=== PATIENT | female | born 1945 | race Caucasian/White ===

== ENCOUNTER 2019-06-13 12:00 | Outpatient (CLI) | payer MEDICARE, MEDICAID, SELFPAY | END 2019-06-13 12:01 | disposition home or self-care (01) | LOC: SLEEP 06-14 09:20 | PROVIDERS: Family Provider Family Medicine; PCP Family Medicine; Visit Provider Nurse Practitioner Family | DX: G47.33 Obstructive sleep apnea (adult) (pediatric) (principal) | CPT/HCPCS: G0399 ==

== ENCOUNTER 2019-09-20 20:00 | Outpatient (CLI) | payer MEDICARE, MEDICAID, SELFPAY | END 2019-09-20 20:01 | disposition home or self-care (01) | LOC: SLEEP 09-21 11:10 | PROVIDERS: Family Provider Family Medicine; PCP Family Medicine; Visit Provider Nurse Practitioner Family | DX: G47.33 Obstructive sleep apnea (adult) (pediatric) (principal) | CPT/HCPCS: 95811 ==

== ENCOUNTER 2020-01-22 09:41 | Emergency (ER) | payer MEDICARE, MEDICAID, SELFPAY ==
[2020-01-22] VITALS (14 sets, daily range): BP systolic 104–130; BP diastolic 57–83; PULSE 66–90; RESP 14–20; TEMP 36.6–37.2; O2SAT 95–995; BMI 37.3
--- NOTE | 2020-01-22 09:43 | USR_ITS ---
PROCEDURE INFORMATION: Exam: US Pelvis Complete, Transabdominal and US Pelvis, Transvaginal Exam date and time: 01/22/2020 10:46 AM Age: 74 years old Clinical indication: Other: Vaginal bleeding; Additional info: Vag bleeding TECHNIQUE: Imaging protocol: Real-time transabdominal and transvaginal pelvic ultrasound (complete) with image documentation. Transvaginal imaging was used for better evaluation of the endometrium and adnexa. COMPARISON: No relevant prior studies available. FINDINGS: Uterus/cervix: The uterus is atrophic consistent with the patient's age. Right adnexa: The right ovary is not seen. Left adnexa: The left ovary is not seen. Intraperitoneal space: No free fluid is detected. Urinary bladder: Unremarkable. Other findings: The examination is very limited due to the patient's size, medical condition and complaints of pain. Transvaginal imaging was attempted but this was nondiagnostic to the patient's inability to cooperate with the study. US/US pelvic with transvaginal IMPRESSION: 1. Limited examination due to the patient's medical condition. 2. No abnormalities were detected in the pelvis.
--- NOTE | 2020-01-22 09:54 | W.ED.FEMALGU ---
HPI - Female Genitourinary General: Chief complaint: Vaginal Bleeding Stated complaint: COVID POS; PASSING VAGINAL BLOOD CLOTS Time Seen by Provider: 01/22/20 09:43 Source: patient and EMS Mode of arrival: EMS Limitations: no limitations History of Present Illness: HPI Narrative: 74-year-old female who is here from local longterm with vaginal bleeding. States she is passing large blood clots. Patient has been slight cramping. Denies any worsening improving factors. She denies any lightheadedness. She did have a COVID positive test 1 week ago. Associated symptoms: Deny abdominal pain, headache(s) or nausea Review of Systems Const: Denies: fever(s), chills, body aches or change in appetite Eyes: Denies: blurry vision or eye discomfort ENMT: Denies: throat pain or dental pain Card: Denies: chest pain Resp: Denies: dyspnea GI: Denies: abdominal pain, nausea, vomiting or diarrhea : Reports: vaginal bleeding Musc: Denies: neck pain or back pain Skin/Breast: Denies: rash Neuro: Denies: headache(s) Psych: Denies: depression Kvng/Lymph: Denies: easy bruising All/Imm: Denies: urticaria PFSH ED PFSH: Medical History Anemia Chronic diastolic (congestive) heart failure Chronic kidney disease, stage 3, mod decreased GFR Essential hypertension Hypersomnia Hypoxemia Lymphedema Obstructive sleep apnea Paroxysmal atrial fibrillation Pulmonary hypertension Type 2 diabetes mellitus Surgical History H/O oral surgery Family History Other Family history unknown Social History Additional social history: - Tobacco use: Denies Alcohol use: Denies Drug use: Denies Physical Exam Const: COMMON NORMALS: no acute distress, patient oriented x3 and healthy appearing HENMT: COMMON NORMALS: normocephalic and atraumatic HEAD & SCALP: normocephalic and atraumatic Eye: COMMON NORMALS: Equal, round and reactive pupils present and EOMs intact bilaterally PUPIL: Yes Equal, round and reactive pupils present Neck/C-Spine: COMMON NORMALS: full ROM and supple Chest: COMMONS NORMALS: normal inspection of the chest and normal palpation of entire chest wall Resp: COMMON NORMALS: normal respiratory effort, No retractions, No use of accessory muscles and clear to auscultation bilaterally AUSCULTATION: clear to auscultation bilaterally Cardio: COMMON NORMALS: regular rate, regular rhythm and No murmurs present (Cardio) RATE: regular rate RHYTHM: regular rhythm GI: COMMON NORMALS: Normal to inspection, nondistended, normoactive bowel sounds present, Soft to palpation, non-tender and no masses PALPATION: Yes Soft to palpation Extremity: COMMON NORMALS: normal to inspection and full ROM Neuro: COMMON NORMALS: patient oriented x3, moves all extremities and no focal motor deficits Psych: COMMON NORMALS: mental status grossly normal, Normal thought process present and cooperative THOUGHT PROCESS: Normal thought process present Skin: COMMON NORMALS: no rashes or lesions noted and no wounds GENERAL SKIN EXAM: no rashes or lesions noted Course Vital Signs: Vital signs: Vital Signs Temperature 99.0 F 01/22/20 09:56 Pulse Rate 71 01/22/20 12:01 Respiratory Rate 16 01/22/20 12:01 Blood Pressure 119/67 01/22/20 12:01 Pulse Oximetry 99 01/22/20 12:01 MDM - Female MDM Narrative: Medical decision making narrative: Patient presents here with vaginal bleeding with slight anemia. Patient's blood pressure and heart rate here have been normal. Patient's CT of her abdomen showed no acute findings. Did speak to ANIMAL ASSISTANT will have her follow-up outpatient. Informed her we do not have any viral ICU beds at this time and would have to transfer her. She refuses transfer and states she just wants to go back to the longterm. I believe her anemia is more chronic than from acute blood loss. Her bleeding is slowed significantly here I feel she is stable for discharge back to the longterm. If she has any increased bleeding or low blood pressures she is to return immediately from the longterm. Lab Data: Labs: Lab Results 01/22/20 01/22/20 01/22/20 Range/Units 09:59 09:59 10:58 WBC 5.0 (4.0-10.0) 10^3/ uL RBC 2.78 L (4.1-5.3) 10^6/u L Hgb 7.6 L (11.5-15.3) g/dL Hct 25.2 L (37.0-47.0) % MCV 90.6 (81-99) fL MCH 27.3 L (28.0-34.0) pg MCHC 30.2 (30.0-36.0) g/dL RDW 14.9 (12.1-15.1) % Plt Count 185 (130-400) 10^3/c mm MPV 11.1 H (7.4-10.4) fL Neut % (Auto) 66.2 % Lymph % (Auto) 17.5 % [place] % (Auto) 12.3 % Eos % (Auto) 3.2 % Baso % (Auto) 0.4 % Neut # (Auto) 3.28 (1.8-7.7) 10^3/u L Lymph # (Auto) 0.9 (0.8-4.8) 10^3/u L [place] # (Auto) 0.6 (0.2-0.9) 10^3/u L Eos # (Auto) 0.2 (0.0-0.8) 10^3/u L Baso # (Auto) 0.0 (0.0-0.1) 10^3/u L Nucleated RBC % (a uto) 0 % Nucleated RBCs # 0.0 /100WBC Sodium 136 (136-145) mmol/L Potassium 3.9 (3.5-5.1) mmol/L Chloride 99 (98-107) mmol/L Carbon Dioxide 26 (22-29) mmol/L Anion Gap 14.9 (5-19) BUN 33 H (8-23) mg/dL Creatinine 1.7 H (0.5-0.9) mg/dL GFR Calculation Not Reportable Glucose 155 H (65-115) mg/dL Calculated Osmolal ity 292 (285-295) mOsm/k g Calcium 8.9 (8.5-10.5) mg/dL Total Bilirubin 0.7 (0.15-1.2) mg/dL AST 18 (0-32) U/L ALT 7 (0-33) U/L Alkaline Phosphata se 108 H (35-105) IU/L Total Protein 6.3 L (6.6-8.7) g/dL Albumin 3.2 L (3.5-5.2) g/dL Globulin 3.1 (1.3-4.6) g/dL Blood Type A Positive Rho(D) Type Positive Antibody Screen Negative Crossmatch See Detail Imaging Data: US: Radiologist's impression: [address] [place] [address] Ultrasound Report Signed Patient: Kory Elder Unit #: [id number] : 1945 Age/Sex: 74 / F ADM Date: 01/22/20 Loc: ER Room/Bed: Attending Dr: Ordering Provider/Ordering MD: Ciera Muñoz MD Date of Service: 01/22/20 Procedure(s): US pelvic with transvaginal Accession Number(s): [id number] Report Number: [id number] PROCEDURE INFORMATION: Exam: US Pelvis Complete, Transabdominal and US Pelvis, Transvaginal Exam date and time: 01/22/2020 10:46 AM Age: 74 years old Clinical indication: Other: Vaginal bleeding; Additional info: Vag bleeding TECHNIQUE: Imaging protocol: Real-time transabdominal and transvaginal pelvic ultrasound (complete) with image documentation. Transvaginal imaging was used for better evaluation of the endometrium and adnexa. COMPARISON: No relevant prior studies available. FINDINGS: Uterus/cervix: The uterus is atrophic consistent with the patient's age. Right adnexa: The right ovary is not seen. Left adnexa: The left ovary is not seen. Intraperitoneal space: No free fluid is detected. Urinary bladder: Unremarkable. Other findings: The examination is very limited due to the patient's size, medical condition and complaints of pain. Transvaginal imaging was attempted but this was nondiagnostic to the patient's inability to cooperate with the study. US/US pelvic with transvaginal IMPRESSION: 1. Limited examination due to the patient's medical condition. 2. No abnormalities were detected in the pelvis. CT Abd/Pel: Radiologist's impression: [address] [place] [address] Ultrasound Report Signed Patient: Kory Elder Unit #: [id number] : 1945 Age/Sex: 74 / F ADM Date: 01/22/20 Loc: ER Room/Bed: Attending Dr: Ordering Provider/Ordering MD: Ciera Muñoz MD Date of Service: 01/22/20 Procedure(s): US pelvic with transvaginal Accession Number(s): [id number] Report Number: [id number] PROCEDURE INFORMATION: Exam: US Pelvis Complete, Transabdominal and US Pelvis, Transvaginal Exam date and time: 01/22/2020 10:46 AM Age: 74 years old Clinical indication: Other: Vaginal bleeding; Additional info: Vag bleeding TECHNIQUE: Imaging protocol: Real-time transabdominal and transvaginal pelvic ultrasound (complete) with image documentation. Transvaginal imaging was used for better evaluation of the endometrium and adnexa. COMPARISON: No relevant prior studies available. FINDINGS: Uterus/cervix: The uterus is atrophic consistent with the patient's age. Right adnexa: The right ovary is not seen. Left adnexa: The left ovary is not seen. Intraperitoneal space: No free fluid is detected. Urinary bladder: Unremarkable. Other findings: The examination is very limited due to the patient's size, medical condition and complaints of pain. Transvaginal imaging was attempted but this was nondiagnostic to the patient's inability to cooperate with the study. US/US pelvic with transvaginal IMPRESSION: 1. Limited examination due to the patient's medical condition. 2. No abnormalities were detected in the pelvis. Discharge Plan Discharge Patient Disposition: Home Clinical Impression: Vaginal bleeding Condition: Stable Discharge Orders: Discharge Order (Routine); Ordered 01/22/20 Ordered By: Ciera Muñoz Referrals: Meredith Edgar MD [Primary Care Provider] - 1-3 days Discharge Diet: Advance as tolerated Discharge Activity: Resume usual activity Patient Instructions: Abnormal Uterine Bleeding Coding Level of Care Code ED Industrial Relations Representative for Chg Fwd Exam Comprehensive
[2020-01-22 10:23] LABS: Basophils % 0.4 %; Eosinophils # 0.2 10^3/uL (0.0-0.8); Eosinophils % 3.2 %; Hematocrit 25.2 % (37.0-47.0); Hemoglobin 7.6 g/dL (11.5-15.3); Lymphocytes # 0.9 10^3/uL (0.8-4.8); Lymphocytes % 17.5 %; Mean Corpuscular HGB Conc 30.2 g/dL (30.0-36.0); Mean Corpuscular Hemoglobin 27.3 pg (28.0-34.0); Mean Corpuscular Volume 90.6 fL (81-99); Mean Platelet Volume 11.1 fL (7.4-10.4); Monocytes # 0.6 10^3/uL (0.2-0.9); Monocytes % 12.3 %; Neutrophils # 3.28 10^3/uL (1.8-7.7); Neutrophils % 66.2 %; Nucleated Red Blood Cells % 0 %; Platelet Count 185 10^3/cmm (130-400); Red Blood Count 2.78 10^6/uL (4.1-5.3); Red Cell Distribution Width 14.9 % (12.1-15.1)
--- NOTE | 2020-01-22 10:37 | CTR_ITS ---
PROCEDURE INFORMATION: Exam: CT Abdomen And Pelvis With Contrast Exam date and time: 01/22/2020 10:38 AM Age: 74 years old Clinical indication: Other: Vag bleeding TECHNIQUE: Imaging protocol: Computed tomography of the abdomen and pelvis with intravenous contrast. Radiation optimization: All CT scans at this facility use at least one of these dose optimization techniques: automated exposure control; mA and/or kV adjustment per patient size (includes targeted exams where dose is matched to clinical indication); or iterative reconstruction. Contrast material: VISI 320; Contrast volume: 75 ml; Contrast route: INTRAVENOUS (IV); COMPARISON: US pelvic with transvaginal 01/22/2020 10:52 AM RADIATION DOSE METRICS: Total DLP (mGy-cm): 1607.16 FINDINGS: Tubes, catheters and devices: A neurostimulator is present in the lower back with leads extending to the sacrum. Lungs: There is mild bibasilar atelectasis. The heart is enlarged. There is calcification of the mitral annulus. Mediastinal space: Small sliding hiatal hernia. Liver: Normal. No mass. Gallbladder and bile ducts: Normal. No calcified stones. No ductal dilation. Pancreas: Normal. No ductal dilation. Spleen: Normal. No splenomegaly. Adrenals: Normal. No mass. Kidneys and ureters: Normal. No hydronephrosis. Stomach and bowel: Unremarkable. No obstruction. No mucosal thickening. Appendix: No evidence of appendicitis. Intraperitoneal space: Unremarkable. No free air. No significant fluid collection. Vasculature: Atherosclerotic aorta but no aneurysm. 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 There is no evidence of hemorrhage. Lymph nodes: Unremarkable. No enlarged lymph nodes. Urinary bladder: There is mural thickening of the urinary bladder. This is nonspecific but could indicate a cystitis. Correlation with history and physical is advised. Reproductive: The uterus is atrophic consistent with the patient's age. No adnexal masses are seen. Bones/joints: There is DJD in the spine with joint space narrowing sclerosis and osteophyte formation. Soft tissues: Unremarkable. CT/CT abdomen pelvis w con* [id number] IMPRESSION: 1. Cardiomegaly. 2. 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 3. Mural thickening of the urinary bladder might suggest cystitis. 4. No other acute abnormalities are seen in the abdomen and pelvis. Radiation Dose CTDIVOL = (mGy): DLP = 1607.16 (mGy-cm)
[2020-01-22 10:39] LABS: Alanine Aminotransferase 7 U/L (0-33); Albumin Level 3.2 g/dL (3.5-5.2); Alkaline Phosphatase 108 IU/L (35-105); Anion Gap 14.9 (5-19); Aspartate Amino Transferase 18 U/L (0-32); Blood Urea Nitrogen 33 mg/dL (8-23); Calcium 8.9 mg/dL (8.5-10.5); Carbon Dioxide 26 mmol/L (22-29); Chloride 99 mmol/L (98-107); Globulin 3.1 g/dL (1.3-4.6); Glucose 155 mg/dL (65-115); Osmolality Calculated 292 mOsm/kg (285-295); Potassium 3.9 mmol/L (3.5-5.1); Sodium 136 mmol/L (136-145); Total Bilirubin 0.7 mg/dL (0.15-1.2); Total Protein 6.3 g/dL (6.6-8.7)
[2020-01-22 10:44] LABS: Creatinine Clr Calc Pharmacy 33.7828
--- NOTE | 2020-01-22 11:09 | PC.NURSE ---
Ultrasound in room
--- NOTE | 2020-01-22 11:37 | PC.NURSE ---
Gone to Radiology
--- NOTE | 2020-01-22 11:50 | PC.NURSE ---
Left forearm 18g infiltrated while in Radiology
[2020-01-22] MEDS: iodixanol 320 mg/mL 100mL Btl IV (11:55)
[2020-01-22 13:35] LABS: Bilirubin Urine Neg (Negative); Blood Urine 3+ (Negative); Glucose Urine UA Norm (Normal); Ketones Urine Negative (Negative); Leukocyte Esterase Urine 1+ (Negative); Nitrate Urine Negative (Negative); Protein Urine 1+ (Negative); Specific Gravity, Urine 1.005 (1.005-1.030); Urine Appearance Bloody (CLEAR); Urine Color Red (Yellow); Urobilinogen Urine Norm (Negative); pH Urine 6.5 (5-7)
[2020-01-22 13:37] LABS: RBC Urine TOO NUMEROUS TO CNT /hpf (0-2); Squamous Epithelial Cell Urine 0-4 /hpf (0-5); WBC Urine 25-40 /hpf (0-5)
[2020-01-22 13:38] LABS: Add Urine Culture? Yes; Bacteria Urine 2+ /hpf
--- NOTE | 2020-01-22 15:25 | PC.NURSE ---
Report called to Darshan Phillips , gave to [facility] orders #[id number]
== END 2020-01-22 16:43 | disposition home or self-care (01) ==
PROVIDERS: Emergency Provider Emergency Medicine; PCP Family Medicine
DX: N93.9 Abnormal uterine and vaginal bleeding, unspecified (principal); I13.0 Hypertensive heart and chronic kidney disease with heart failure and stage 1 through stage 4 chronic kidney disease, or unspecified chronic kidney disease; E11.22 Type 2 diabetes mellitus with diabetic chronic kidney disease; N18.30 Chronic kidney disease, stage 3 unspecified; I50.32 Chronic diastolic (congestive) heart failure; I48.0 Paroxysmal atrial fibrillation; R10.2 Pelvic and perineal pain
CPT/HCPCS: 12345; 36430; 51702; 74177; 76830; 76856; 80053; 81001; 85025; 86850; 86900; 86920; 87077; 87086; 87186; 99284; P9016; Q9967

== ENCOUNTER 2020-01-30 16:54 | Inpatient (IN) | payer MEDICARE, MEDICAID, SELFPAY ==
[2020-01-30] VITALS (14 sets, daily range): BP systolic 87–103; BP diastolic 53–72; PULSE 18–83; RESP 15–21; TEMP 36.5–36.9; O2SAT 84–100; BMI 38.2
--- NOTE | 2020-01-30 17:02 | ECG_ITS ---
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 Measurements Intervals Sylvester Rate: 77 P: ME: -1 QRS: 108 QRSD: 112 T: -6 QT: 413 QTc: 467 Interpretive Statements ATRIAL FIBRILLATION INCOMPLETE RIGHT BUNDLE BRANCH BLOCK [90+ ms QRS DURATION, TERMINAL R IN V1/V2, 40+ ms S IN I/aVL/V4/V5/V6] Nonspecific ST-T change in the anterior leads Compared to ECG 11/24/2018 23:21:16 Incomplete right bundle-branch block now present Right-axis deviation no longer present Right bundle-branch block no longer present Electronically Signed On 01-30-2020 21:44:59 CDT by Terrance Nathan M.D. [email or web address]
--- NOTE | 2020-01-30 17:03 | XRR_ITS ---
PROCEDURE INFORMATION: Exam: XR Chest, 1 View Exam date and time: 01/30/2020 5:45 PM Age: 74 years old Clinical indication: Cough and dyspnea and shortness of breath; Additional info: Dyspnea/cough x 10 days TECHNIQUE: Imaging protocol: XR of the chest Views: 1 view. COMPARISON: [place] IV [place] [id number] 11/25/2018 3:40 PM FINDINGS: Lungs: Unremarkable. No consolidation. Pleural space: Unremarkable. No pleural effusion. No pneumothorax. Heart/Mediastinum: The cardiac silhouette is enlarged but unchanged. There is calcification of the mitral annulus. Bones/joints: Unremarkable. XR/XR chest 1V portable [id number] IMPRESSION: Stable cardiomegaly. No acute abnormality.
--- NOTE | 2020-01-30 17:07 | W.ED.GENADLT ---
Documented by User: Baljeet Parada DO 01/31/20 06:35 HPI - General Adult General: Chief complaint: Recheck/Abnormal Lab/Rx Stated complaint: ABNORMAL LAB Time Seen by Provider: 01/30/20 16:55 History of Present Illness: HPI narrative: 74-year-old female presents to the emergency room with a complaint of low hemoglobin. She came in by EMS directed here by her primary from [facility]. She has had vaginal bleeding issues in the past she was seen earlier this month and discharged back to the custodial. She was seen last month by APARTMENT MAINTENANCE WORKER with a complaint of vaginal bleeding there is a comment in the note about getting a pelvic ultrasound and just observing if the uterine stripe is less than 5 mm. Discussion the patient the potential that she may have catching that usually postmenopausal bleeding that is as heavy would be considered cancer until proven otherwise she does not want to pursue anything evidently so there was no further testing or evaluation done until recently with a sick significant blood loss. On 1010 she was here and had a CT and a pelvic ultrasound both of which were negative she was transfused and she preferred to go back to the custodial at that time. She is beginning to have heavy bleeding again she denies any abdominal pelvic pain any chest pain. Patient recently tested positive for Covid on 01 15 and was moved from the Covid isolation unit to a regular room today. Onset (ago): week(s) Severity: severe Relieving factors: none Exacerbating factors: none Associated symptoms: Deny chest pain, confusion, cough, diaphoresis, decreased appetite, dyspnea, fevers/chills, headache(s), malaise, nausea, rash, palpitations, seizures, short of breath, syncope, vomiting or weakness Treatments prior to arrival: none Review of Systems Const: Denies: malaise or diaphoresis ENMT: Denies: throat pain, ear or mastoid pain, nasal discharge or nasal congestion Card: Denies: chest pain, palpitations or syncope Resp: Denies: dyspnea GI: Denies: nausea or vomiting : Denies: flank pain, difficulty voiding, dysuria, urinary frequency or urinary urgency Skin/Breast: Denies: rash Neuro: Denies: headache(s) or confusion [facility] PFSH: Medical History Anemia Chronic diastolic (congestive) heart failure Chronic kidney disease, stage 3, mod decreased GFR Essential hypertension Hypersomnia Hypoxemia Lymphedema Obstructive sleep apnea Paroxysmal atrial fibrillation Pulmonary hypertension Type 2 diabetes mellitus Surgical History H/O oral surgery Family History Other Family history unknown Social History Additional social history: - Tobacco use: Denies Alcohol use: Denies Drug use: Denies Physical Exam Const: COMMON NORMALS: no acute distress GENERAL APPEARANCE: cooperative and comfortable HENMT: COMMON NORMALS: normocephalic, atraumatic and hearing grossly normal bilaterally HEAD & SCALP: normocephalic and atraumatic Neck/C-Spine: COMMON NORMALS: no JVD Resp: COMMON NORMALS: normal respiratory effort, No retractions, No use of accessory muscles and clear to auscultation bilaterally AUSCULTATION: clear to auscultation bilaterally Cardio: COMMON NORMALS: no JVD, regular rate, regular rhythm and No murmurs present (Cardio) RATE: regular rate RHYTHM: regular rhythm GI: COMMON NORMALS: Soft to palpation and No hepatosplenomegaly present AUSCULTATION: Yes normoactive bowel sounds PALPATION: Yes Soft to palpation, No Tenderness to palpation present (GI), No Guarding due to palpation present (GI) and Yes No hepatosplenomegaly present : OTHER: Visual inspection barrier of the perineum verifies vaginal bleeding. Rectal exam done at the same time was negative as a source for bright red blood and occult for stool was negative as well. Extremity: COMMON NORMALS: normal to inspection, capillary refill normal, no clubbing, cyanosis or edema, no calf tenderness and no pedal edema Skin: COMMON NORMALS: no rashes or lesions noted GENERAL SKIN EXAM: no rashes or lesions noted Course Vital Signs: Vital signs: Vital Signs Temperature 97.8 F 01/31/20 04:00 Pulse Rate 81 01/31/20 04:00 Respiratory Rate 17 01/31/20 04:00 Blood Pressure 94/64 01/31/20 04:00 Pulse Oximetry 94 01/31/20 04:00 MDM - General Adult MDM Narrative: Medical decision making narrative: Care transferred Dr. Muñoz at change of shift. See his note for final diagnosis and disposition. Lab Data: Labs: Lab Results 01/30/20 01/30/20 01/30/20 Range/Units 17:38 17:38 17:38 WBC 6.9 (4.0-10.0) 10^3/ uL RBC 2.03 L (4.1-5.3) 10^6/u L Hgb 5.5 L* (11.5-15.3) g/dL Hct 18.4 L* (37.0-47.0) % MCV 90.6 (81-99) fL MCH 27.1 L (28.0-34.0) pg MCHC 29.9 L (30.0-36.0) g/dL RDW 15.3 H (12.1-15.1) % Plt Count 352 (130-400) 10^3/c mm MPV 10.2 (7.4-10.4) fL Neut % (Auto) 58.6 % Lymph % (Auto) 21.3 % [place] % (Auto) 11.4 % Eos % (Auto) 7.7 % Baso % (Auto) 0.6 % Neut # (Auto) 4.02 (1.8-7.7) 10^3/u L Lymph # (Auto) 1.5 (0.8-4.8) 10^3/u L [place] # (Auto) 0.8 (0.2-0.9) 10^3/u L Eos # (Auto) 0.5 (0.0-0.8) 10^3/u L Baso # (Auto) 0.0 (0.0-0.1) 10^3/u L Nucleated RBC % (a uto) 0 % Nucleated RBCs # 0.0 /100WBC Sodium 135 L (136-145) mmol/L Potassium 4.9 (3.5-5.1) mmol/L Chloride 97 L (98-107) mmol/L Carbon Dioxide 27 (22-29) mmol/L Anion Gap 15.9 (5-19) BUN 32 H (8-23) mg/dL Creatinine 2.0 H (0.5-0.9) mg/dL GFR Calculation Not Reportable Glucose 109 (65-115) mg/dL Calculated Osmolal ity 287 (285-295) mOsm/k g Calcium 8.9 (8.5-10.5) mg/dL Total Bilirubin 0.5 (0.15-1.2) mg/dL AST 27 (0-32) U/L ALT 16 (0-33) U/L Alkaline Phosphata se 109 H (35-105) IU/L Total Protein 6.4 L (6.6-8.7) g/dL Albumin 3.4 L (3.5-5.2) g/dL Globulin 3.0 (1.3-4.6) g/dL Blood Type A Positive Rho(D) Type Positive Antibody Screen Negative Crossmatch See Detail Discharge Plan Discharge Patient Disposition: Admitted As Inpatient Admit Provider: Larissa Edmondson Clinical Impression: Postmenopausal bleeding Anemia Qualifiers: Anemia type: unspecified type Qualified Code(s): D64.9 - Anemia, unspecified Condition: Stable Referrals: Meredith Edgar MD [Primary Care Provider] - Discharge Date/Time: 01/30/20 20:49 Coding Level of Care Code ED Elementary Educator for Chg Fwd Exam Comprehensive Documented by User: Ciera Muñoz MD 01/30/20 18:46 HPI - General Adult General: Chief complaint: Recheck/Abnormal Lab/Rx Stated complaint: ABNORMAL LAB Time Seen by Provider: 01/30/20 16:55 PFSH ED PFSH: Medical History Anemia Chronic diastolic (congestive) heart failure Chronic kidney disease, stage 3, mod decreased GFR Essential hypertension Hypersomnia Hypoxemia Lymphedema Obstructive sleep apnea Paroxysmal atrial fibrillation Pulmonary hypertension Type 2 diabetes mellitus Surgical History H/O oral surgery Family History Other Family history unknown Social History Additional social history: - Tobacco use: Denies Alcohol use: Denies Drug use: Denies Course Vital Signs: Vital signs: Vital Signs Temperature 97.8 F 01/31/20 04:00 Pulse Rate 81 01/31/20 04:00 Respiratory Rate 17 01/31/20 04:00 Blood Pressure 94/64 01/31/20 04:00 Pulse Oximetry 94 01/31/20 04:00 MDM - General Adult MDM Narrative: Medical decision making narrative: Patient presents here with anemia likely from vaginal bleeding. I spoke to Dr. Urias and will admit. Will transfuse patient along with give a dose of transaminase acid. Patient has been stable here with normal vital signs. She has not been hypotensive. Lab Data: Labs: Lab Results 01/30/20 01/30/20 01/30/20 Range/Units 17:38 17:38 17:38 WBC 6.9 (4.0-10.0) 10^3/ uL RBC 2.03 L (4.1-5.3) 10^6/u L Hgb 5.5 L* (11.5-15.3) g/dL Hct 18.4 L* (37.0-47.0) % MCV 90.6 (81-99) fL MCH 27.1 L (28.0-34.0) pg MCHC 29.9 L (30.0-36.0) g/dL RDW 15.3 H (12.1-15.1) % Plt Count 352 (130-400) 10^3/c mm MPV 10.2 (7.4-10.4) fL Neut % (Auto) 58.6 % Lymph % (Auto) 21.3 % [place] % (Auto) 11.4 % Eos % (Auto) 7.7 % Baso % (Auto) 0.6 % Neut # (Auto) 4.02 (1.8-7.7) 10^3/u L Lymph # (Auto) 1.5 (0.8-4.8) 10^3/u L [place] # (Auto) 0.8 (0.2-0.9) 10^3/u L Eos # (Auto) 0.5 (0.0-0.8) 10^3/u L Baso # (Auto) 0.0 (0.0-0.1) 10^3/u L Nucleated RBC % (a uto) 0 % Nucleated RBCs # 0.0 /100WBC Sodium 135 L (136-145) mmol/L Potassium 4.9 (3.5-5.1) mmol/L Chloride 97 L (98-107) mmol/L Carbon Dioxide 27 (22-29) mmol/L Anion Gap 15.9 (5-19) BUN 32 H (8-23) mg/dL Creatinine 2.0 H (0.5-0.9) mg/dL GFR Calculation Not Reportable Glucose 109 (65-115) mg/dL Calculated Osmolal ity 287 (285-295) mOsm/k g Calcium 8.9 (8.5-10.5) mg/dL Total Bilirubin 0.5 (0.15-1.2) mg/dL AST 27 (0-32) U/L ALT 16 (0-33) U/L Alkaline Phosphata se 109 H (35-105) IU/L Total Protein 6.4 L (6.6-8.7) g/dL Albumin 3.4 L (3.5-5.2) g/dL Globulin 3.0 (1.3-4.6) g/dL Blood Type A Positive Rho(D) Type Positive Antibody Screen Negative Crossmatch See Detail Discharge Plan Discharge Patient Disposition: Admitted As Inpatient Admit Provider: Larissa Edmondson Clinical Impression: Postmenopausal bleeding Anemia Qualifiers: Anemia type: unspecified type Qualified Code(s): D64.9 - Anemia, unspecified Condition: Stable Referrals: Meredith Edgar MD [Primary Care Provider] - Discharge Date/Time: 01/30/20 20:49 Coding Level of Care Code ED Elementary Educator for g Fwd Exam Comprehensive
[2020-01-30 17:57] LABS: Alanine Aminotransferase 16 U/L (0-33); Albumin Level 3.4 g/dL (3.5-5.2); Alkaline Phosphatase 109 IU/L (35-105); Aspartate Amino Transferase 27 U/L (0-32); Blood Urea Nitrogen 32 mg/dL (8-23); Calcium 8.9 mg/dL (8.5-10.5); Carbon Dioxide 27 mmol/L (22-29); Chloride 97 mmol/L (98-107); Glucose 109 mg/dL (65-115); Osmolality Calculated 287 mOsm/kg (285-295); Sodium 135 mmol/L (136-145); Total Bilirubin 0.5 mg/dL (0.15-1.2); Total Protein 6.4 g/dL (6.6-8.7)
[2020-01-30 17:59] LABS: Anion Gap 15.9 (5-19)
[2020-01-30 18:00] LABS: Potassium 4.9 mmol/L (3.5-5.1)
[2020-01-30 18:11] LABS: Basophils % 0.6 %; Eosinophils # 0.5 10^3/uL (0.0-0.8); Eosinophils % 7.7 %; Lymphocytes # 1.5 10^3/uL (0.8-4.8); Lymphocytes % 21.3 %; Mean Corpuscular HGB Conc 29.9 g/dL (30.0-36.0); Mean Corpuscular Hemoglobin 27.1 pg (28.0-34.0); Mean Corpuscular Volume 90.6 fL (81-99); Mean Platelet Volume 10.2 fL (7.4-10.4); Monocytes # 0.8 10^3/uL (0.2-0.9); Monocytes % 11.4 %; Neutrophils # 4.02 10^3/uL (1.8-7.7); Neutrophils % 58.6 %; Nucleated Red Blood Cells % 0 %; Platelet Count 352 10^3/cmm (130-400); Red Blood Count 2.03 10^6/uL (4.1-5.3); Red Cell Distribution Width 15.3 % (12.1-15.1); White Blood Count 6.9 10^3/uL (4.0-10.0)
[2020-01-30 18:12] LABS: Hematocrit 18.4 % (37.0-47.0)
[2020-01-30 18:15] LABS: Hemoglobin 5.5 g/dL (11.5-15.3)
[2020-01-31] VITALS (11 sets, daily range): BP systolic 80–100; BP diastolic 51–78; PULSE 72–87; RESP 16–22; TEMP 36.4–36.9; O2SAT 89–99
--- NOTE | 2020-01-31 02:38 | PC.NURSE ---
two full briefs since admitted
[2020-01-31] MEDS: sodium chloride 0.9% (100 ml) 100 ML (03:00)
[2020-01-31 05:04] LABS: Basophils # 0.1 10^3/uL (0.0-0.1); Basophils % 1.2 %; Eosinophils # 0.6 10^3/uL (0.0-0.8); Eosinophils % 8.7 %; Hemoglobin 8.3 g/dL (11.5-15.3); Lymphocytes # 1.3 10^3/uL (0.8-4.8); Lymphocytes % 18.3 %; Mean Corpuscular HGB Conc 31.9 g/dL (30.0-36.0); Mean Corpuscular Hemoglobin 28.7 pg (28.0-34.0); Mean Platelet Volume 10.5 fL (7.4-10.4); Monocytes # 0.9 10^3/uL (0.2-0.9); Monocytes % 12.2 %; Neutrophils # 4.24 10^3/uL (1.8-7.7); Neutrophils % 58.9 %; Nucleated Red Blood Cells % 0 %; Platelet Count 332 10^3/cmm (130-400); Red Blood Count 2.89 10^6/uL (4.1-5.3); Red Cell Distribution Width 14.7 % (12.1-15.1); White Blood Count 7.2 10^3/uL (4.0-10.0)
--- NOTE | 2020-01-31 09:49 | PC.CHAP ---
Pastoral Care Encounter/Spiritual Assessment Type of Contact [] Declined cst visit [] Patient/Family/Request visit [] Outpatient visit [] Follow-up visit [] Physician referral [] Code/Alert [x] Routine visit [] Staff referral [] Actively dying [] Patient sleeping [] Family support [] [] Out of room [] Palliative care [] [] Receiving care in room [] Pre-surgical visit [] Trauma [] Long length of stay [] ICU visit [] Other: Relational/Emotional Strength [] Patient feels connected with others/family/visitors/staff [] Distress [x] Loneliness/isolation [] Abandonment Spirituality of Patient [x] Person of Niki [] Attends Anabaptism of their Niki [] Believes in Prayer [] Reads Bible or Buddhism materials [] There are Spiritual issues to be addressed Oracle Application Architect Interventions [x] Prayer [] Active listening [] Non-anxious presence [] Spiritual/emotional support [] Crisis/trauma care [] Spiritual counseling [] Bereavement support [] Provided bereavement packet [] Provided Bible/devotional materials [] Provided toy/stuffed animal, coloring book to patient or family member [] Provided Communion [] Anointing/Leonard [] Salvation [x] Completed spiritual assessment [] Other: Impact on Illness or Injury [] Angry [] Fearful [] Anxious [] Often cries [] Exhaustion [] Unable to work [] Unable to attend protestant [] Unable to walk/stand [] Unable to read [] Unable to drive [] Unable to eat/drink [] Unable to sleep [] Unable to be with family [] Patient intubated [] Other: Summary patient not feeling well problems talking Time spent with patient 10 min
--- NOTE | 2020-01-31 12:43 | US_ITS ---
WS: [id number] ULTRASOUND PELVIS TECHNIQUE: Transvaginal. CLINICAL INFORMATION: postmenopausal bleeding LMP: Menopause : No. COMPARISON: January 22, 2020 FINDINGS/IMPRESSION: Transvaginal examination was attempted after patient's consent. Despite multiple attempts, including several different ultrasound technicians, patient could not tole rate transvaginal study due to positioning and pain. No diagnostic images were obtained. Patient's nu rse was present for the duration of the examination.
--- NOTE | 2020-01-31 12:57 | P.HP_ITS ---
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 She came in by EMS directed here by her primary from [facility]. She has had vaginal bleeding issues in the past she was seen earlier this month and discharged back to the residential. She was seen last month at the clinic with a complaint of vaginal bleeding there is a comment in the note about getting a pelvic ultrasound and just observing if the uterine stripe is less than 5 mm. Discussion the patient the potential that she may have catching that usually postmenopausal bleeding that is as heavy would be considered cancer until proven otherwise she did not want to pursue anything at that time and no further evaluation done untilnow with significant blood loss. She had a CT and a pelvic ultrasound both of which were negative she was transfused and she preferred to go back to the residential at that time. She is beginning to have heavy bleeding again she denies any abdominal pelvic pain any chest pain. A transvagin al US was not performed and the reported abdominal US does not report any measurements needed for determine management. Review of Systems Const: Denies: fever(s), chills, body aches or change in appetite Eyes: Denies: blurry vision or eye discomfort ENMT: Denies: throat pain or dental pain Card: Denies: chest pain Resp: Denies: dyspnea GI: Denies: abdominal pain, nausea, vomiting or diarrhea : Reports: vaginal bleeding Musc: Denies: neck pain or back pain Skin/Breast: Denies: rash Neuro: Denies: headache(s) Psych: Denies: depression Kvng/Lymph: Denies: easy bruising All/Imm: Denies: urticaria Medications/Allergies Home Medications Medication Instructions Recorded Confirmed Last Taken Type bisacodyl [Dulcolax (bisacodyl)] 10 mg [place] DAILY PRN 01/31/20 01/31/20 Unknown History fluticasone propionate [Flonase 1 spray INTRANASAL QID PRN 01/31/20 01/31/20 Unk nown History Allergy Relief] lovastatin 20 mg PO QPM 01/31/20 01/31/20 Unknown History sodium chloride [Saline Nasal] 1 spray INTRANASAL QID PRN 01/31/20 01/31/20 Unknown History Allergies Allergy/AdvReac Type Severity Reaction Status Date / Time meperidine [From Demerol] Allergy Intermediate unknown Verified 12/13/19 15:40 oxybutynin Allergy Mild Unknown Verified 12/13/19 15:40 pentazocine Allergy Mild Unknown Verified 12/13/19 15:40 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 PFSH: Medical History Anemia Chronic diastolic (congestive) heart failure Chronic kidney disease, stage 3, mod decreased GFR Essential hypertension Hypersomnia Hypoxemia Lymphedema Obstructive sleep apnea Paroxysmal atrial fibrillation Pulmonary hypertension Type 2 diabetes mellitus Surgical History H/O oral surgery Family History Other Family history unknown Social History Additional social history: - Tobacco use: Denies Alcohol use: Denies Drug use: Denies History History History 1 Term 1 Miscarriages/Ectopic 0 0 Living Children 1 Vitals/I&O/Wt Last Vital Signs Temp 98.4 F 01/31/20 15:26 Pulse 78 01/31/20 15:26 Resp 16 01/31/20 15:26 BP 93/64 01/31/20 15:26 Pulse Ox 89 L 01/31/20 15:26 01/31/20 01/31/20 01/31/20 06:59 14:59 22:59 Intake Total 350 / 810 Balance 350 / 810 Weight last 48 hrs Weight 104.326 kg Physical Exam Narrative: EXAM NARRATIVE: Const: COMMON NORMALS: no acute distress, patient oriented x3 and healthy appearing HENMT: COMMON NORMALS: normocephalic and atraumatic HEAD & SCALP: normocephalic and atraumatic Eye: COMMON NORMALS: Equal, round and reactive pupils present and EOMs intact bilaterally PUPIL: Yes Equal, round and reactive pupils present Neck/C-Spine: COMMON NORMALS: full ROM and supple Chest: COMMONS NORMALS: normal inspection of the chest and normal palpation of entire chest wall Resp: COMMON NORMALS: normal respiratory effort, No retractions, No use of accessory muscles and clear to auscultation bilaterally AUSCULTATION: clear to auscultation bilaterally Cardio: COMMON NORMALS: regular rate, regular rhythm and No murmurs present (Cardio) RATE: regular rate RHYTHM: regular rhythm GI: COMMON NORMALS: Normal to inspection, nondistended, normoactive bowel sounds present, Soft to palpation, non-tender and no masses PALPATION: Yes Soft to palpation Extremity: COMMON NORMALS: normal to inspection and full ROM Neuro: COMMON NORMALS: patient oriented x3, moves all extremities and no focal motor deficits Psych: COMMON NORMALS: mental status grossly normal, Normal thought process present and cooperative THOUGHT PROCESS: Normal thought process present Skin: COMMON NORMALS: no rashes or lesions noted and no wounds GENERAL SKIN EXAM: no rashes or lesions noted Data : 01/31/20 04:05 01/30/20 17:38 A&P Assessment and plan (1) Postmenopausal bleeding: A number of conditions can cause abnormal bleeding during the menopause. Women who take hormone therapy may experience cyclical bleeding. Any other bleeding that occurs during menopause is abnormal and should be investigated. Causes of abnormal bleeding during menopause include: Atrophy or excessive thinning of the tissue lining the vagina and uterus, caused by low hormone levels, Cancer or precancerous changes (hyperplasia) of the uterine lining, Polyps or fibroids, Infection of the uterus, Use of blood thinners or anticoagulants, Side effects of radiation therapy. An endometrial biopsy was recommended and the patient was counseled regarding the procedure and the need for a transvaginal US to assess endometrial lining before biopsy. She agrre to have a transvaginal US. Transvaginal US ordered. Status: Acute Attestations Medical Necessity Statement*: In my professional opinion per admitting diagnosis Coding Level of Care Code Acute [facility] Diagnoses Postmenopausal bleeding N95.0
--- NOTE | 2020-01-31 15:04 | PC.NURSE ---
Notified Dr. valente office that Dr. Valente is primary physician on this patient.
--- NOTE | 2020-01-31 15:27 | PC.NURSE ---
I reported the low 02 level to the nurse. 89%
[2020-01-31 22:01] LABS: Hematocrit 25.6 % (37.0-47.0)
[2020-02-01] VITALS (13 sets, daily range): BP systolic 91–135; BP diastolic 55–87; PULSE 76–94; RESP 16–20; TEMP 36.5–37.1; O2SAT 92–96
[2020-02-01] MEDS: sodium chloride 0.9% (100 ml) 100 ML (06:08)
[2020-02-01 08:04] LABS: Hematocrit 30.3 % (37.0-47.0); Hemoglobin 9.4 g/dL (11.5-15.3)
--- NOTE | 2020-02-01 14:20 | PC.NURSE ---
Dr. Urias at bedside states that patient will be NPO at midnight for a DNC tomorrow morning.
--- NOTE | 2020-02-01 14:22 | P.PN_ITS ---
Subjective Subjective: Interval history: 74 y/o female with postmenopausal bleeding post blood transfusions. Vitals/I&O/Wt Last Vital Signs Temp 97.7 F 02/01/20 11:09 Pulse 88 02/01/20 11:09 Resp 16 02/01/20 11:09 BP 135/87 02/01/20 11:09 Pulse Ox 96 02/01/20 11:09 01/31/20 02/01/20 02/01/20 22:59 06:59 14:59 Intake Total 100 / 100 350 / 450 200 / 200 Balance 100 / 100 350 / 450 200 / 200 Weight last 48 hrs Weight 104.326 kg Physical Exam Narrative: EXAM NARRATIVE: Const: COMMON NORMALS: no acute distress, patient oriented x3 and healthy appearing HENMT: COMMON NORMALS: normocephalic and atraumatic HEAD & SCALP: normocephalic and atraumatic Eye: COMMON NORMALS: Equal, round and reactive pupils present and EOMs intact bilaterally PUPIL: Yes Equal, round and reactive pupils present Neck/C-Spine: COMMON NORMALS: full ROM and supple Chest: COMMONS NORMALS: normal inspection of the chest and normal palpation of entire chest wall Resp: COMMON NORMALS: normal respiratory effort, No retractions, No use of accessory muscles and clear to auscultation bilaterally AUSCULTATION: clear to auscultation bilaterally Cardio: COMMON NORMALS: regular rate, regular rhythm and No murmurs present (Cardio) RATE: regular rate RHYTHM: regular rhythm GI: COMMON NORMALS: Normal to inspection, nondistended, normoactive bowel sounds present, Soft to palpation, non-tender and no masses PALPATION: Yes Soft to palpation Extremity: COMMON NORMALS: normal to inspection and full ROM Neuro: COMMON NORMALS: patient oriented x3, moves all extremities and no focal motor deficits Psych: COMMON NORMALS: mental status grossly normal, Normal thought process present and cooperative THOUGHT PROCESS: Normal thought process present Skin: COMMON NORMALS: no rashes or lesions noted and no wounds GENERAL SKIN EXAM: no rashes or lesions noted Data : 02/01/20 07:22 01/30/20 17:38 A&P Assessment and plan (1) Postmenopausal bleeding: The patient is S/P blood transfusion. Pt counseled regarding postmenopausal bleeding and since she has not been able to tolerate a transvaginal US to assess endometriosis lining an endometriosis tissue sampling/biopsy is indicated and recommended to properly evaluate the postmenopausal bleeding to rule out endometriosis malignancy. The patient was counseled regarding a D&C, risk and complications and agree to have the procedure. Status: Acute Attestations Medical Necessity Statement*: In my professional opinion per admitting diagnosis. Coding Level of Care Code Acute Box Toe Flanger Stitchdowns for g Fwd Diagnoses Postmenopausal bleeding N95.0
--- NOTE | 2020-02-01 15:22 | PC.NURSE ---
Dr. Urias notified that surgery will be at 08:15 in the morning.
[2020-02-01 17:09] LABS: Anion Gap 15.5 (5-19); Blood Urea Nitrogen 25 mg/dL (8-23); Calcium 8.7 mg/dL (8.5-10.5); Carbon Dioxide 26 mmol/L (22-29); Chloride 100 mmol/L (98-107); Glucose 91 mg/dL (65-115); Osmolality Calculated 290 mOsm/kg (285-295); Potassium 3.5 mmol/L (3.5-5.1); Sodium 138 mmol/L (136-145)
--- NOTE | 2020-02-01 18:04 | P.CONIM_ITS ---
Providers/Reason For Consult Consulting Physican/Specialty*: Hospitalist Reason for Consult*: Pre-surgical evaluation. Attending Physician: Helder Urias MD Primary Care Provider: Meredith Edgar MD History of Present Illness History of Present Illness Kory Elder is a 74 year old lady, non-ambulatory for close to a year, with chronic diastolic CHF, possibly severe pulmonary hypertension, chronically on oxygen between 2-4 L by nasal cannula, THANH, with history of diabetes, chronic kidney disease, HTN, chronic anemia, other comorbidities was admitted for assessment management of recurrent vaginal bleeding postmenopausally, acute blood loss anemia requiring transfusion. She was transfused with 3 units PRBC. Unfortunately transvaginal ultrasound could not be performed. For additional evaluation and to exclude malignancy gynecology service and her are planning for additional evaluation and treatment by D&C. She reports that apart from the recurrent bleeding she has been in usual state of health. Denies being more short of breath. Is doing well on baseline oxygen by nasal cannula. Denies any chest pain or pressure. Has had no dizziness, presyncope, fever, chills, nausea, vomiting or diarrhea. She reports intermittent lower abdominal cramps like she is going to pass a clot , and at that time sometimes feels like she needs to defecate. She denies any dysuria, although I do see a positive urine culture for E. coli on 01/21. She does not remember receiving any treatment for it, and half-way has no record of her receiving any antibiotic. She says she otherwise is feeling good and denies any complaints. She states that she has not walked at half-way, and has not been walking for close to about a year. Mostly stays in bed, gets around in a wheelchair. She states that in case she cannot make her own decisions that her son Gerry should have power of deputy attorney general of healthcare paperwork and she would like him to make decisions on her behalf if this were needed. Review of Systems Const: Denies: fever(s), chills, body aches, change in appetite, malaise or diaphoresis Eyes: Denies: blurry vision or eye discomfort ENMT: Denies: throat pain, dental pain, ear or mastoid pain, nasal discharge or nasal congestion Card: Denies: chest pain, palpitations, edema, syncope or orthopnea Resp: Denies: dyspnea, productive cough, non-productive cough or change in phlegm color GI: Denies: abdominal pain, nausea, vomiting or diarrhea : Reports: vaginal bleeding; Denies: flank pain, difficulty voiding, dysuria, urinary frequency or urinary urgency Musc: Denies: neck pain, back pain or joint redness Skin/Breast: Denies: rash Neuro: Denies: headache(s), weakness in extremities, dizziness, vertigo or confusion Psych: Denies: depression Kvng/Lymph: Reports: easy bruising and other (He is off anticoagulation) All/Imm: Denies: urticaria Meds/Allergies Home Medications and Allergies Home Medications Medication Instructions Recorded Confirmed Last Taken Type bisacodyl [Dulcolax (bisacodyl)] 10 mg [place] DAILY PRN 01/31/20 01/31/20 Unknown History fluticasone propionate [Flonase 1 spray INTRANASAL QID PRN 01/31/20 01/31/20 Unknown History Allergy Relief] lovastatin 20 mg PO QPM 01/31/20 01/31/20 Unknown History sodium chloride [Saline Nasal] 1 spray INTRANASAL QID PRN 01/31/20 01/31/20 Unknown History Allergies Allergy/AdvReac Type Severity Reaction Status Date / Time meperidine [From Demerol] Allergy Intermediate unknown Verified 12/13/19 15:40 oxybutynin Allergy Mild Unknown Verified 12/13/19 15:40 pentazocine Allergy Mild Unknown Verified 12/13/19 15:40 PFSH Acute PFSH: Medical History Anemia Chronic diastolic (congestive) heart failure Chronic kidney disease, stage 3, mod decreased GFR Essential hypertension Hypersomnia Hypoxemia Lymphedema Obstructive sleep apnea Paroxysmal atrial fibrillation Pulmonary hypertension Type 2 diabetes mellitus Surgical History H/O oral surgery Family History Other Family history unknown Social History Housing: Retirement Marital status: / Additional social history: - Tobacco use: Denies Alcohol use: Denies Drug use: Denies Dietary Habits: Current diet type/program: regular Vitals/I&O/Wt Last Vital Signs Temp 97.9 F 02/01/20 15:13 Pulse 83 02/01/20 15:13 Resp 16 02/01/20 15:13 BP 91/55 02/01/20 15:13 Pulse Ox 92 02/01/20 15:13 02/01/20 02/01/20 02/01/20 06:59 14:59 22:59 Intake Total 350 / 450 200 / 200 Balance 350 / 450 200 / 200 Physical Exam Const: COMMON NORMALS: no acute distress and patient oriented x3 NUTRITIONAL APPEARANCE: obese HENMT: COMMON NORMALS: oropharynx normal OTHER: NC in place Neck/C-Spine: COMMON NORMALS: no JVD Resp: COMMON NORMALS: normal respiratory effort and clear to auscultation bilaterally AUSCULTATION: clear to auscultation bilaterally Cardio: COMMON NORMALS: no JVD, regular rhythm, S1 normal heart sound present, S2 normal heart sound present and No murmurs present (Cardio) RHYTHM: regular rhythm HEART SOUNDS: S1 normal heart sound present and S2 normal heart sound present GI: COMMON NORMALS: Normal to inspection, nondistended, normoactive bowel sounds present, Soft to palpation and non-tender PALPATION: Yes Soft to palpation Extremity: COMMON NORMALS: no joint enlargement and no pedal edema Neuro: COMMON NORMALS: patient oriented x3 and moves all extremities Skin: COMMON NORMALS: no rashes or lesions noted GENERAL SKIN EXAM: no rashes or lesions noted A&P Assessment and plan (1) Postmenopausal bleeding: With plans for D&C tomorrow. She understands the risks and benefits. She would like to proceed. She understands that her cardiovascular risk is a little bit higher than average. By RCRI 30-day mortality is around 6%. Requested BNP. Follow with daily troponin. She understands alternatives, but due to risk of recurrent bleeding, life-threatening bleeding, possibility of undiagnosed condition, possibly malignancy she would like to proceed with evaluation/treatment. She does have a number of underlying chronic medical conditions including chronic diastolic congestive heart failure, chronic kidney disease stage III, paroxysmal atrial fibrillation, currently not on anticoagulation due to acute bleeding, diabetes, obstructive sleep apnea, hypertension, and a number of other conditions, however, she mostly states has been at baseline state of health. She is not in decompensated heart failure. Oxygenation is at baseline. She is no more short of breath than usual. She is normally on 2-4 L oxygen by nasal cannula. Would proceed with usual cautions. Continue SCD for DVT prophylaxis. Monitor oxygenation. Conservative fluid management. Discussed with her also regarding acute kidney injury, appears creatinine today somewhat better at 1.5. Avoid nephrotoxins, hypotension. Noted also appears had urinary tract infection on 01/21 with E. coli 50-60,000 CFU growing in urine. She does not remember receiving treatment, and does not appear there is record of antibiotic treatment at the half-way. Will request repeat UA. She is currently not particularly symptomatic apart from having some lower abdominal cramps, feeling like she is about to pass a clot. 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 Status: Acute (2) Chronic diastolic (congestive) heart failure: Currently compensated. Status: Acute (3) Pulmonary hypertension: Noted, possibly severe. Status: Acute (4) Paroxysmal atrial fibrillation: Currently slow ventricular response, heart rates in the 80s. Will request cardiac monitoring. Status: Acute (5) Obstructive sleep apnea: Will request for nightly CPAP which she uses at the half-way. Status: Acute (6) Chronic kidney disease, stage 3, mod decreased GFR: Status: Acute (7) Essential hypertension: Status: Acute (8) Type 2 diabetes mellitus: She denies currently being on insulin. Continue consistent carbohydrate diet. Monitor glucose. Low-dose sliding scale. Status: Acute Additional A&P Information Other chronic comorbidities Nonambulatory at baseline Consult Attestations Medical Necessity Statement: Continue admission for assessment management of recurrent vaginal bleeding and postmenopausal lady requiring additional evaluation and treatment in the setting of multiple chronic medical comorbidities. Coding Level of Care Code Acute Credit Processor for Chg Fwd Diagnoses Postmenopausal bleeding N95.0 Chronic diastolic (congestive) heart failure I50.32 Pulmonary hypertension I27.20 Paroxysmal atrial fibrillation I48.0 Obstructive sleep apnea G47.33 Chronic kidney disease, stage 3, mod decreased GFR N18.3 Essential hypertension I10 Type 2 diabetes mellitus E11.9
--- NOTE | 2020-02-01 18:38 | PC.NURSE ---
End of shift report Patient is incontinent of bowel and bladder. Patient has had minimal bleeding today. Patient will be NPO at Midnight for a D&C tomorrow. Patient is alert. Patient is a Q 2 turn. Consent is signed in chart. Patient needs a urine
[2020-02-01 20:16] LABS: NT Pro B Type Natriuretic Pept 5097 pg/mL (0-450); Troponin T (5th) Once 81 ng/L (0-10)
[2020-02-02] VITALS (21 sets, daily range): BP systolic 89–123; BP diastolic 47–78; PULSE 64–89; RESP 12–20; TEMP 36.3–36.9; O2SAT 90–100
--- NOTE | 2020-02-02 06:43 | ANES.PREANE2 ---
Pre-Anesthetic Assessment Pre-Anesthetic Assessment: Height/Weight: Height 1.65 m Weight 104.326 kg Temp Pulse Resp BP Pulse Ox 97.6 F 77 20 H 94/60 93 02/02/20 04:00 02/02/20 04:00 02/02/20 04:00 02/02/20 04:00 02/02/20 04:00 Preop Diagnosis: postmenopausal bleeding Proposed Procedure: Operation Date: 02/02/20 07:00 Proposed Procedures p Dilation And Curettage (D&C)(Not Applicable) - Helder Urias MD Was Beta Mynor taken within 24 hours: N/A Last intake: 01/31 Social: Social History: No alcohol and No tobacco Exam: Pre-Anes Outpt Exam: alert, oriented x 3, clear to auscultation bilaterally and regular rate & rhythm Airway: Submandibular: WNL Cervical ROM: WNL MP: 2 Dentition: False (top) and Other (poor) Pulmonary: Pulmonary: COPD (oxygen 2-4L) and Sleep apnea (cpap) CV/HEM: CV/HEM: Afib, CHF (ef 58% grade 3 Diastolic dysfunction. pulmonary htn. ) and HTN : : UTI Hepatic: Hepatic: None reported GI: GI: None reported Metabolic: Metabolic: DM and Morbid obesity Musc/skel: Musc/skel: Weakness (wheelchair bound.) Neuropsych: Neuropsych: None reported Anesthetic Plan: ASA status: 4 Anesthesia: General Risk of > 500 ml blood loss (7ml/kg in children): Yes, adequate IV access and fluids planned (got 3PRBC already. WIll order some backup PRBC. ) PFSH Anesthesia PFSH: Medical History Anemia Chronic diastolic (congestive) heart failure Chronic kidney disease, stage 3, mod decreased GFR Essential hypertension Hypersomnia Hypoxemia Lymphedema Obstructive sleep apnea Paroxysmal atrial fibrillation Pulmonary hypertension Type 2 diabetes mellitus Surgical History H/O oral surgery Family History Other Family history unknown Social History Housing: Detention Marital status: / Additional social history: - Tobacco use: Denies Alcohol use: Denies Drug use: Denies Data Anesthesia CBC & Chem 7: 02/01/20 07:22 02/01/20 07:22 Other Labs: Laboratory Results - last 48 hr 01/30/20 01/31/20 02/01/20 17:38 21:56 07:22 Hgb 8.0 L 9.4 L Hct 25.6 L 30.3 L Sodium Potassium Chloride Carbon Dioxide Anion Gap BUN Creatinine GFR Calculation Glucose Calculated Osmolality Calcium Troponin T Gen 5 ng/L NT-Pro-B Natriuret Pep Blood Type A Positive Rho(D) Type Positive Antibody Screen Negative Crossmatch See Detail 02/01/20 02/01/20 02/01/20 07:22 17:40 17:40 Hgb Hct Sodium 138 Potassium 3.5 Chloride 100 Carbon Dioxide 26 Anion Gap 15.5 BUN 25 H Creatinine 1.5 H GFR Calculation Not Reportable Glucose 91 Calculated Osmolality 290 Calcium 8.7 Troponin T Gen 5 ng/L 81 H NT-Pro-B Natriuret Pep 5097 H Blood Type Rho(D) Type Antibody Screen Crossmatch Cardiac Studies: No Data to Display
[2020-02-02] MEDS: sodium chloride 0.9% 1,000 ML 30 ML IV (06:56)
--- NOTE | 2020-02-02 07:25 | W.PM.OPSUD ---
Surgery/Procedure H&P Update DATE OF PROCEDURE: February 02, 2020 DATE H&P PERFORMED: 01/31/20 H&P UPDATE INFORMATION: I have reviewed H&P completed within last 30 days, I have examined patient prior to procedure and No changes to prior documentation PREOP DIAGNOSIS: postmenopausal bleeding PLANNED PROCEDURE: Operation Date: 02/02/20 07:00 Proposed Procedures p Dilation And Curettage (D&C)(Not Applicable) - Helder Urias MD
--- NOTE | 2020-02-02 08:05 | PM.OP ---
Operative Report Date of procedure: February 02, 2020 Pre-op Diagnosis: postmenopausal bleeding Post-op diagnosis: same Procedure Done: Dilation and curettage Specimens removed/disposition: Endometrial curettings Surgeon: Helder Urias MD Anesthesia: General Estimated blood loss (mL): 10 IV fluids (mL): 500 Condition: stable Disposition: PACU Brief History: 74-year-old female with postmenopausal bleeding admitted from the emergency room for blood transfusion she was been transfused 3 units of packed red blood cell. Treated with tranexamic acid. Transvaginal ultrasound was unable to be obtained to the patient uncomfortableness. Procedure: After informed consent, the patient was taken to the Operating Room where general anesthesia was administered. The patient was examined under anesthesia and found to have a normal uterus with normal adnexa. She was placed in the dorsal lithotomy position and prepped and draped in sterile fashion. A sterile weighted speculum was placed in the patient?s vagina. A single-tooth tenaculum was then applied to the cervix. The uterus was then gently sounded to 70 cm and a curette was advanced gently to the uterine fundus and endometrial tissue emptied with sharp curettage was performed until a gritty texture was noted. There was minimal bleeding noted and the tenaculum was removed with good hemostasis noted. The patient tolerated the procedure well. The patient was taken to the recovery area in stable condition.
--- NOTE | 2020-02-02 08:45 | PM.PACU ---
PACU note Post-Anesthesia Exam: awake and vital signs stable Disposition: admitted
--- NOTE | 2020-02-02 09:08 | DCPLANNER ---
Pg 2 of IM updated and reviewed with pt. No questions, copy provided.
[2020-02-02] MEDS: ketorolac 30 mg/mL INJ IVP ×2 (10:43→16:26)
[2020-02-02] MEDS: docusate sodium 100 mg Capsule PO ×2 (10:43→17:52)
[2020-02-02 10:47] LABS: Glucose Point of Care 119 mg/dL (70-110)
[2020-02-02 13:37] LABS: Basophils # 0.1 10^3/uL (0.0-0.1); Basophils % 1.1 %; Eosinophils # 0.3 10^3/uL (0.0-0.8); Eosinophils % 4.5 %; Hematocrit 33.1 % (37.0-47.0); Hemoglobin 10.2 g/dL (11.5-15.3); Lymphocytes # 1.2 10^3/uL (0.8-4.8); Lymphocytes % 15.5 %; Mean Corpuscular HGB Conc 30.8 g/dL (30.0-36.0); Mean Corpuscular Hemoglobin 28.7 pg (28.0-34.0); Mean Platelet Volume 10.5 fL (7.4-10.4); Monocytes # 0.8 10^3/uL (0.2-0.9); Monocytes % 11.1 %; Neutrophils # 4.98 10^3/uL (1.8-7.7); Neutrophils % 67.3 %; Nucleated Red Blood Cells % 0 %; Platelet Count 374 10^3/cmm (130-400); Red Blood Count 3.56 10^6/uL (4.1-5.3); Red Cell Distribution Width 15.3 % (12.1-15.1); White Blood Count 7.4 10^3/uL (4.0-10.0)
[2020-02-02 15:07] LABS: Alanine Aminotransferase 10 U/L (0-33); Alkaline Phosphatase 93 IU/L (35-105); Anion Gap 16.3 (5-19); Aspartate Amino Transferase 19 U/L (0-32); Blood Urea Nitrogen 22 mg/dL (8-23); Calcium 8.7 mg/dL (8.5-10.5); Carbon Dioxide 24 mmol/L (22-29); Chloride 100 mmol/L (98-107); Globulin 2.8 g/dL (1.3-4.6); Glucose 145 mg/dL (65-115); Osmolality Calculated 290 mOsm/kg (285-295); Potassium 3.3 mmol/L (3.5-5.1); Sodium 137 mmol/L (136-145); Total Bilirubin 0.8 mg/dL (0.15-1.2); Total Protein 5.8 g/dL (6.6-8.7)
[2020-02-02 15:08] LABS: Troponin T (5th) Once 81 ng/L (0-10)
[2020-02-02 16:09] LABS: Add Urine Microscopic? YES; Bilirubin Urine Neg (Negative); Blood Urine 3+ (Negative); Glucose Urine UA Norm (Normal); Ketones Urine Negative (Negative); Leukocyte Esterase Urine 2+ (Negative); Nitrate Urine Positive (Negative); Protein Urine 1+ (Negative); Urine Appearance Cloudy (CLEAR); Urine Color Yellow (Yellow); Urobilinogen Urine Norm (Negative); pH Urine 5 (5-7)
--- NOTE | 2020-02-02 16:58 | P.PN_ITS ---
Subjective Subjective: Interval history: She is doing well after her D&C. Denies any pain. Denies any discomfort. She is awake and alert. She is doing well on her usual oxygen. No chest pain or pressure. Vitals/I&O/Wt Last Vital Signs Temp 97.7 F 02/02/20 09:50 Pulse 71 02/02/20 11:38 Resp 18 02/02/20 11:38 BP 104/63 02/02/20 09:50 Pulse Ox 98 02/02/20 11:38 02/02/20 02/02/20 02/02/20 06:59 14:59 22:59 Intake Total 360 / 360 Output Total Balance 350 / 350 Physical Exam Const: COMMON NORMALS: no acute distress and patient oriented x3 NUTRITIONAL APPEARANCE: obese HENMT: COMMON NORMALS: oropharynx normal OTHER: NC in place Awake, alert. Calm. Neck/C-Spine: COMMON NORMALS: no JVD Resp: COMMON NORMALS: normal respiratory effort and clear to auscultation bilaterally AUSCULTATION: clear to auscultation bilaterally Cardio: COMMON NORMALS: no JVD, regular rhythm, S1 normal heart sound present, S2 normal heart sound present and No murmurs present (Cardio) RHYTHM: regular rhythm HEART SOUNDS: S1 normal heart sound present and S2 normal heart sound present GI: COMMON NORMALS: Normal to inspection, nondistended, normoactive bowel sounds present, Soft to palpation and non-tender PALPATION: Yes Soft to palpation Extremity: COMMON NORMALS: no joint enlargement and no pedal edema Neuro: COMMON NORMALS: patient oriented x3 and moves all extremities Skin: COMMON NORMALS: no rashes or lesions noted GENERAL SKIN EXAM: no rashes or lesions noted Data : 02/02/20 12:53 02/02/20 14:22 A&P Assessment and plan (1) UTI (urinary tract infection): Leukocytes and nitrate positive in urine. Cell counts pending. Urine appearing very turbid, almost purulent. Prior culture on 01/21 with E coli resistant to quinolones. She and skilled nursing staff deny that she received antibiotics. Urinary bladder wall thickening noted on CTAP. Discussed with gynecology no vaginal fistula noted. Follow up urine culture. Given past culture would anticipate similar sensitivity and likely should be responsive to cephalosporins. Status: Acute (2) Postmenopausal bleeding: Status post D&C. Doing well postoperatively. Hemoglobin remained stable. Recheck hemoglobin in the morning. If continues to do well and no further issues would anticipate should be able to safely discharge back to skilled nursing tomorrow. Urine sample collected and pending evaluation, but visually concern is may be having UTI as urine appeared very turbid almost purulent. Discussed with her also regarding acute kidney injury, appears creatinine today somewhat better at 1.5. Avoid nephrotoxins, hypotension. Status: Acute (3) Chronic diastolic (congestive) heart failure: Currently compensated. Status: Acute (4) Pulmonary hypertension: Noted, possibly severe. Status: Acute (5) Paroxysmal atrial fibrillation: Currently slow ventricular response, heart rates in the 80s. Will request cardiac monitoring. Status: Acute (6) Obstructive sleep apnea: Requested for nightly CPAP which she uses at the skilled nursing. Status: Acute (7) Chronic kidney disease, stage 3, mod decreased GFR: Avoid NSAIDs. Status: Acute (8) Essential hypertension: Status: Acute (9) Type 2 diabetes mellitus: She denies currently being on insulin. Continue consistent carbohydrate diet. Monitor glucose. Low-dose sliding scale. Status: Acute Additional A&P Information Other chronic comorbidities Nonambulatory at baseline Attestations Medical Necessity Statement*: Continue admission for assessment management of UTI, monitoring after D&C following acute blood loss anemia with recurrent bleeding requiring transfusion. Coding Level of Care Code Acute Boiler Tube Reamer for g Fwd Diagnoses UTI (urinary tract infection) N39.0 Postmenopausal bleeding N95.0 Chronic diastolic (congestive) heart failure I50.32 Pulmonary hypertension I27.20 Paroxysmal atrial fibrillation I48.0 Obstructive sleep apnea G47.33 Chronic kidney disease, stage 3, mod decreased GFR N18.3 Essential hypertension I10 Type 2 diabetes mellitus E11.9
[2020-02-02 17:01] LABS: Glucose Point of Care 106 mg/dL (70-110)
[2020-02-02 17:29] LABS: Add Urine Culture? Yes; Bacteria Urine 2+ /hpf; RBC Urine RARE /hpf (0-2); WBC Urine TOO NUMEROUS TO CNT /hpf (0-5)
[2020-02-02] MEDS: atorvastatin 40 mg Tablet 20 MG PO (17:52)
[2020-02-02] MEDS: cefTRIAXone 1,000 MG in sodium chloride 0.9% (plus) 50 ML 100 MG IV (20:45)
[2020-02-02 20:49] LABS: Glucose Point of Care 117 mg/dL (70-110)
[2020-02-03] VITALS (8 sets, daily range): BP systolic 88–115; BP diastolic 54–76; PULSE 69–98; RESP 16–18; TEMP 36.2–36.9; O2SAT 93–97
[2020-02-03 05:33] LABS: Basophils # 0.1 10^3/uL (0.0-0.1); Basophils % 1.5 %; Eosinophils # 0.5 10^3/uL (0.0-0.8); Eosinophils % 7.5 %; Hematocrit 27.1 % (37.0-47.0); Hemoglobin 8.4 g/dL (11.5-15.3); Lymphocytes # 1.4 10^3/uL (0.8-4.8); Lymphocytes % 19.3 %; Mean Corpuscular Hemoglobin 28.8 pg (28.0-34.0); Mean Corpuscular Volume 92.8 fL (81-99); Mean Platelet Volume 10.4 fL (7.4-10.4); Monocytes # 0.8 10^3/uL (0.2-0.9); Monocytes % 11.5 %; Neutrophils # 4.28 10^3/uL (1.8-7.7); Neutrophils % 59.5 %; Nucleated Red Blood Cells % 0 %; Platelet Count 325 10^3/cmm (130-400); Red Blood Count 2.92 10^6/uL (4.1-5.3); Red Cell Distribution Width 15.4 % (12.1-15.1); White Blood Count 7.2 10^3/uL (4.0-10.0)
[2020-02-03 06:05] LABS: Anion Gap 13.2 (5-19); Blood Urea Nitrogen 21 mg/dL (8-23); Calcium 8.2 mg/dL (8.5-10.5); Carbon Dioxide 25 mmol/L (22-29); Chloride 99 mmol/L (98-107); Glucose 92 mg/dL (65-115); Osmolality Calculated 281 mOsm/kg (285-295); Potassium 3.2 mmol/L (3.5-5.1); Sodium 134 mmol/L (136-145)
[2020-02-03 06:47] LABS: Glucose Point of Care 95 mg/dL (70-110)
[2020-02-03] MEDS: docusate sodium 100 mg Capsule PO ×2 (08:28→17:58)
--- NOTE | 2020-02-03 08:32 | ANE.PACU2 ---
Inpatient post-anesthesia follow up: Airway intact: Yes Vital signs: Temperature 97.2 F Pulse Rate [Monito r] 83 Pulse Rate 70 Respiratory Rate 17 Blood Pressure [Ri ght Arm] 92/57 Blood Pressure 115/76 Pulse Oximetry 94 Oxygen Delivery Me thod [ Nasal Cannula Current Rate & Del kodak] Oxygen Delivery Me thod Nasal Cannula Oxygen Flow Rate [ Current Rate 4 & Delivery] Oxygen Flow Rate 2.5 Fraction of Inspir ed Oxygen Hydration adequate: Yes Nausea and vomiting: No Pain level: 1 Mental status: Baseline
--- NOTE | 2020-02-03 10:40 | CTR_ITS ---
PROCEDURE INFORMATION: Exam: CT Abdomen And Pelvis Without Contrast Exam date and time: 02/03/2020 2:23 PM Age: 74 years old Clinical indication: Abdominal pain; Localized; Lower; Prior surgery; Surgery date: 3-7 days post-operative; Surgery type: Hyst; Patient HX: ? [place]-vesical fistula; Additional info: Assess for possible colo-vesical fistula TECHNIQUE: Imaging protocol: Computed tomography of the abdomen and pelvis without contrast. Radiation optimization: All CT scans at this facility use at least one of these dose optimization techniques: automated exposure control; mA and/or kV adjustment per patient size (includes targeted exams where dose is matched to clinical indication); or iterative reconstruction. Other contrast: Oral, omni 300, 20ml in 450ml water; COMPARISON: CT abdomen pelvis w con* [id number] 01/22/2020 11:41 AM RADIATION DOSE METRICS: Total DLP (mGy-cm): 1550.49 FINDINGS: Tubes, catheters and devices: Sacral stimulator device noted. Lungs: Mild atelectasis versus fibrosis noted at the lung bases. Heart: Moderate cardiomegaly is noted. Liver: The liver is unremarkable in appearance. Gallbladder and bile ducts: No calcified gallstones in the gallbladder. No gallbladder wall thickening. No pericholecystic fluid. No biliary dilatation. Pancreas: The pancreas is normal in appearance. Spleen: The spleen is normal in size and appearance. Adrenals: Adrenal glands are thickened. No adrenal nodules. Kidneys and ureters: The kidneys are normal in morphology. No hydronephrosis. No renal calculi. Stomach and bowel: No acute gastric abnormality demonstrated. The small bowel is unremarkable as demonstrated. No acute abnormality/inflammatory change of the colon. Appendix: No evidence of appendicitis. Intraperitoneal space: No pneumoperitoneum. No significant fluid collection. 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 The aorta is atherosclerotic. No aortic aneurysm. Lymph nodes: No enlarged lymph nodes. Urinary bladder: Urinary bladder is partially distended. The bladder wall is thickened, and there is infiltration of the adjacent fat. No air demonstrated in the bladder lumen. Findings are suggestive of possible nonspecific cystitis. Reproductive: Unremarkable as visualized. Bones/joints: Degenerative lumbar spine changes are noted. No acute osseous abnormality. Soft tissues: Unremarkable. CT/CT abdomen pelvis wo con [id number] IMPRESSION: 1. 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 This is unchanged from 01/22/2020. 2. Urinary bladder appearance is suggestive of possible cystitis, unchanged from 01/22/2020. No air in the urinary bladder lumen to suggest the presence of a fistula with the bowel. 3. Moderate cardiomegaly is noted. 4. No new abnormality demonstrated, when compared to the prior study. Radiation Dose CTDIVOL = (mGy): DLP = 1550.49 (mGy-cm)
[2020-02-03 10:46] LABS: Glucose Point of Care 96 mg/dL (70-110)
[2020-02-03] MEDS: iohexol 300 mg/mL 50 mL Btl PO (16:59)
--- NOTE | 2020-02-03 17:35 | P.PN_ITS ---
Subjective Subjective: Interval history: During discussion today of her urinary tract infection she reports that she may have been passing some gas/bubbles in her urine several days ago. Urine has been appearing very purulent. Says she otherwise is doing well currently. Denies any pain or discomfort. Vitals/I&O/Wt Last Vital Signs Temp 98.1 F 02/03/20 15:22 Pulse 75 02/03/20 15:22 Resp 17 02/03/20 15:22 BP 104/71 02/03/20 15:22 Pulse Ox 96 02/03/20 15:22 02/03/20 02/03/20 02/03/20 06:59 14:59 22:59 Intake Total 480 / 480 Balance 480 / 480 Physical Exam Const: COMMON NORMALS: no acute distress and patient oriented x3 NUTRITIONAL APPEARANCE: obese HENMT: COMMON NORMALS: oropharynx normal OTHER: NC in place Awake, alert. Calm. Neck/C-Spine: COMMON NORMALS: no JVD Resp: COMMON NORMALS: normal respiratory effort and clear to auscultation bilaterally AUSCULTATION: clear to auscultation bilaterally Cardio: COMMON NORMALS: no JVD, regular rhythm, S1 normal heart sound present, S2 normal heart sound present and No murmurs present (Cardio) RHYTHM: regular rhythm HEART SOUNDS: S1 normal heart sound present and S2 normal heart sound present GI: COMMON NORMALS: Normal to inspection, nondistended, normoactive bowel sounds present, Soft to palpation and non-tender PALPATION: Yes Soft to palpation Extremity: COMMON NORMALS: no joint enlargement and no pedal edema Neuro: COMMON NORMALS: patient oriented x3 and moves all extremities Skin: COMMON NORMALS: no rashes or lesions noted GENERAL SKIN EXAM: no rashes or lesions noted Data : 02/03/20 04:57 02/03/20 04:57 Micro: Microbiology 02/01/20 15:30 Urine Culture - Preliminary Urine,Clean Catch Gram Negative Rods A&P Assessment and plan (1) UTI (urinary tract infection): With purulent urine, 80-90,000 gram-negative rods growing in the urine. Discussed with her and today she notes that she may have been passing some gas in her urine as recently as several days ago. She is agreeable for additional imaging by CT with oral contrast which was ordered earlier today and appears to just now is read. No areas noted in the urinary bladder. No findings to suggest colovesical fistula. No vaginal fistulas noted during high oncology procedure. Would follow-up clinically after discharge, and if any further issues refer to urology assessment. If no further issues should be able to discharge to [facility] in the morning. Status: Acute (2) Postmenopausal bleeding: Status post D&C. Doing well postoperatively. Hemoglobin with slight decrease today to 8.4. Symptomatically she is doing well. Recheck hemoglobin in the morning. Discharge today was delayed for additional work-up of report of gas with urination, purulent appearing urine and concern for possible fistula although this does not appear to be case on additional assessment by CT. Likely anticipate discharge back to [facility] when this is possible tomorrow. Status: Acute (3) Chronic diastolic (congestive) heart failure: Currently compensated. Status: Acute (4) Pulmonary hypertension: Noted, possibly severe. Status: Acute (5) Paroxysmal atrial fibrillation: Currently slow ventricular response, heart rates in the 80s. Will request cardiac monitoring. Status: Acute (6) Obstructive sleep apnea: Requested for nightly CPAP which she uses at the [facility]. Status: Acute (7) Chronic kidney disease, stage 3, mod decreased GFR: Acute kidney injury on chronic kidney disease improved. Creatinine down to 1.2. Avoid NSAIDs. Status: Acute (8) Essential hypertension: Status: Acute (9) Type 2 diabetes mellitus: She denies currently being on insulin. Continue consistent carbohydrate diet. Monitor glucose. Low-dose sliding scale. Status: Acute Additional A&P Information Other chronic comorbidities Nonambulatory at baseline Attestations Medical Necessity Statement*: Is required continued hospitalization for additional assessment of purulent UTI, concern for possible colovesical fistula with reports of gas in urine. Likely discharge to [facility] tomorrow. Coding Level of Care Code Acute Certified Marine Mechanic for Chg Fwd Exam Comprehensive Diagnoses UTI (urinary tract infection) N39.0 Postmenopausal bleeding N95.0 Chronic diastolic (congestive) heart failure I50.32 Pulmonary hypertension I27.20 Paroxysmal atrial fibrillation I48.0 Obstructive sleep apnea G47.33 Chronic kidney disease, stage 3, mod decreased GFR N18.3 Essential hypertension I10 Type 2 diabetes mellitus E11.9
[2020-02-03] MEDS: atorvastatin 40 mg Tablet 20 MG PO (17:57)
--- NOTE | 2020-02-03 17:57 | P.PN_ITS ---
Subjective Subjective: Interval history: s/p post D&C Vitals/I&O/Wt Last Vital Signs Temp 98.1 F 02/03/20 15:22 Pulse 75 02/03/20 15:22 Resp 17 02/03/20 15:22 BP 104/71 02/03/20 15:22 Pulse Ox 96 02/03/20 15:22 02/03/20 02/03/20 02/03/20 06:59 14:59 22:59 Intake Total 480 / 480 360 / 840 Balance 480 / 480 360 / 840 Physical Exam Const: COMMON NORMALS: no acute distress and patient oriented x3 NUTRITIONAL APPEARANCE: obese HENMT: COMMON NORMALS: oropharynx normal OTHER: NC in place Awake, alert. Calm. Neck/C-Spine: COMMON NORMALS: no JVD Resp: COMMON NORMALS: clear to auscultation bilaterally AUSCULTATION: clear to auscultation bilaterally Cardio: COMMON NORMALS: no JVD, regular rhythm, S1 normal heart sound present and S2 normal heart sound present RHYTHM: regular rhythm HEART SOUNDS: S1 normal heart sound present and S2 normal heart sound present GI: COMMON NORMALS: Soft to palpation PALPATION: Yes Soft to palpation : COMMON NORMALS: No no CVA tenderness BLADDER/KIDNEY EXAM: No no CVA tenderness SPECULUM EXAM - VAGINA: No vaginal bleeding OB/EXTERNAL & SPECULUM: No vaginal bleeding Back/Pelvis: COMMON NORMALS: negative for no CVA tenderness Extremity: COMMON NORMALS: no joint enlargement and no pedal edema Neuro: COMMON NORMALS: patient oriented x3 Skin: COMMON NORMALS: no rashes or lesions noted GENERAL SKIN EXAM: no rashes or lesions noted Data : 02/03/20 04:57 02/03/20 04:57 Micro: Microbiology 02/01/20 15:30 Urine Culture - Preliminary Urine,Clean Catch Gram Negative Rods A&P Assessment and plan (1) Postmenopausal bleeding: PT s/p D&C, afebrile and hemodinamically stable. No vaginal bleeding. Pt may be discharge home from [facility] issue and f/u in 2weeks recommended. Status: Acute Attestations Medical Necessity Statement*: In my professional opinion per admitting diagnosis. Coding Level of Care Code Acute Log Sorting Supervisor for g Fwd Diagnoses Postmenopausal bleeding N95.0
[2020-02-03 18:13] LABS: Glucose Point of Care 106 mg/dL (70-110)
[2020-02-03] MEDS: cefTRIAXone 1,000 MG in sodium chloride 0.9% (plus) 50 ML 100 MG IV (20:24)
[2020-02-03 21:35] LABS: Glucose Point of Care 101 mg/dL (70-110)
[2020-02-04] VITALS: BP 98/62; PULSE 85; RESP 20; TEMP 36.7; O2SAT 94
[2020-02-04] MEDS: HYDROcodone-acetaminophen 5-325 mg Tablet PO (01:26)
[2020-02-04 04:00] VITALS: BP 106/73; PULSE 69; RESP 16; TEMP 36.9; O2SAT 94
[2020-02-04 06:23] LABS: Basophils # 0.1 10^3/uL (0.0-0.1); Basophils % 1.1 %; Eosinophils # 0.5 10^3/uL (0.0-0.8); Eosinophils % 6.7 %; Hematocrit 28.7 % (37.0-47.0); Hemoglobin 8.9 g/dL (11.5-15.3); Lymphocytes # 1.1 10^3/uL (0.8-4.8); Lymphocytes % 14.6 %; Mean Corpuscular Hemoglobin 28.9 pg (28.0-34.0); Mean Corpuscular Volume 93.2 fL (81-99); Mean Platelet Volume 10.1 fL (7.4-10.4); Monocytes # 0.9 10^3/uL (0.2-0.9); Monocytes % 11.8 %; Neutrophils # 4.82 10^3/uL (1.8-7.7); Neutrophils % 65.5 %; Nucleated Red Blood Cells % 0 %; Platelet Count 332 10^3/cmm (130-400); Red Blood Count 3.08 10^6/uL (4.1-5.3); White Blood Count 7.4 10^3/uL (4.0-10.0)
[2020-02-04 06:42] LABS: Anion Gap 13.1 (5-19); Blood Urea Nitrogen 20 mg/dL (8-23); Calcium 8.4 mg/dL (8.5-10.5); Carbon Dioxide 24 mmol/L (22-29); Chloride 100 mmol/L (98-107); Glucose 98 mg/dL (65-115); Osmolality Calculated 281 mOsm/kg (285-295); Potassium 3.1 mmol/L (3.5-5.1); Sodium 134 mmol/L (136-145)
[2020-02-04 06:54] LABS: Glucose Point of Care 110 mg/dL (70-110)
[2020-02-04 08:00] VITALS: BP 111/74; PULSE 72; RESP 18; TEMP 36.8; O2SAT 94
[2020-02-04] MEDS: docusate sodium 100 mg Capsule PO (09:32)
--- NOTE | 2020-02-04 10:10 | PC.SOCIAL ---
IMM Updated Page 2 of IMM updated and given to patient. Initialed, dated, and timed and placed back in chart.
[2020-02-04] MEDS: acetaminophen 325 mg Tablet 650 MG PO (11:25)
[2020-02-04 12:00] LABS: Glucose Point of Care 118 mg/dL (70-110)
[2020-02-04 12:38] VITALS: BP 113/70; PULSE 70; RESP 18; TEMP 36.7; O2SAT 95
--- NOTE | 2020-02-04 15:05 | PM.DCS ---
Discharge Providers Date of Admission: 01/30/20 18:23 Date of Discharge: February 04, 2020 Attending Provider at Admission: Helder Urias MD Attending Provider at Discharge: Helder Urias MD Primary Care Provider: Meredith Edgar MD Diagnoses at Discharge Discharge Diagnosis (1) Postmenopausal bleeding: Status: Acute (2) UTI (urinary tract infection): Status: Acute (3) Anemia: Status: Acute Qualifiers: Anemia type: unspecified type Qualified Code(s): D64.9 - Anemia, unspecified Reason for Visit Reason for Visit: ABNORMAL LAB Hospital Course Discharge Summary: Rebecca 74-year-old lady admitted to the hospital for assessment of recurrent vaginal bleeding, with severe acute anemia on presentation requiring 3 units PRBC transfusion, with good response, subsequently additionally assessed by DNC. Acute kidney injury on presentation improved. While in the hospital also noted to have findings of urinary tract infection for which received treatment with Rocephin. Urine was very turbid, purulent, later noted that she has perhaps having urine mixed with some gas, although was not sure. Additional assessment was done by CT abdomen pelvis with oral contrast. No fistulization was noted, without any gas in the urinary bladder. No fistulization noted during D&C as well per discussion with gynecology. Please continue to monitor and in case of recurrent infection or any concern for possible fistulization refer to urology for additional assessment. Culture is growing E. coli resistant to quinolones and tetracycline. Please reassess hemoglobin in 3 days. Please follow-up with gynecology in 2 weeks. In addition to follow-up for other chronic medical conditions, consider follow-up with cardiology and pulmonology with regards to chronic CHF and pulmonary hypertension which is possibly severe. Physical Exam Const: COMMON NORMALS: no acute distress and patient oriented x3 NUTRITIONAL APPEARANCE: obese HENMT: COMMON NORMALS: oropharynx normal OTHER: NC in place Pleasant, awake, alert, no discomforts. In good spirits. Ready to [facility]. Neck/C-Spine: COMMON NORMALS: no JVD Resp: COMMON NORMALS: normal respiratory effort and clear to auscultation bilaterally AUSCULTATION: clear to auscultation bilaterally Cardio: COMMON NORMALS: no JVD, regular rhythm, S1 normal heart sound present, S2 normal heart sound present and No murmurs present (Cardio) RHYTHM: regular rhythm HEART SOUNDS: S1 normal heart sound present and S2 normal heart sound present GI: COMMON NORMALS: Normal to inspection, nondistended, normoactive bowel sounds present, Soft to palpation and non-tender PALPATION: Yes Soft to palpation Extremity: COMMON NORMALS: no joint enlargement and no pedal edema Neuro: COMMON NORMALS: patient oriented x3 and moves all extremities Skin: COMMON NORMALS: no rashes or lesions noted GENERAL SKIN EXAM: no rashes or lesions noted Discharge Data Data Completed and Pending: Completed Studies During Hospitalization Category Date Time Status CT abdomen pelvis wo con [id number] Rout ine Cat Scan 02/03/20 10:40 Completed XR chest 1V go ble [id number] Stat Exams 01/30/20 17:03 Completed US transvaginal 7 1141 Routine Ultrasound 01/31/20 12:43 Completed Pending at discharge Category Date Time Status Basic Metabolic P jessica AM LABS Lab 02/05/20 04:00 Ordered Complete Blood Co unt w/Auto AM LABS Lab 02/05/20 04:00 Ordered Pathology: Surgic al [PTH] Routine Pth 02/02/20 08:10 Received Labs from last 24 hours 02/04/20 02/04/20 02/04/20 11:56 06:27 05:58 WBC RBC Hgb Hct MCV MCH MCHC RDW Plt Count MPV Neut % (Auto) Lymph % (Auto) [place] % (Auto) Eos % (Auto) Baso % (Auto) Neut # (Auto) Lymph # (Auto) [place] # (Auto) Eos # (Auto) Baso # (Auto) Nucleated RBC % (a uto) Nucleated RBCs # Sodium 134 L Potassium 3.1 L Chloride 100 Carbon Dioxide 24 Anion Gap 13.1 BUN 20 Creatinine 1.2 H GFR Calculation Not Reportable Glucose 98 POC Glucose 118 110 Calculated Osmolal ity 281 L Calcium 8.4 L 02/04/20 02/03/20 02/03/20 05:58 21:23 18:09 WBC 7.4 RBC 3.08 L Hgb 8.9 L Hct 28.7 L MCV 93.2 MCH 28.9 MCHC 31.0 RDW 16.0 H Plt Count 332 MPV 10.1 Neut % (Auto) 65.5 Lymph % (Auto) 14.6 [place] % (Auto) 11.8 Eos % (Auto) 6.7 Baso % (Auto) 1.1 Neut # (Auto) 4.82 Lymph # (Auto) 1.1 [place] # (Auto) 0.9 Eos # (Auto) 0.5 Baso # (Auto) 0.1 Nucleated RBC % (a uto) 0 Nucleated RBCs # 0.0 Sodium Potassium Chloride Carbon Dioxide Anion Gap BUN Creatinine GFR Calculation Glucose POC Glucose 101 106 Calculated Osmolal ity Calcium Vitals: Last Vital Signs Temp 98.1 F 02/04/20 12:38 Pulse 70 02/04/20 12:38 Resp 18 02/04/20 12:38 BP 113/70 02/04/20 12:38 Pulse Ox 95 02/04/20 12:38 Discharge Plan Discharge Patient Disposition: Xfer SNF Condition: Stable Prescriptions: New cefdinir 300 mg capsule 300 mg PO BID 3 Days Qty: 6 RF: 0 Continued Dulcolax (bisacodyl) 10 mg Suppository 10 mg MI DAILY PRN (Reason: constipation) RF: 0 lovastatin 20 mg Tablet 20 mg PO QPM RF: 0 Flonase Allergy Relief 50 mcg/actuation [place],Suspension 1 spray INTRANASAL QID PRN (Reason: ALLERGIES) RF: 0 Saline Nasal 0.65 % Aerosol,[place] 1 spray INTRANASAL QID PRN (Reason: Allergy Symptoms) RF: 0 Discharge Orders: Discharge Order (Routine); Ordered 02/04/20 Ordered By: Aristeo Wade Referrals: [facility] [Outside] Helder Urias MD [Physician] - 2 weeks Meredith Edgar MD [Primary Care Provider] - 4-7 days Discharge Diet: Diabetic Discharge Activity: Increase activity as tolerated and Oxygen as instructed Activity Restrictions/Additional Instructions: Continue oxygen as previously, target saturation 92% Recheck hemoglobin in 3 days for anemia. Cefdinir is for UTI. Gram-negative rods growing in urine. Final culture will need to be followed up. No colovesical fistulization noted on CT abdomen pelvis with oral contrast. However, monitor for symptoms, if having gas in urine, purulent urine, a lot of sediment, may need to perform additional evaluation, referred to urology to assess for possible fistulization. Discharge Attestations Time Spent in Discharge Care*: greater than 30 min Quality Metrics Clinical Quality Measures During this hospital stay, did patient experience: None Coding Level of Care Code Acute Crusher Tender for Chg Fwd Diagnoses Postmenopausal bleeding N95.0 UTI (urinary tract infection) N39.0 Anemia D64.9 Anemia type: unspecified type
[2020-02-04 15:18] VITALS: BP 103/58; PULSE 94; RESP 18; TEMP 36.7; O2SAT 95
[2020-02-04 16:17] VITALS: BP 103/58; PULSE 94; RESP 18; TEMP 36.7; O2SAT 95
== END 2020-02-04 15:45 | disposition skilled nursing facility (03) | DRG 744 ==
LOC: ER 18:46 → MEDSURG 20:31
PROVIDERS: Family Medicine; Internal Medicine; Obstetrics & Gynecology; Admitting Provider Obstetrics & Gynecology; Emergency Provider Emergency Medicine; PCP Family Medicine; Visit Provider Obstetrics & Gynecology
PROC: (CPT 58120; principal; 2020-02-02 07:00)
DX: N95.0 Postmenopausal bleeding (principal); I13.0 Hypertensive heart and chronic kidney disease with heart failure and stage 1 through stage 4 chronic kidney disease, or unspecified chronic kidney disease; I50.32 Chronic diastolic (congestive) heart failure; D62 Acute posthemorrhagic anemia; N39.0 Urinary tract infection, site not specified; Z16.23 Resistance to quinolones and fluoroquinolones; N17.9 Acute kidney failure, unspecified; N18.30 Chronic kidney disease, stage 3 unspecified; E11.22 Type 2 diabetes mellitus with diabetic chronic kidney disease; G47.33 Obstructive sleep apnea (adult) (pediatric); I48.0 Paroxysmal atrial fibrillation; I27.20 Pulmonary hypertension, unspecified; Z99.81 Dependence on supplemental oxygen; D63.1 Anemia in chronic kidney disease; E66.01 Morbid (severe) obesity due to excess calories; Z68.38 Body mass index [BMI] 38.0-38.9, adult; B96.20 Unspecified Escherichia coli [E. coli] as the cause of diseases classified elsewhere
CPT/HCPCS: 12345; 36415; 36416; 36430; 71045; 74176; 76830; 80048; 80053; 81001; 82962; 83880; 84484; 85014; 85018; 85025; 86850; 86900; 86920; 87077; 87086; 87186; 88305; 93005; 96375; 99283; J0696; J1885; J2405; J2704; J2765; J3010; J7030; P9016; Q9967

== ENCOUNTER 2020-03-02 18:54 | Observation (INO) | payer MEDICARE, MEDICAID, SELFPAY ==
[2020-03-02] VITALS (11 sets, daily range): BP systolic 84–119; BP diastolic 42–73; PULSE 62–78; RESP 17–20; TEMP 36.3–36.6; O2SAT 94–100; BMI 37.0
[2020-03-02] MEDS: diphenhydrAMINE 25 mg Capsule PO (12:35)
[2020-03-02] MEDS: acetaminophen 325 mg Tablet 650 MG PO (12:35)
--- NOTE | 2020-03-03 00:05 | PC.NURSE ---
Pt. taken via ambulance by [facility] back to [facility] at this time. Pt. clothing and personal items with patient. Ambulance crew unable to take patient's electric wheelchair with them at this time. [facility] nurse Mariah notified of patient transfer and that patient personal wheelchair would need picked up when [facility] transport is available. IV access removed prior to patient discharge.
[2020-03-03 00:29] VITALS: BP 96/67; PULSE 77; RESP 18; TEMP 36.5; O2SAT 97
== END 2020-03-03 00:05 | disposition home or self-care (01) ==
LOC: MEDSURG 05-02 10:10
PROVIDERS: Admitting Provider Family Medicine; PCP Family Medicine; Visit Provider Family Medicine
DX: D64.9 Anemia, unspecified (principal)
CPT/HCPCS: 36430; 86850; 86900; 86920; G0378; P9016

== ENCOUNTER 2020-07-11 19:11 | Outpatient (CLI) | payer MEDICARE, MEDICAID, SELFPAY ==
[2020-07-11 19:32] LABS: Basophils # 0.1 10^3/uL (0.0-0.1); Basophils % 1.5 %; Eosinophils # 0.6 10^3/uL (0.0-0.8); Eosinophils % 9.1 %; Hemoglobin 10.6 g/dL (11.5-15.3); Lymphocytes # 1.1 10^3/uL (0.8-4.8); Lymphocytes % 17.7 %; Mean Corpuscular HGB Conc 29.4 g/dL (30.0-36.0); Mean Corpuscular Hemoglobin 26.7 pg (28.0-34.0); Mean Corpuscular Volume 90.7 fL (81-99); Mean Platelet Volume 11.2 fL (7.4-10.4); Monocytes # 0.8 10^3/uL (0.2-0.9); Monocytes % 12.7 %; Neutrophils # 3.56 10^3/uL (1.8-7.7); Neutrophils % 58.8 %; Nucleated Red Blood Cells % 0 %; Platelet Count 222 10^3/cmm (130-400); Red Blood Count 3.97 10^6/uL (4.1-5.3); Red Cell Distribution Width 17.4 % (12.1-15.1); White Blood Count 6.1 10^3/uL (4.0-10.0)
== END 2020-07-11 19:12 | disposition home or self-care (01) ==
PROVIDERS: PCP Family Medicine; Visit Provider Family Medicine
DX: I50.9 Heart failure, unspecified (principal)
CPT/HCPCS: 85025

== ENCOUNTER 2020-08-13 16:06 | Emergency (ER) | payer MEDICARE, MEDICAID, SELFPAY ==
[2020-08-13 16:13] VITALS: BP 127/67; PULSE 63; RESP 17; O2SAT 100; BMI 49.2
--- NOTE | 2020-08-13 16:27 | W.ED.WOUNDLC ---
HPI - Wound/Laceration General: Chief Complaint: Wound/Laceration Stated Complaint: laceration to right great toe Time Seen by Provider: 08/13/20 16:27 History of Present Illness: HPI narrative: 74-year-old female comes in with injury to the right great toe. Patient reports that her friend that was sudden at the table with her went to leave with her wheelchair and scraped her right toe. Patient had a skin flap laceration that occurred the continue to bleed without stopping. care home sent patient to the ER for treatment. Review of Systems General: Reports: 10 or more systems reviewed and unremarkable except in HPI and below Skin/Breast: Reports: other (Right great toe wound) [facility] ED PFSH: Medical History (Updated 08/13/20 @ 17:04 by FAMILIA Mcclain) Anemia Chronic diastolic (congestive) heart failure Chronic kidney disease, stage 3, mod decreased GFR Essential hypertension Hypersomnia Hypoxemia Lymphedema Obstructive sleep apnea Paroxysmal atrial fibrillation Pulmonary hypertension Type 2 diabetes mellitus Surgical History H/O oral surgery Family History Other Family history unknown Social History Housing: [facility] Marital status: / Additional social history: - Tobacco use: Denies Alcohol use: Denies Drug use: Denies Physical Exam Const: COMMON NORMALS: no acute distress and patient oriented x3 GENERAL APPEARANCE: cooperative HENMT: COMMON NORMALS: normocephalic and Normal external nose present HEAD & SCALP: normal to inspection and normocephalic NOSE: Normal external nose present Eye: GENERAL EYE: appearance normal, both eyes and all related structures Neck/C-Spine: COMMON NORMALS: full ROM Chest: COMMONS NORMALS: normal inspection of the chest Resp: COMMON NORMALS: normal respiratory effort EFFORT & INSPECTION: Yes able to speak in complete sentences Cardio: COMMON NORMALS: regular rate and regular rhythm RATE: regular rate RHYTHM: regular rhythm GI: COMMON NORMALS: non-tender Extremity: COMMON NORMALS: normal to inspection Neuro: COMMON NORMALS: patient oriented x3 and moves all extremities Psych: COMMON NORMALS: mental status grossly normal and cooperative Skin: NARRATIVE SKIN EXAM: Superficial skin flap laceration to the right great toe that is approximately 1-1/2 cm. Procedures Laceration Laceration 1: Side (If applicable): right Size (cm): 1.5 Description: flap Depth: simple, single layer Local Anesthetic: lidocaine 1% and with epi Amount of anesthesia used (mL): 3 Pre-repair: wound explored and deep structures intact Skin layer closed with: nylon Size (cm): 4-0 Number of sutures: 1 Technique: simple, interrupted Course Vital Signs: Vital signs: Vital Signs Pulse Rate 63 08/13/20 16:13 Respiratory Rate 17 08/13/20 16:13 Blood Pressure 127/67 08/13/20 16:13 Pulse Oximetry 100 08/13/20 16:13 MDM - Wound/Laceration MDM Narrative: Medical decision making narrative: Patient was [facility] for concerns of a skin flap laceration to the right great toe were unable to get to stop bleeding. Patient normal range of motion of the digit. Normal cap refill. Reduced sensation which is normal for her diabetic neuropathy. Differential diagnosis includes but not limited to laceration, need for prophylaxis antibiotic, foreign body. Examination wound notes no foreign body. Was able to get the bleeding controlled with pressure and then 1 stitch was applied to the wound to prevent further bleeding. Patient was monitored and was placed on Augmentin for prophylaxis antibiotic. Patient reported understanding of care plan and need for follow-up. Discharge Plan Discharge Patient Disposition: Home Clinical Impression: Laceration of toe Qualifiers: Encounter type: initial encounter Toe: great toe Damage to nail status: without damage Foreign body presence: without foreign body Laterality: right Qualified Code(s): S91.111A - Laceration without foreign body of right great toe without damage to nail, initial encounter Condition: Stable Prescriptions: New Augmentin 875-125 mg tablet 1 tab PO BID Qty: 14 RF: 0 No Action Lasix 40 mg Tablet 40 mg PO DAILY RF: 0 Zofran 4 mg Tablet 4 mg PO Q8H RF: 0 metolazone 5 mg Tablet 5 mg PO DAILY RF: 0 Aspir-81 81 mg Tablet,Delayed Release (Dr/Ec) 81 mg PO DAILY RF: 0 Celexa 20 mg Tablet 20 mg PO DAILY RF: 0 potassium chloride 40 mEq/15 mL Liquid 40 meq PO DAILY RF: 0 pantoprazole 40 mg Tablet,Delayed Release (Dr/Ec) 40 mg PO DAILY RF: 0 albuterol sulfate 90 mcg/actuation Hfa Aerosol Inhaler INHALATION RF: 0 metoprolol tartrate 25 mg Tablet 25 mg PO BID RF: 0 Symbicort 160-4.5 mcg/actuation Hfa Aerosol Inhaler 2 puff INHALATION BID RF: 0 Natural Tears (PF) 0.1-0.3 % Dropperette RF: 0 Zyrtec 10 mg Tablet,Disintegrating 10 mg PO DAILY RF: 0 Eliquis 5 mg Tablet 5 mg PO BID RF: 0 Mucinex 600 mg Tablet Extended Release 12hr 600 mg PO BID RF: 0 Multi Vitamin RF: 0 Dulcolax (bisacodyl) 10 mg Suppository 10 mg [place] DAILY PRN (Reason: constipation) RF: 0 lovastatin 20 mg Tablet 20 mg PO QPM RF: 0 fluticasone propionate [Flonase Allergy Relief] 50 mcg/actuation [place],Suspension 1 spray INTRANASAL QID PRN (Reason: ALLERGIES) RF: 0 Saline Nasal 0.65 % Aerosol,[place] 1 spray INTRANASAL QID PRN (Reason: Allergy Symptoms) RF: 0 Discharge Orders: Discharge ED (Routine); Ordered 08/13/20 Ordered By: Blair Gunter Referrals: Meredith Edgar MD [Primary Care Provider] - Discharge Diet: Usual diet Discharge Activity: Increase activity as tolerated Patient Instructions: Suture Care (ED), Opioid Safety Activity Restrictions/Additional Instructions: Keep wound clean and dry. Leave initial dressing on for the next 48 hours unless wound becomes wet or soiled. Sutures need to be removed in 7 days. Monitor site for signs of infection. Give antibiotic, Augmentin 875, twice a day for the next 7 days. Follow-up with primary care in 1 week for recheck. 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
== END 2020-08-13 18:20 | disposition home or self-care (01) ==
PROVIDERS: Emergency Provider Nurse Practitioner Family; PCP Family Medicine
DX: S91.111A Laceration without foreign body of right great toe without damage to nail, initial encounter (principal); Z79.82 Long term (current) use of aspirin; Z79.01 Long term (current) use of anticoagulants; I13.0 Hypertensive heart and chronic kidney disease with heart failure and stage 1 through stage 4 chronic kidney disease, or unspecified chronic kidney disease; E11.22 Type 2 diabetes mellitus with diabetic chronic kidney disease; N18.30 Chronic kidney disease, stage 3 unspecified; I50.32 Chronic diastolic (congestive) heart failure; I48.0 Paroxysmal atrial fibrillation; W26.8XXA Contact with other sharp object(s), not elsewhere classified, initial encounter
CPT/HCPCS: 12001; 99282

== ENCOUNTER 2021-01-27 10:34 | Emergency (ER) | payer MEDICARE, MEDICAID, SELFPAY ==
[2021-01-27] VITALS (7 sets, daily range): BP systolic 110–141; BP diastolic 73–98; PULSE 78–84; RESP 20–24; TEMP 36.1–36.8; O2SAT 92–99; BMI 43.2
--- NOTE | 2021-01-27 11:04 | PC.NURSE ---
Assumed care of this patient at this time, patient sitting in semi fowlers, nasal clamp in place. She is occasionally coughing out blood clots.
--- NOTE | 2021-01-27 11:31 | XRR_ITS ---
PROCEDURE INFORMATION: Exam: XR Chest Exam date and time: 01/27/2021 11:31 AM Age: 75 years old Clinical indication: Cough; Additional info: Congestion TECHNIQUE: Imaging protocol: XR of the chest. Views: 1 view. COMPARISON: CR XR chest 1V portable [id number] 01/30/2020 5:33 PM FINDINGS: Lungs: Nonspecific bibasilar consolidation is present, consistent with atelectasis, edema, or pneumonia. Interstitial and mild ground-glass opacity is also noted in the upper lobes compatible with mild edema or pneumonitis. Both jeramie appear enlarged and this is unchanged compared to the prior chest CT of November 25, 2018 and is due to aortic ectasia and enlarged pulmonary arteries compatible pulmonary arterial hypertension. Pleural spaces: Unremarkable. No pleural effusion. No pneumothorax. Heart/Mediastinum: The heart is enlarged. Bones/joints: No acute abnormality. XR/XR chest 1V portable [id number] IMPRESSION: 1. Nonspecific bibasilar consolidation is present, consistent with atelectasis, edema, or pneumonia. 2. Interstitial and mild ground-glass opacity is also noted in the upper lobes compatible with mild edema or pneumonitis. 3. Unchanged enlarged jeramie due to pulmonary arterial hypertension and aortic ectasia. Radiation Dose CTDIVOL = (mGy): DLP = (mGy-cm)
--- NOTE | 2021-01-27 11:51 | ED_ITS ---
HPI - Epistaxis General: Chief complaint: Epistaxis Stated complaint: NOSE BLEED Time Seen by Provider: 01/27/21 10:50 Source: patient History of Present Illness: HPI Narrative: 75-year-old female presents to the emergency department chief complaint of acute anterior epistaxis that started earlier this morning. [facility] contacted EMS who brought the patient in for further assessment management patient is on blood thinner Eliquis. Patient does not reporting recent trauma or injury patient normally requires nasal cannula as well as CPAP at the custodial. Patient does not recall any recent infections or illnesses however she does appear to be a poor historian. MD complaint: epistaxis Location: left nostril Onset (ago): day(s) (1) Duration: intermittent Context: other anticoagulant use Associated symptoms: Deny fever(s), headache(s) or vomiting Review of Systems General: Reports: 10 or more systems reviewed and unremarkable except in HPI and below Const: Denies: fever(s), chills, fatigue or malaise Eyes: Denies: change in vision or blurry vision ENMT: Reports: epistaxis Card: Denies: chest pain or palpitations Resp: Denies: dyspnea or productive cough GI: Denies: abdominal pain, nausea or vomiting : Denies: flank pain Musc: Denies: extremity pain or extremity swelling Skin/Breast: Denies: rash or pruritus Neuro: Denies: headache(s) Psych: Denies: anxiety or depression Kvng/Lymph: Denies: easy bleeding All/Imm: Denies: urticaria, throat swelling or facial swelling PFS ED PFSH: Medical History (Updated 01/27/21 @ 14:06 by Rashid Mcdaniel) Anemia Chronic diastolic (congestive) heart failure Chronic kidney disease, stage 3, mod decreased GFR Essential hypertension Hypersomnia Hypoxemia Lymphedema Obstructive sleep apnea Paroxysmal atrial fibrillation Pulmonary hypertension Type 2 diabetes mellitus Surgical History H/O oral surgery Family History Other Family history unknown Social History Housing: Retirement Marital status: / Additional social history: - Tobacco use: Denies Alcohol use: Denies Drug use: Denies Physical Exam Narrative: EXAM NARRATIVE: Current active bleeding appreciated of the left naris despite being uttering a pressure dressing. And nose clip. Patient appears nontoxic appears mildly anxious however appears in no obvious acute distress. Const: COMMON NORMALS: no acute distress and patient oriented x3 HENMT: COMMON NORMALS: normocephalic and atraumatic HEAD & SCALP: normocephalic and atraumatic NOSE: Epistaxis present (Moderate bleeding appreciated left naris appears to be freshly clotted mini) on the left Eye: COMMON NORMALS: Equal, round and reactive pupils present and EOMs intact bilaterally PUPIL: Yes Equal, round and reactive pupils present Neck/C-Spine: COMMON NORMALS: full ROM, supple and no JVD Lymph: LYMPHATIC: no lymphadenopathy noted Chest: COMMONS NORMALS: normal inspection of the chest and normal palpation of entire chest wall Resp: COMMON NORMALS: normal respiratory effort, No retractions and clear to auscultation bilaterally EFFORT & INSPECTION: Yes able to speak in complete sentences and Yes symmetric chest movement AUSCULTATION: clear to auscultation bilaterally and crackles (Diminished breath sounds appreciated bilaterally mild crackles wheezing sachi) Laterality: bilateral Cardio: COMMON NORMALS: no JVD, regular rate and regular rhythm RATE: regular rate RHYTHM: regular rhythm GI: COMMON NORMALS: Normal to inspection, nondistended, normoactive bowel sounds present, Soft to palpation and non-tender INSPECTION: Yes normal to inspection PALPATION: Yes Soft to palpation : COMMON NORMALS: Yes no CVA tenderness BLADDER/KIDNEY EXAM: Yes no CVA tenderness Back/Pelvis: COMMON NORMALS: no CVA tenderness Extremity: COMMON NORMALS: normal to inspection and full ROM Neuro: COMMON NORMALS: patient oriented x3, CN's II-XII intact bilaterally, moves all extremities and no focal motor deficits Psych: COMMON NORMALS: mental status grossly normal, Normal thought process present, cooperative and normal affect THOUGHT PROCESS: Normal thought process present Skin: COMMON NORMALS: no rashes or lesions noted GENERAL SKIN EXAM: no rashes or lesions noted Course ED course: Due to the patient's symptom condition due to her being under the the influence of a blood thinning agent went ahead and did a Rhino Rocket noted to the left naris no additional active bleeding was appreciated basic lab work imaging was obtained due to her crackles and shortness of breath as well as to confirm no significant anemia we will continue to follow. Vital Signs: Vital signs: Vital Signs Temperature 98.3 F 01/27/21 12:21 Pulse Rate 84 01/27/21 14:18 Respiratory Rate 22 H 01/27/21 14:18 Blood Pressure 130/81 01/27/21 14:18 Pulse Oximetry 94 01/27/21 13:32 MDM - Epistaxis MDM Narrative: Medical decision making narrative: Patient's packing was placed patient was not found to be excessively anemic patient was found have groundglas s opacities in the lungs on the chest x-ray it was confirmed the patient has a previous history of Covid pneumonia in which he is already had a Covid vaccination series as well. at this time patient will be subsequently discharged back to the facility advised that she can have the packing removed by primary care in approximately 1 week which is advised to return in the interim if any of her symptoms persist or worsen. Lab Data: Labs: Lab Results 01/27/21 01/27/21 11:56 12:06 WBC 6.2 10^3/uL 10^3/ uL (4.0-10.0) RBC 3.79 10^6/uL L 10 ^6/uL (4.1-5.3) Hgb 10.1 g/dL L g/dL (11.5-15.3) Hct 33.9 % L % (37.0-47.0) MCV 89.4 fl fl (81-99) MCH 26.6 pg L pg (28.0-34.0) MCHC 29.8 g/dL L g/dL (30.0-36.0) RDW 19.2 % H % (12.1-15.1) Plt Count 272 10^3/cmm 10^3 /cmm (130-400) MPV 9.7 fL fL (7.4-10.4) Neut % (Auto) 62.3 % % Lymph % (Auto) 19.0 % % [place] % (Auto) 12.2 % % Eos % (Auto) 5.3 % % Baso % (Auto) 1.0 % % Neut # (Auto) 3.87 10^3/uL 10^3 /uL (1.8-7.7) Lymph # (Auto) 1.2 10^3/uL 10^3/ uL (0.8-4.8) [place] # (Auto) 0.8 10^3/uL 10^3/ uL (0.2-0.9) Eos # (Auto) 0.3 10^3/uL 10^3/ uL (0.0-0.8) Baso # (Auto) 0.1 10^3/uL 10^3/ uL (0.0-0.1) Nucleated RBC % (a uto) 0 % % Nucleated RBCs # 0.0 /100WBC /100W BC Sodium 138 mmol/L mmol/L (136-145) Potassium 4.0 mmol/L mmol/L (3.5-5.1) Chloride 96 mmol/L L mmol/ L (98-107) Carbon Dioxide 32 mmol/L H mmol/ L (22-29) Anion Gap 14.0 (5-19) BUN 47 mg/dL H mg/dL (8-23) Creatinine 1.3 mg/dL H mg/dL (0.5-0.9) GFR Calculation Not Reportable Glucose 119 mg/dL H mg/dL (65-115) Calculated Osmolal ity 299 mOsm/kg H mOs m/kg (285-295) Calcium 8.8 mg/dL mg/dL (8.5-10.5) Total Bilirubin 0.7 mg/dL mg/dL (0.15-1.2) AST 12 U/L U/L (0-32) ALT < 5 U/L U/L (0-33) Alkaline Phosphata se 91 IU/L IU/L (35-105) Total Protein 7.1 g/dL g/dL (6.6-8.7) Albumin 3.3 g/dL L g/dL (3.5-5.2) Globulin 3.8 g/dL g/dL (1.3-4.6) Discharge Plan Discharge Patient Disposition: Home Clinical Impression: Epistaxis Condition: Stable Prescriptions: New amoxicillin 500 mg capsule 500 mg PO TID 7 Days Qty: 21 RF: 0 No Action Lasix 40 mg Tablet 40 mg PO DAILY RF: 0 Zofran 4 mg Tablet 4 mg PO Q8H RF: 0 metolazone 5 mg Tablet 5 mg PO DAILY RF: 0 Aspir-81 81 mg Tablet,Delayed Release (Dr/Ec) 81 mg PO DAILY RF: 0 Celexa 20 mg Tablet 20 mg PO DAILY RF: 0 potassium chloride 40 mEq/15 mL Liquid 40 meq PO DAILY RF: 0 pantoprazole 40 mg Tablet,Delayed Release (Dr/Ec) 40 mg PO DAILY RF: 0 albuterol sulfate 90 mcg/actuation Hfa Aerosol Inhaler INHALATION RF: 0 metoprolol tartrate 25 mg Tablet 25 mg PO BID RF: 0 Symbicort 160-4.5 mcg/actuation Hfa Aerosol Inhaler 2 puff INHALATION BID RF: 0 Natural Tears (PF) 0.1-0.3 % Dropperette RF: 0 Zyrtec 10 mg Tablet,Disintegrating 10 mg PO DAILY RF: 0 Eliquis 5 mg Tablet 5 mg PO BID RF: 0 Mucinex 600 mg Tablet Extended Release 12hr 600 mg PO BID RF: 0 Multi Vitamin RF: 0 Dulcolax (bisacodyl) 10 mg Suppository 10 mg [place] DAILY PRN (Reason: constipation) RF: 0 lovastatin 20 mg Tablet 20 mg PO QPM RF: 0 fluticasone propionate [Flonase Allergy Relief] 50 mcg/actuation [place],Suspension 1 spray INTRANASAL QID PRN (Reason: ALLERGIES) RF: 0 Saline Nasal 0.65 % Aerosol,[place] 1 spray INTRANASAL QID PRN (Reason: Allergy Symptoms) RF: 0 Augmentin 875-125 mg tablet 1 tab PO BID Qty: 14 RF: 0 Discharge Orders: Discharge ED (Routine); Ordered 01/27/21 Ordered By: Rashid Mcdaniel Referrals: Meredith Edgar MD [Primary Care Provider] - 4-7 days (Please follow-up with your primary care doctor in on week for the packing removal.) Discharge Diet: Cardiac Discharge Activity: Resume usual activity Patient Instructions: Nosebleed (ED), Opioid Safety Activity Restrictions/Additional Instructions: Please follow-up with your primary care doctor in approximate 1 week for your packing removal. Take the antibiotics medication as prescribed do not blow your nose. Please return to the ER for any symptoms that are persistent or worsening. 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
[2021-01-27 12:01] LABS: Basophils # 0.1 10^3/uL (0.0-0.1); Eosinophils # 0.3 10^3/uL (0.0-0.8); Eosinophils % 5.3 %; Hematocrit 33.9 % (37.0-47.0); Hemoglobin 10.1 g/dL (11.5-15.3); Lymphocytes # 1.2 10^3/uL (0.8-4.8); Mean Corpuscular HGB Conc 29.8 g/dL (30.0-36.0); Mean Corpuscular Hemoglobin 26.6 pg (28.0-34.0); Mean Corpuscular Volume 89.4 fl (81-99); Mean Platelet Volume 9.7 fL (7.4-10.4); Monocytes # 0.8 10^3/uL (0.2-0.9); Monocytes % 12.2 %; Neutrophils # 3.87 10^3/uL (1.8-7.7); Neutrophils % 62.3 %; Nucleated Red Blood Cells % 0 %; Platelet Count 272 10^3/cmm (130-400); Red Blood Count 3.79 10^6/uL (4.1-5.3); Red Cell Distribution Width 19.2 % (12.1-15.1); White Blood Count 6.2 10^3/uL (4.0-10.0)
[2021-01-27 12:34] LABS: Alanine Aminotransferase < 5 U/L (0-33); Albumin Level 3.3 g/dL (3.5-5.2); Alkaline Phosphatase 91 IU/L (35-105); Aspartate Amino Transferase 12 U/L (0-32); Blood Urea Nitrogen 47 mg/dL (8-23); Calcium 8.8 mg/dL (8.5-10.5); Carbon Dioxide 32 mmol/L (22-29); Chloride 96 mmol/L (98-107); Globulin 3.8 g/dL (1.3-4.6); Glucose 119 mg/dL (65-115); Osmolality Calculated 299 mOsm/kg (285-295); Sodium 138 mmol/L (136-145); Total Bilirubin 0.7 mg/dL (0.15-1.2); Total Protein 7.1 g/dL (6.6-8.7)
== END 2021-01-27 14:41 | disposition home or self-care (01) ==
PROVIDERS: Emergency Provider Emergency Medicine; PCP Family Medicine
DX: R04.0 Epistaxis (principal); Z79.82 Long term (current) use of aspirin; Z79.01 Long term (current) use of anticoagulants; I13.0 Hypertensive heart and chronic kidney disease with heart failure and stage 1 through stage 4 chronic kidney disease, or unspecified chronic kidney disease; E11.22 Type 2 diabetes mellitus with diabetic chronic kidney disease; N18.30 Chronic kidney disease, stage 3 unspecified; I50.32 Chronic diastolic (congestive) heart failure
CPT/HCPCS: 71045; 80053; 85025; 99283

== ENCOUNTER 2021-02-03 17:58 | Emergency (ER) | payer MEDICARE, MEDICAID, SELFPAY ==
[2021-02-03 18:03] VITALS: BP 108/75; PULSE 81; RESP 20; TEMP 36.9; O2SAT 96; BMI 50.2
--- NOTE | 2021-02-03 18:19 | XRR_ITS ---
PROCEDURE INFORMATION: Exam: XR Right Hip Exam date and time: 02/03/2021 6:19 PM Age: 75 years old Clinical indication: Right hip; Patient HX: C/O RT hip pain. No known injury. ; Additional info: Pain, bruising swelling TECHNIQUE: Imaging protocol: XR Right hip. Views: 1 view hip with pelvis when performed. COMPARISON: CT abdomen pelvis wo con [id number] 02/03/2020 4:43 PM FINDINGS: Tubes, catheters and devices: Partial visualization of an implanted stimulator device in the presacral space. Bones/joints: No fractures. Joint spaces have anatomic alignment. Bones are demineralized. Severe osteoarthritis pattern. Soft tissues: Unremarkable. XR/XR hip RT 2-3V wo/w pel* [id number] IMPRESSION: Negative for acute hip fracture. Radiation Dose CTDIVOL = (mGy): DLP = (mGy-cm)
--- NOTE | 2021-02-03 18:23 | ED_ITS ---
HPI - Extremity Problem General: Chief complaint: Extremity Injury, Lower Stated complaint: RIGHT FOOT AND LEG PAIN Time Seen by Provider: 02/03/21 18:09 History of Present Illness: HPI Narrative: Arrived via ambulance with complaint of pain to right hip area. Possible bruising with Jerald lift movement. Has been present 3 days. And the area is marked and the hematoma is receding from the area that is marked. She has bruising to the area and is in discomfort. Denies other problems presently. Patient is a [facility] patient with history of immobilization, chronic leg edema, CHF, patient is on blood thinner. Patient does have a history of anemia and chronic renal failure and atrial fib. Complaint: extremity pain Onset (ago): hour(s) Pain Consistency: constant Location: right and lower extremity Severity scale (1-10): 6 Quality: aching Radiation: none Relieving factors: nothing Associated symptoms: Reports no associated symptoms; Deny chest pain, fever(s) or rash Context: history of peripheral vascular disease Review of Systems Const: Denies: fever(s), chills or body aches Eyes: Denies: change in vision or blurry vision ENMT: Reports: nasal congestion; Denies: throat pain Card: Denies: chest pain or dyspnea on exertion Resp: Denies: dyspnea, productive cough or non-productive cough GI: Denies: abdominal pain, nausea or vomiting Musc: Reports: extremity pain Skin/Breast: Reports: other (Bruising to right hip area related to Jerald lift move.); Denies: rash Neuro: Denies: headache(s) Kvng/Lymph: Denies: easy bruising PFS ED PFSH: Medical History (Updated 02/03/21 @ 19:51 by FAMILIA Roman) Anemia Chronic diastolic (congestive) heart failure Chronic kidney disease, stage 3, mod decreased GFR Essential hypertension Hypersomnia Hypoxemia Lymphedema Obstructive sleep apnea Paroxysmal atrial fibrillation Pulmonary hypertension Type 2 diabetes mellitus Surgical History H/O oral surgery Family History Other Family history unknown Social History Housing: [facility] Marital status: / Additional social history: - Tobacco use: Denies Alcohol use: Denies Drug use: Denies Physical Exam Const: COMMON NORMALS: no acute distress GENERAL APPEARANCE: cooperative Resp: AUSCULTATION: diminished lung sounds bilateral GI: INSPECTION: Yes other (Obese) PERCUSSION: dullness to percussion Extremity: OTHER: Large hematoma to the right hip area extending down upper part of the thigh and into the apron of the belly. Skin: OTHER: Bruising as noted in extremity exam. Patient also has significant edema to the bilateral lower extremities with dressing in place right heel with chronic ulcers. Course Vital Signs: Vital signs: Vital Signs Temperature 98.4 F 02/03/21 18:03 Pulse Rate 79 02/03/21 18:47 Respiratory Rate 22 H 02/03/21 18:47 Blood Pressure 106/67 02/03/21 18:47 Pulse Oximetry 96 02/03/21 18:47 MDM - Extremity (Nontraumatic) MDM Narrative: Medical decision making narrative: Discussed case radiology and lab values with Dr. Hope. Patient stable go back to [facility] after infusion [facility] for PT that 3 patient is chronic kidney failure mild and has chronic anemia lab values stable slightly dehydrated. We will give her a liter of normal saline to help correct the hyponatremia bring her BUN/creatinine down and encourage fluids back to the [facility]. Lab Data: Labs: Lab Results 02/03/21 02/03/21 02/03/21 17:50 17:50 17:50 WBC 9.4 10^3/uL 10^3/ uL (4.0-10.0) RBC 3.20 10^6/uL L 10 ^6/uL (4.1-5.3) Hgb 8.7 g/dL L g/dL (11.5-15.3) Hct 28.0 % L % (37.0-47.0) MCV 87.5 fl fl (81-99) MCH 27.2 pg L pg (28.0-34.0) MCHC 31.1 g/dL g/dL (30.0-36.0) RDW 20.3 % H % (12.1-15.1) Plt Count 270 10^3/cmm 10^3 /cmm (130-400) MPV 10.6 fL H fL (7.4-10.4) Neut % (Auto) 88.5 % % Lymph % (Auto) 6.4 % % [facility] % (Auto) 4.3 % % Eos % (Auto) 0.1 % % Baso % (Auto) 0.3 % % Neut # (Auto) 8.34 10^3/uL H 10 ^3/uL (1.8-7.7) Lymph # (Auto) 0.6 10^3/uL L 10^ 3/uL (0.8-4.8) [facility] # (Auto) 0.4 10^3/uL 10^3/ uL (0.2-0.9) Eos # (Auto) 0.0 10^3/uL 10^3/ uL (0.0-0.8) Baso # (Auto) 0.0 10^3/uL 10^3/ uL (0.0-0.1) Nucleated RBC % (a uto) 0 % % Nucleated RBCs # 0.0 /100WBC /100W BC PT 33.90 SECONDS H S ECONDS (12.1-14.9) INR 3.28 H (0.8-1.2) Sodium 133 mmol/L L mmol /L (136-145) Potassium 5.1 mmol/L mmol/L (3.5-5.1) Chloride 94 mmol/L L mmol/ L (98-107) Carbon Dioxide 25 mmol/L mmol/L (22-29) Anion Gap 19.1 H (5-19) BUN 56 mg/dL H mg/dL (8-23) Creatinine 1.8 mg/dL H mg/dL (0.5-0.9) GFR Calculation Not Reportable Glucose 139 mg/dL H mg/dL (65-115) Calculated Osmolal ity 294 mOsm/kg mOsm/ kg (285-295) Calcium 8.7 mg/dL mg/dL (8.5-10.5) Discharge Plan Discharge Patient Disposition: er [facility] Clinical Impression: Hematoma, Dehydration Condition: Stable Discharge Orders: Discharge ED (Routine); Ordered 02/03/21 Ordered By: Julian Kinney Referrals: Meredith Edgar MD [Primary Care Provider] - Discharge Diet: Usual diet Discharge Activity: Resume usual activity Activity Restrictions/Additional Instructions: Contact primary care provider this week and have hematoma reevaluated and have blood work values reevaluated. Coding Level of Care Code ED [employer] Design for Chg Fwd Exam Expanded Problem Focused
[2021-02-03 18:26] LABS: Basophils % 0.3 %; Eosinophils % 0.1 %; Hemoglobin 8.7 g/dL (11.5-15.3); Lymphocytes # 0.6 10^3/uL (0.8-4.8); Lymphocytes % 6.4 %; Mean Corpuscular HGB Conc 31.1 g/dL (30.0-36.0); Mean Corpuscular Hemoglobin 27.2 pg (28.0-34.0); Mean Corpuscular Volume 87.5 fl (81-99); Mean Platelet Volume 10.6 fL (7.4-10.4); Monocytes # 0.4 10^3/uL (0.2-0.9); Monocytes % 4.3 %; Neutrophils # 8.34 10^3/uL (1.8-7.7); Neutrophils % 88.5 %; Nucleated Red Blood Cells % 0 %; Platelet Count 270 10^3/cmm (130-400); Red Cell Distribution Width 20.3 % (12.1-15.1); White Blood Count 9.4 10^3/uL (4.0-10.0)
[2021-02-03 18:41] LABS: Anion Gap 19.1 (5-19); Blood Urea Nitrogen 56 mg/dL (8-23); Calcium 8.7 mg/dL (8.5-10.5); Carbon Dioxide 25 mmol/L (22-29); Chloride 94 mmol/L (98-107); Glucose 139 mg/dL (65-115); Osmolality Calculated 294 mOsm/kg (285-295); Potassium 5.1 mmol/L (3.5-5.1); Sodium 133 mmol/L (136-145)
[2021-02-03 18:42] LABS: INR 3.28 (0.8-1.2)
[2021-02-03] MEDS: HYDROcodone-acetaminophen 5-325 mg Tablet 1 TAB PO (18:44)
[2021-02-03 18:47] VITALS: BP 106/67; PULSE 79; RESP 22; O2SAT 96
[2021-02-03 19:05] LABS: Slide Review Slide Review Perform
[2021-02-03] MEDS: sodium chloride 0.9% 1,000 ML 999 ML IV (19:16)
[2021-02-03] MEDS: morphine 4 mg/mL SDV 1 mL IVP (20:56)
[2021-02-03] MEDS: ondansetron 2 mg/ML SDV 2 mL 4 MG IVP (20:56)
[2021-02-03 22:03] VITALS: BP 118/71; PULSE 74; RESP 22; TEMP 36.8; O2SAT 98
[2021-02-03 22:22] VITALS: BP 110/77; PULSE 72; RESP 20; TEMP 36.8; O2SAT 96
[2021-02-03 22:37] VITALS: BP 102/60; RESP 20; TEMP 36.9; O2SAT 98
--- NOTE | 2021-02-03 22:54 | CTR_ITS ---
PROCEDURE INFORMATION: Exam: CT Abdomen And Pelvis Without Contrast Exam date and time: 02/03/2021 10:54 PM Age: 75 years old Clinical indication: Abdominal pain; Localized; Right; Additional info: R sided hematoma, distended abd TECHNIQUE: Imaging protocol: Computed tomography of the abdomen and pelvis without contrast. Radiation optimization: All CT scans at this facility use at least one of these dose optimization techniques: automated exposure control; mA and/or kV adjustment per patient size (includes targeted exams where dose is matched to clinical indication); or iterative reconstruction. COMPARISON: CT abdomen pelvis wo con [id number] 02/03/2020 4:43 PM RADIATION DOSE METRICS: Total DLP (mGy-cm): 2087.56 FINDINGS: Tubes, catheters and devices: Presacral stimulator device implanted in the subcutaneous fat of the right lower flank. Heart: Multi chamber cardiac enlargement. Negative for pericardial effusion. Liver: No liver mass. Reduced volume of liver. Recommend correlation for underlying liver cirrhosis. Gallbladder and bile ducts: Normal. No calcified stones. No ductal dilation. Pancreas: Severely atrophic pancreas without focal lesion. Spleen: Normal. No splenomegaly. Adrenal glands: Normal. No mass. Kidneys and ureters: Atrophic renal parenchyma. Negative for hydronephrosis. Stomach and bowel: Negative for bowel obstruction. Appendix: No evidence of appendicitis. Intraperitoneal space: Large volume diffuse ascites. No free intraperitoneal air. Vasculature: Scattered atherosclerosis. No abdominal aortic aneurysm. 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 No change from comparison. Lymph nodes: Unremarkable. No enlarged lymph nodes. Urinary bladder: Unremarkable as visualized. Reproductive: Unremarkable as visualized. Bones/joints: Osseous demineralization changes. No lytic bone lesion. Unremarkable lumbar spine alignment.The lumbar spine demonstrates moderate discogenic and apophyseal joint degenerative changes at multiple levels. Soft tissues: Diffuse body wall anasarca. CT/CT abdomen pelvis wo con [id number] IMPRESSION: Large volume diffuse ascites. Radiation Dose CTDIVOL = (mGy): DLP = 2087.56 (mGy-cm)
--- NOTE | 2021-02-03 22:58 | ED_ITS ---
Documented by User: Saurav Padilla, 02/04/21 03:04 HPI - Extremity Problem General: Chief complaint: Extremity Injury, Lower Stated complaint: RIGHT FOOT AND LEG PAIN Time Seen by Provider: 02/03/21 18:09 [facility] ED PFSH: Medical History (Updated 02/04/21 @ 00:01 by ) Anemia Chronic diastolic (congestive) heart failure Chronic kidney disease, stage 3, mod decreased GFR Essential hypertension Hypersomnia Hypoxemia Lymphedema Obstructive sleep apnea Paroxysmal atrial fibrillation Pulmonary hypertension Type 2 diabetes mellitus Surgical History H/O oral surgery Family History Other Family history unknown Social History Housing: Residential Marital status: / Additional social history: - Tobacco use: Denies Alcohol use: Denies Drug use: Denies Course Vital Signs: Vital signs: Vital Signs Temperature 98.0 F 02/04/21 04:30 Pulse Rate 78 02/04/21 04:30 Respiratory Rate 20 H 02/04/21 04:30 Blood Pressure 110/66 02/04/21 04:30 Pulse Oximetry 98 02/04/21 04:30 MDM - Extremity (Nontraumatic) MDM Narrative: Medical decision making narrative: This patient was originally seen by FAMILIA Britt. I agree with his history, evaluation, and treatment. This patient has ecchymosis that is aging to her right flank. Prior to [facility] to [facility], she had a low blood pressure. This was concerning and that she may have more significant trauma than we were aware, though her hemoglobin has remained stable. It prompted more laboratory, as well as a CT scan. The CT scan shows a cirrhotic liver with large volume ascites, but no intrapelvic hemorrhage evidence. her hemoglobin several hours post her first hemoglobin is stable at 8.4. She has an elevated BUN and creatinine, as well as an elevated BNP, although her oxygen saturations have been fine on normal oxygen. Her blood pressure currently is 105/63. Her heart rate is 75. She will be allowed back to the [facility]. We will check blood pressures twice daily, have hemoglobin reevaluated tomorrow, and return for any problems Lab Data: Labs: Lab Results 02/03/21 02/03/21 02/03/21 17:50 17:50 17:50 WBC 9.4 10^3/uL 10^3/ uL (4.0-10.0) RBC 3.20 10^6/uL L 10 ^6/uL (4.1-5.3) Hgb 8.7 g/dL L g/dL (11.5-15.3) Hct 28.0 % L % (37.0-47.0) MCV 87.5 fl fl (81-99) MCH 27.2 pg L pg (28.0-34.0) MCHC 31.1 g/dL g/dL (30.0-36.0) RDW 20.3 % H % (12.1-15.1) Plt Count 270 10^3/cmm 10^3 /cmm (130-400) MPV 10.6 fL H fL (7.4-10.4) Neut % (Auto) 88.5 % % Lymph % (Auto) 6.4 % % [place] % (Auto) 4.3 % % Eos % (Auto) 0.1 % % Baso % (Auto) 0.3 % % Neut # (Auto) 8.34 10^3/uL H 10 ^3/uL (1.8-7.7) Lymph # (Auto) 0.6 10^3/uL L 10^ 3/uL (0.8-4.8) [place] # (Auto) 0.4 10^3/uL 10^3/ uL (0.2-0.9) Eos # (Auto) 0.0 10^3/uL 10^3/ uL (0.0-0.8) Baso # (Auto) 0.0 10^3/uL 10^3/ uL (0.0-0.1) Nucleated RBC % (a uto) 0 % % Nucleated RBCs # 0.0 /100WBC /100W BC PT 33.90 SECONDS H S ECONDS (12.1-14.9) INR 3.28 H (0.8-1.2) Sodium 133 mmol/L L mmol /L (136-145) Potassium 5.1 mmol/L mmol/L (3.5-5.1) Chloride 94 mmol/L L mmol/ L (98-107) Carbon Dioxide 25 mmol/L mmol/L (22-29) Anion Gap 19.1 H (5-19) BUN 56 mg/dL H mg/dL (8-23) Creatinine 1.8 mg/dL H mg/dL (0.5-0.9) GFR Calculation Not Reportable Glucose 139 mg/dL H mg/dL (65-115) Calculated Osmolal ity 294 mOsm/kg mOsm/ kg (285-295) Calcium 8.7 mg/dL mg/dL (8.5-10.5) GGT AST ALT Lactate Dehydrogen ase NT-Pro-B Natriuret Pep Blood Type Rho(D) Type 02/03/21 02/03/21 02/04/21 17:50 20:45 02:06 WBC RBC Hgb 8.4 g/dL L g/dL (11.5-15.3) Hct 27.5 % L % (37.0-47.0) MCV MCH MCHC RDW Plt Count MPV Neut % (Auto) Lymph % (Auto) [place] % (Auto) Eos % (Auto) Baso % (Auto) Neut # (Auto) Lymph # (Auto) [place] # (Auto) Eos # (Auto) Baso # (Auto) Nucleated RBC % (a uto) Nucleated RBCs # PT INR Sodium Potassium Chloride Carbon Dioxide Anion Gap BUN Creatinine GFR Calculation Glucose Calculated Osmolal ity Calcium GGT 23 U/L U/L (5-36) AST 12 U/L U/L (0-32) ALT 8 U/L U/L (0-33) Lactate Dehydrogen ase 216 U/L H U/L (135-214) NT-Pro-B Natriuret Pep 16531 pg/mL H pg/ mL (0-450) Blood Type A Positive Rho(D) Type Positive Discharge Plan Discharge Patient Disposition: [facility] Clinical Impression: Hematoma, Dehydration Condition: Stable Discharge Orders: Discharge ED (Routine); Ordered 02/03/21 Ordered By: Julian Kinney Referrals: Meredith Edgar MD [Primary Care Provider] - Discharge Diet: Usual diet Discharge Activity: Resume usual activity Activity Restrictions/Additional Instructions: Check vital signs including blood pressure twice daily x3 days then routine. Recheck CBC on 02/05/2021. Return for worsening mental status, worsening pain, significantly low blood pressures, any other concerning symptoms Sign Out Sign Out Data: Patient Sign Out occurred on 02/04/21 at 06:35. Patient's care was discussed, a nd care was transferred from to Baljeet Parada DO. 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[employer] Documented by User: Baljeet Parada DO 02/04/21 06:37 HPI - Extremity Problem General: Chief complaint: Extremity Injury, Lower Stated complaint: RIGHT FOOT AND LEG PAIN Time Seen by Provider: 02/03/21 18:09 PFSH ED PFSH: Medical History (Updated 02/04/21 @ 00:01 by ) Anemia Chronic diastolic (congestive) heart failure Chronic kidney disease, stage 3, mod decreased GFR Essential hypertension Hypersomnia Hypoxemia Lymphedema Obstructive sleep apnea Paroxysmal atrial fibrillation Pulmonary hypertension Type 2 diabetes mellitus Surgical History H/O oral surgery Family History Other Family history unknown Social History Housing: Residential Marital status: / Additional social history: - Tobacco use: Denies Alcohol use: Denies Drug use: Denies Course Vital Signs: Vital signs: Vital Signs Temperature 98.0 F 02/04/21 04:30 Pulse Rate 78 02/04/21 04:30 Respiratory Rate 20 H 02/04/21 04:30 Blood Pressure 110/66 02/04/21 04:30 Pulse Oximetry 98 02/04/21 04:30 MDM - Extremity (Nontraumatic) MDM Narrative: Medical decision making narrative: Patient inadvertently signed out in the system. Patient was seen by Nirmal and read. I did not see the patient or participate in patient's care. Lab Data: Labs: Lab Results 02/03/21 02/03/21 02/03/21 17:50 17:50 17:50 WBC 9.4 10^3/uL 10^3/ uL (4.0-10.0) RBC 3.20 10^6/uL L 10 ^6/uL (4.1-5.3) Hgb 8.7 g/dL L g/dL (11.5-15.3) Hct 28.0 % L % (37.0-47.0) MCV 87.5 fl fl (81-99) MCH 27.2 pg L pg (28.0-34.0) MCHC 31.1 g/dL g/dL (30.0-36.0) RDW 20.3 % H % (12.1-15.1) Plt Count 270 10^3/cmm 10^3 /cmm (130-400) MPV 10.6 fL H fL (7.4-10.4) Neut % (Auto) 88.5 % % Lymph % (Auto) 6.4 % % [place] % (Auto) 4.3 % % Eos % (Auto) 0.1 % % Baso % (Auto) 0.3 % % Neut # (Auto) 8.34 10^3/uL H 10 ^3/uL (1.8-7.7) Lymph # (Auto) 0.6 10^3/uL L 10^ 3/uL (0.8-4.8) [place] # (Auto) 0.4 10^3/uL 10^3/ uL (0.2-0.9) Eos # (Auto) 0.0 10^3/uL 10^3/ uL (0.0-0.8) Baso # (Auto) 0.0 10^3/uL 10^3/ uL (0.0-0.1) Nucleated RBC % (a uto) 0 % % Nucleated RBCs # 0.0 /100WBC /100W BC PT 33.90 SECONDS H S ECONDS (12.1-14.9) INR 3.28 H (0.8-1.2) Sodium 133 mmol/L L mmol /L (136-145) Potassium 5.1 mmol/L mmol/L (3.5-5.1) Chloride 94 mmol/L L mmol/ L (98-107) Carbon Dioxide 25 mmol/L mmol/L (22-29) Anion Gap 19.1 H (5-19) BUN 56 mg/dL H mg/dL (8-23) Creatinine 1.8 mg/dL H mg/dL (0.5-0.9) GFR Calculation Not Reportable Glucose 139 mg/dL H mg/dL (65-115) Calculated Osmolal ity 294 mOsm/kg mOsm/ kg (285-295) Calcium 8.7 mg/dL mg/dL (8.5-10.5) GGT AST ALT Lactate Dehydrogen ase NT-Pro-B Natriuret Pep Blood Type Rho(D) Type 02/03/21 02/03/21 02/04/21 17:50 20:45 02:06 WBC RBC Hgb 8.4 g/dL L g/dL (11.5-15.3) Hct 27.5 % L % (37.0-47.0) MCV MCH MCHC RDW Plt Count MPV Neut % (Auto) Lymph % (Auto) [place] % (Auto) Eos % (Auto) Baso % (Auto) Neut # (Auto) Lymph # (Auto) [place] # (Auto) Eos # (Auto) Baso # (Auto) Nucleated RBC % (a uto) Nucleated RBCs # PT INR Sodium Potassium Chloride Carbon Dioxide Anion Gap BUN Creatinine GFR Calculation Glucose Calculated Osmolal ity Calcium GGT 23 U/L U/L (5-36) AST 12 U/L U/L (0-32) ALT 8 U/L U/L (0-33) Lactate Dehydrogen ase 216 U/L H U/L (135-214) NT-Pro-B Natriuret Pep 14688 pg/mL H pg/ mL (0-450) Blood Type A Positive Rho(D) Type Positive Discharge Plan Discharge Patient Disposition: [facility] Clinical Impression: Hematoma, Dehydration Condition: Stable Discharge Orders: Discharge ED (Routine); Ordered 02/03/21 Ordered By: Julian Kinney Referrals: Meredith Edgar MD [Primary Care Provider] - Discharge Diet: Usual diet Discharge Activity: Resume usual activity Activity Restrictions/Additional Instructions: Check vital signs including blood pressure twice daily x3 days then routine. Recheck CBC on 02/05/2021. Return for worsening mental status, worsening pain, significantly low blood pressures, any other concerning symptoms Sign Out Sign Out Data: Patient Sign Out occurred on 02/04/21 at 06:35. Patient's care was discussed, and care was transferred from to Baljeet Parada DO. 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
[2021-02-03 23:37] VITALS: BP 104/55; PULSE 84; RESP 20; TEMP 36.7; O2SAT 98
[2021-02-04 00:30] VITALS: BP 110/60; PULSE 77; RESP 98; TEMP 36.9; O2SAT 97
[2021-02-04 00:43] LABS: Alanine Aminotransferase 8 U/L (0-33); Aspartate Amino Transferase 12 U/L (0-32); Gamma Glutamyl Transferase 23 U/L (5-36); Lactate Dehydrogenase 216 U/L (135-214)
[2021-02-04 01:01] VITALS: BP 112/67; PULSE 73; RESP 23; TEMP 36.7; O2SAT 96
[2021-02-04 02:16] LABS: Hematocrit 27.5 % (37.0-47.0); Hemoglobin 8.4 g/dL (11.5-15.3)
[2021-02-04 04:30] VITALS: BP 110/66; PULSE 78; RESP 20; TEMP 36.7; O2SAT 98
== END 2021-02-04 04:30 ==
PROVIDERS: Emergency Medicine; Nurse Practitioner Family; Emergency Provider Family Medicine; PCP Family Medicine
DX: M79.81 Nontraumatic hematoma of soft tissue (principal); E86.0 Dehydration; I12.9 Hypertensive chronic kidney disease with stage 1 through stage 4 chronic kidney disease, or unspecified chronic kidney disease; E11.22 Type 2 diabetes mellitus with diabetic chronic kidney disease; N18.9 Chronic kidney disease, unspecified; D64.9 Anemia, unspecified; E66.01 Morbid (severe) obesity due to excess calories; Z68.43 Body mass index [BMI] 50.0-59.9, adult; I48.91 Unspecified atrial fibrillation
CPT/HCPCS: 36415; 36430; 73502; 74176; 80048; 82977; 83615; 83880; 84450; 84460; 85014; 85018; 85025; 85610; 86900; 86927; 96361; 96374; 96375; 99284; J2270; J2405; J7030; P9017

== ENCOUNTER 2021-02-07 15:03 | Inpatient (IN) | payer MEDICARE, MEDICAID, SELFPAY ==
[2021-02-07 15:04] VITALS: BP 160/133; PULSE 81; RESP 15; TEMP 36.4; O2SAT 98; BMI 58.2
[2021-02-07 15:34] VITALS: BP 121/73; PULSE 75; RESP 16
--- NOTE | 2021-02-07 16:10 | ECG_ITS ---
[facility] Test Date: 2021-02-07 Pat Name: Kory Elder Department: Room: Gender: Female Mirror Inspector: : 1945 Requested By: Baljeet Carvajal Order Number: [id number] Lorraine MD: Terrance Nathan M.D. Measurements Intervals [place] Rate: 73 P: OR: QRS: 29 QRSD: 130 T: -7 QT: 412 QTc: 455 Interpretive Statements ATRIAL FIBRILLATION INDETERMINATE AXIS RIGHT BUNDLE BRANCH BLOCK [120+ ms QRS DURATION, UPRIGHT V1, 40+ ms S IN I/aVL/V4/V5/V6] Compared to ECG 01/30/2020 18:40:36 Indeterminate axis now present Right bundle-branch block now present Incomplete right bundle-branch block no longer present ST (T wave) deviation no longer present Electronically Signed On 02-07-2021 23:57:15 CDT by Terrance Nathan M.D. [id number]
--- NOTE | 2021-02-07 16:10 | XRR_ITS ---
PROCEDURE INFORMATION: Exam: XR Chest Exam date and time: 02/07/2021 4:10 PM Age: 75 years old Clinical indication: Cough and dyspnea; Prior surgery; Surgery type: Unknown, PT unable to provide history; Additional info: Dyspnea/cough TECHNIQUE: Imaging protocol: XR of the chest. Views: 1 view. COMPARISON: CR (CHEST, ) 01/27/2021 12:07 PM FINDINGS: Lungs: Hypoinflated lungs. Nodular opacities noted along the medial left lung base, similar in appearance to prior exam. Pleural spaces: Unremarkable. No pleural effusion. No pneumothorax. Heart/Mediastinum: Stable cardiomegaly. Bones/joints: Unremarkable. XR/XR chest 1V portable [id number] IMPRESSION: Similar cardiomegaly and nodular opacities in the medial left lung base. Radiation Dose CTDIVOL = (mGy): DLP = (mGy-cm)
--- NOTE | 2021-02-07 16:17 | US_ITS ---
WS: [id number] Abdominal ultrasound, limited. History: Evaluate for ascites. Comparison: None. All 4 quadrants are imaged by ultrasound to evaluate for ascites. Large amount of ascites in all 4 qu adrants. US/US abdomen lmt fluid [id number] IMPRESSION: Large amount of peritoneal ascites.
--- NOTE | 2021-02-07 16:20 | W.ED.SOB ---
HPI - SOB/Dyspnea General: Chief Complaint: ER Hold Stated Complaint: SOB, EDEMA Time Seen by Provider: 02/07/21 15:15 History of Present Illness: HPI Narrative: 75-year-old female presents emergency room complaining of shortness of breath. She has had some cough and abdominal distention as well. She currently is on oxygen. Normally she does not use oxygen she has significant bloating in her abdomen. Additionally she is on Eliquis. She has severe peripheral vascular disease with microembolism with cyanosis distally. MD elicited complaint: shortness of breath and cough Pertinent past history: COPD, congestive heart failure and diabetes Onset (ago): hour(s) Timing: constant Severity: moderate Exacerbating factors: lying flat Relieving factors: oxygen and rest Known history of: COPD, congestive heart failure and diabetes Associated symptoms: Deny abdominal pain, chest congestion, chest pain, cough, diaphoresis, dizziness, extremity pain, fever(s), hemoptysis, lightheadedness, myalgias, nausea, orthopnea, palpitations, paresthesias, polydipsia, polyuria, rash, sense of impending doom, syncope or vomiting Treatment prior to arrival: oxygen Review of Systems Const: Denies: fever(s) or diaphoresis Card: Denies: chest pain, palpitations, lightheadedness, syncope or orthopnea Resp: Denies: hemoptysis or chest congestion GI: Denies: abdominal pain, nausea or vomiting Musc: Denies: extremity pain Neuro: Denies: dizziness Endo: Denies: polyuria or polydipsia PFS ED PFSH: Medical History (Updated 02/08/21 @ 16:06 by Baljeet Parada DO) Anemia Body mass index (BMI) greater than 50 Chronic diastolic (congestive) heart failure Chronic kidney disease, stage 3, mod decreased GFR COVID-19 vaccine administered Depression Essential hypertension History of COVID-19 History of ESBL E. coli infection History of pulmonary embolism (~2017) saddle embolism Hyperlipidemia Hypersomnia Lymphedema Obstructive sleep apnea on CPAP Paroxysmal atrial fibrillation Postmenopausal bleeding (~01/2020) requiring D&C Pulmonary hypertension Type 2 diabetes mellitus reported diagnosis in SNF and hospital records but not on treatment, normal blood sugars Surgical History (Updated 02/08/21 @ 03:47 by Kika Cleary MD) H/O oral surgery History of D&C (02/02/20) for postmenopausal bleeding Pacemaker Family History Other Family history unknown Social History Housing: Long-Term Marital status: / Additional social history: - Tobacco use: Denies Alcohol use: Denies Drug use: Denies Physical Exam Const: COMMON NORMALS: no acute distress GENERAL APPEARANCE: cooperative and comfortable ORIENTATION/CONSCIOUSNESS: Yes awake, Yes oriented to person, Yes oriented to place and Yes oriented to time HENMT: COMMON NORMALS: normocephalic, atraumatic and hearing grossly normal bilaterally HEAD & SCALP: normocephalic and atraumatic Neck/C-Spine: COMMON NORMALS: no JVD Resp: COMMON NORMALS: normal respiratory effort, No retractions, No use of accessory muscles and clear to auscultation bilaterally AUSCULTATION: clear to auscultation bilaterally Cardio: COMMON NORMALS: no JVD, regular rate, regular rhythm and No murmurs present (Cardio) RATE: regular rate RHYTHM: regular rhythm GI: COMMON NORMALS: No hepatosplenomegaly present INSPECTION: Yes Fluid wave present AUSCULTATION: Yes Hypoactive bowel sounds present PALPATION: Yes Tenderness to palpation present (GI) (diffuse), No Guarding due to palpation present (GI) and Yes No hepatosplenomegaly present PERCUSSION: Fluid wave present Extremity: COMMON NORMALS: normal to inspection, capillary refill normal, no clubbing, cyanosis or edema, no calf tenderness and no pedal edema Neuro: SENSORIUM/ORIENTATION: Yes oriented to person, Yes oriented to place and Yes oriented to time Skin: COMMON NORMALS: no rashes or lesions noted GENERAL SKIN EXAM: no rashes or lesions noted Course Vital Signs: Vital signs: Vital Signs Temperature 97.5 F L 02/08/21 15:11 Pulse Rate 76 02/08/21 15:11 Respiratory Rate 20 H 02/08/21 15:11 Blood Pressure 120/77 02/08/21 15:11 Pulse Oximetry 93 02/08/21 15:11 MDM - SOB/Dyspnea MDM Narrative: Medical decision making narrative: Discussed the hospitalist orders written. Lab Data: Labs: Lab Results 02/07/21 02/07/21 02/07/21 15:30 15:30 15:30 WBC 7.1 10^3/uL 10^3/ uL (4.0-10.0) RBC 3.45 10^6/uL L 10 ^6/uL (4.1-5.3) Hgb 9.2 g/dL L g/dL (11.5-15.3) Hct 31.2 % L % (37.0-47.0) MCV 90.4 fl fl (81-99) MCH 26.7 pg L pg (28.0-34.0) MCHC 29.5 g/dL L g/dL (30.0-36.0) RDW 19.9 % H % (12.1-15.1) Plt Count 245 10^3/cmm 10^3 /cmm (130-400) MPV 11.9 fL H fL (7.4-10.4) Neut % (Auto) 71.6 % % Lymph % (Auto) 7.9 % % Hill % (Auto) 14.3 % % Eos % (Auto) 5.1 % % Baso % (Auto) 0.4 % % Neut # (Auto) 5.09 10^3/uL 10^3 /uL (1.8-7.7) Lymph # (Auto) 0.6 10^3/uL L 10^ 3/uL (0.8-4.8) Hill # (Auto) 1.0 10^3/uL H 10^ 3/uL (0.2-0.9) Eos # (Auto) 0.4 10^3/uL 10^3/ uL (0.0-0.8) Baso # (Auto) 0.0 10^3/uL 10^3/ uL (0.0-0.1) Nucleated RBC % (a uto) 0 % % Nucleated RBCs # 0.0 /100WBC /100W BC PT INR APTT Specimen Type Sample Site ABG pH ABG pCO2 ABG pO2 ABG HCO3 ABG O2 Saturation ABG Base Excess Gerry Test A-a O2 Gradient Hematocrit Hgb O2 Saturation Carboxyhemoglobin Methemoglobin Total Hemoglobin Ionized Calcium O2 Delivery Device O2 Liters/Min FiO2 Research And Development Tester ID Sodium Cancelled Potassium Cancelled Chloride Cancelled Carbon Dioxide Cancelled Anion Gap Cancelled BUN Cancelled Creatinine Cancelled GFR Calculation Cancelled Glucose Cancelled Calculated Osmolal ity Cancelled Lactic Acid Calcium Cancelled Total Bilirubin Cancelled AST Cancelled ALT Cancelled Alkaline Phosphata se Cancelled Creatine Kinase Cancelled Troponin T Baselin e Cancelled Troponin T 120 Min [place] Troponin T Total Protein Cancelled Albumin Cancelled Globulin Cancelled Urine Color Urine Appearance Urine pH Ur Specific Gravit y Urine Protein Urine Glucose (UA) Urine Ketones Urine Blood Urine Nitrate Urine Bilirubin Urine Urobilinogen Ur Leukocyte Jolynn ase Ur Random Sodium Urine Creatinine 02/07/21 02/07/21 02/07/21 16:50 16:50 16:50 WBC RBC Hgb Hct MCV MCH MCHC RDW Plt Count MPV Neut % (Auto) Lymph % (Auto) Hill % (Auto) Eos % (Auto) Baso % (Auto) Neut # (Auto) Lymph # (Auto) Hill # (Auto) Eos # (Auto) Baso # (Auto) Nucleated RBC % (a uto) Nucleated RBCs # PT 22.30 SECONDS H S ECONDS (12.1-14.9) INR 1.91 H (0.8-1.2) APTT 46.0 SECONDS H SE CONDS (23.9-36.7) Specimen Type Sample Site ABG pH ABG pCO2 ABG pO2 ABG HCO3 ABG O2 Saturation ABG Base Excess Gerry Test A-a O2 Gradient Hematocrit Hgb O2 Saturation Carboxyhemoglobin Methemoglobin Total Hemoglobin Ionized Calcium O2 Delivery Device O2 Liters/Min FiO2 Research And Development Tester ID Sodium 126 mmol/L L mmol /L (136-145) Potassium 5.9 mmol/L H mmol /L (3.5-5.1) Chloride 90 mmol/L L mmol/ L (98-107) Carbon Dioxide 22 mmol/L mmol/L (22-29) Anion Gap 19.9 H (5-19) BUN 67 mg/dL H mg/dL (8-23) Creatinine 2.0 mg/dL H mg/dL (0.5-0.9) GFR Calculation Not Reportable Glucose 103 mg/dL mg/dL (65-115) Calculated Osmolal ity 282 mOsm/kg L mOs m/kg (285-295) Lactic Acid 1.4 mmol/L mmol/L (0.5-2.2) Calcium 8.7 mg/dL mg/dL (8.5-10.5) Total Bilirubin 1.1 mg/dL mg/dL (0.15-1.2) AST 10 U/L U/L (0-32) ALT < 5 U/L U/L (0-33) Alkaline Phosphata se 77 IU/L IU/L (35-105) Creatine Kinase 28 U/L U/L (26-192) Troponin T Baselin e Troponin T 120 Min [place] Troponin T Total Protein 7.1 g/dL g/dL (6.6-8.7) Albumin 3.0 g/dL L g/dL (3.5-5.2) Globulin 4.1 g/dL g/dL (1.3-4.6) Urine Color Urine Appearance Urine pH Ur Specific Gravit y Urine Protein Urine Glucose (UA) Urine Ketones Urine Blood Urine Nitrate Urine Bilirubin Urine Urobilinogen Ur Leukocyte Jolynn ase Ur Random Sodium Urine Creatinine 02/07/21 02/07/21 02/07/21 16:50 17:02 17:33 WBC RBC Hgb Hct MCV MCH MCHC RDW Plt Count MPV Neut % (Auto) Lymph % (Auto) Hill % (Auto) Eos % (Auto) Baso % (Auto) Neut # (Auto) Lymph # (Auto) Hill # (Auto) Eos # (Auto) Baso # (Auto) Nucleated RBC % (a uto) Nucleated RBCs # PT INR APTT Specimen Type Arterial Sample Site Brachial, left ABG pH 7.40 (7.35-7.45) ABG pCO2 43.4 mmHg mmHg (35-45) ABG pO2 112.0 mmHg H mmHg (80.0-100.0) ABG HCO3 26.6 mmol/L H mmo l/L (22-26) ABG O2 Saturation 99.3 ABG Base Excess 1.5 mmol/L mmol/L (-2.0-2.0) Gerry Test N/a A-a O2 Gradient 10.9 mmHg H mmHg (5-10) Hematocrit 27.9 % L % (37-47) Hgb O2 Saturation 97.2 % % (95-100) Carboxyhemoglobin 1.4 %THgb %THgb (0.4-20.1) Methemoglobin 0.8 % % (0.4-1.5) Total Hemoglobin 9.1 g/dL L g/dL (12-16) Ionized Calcium 1.2 mmol/L mmol/L (1.1-1.4) O2 Delivery Device Nc O2 Liters/Min 4.0 % % FiO2 36.0 % % Research And Development Tester ID Amh Sodium 132.0 mmol/L mmol /L (131-143) Potassium 5.2 mmol/L H mmol /L (3.5-5.0) Chloride Carbon Dioxide Anion Gap BUN Creatinine GFR Calculation Glucose 107.0 mg/dL mg/dL (70-115) Calculated Osmolal ity Lactic Acid Calcium Total Bilirubin AST ALT Alkaline Phosphata se Creatine Kinase Troponin T Baselin e 116 ng/L H* ng/L (0-10) Troponin T 120 Min [place] Troponin T Total Protein Albumin Globulin Urine Color Straw (Yellow) Urine Appearance Clear (CLEAR) Urine pH 5 (5-7) Ur Specific Gravit y 1.010 (1.005-1.030) Urine Protein Neg (Negative) Urine Glucose (UA) Norm (Normal) Urine Ketones Negative (Negative) Urine Blood Neg (Negative) Urine Nitrate Negative (Negative) Urine Bilirubin Neg (Negative) Urine Urobilinogen Norm mg/dL mg/dL (Negative) Ur Leukocyte Jolynn ase Negative (Negative) Ur Random Sodium Urine Creatinine 02/07/21 02/07/21 17:33 19:28 WBC RBC Hgb Hct MCV MCH MCHC RDW Plt Count MPV Neut % (Auto) Lymph % (Auto) Hill % (Auto) Eos % (Auto) Baso % (Auto) Neut # (Auto) Lymph # (Auto) Hill # (Auto) Eos # (Auto) Baso # (Auto) Nucleated RBC % (a uto) Nucleated RBCs # PT INR APTT Specimen Type Sample Site ABG pH ABG pCO2 ABG pO2 ABG HCO3 ABG O2 Saturation ABG Base Excess Gerry Test A-a O2 Gradient Hematocrit Hgb O2 Saturation Carboxyhemoglobin Methemoglobin Total Hemoglobin Ionized Calcium O2 Delivery Device O2 Liters/Min FiO2 Research And Development Tester ID Sodium Potassium Chloride Carbon Dioxide Anion Gap BUN Creatinine GFR Calculation Glucose Calculated Osmolal ity Lactic Acid Calcium Total Bilirubin AST ALT Alkaline Phosphata se Creatine Kinase Troponin T Baselin e Troponin T 120 Min [place] 113.9 ng/L H ng/L (0-10) Delta Troponin T -2.1 ABS# L ABS# (0-10) Total Protein Albumin Globulin Urine Color Urine Appearance Urine pH Ur Specific Gravit y Urine Protein Urine Glucose (UA) Urine Ketones Urine Blood Urine Nitrate Urine Bilirubin Urine Urobilinogen Ur Leukocyte Jolynn ase Ur Random Sodium 21 mmol/L mmol/L Urine Creatinine 23 mg/dL L mg/dL (28-217) Discharge Plan Discharge Patient Disposition: Admitted As Inpatient Admit Provider: Linda White Clinical Impression: Acute hyperkalemia, CHF (congestive heart failure), Ascites, Anemia, Hyponatremia, Paroxysmal atrial fibrillation, Obstructive sleep apnea, Hematoma Condition: Stable Coding Level of Care Code ED Director [employer] Fwd Exam Comprehensive
[2021-02-07 16:29] LABS: Basophils % 0.4 %; Eosinophils # 0.4 10^3/uL (0.0-0.8); Eosinophils % 5.1 %; Hematocrit 31.2 % (37.0-47.0); Hemoglobin 9.2 g/dL (11.5-15.3); Lymphocytes # 0.6 10^3/uL (0.8-4.8); Lymphocytes % 7.9 %; Mean Corpuscular HGB Conc 29.5 g/dL (30.0-36.0); Mean Corpuscular Hemoglobin 26.7 pg (28.0-34.0); Mean Corpuscular Volume 90.4 fl (81-99); Mean Platelet Volume 11.9 fL (7.4-10.4); Monocytes % 14.3 %; Neutrophils # 5.09 10^3/uL (1.8-7.7); Neutrophils % 71.6 %; Nucleated Red Blood Cells % 0 %; Platelet Count 245 10^3/cmm (130-400); Red Blood Count 3.45 10^6/uL (4.1-5.3); Red Cell Distribution Width 19.9 % (12.1-15.1); White Blood Count 7.1 10^3/uL (4.0-10.0)
[2021-02-07 17:13] LABS: ABG PCO2 43.4 mmHg (35-45); Alveolar-Arterial Oxygen Gradi 10.9 mmHg (5-10); Arterial Blood Gas Hematocrit 27.9 % (37-47); Base Excess ABG 1.5 mmol/L (-2.0-2.0); Blood Gas Operator Identificat AMH; Blood Gas Sample Site Brachial, left; Blood Gas Sample Type Arterial; Carboxyhemoglobin 1.4 %THgb (0.4-20.1); HCO3 ABG 26.6 mmol/L (22-26); HGB O2 Sat 97.2 % (95-100); Ionized Calcium Level - ABG 1.2 mmol/L (1.1-1.4); Methemoglobin 0.8 % (0.4-1.5); Oxygen Device NC; Oxygen Saturation ABG 99.3; Potassium Level - ABG 5.2 mmol/L (3.5-5.0); Total Hemoglobin 9.1 g/dL (12-16)
[2021-02-07 17:14] LABS: INR 1.91 (0.8-1.2)
[2021-02-07 17:22] LABS: Alanine Aminotransferase < 5 U/L (0-33); Alkaline Phosphatase 77 IU/L (35-105); Anion Gap 19.9 (5-19); Aspartate Amino Transferase 10 U/L (0-32); Blood Urea Nitrogen 67 mg/dL (8-23); Calcium 8.7 mg/dL (8.5-10.5); Carbon Dioxide 22 mmol/L (22-29); Chloride 90 mmol/L (98-107); Creatine Phosphokinase 28 U/L (26-192); Globulin 4.1 g/dL (1.3-4.6); Glucose 103 mg/dL (65-115); Osmolality Calculated 282 mOsm/kg (285-295); Potassium 5.9 mmol/L (3.5-5.1); Sodium 126 mmol/L (136-145); Total Bilirubin 1.1 mg/dL (0.15-1.2); Total Protein 7.1 g/dL (6.6-8.7)
[2021-02-07 17:29] LABS: Troponin(5th) Baseline 116 ng/L (0-10)
[2021-02-07 17:43] LABS: Add Urine Microscopic? NO; Charge for UA Resulting for Rev
[2021-02-07 17:56] LABS: Lactic Sepsis W/Reflex 1.4 mmol/L (0.5-2.2)
--- NOTE | 2021-02-07 18:10 | ECG_ITS ---
[facility] Test Date: 2021-02-07 Pat Name: Kory Elder Department: Room: Gender: Female Bi Manager: : 1945 Requested By: Baljeet Carvajal Order Number: [id number] Reading MD: Terrance Nathan M.D. Measurements Intervals [place] Rate: 73 P: ID: QRS: 21 QRSD: 129 T: 32 QT: 377 QTc: 417 Interpretive Statements ATRIAL FIBRILLATION INDETERMINATE AXIS RIGHT BUNDLE BRANCH BLOCK [120+ ms QRS DURATION, UPRIGHT V1, 40+ ms S IN I/aVL/V4/V5/V6] Compared to ECG 02/07/2021 17:08:41 No significant changes Electronically Signed On 02-08-2021 0:01:58 CDT by Terrance Nathan M.D. [email or web address]
[2021-02-07 18:17] LABS: Bilirubin Urine Neg (Negative); Blood Urine Neg (Negative); Glucose Urine UA Norm (Normal); Ketones Urine Negative (Negative); Leukocyte Esterase Urine Negative (Negative); Nitrate Urine Negative (Negative); Protein Urine Neg (Negative); Urine Appearance Clear (CLEAR); Urine Color Straw (Yellow); Urobilinogen Urine Norm (Negative); pH Urine 5 (5-7)
--- NOTE | 2021-02-07 19:43 | PM.HP ---
Providers/Chief Complaint Admitting Physician: Kika Cleary MD Primary Care Provider: Meredith Edgar MD Chief Complaint: SOB, EDEMA History of Present Illness Kory Elder is a 75 year old female who presented to the emergency room with complaint of increasing difficulty breathing, edema/anasarca and progressive worsening lately. Her son came to see her and discussed current condition with her, strongly encouraging her to come into the hospital for evaluation. Mrs. Elder has multiple comorbid medical conditions including chronic diastolic CHF, chronic kidney disease, hypertension, sleep apnea, pulmonary hypertension, paroxysmal atrial fibrillation and diabetes among others. Earlier this month around the or , she developed epistaxis. Prior to that she had been on Eliquis and aspirin therapy. She was seen in the emergency room and had a Rhino Rocket placed. Eliquis and aspirin were stopped shortly after that. She has had problems with significant edema for some time necessitating increasing diuretic doses. She had previously been on Lasix 40 mg and metolazone 5 but at some point within the last year has had increased up to 80 mg twice a day of Lasix and 10 mg daily of metolazone. Doses have not been recently changed that I have been able to discern from available records although I did see a notation that there was to be follow-up secondary to medication adjustments around February 11. This may simply be from when her blood thinners were stopped. Despite diuretic therapy she has had continued weeping from both lower extremities, left more so than right, increasing abdominal girth in addition to lower extremity edema and gradually increasing shortness of breath. She resides in the nonskilled portion of [facility]. She does not walk at baseline and requires movement with Jerald lift. 4 to 5 days ago she was found to have significant bruising along her left hip and flank area. She was seen in the emergency room then. She had a noncontrasted CT of the abdomen and pelvis that revealed ascites and body wall edema. Hemoglobin was down from values on ED visit on January 27 but was monitored and essentially stable and ultimately discharged back to skilled facility from the emergency room. The hematomas were described as decreasing suggestive of not being new. Suspected that it had to do from the Jerald lift but unknown. No report of any falls. She has had further decline as described since that time and presents again today. She denies chest pain. She has had a nonproductive cough. She has had pain in her back and buttock area although admits that that is chronic. She denies any fever. She has had general malaise. No nausea or vomiting. She has had constipation and takes laxatives for that. Work-up in the emergency room revealed significant ascites and clinical evidence of acute CHF. She had worsening renal function compared to prior values, elevated coagulation studies despite being off of anticoagulants for more than a week, baseline troponin greater than 100 with negative delta, low voltage EKG, stable but persistent anemia without thrombocytopenia, hyperkalemia and hyponatremia, normal lactic acid and mild hypoalbuminemia. On physical exam noted to have significant cyanosis of fingers and toes along with sores at fingers and toes. I could find no documentation of this having been present previously. Discussed with nursing staff at [facility] who are familiar with Mrs. Elder and they state that the significant discoloration and sores on the fingers and toes started within the last 2 weeks and has progressively worsened. She has been getting different treatments particularly to wounds on her toes. She denies a history of blood clots. On anticoagulation due to paroxysmal atrial fibrillation. CT of the abdomen and pelvis without contrast within the last week showed some atherosclerotic changes but was unrevealing, without the contrast, for anything further from a vascular standpoint. Patient's primary complaint during my evaluation is buttock pain. She is able to provide history for the most part although nursing staff help fill in some of the timeframe gaps. Patient is being admitted for further evaluation and management. While she does not want to be resuscitated, she would be okay with short-term intubation and mechanical ventilation if it afforded an opportunity for improvement. Review of Systems Const: Reports: body aches, change in weight (Gain), fatigue, malaise and daytime sleepiness; Denies: fever(s) or chills ENMT: Reports: oral sores (Also involving the lips), dry mouth, nasal congestion and epistaxis (Earlier this month); Denies: throat pain Card: Reports: edema, orthopnea and acrocyanosis; Denies: chest pain or palpitations Resp: Reports: dyspnea, productive cough (thin sputum), non-productive cough and chest congestion; Denies: pain on inspiration or hemoptysis GI: Reports: abdominal pain, early satiety, constipation and bloating; Denies: nausea, vomiting, diarrhea, hematochezia or melena : Denies: difficulty voiding or hematuria Musc: Reports: back pain, extremity pain, extremity swelling and muscle weakness Skin/Breast: Reports: pruritus, skin pain (lips), sores and other (weeping) Neuro: Reports: headache(s), weakness in extremities and other (non ambulatory at baseline); Denies: sensory changes or difficulty communicating thoughts Psych: Reports: depression Kvng/Lymph: Reports: easy bruising and easy bleeding Medications/Allergies Home Medications Medication Instructions Recorded Confirmed Last Taken Type Dulcolax (bisacodyl) 10 mg HI DAILY PRN 01/31/20 01/31/20 Unknown History Saline Nasal 1 spray INTRANASAL QID PRN 01/31/20 01/31/20 Unknown History fluticasone propionate [Flonase 1 spray INTRANASAL QID PRN 01/31/20 03/02/20 03/02/20 06:50 History Allergy Relief] lovastatin 20 mg PO QPM 01/31/20 01/31/20 Unknown History albuterol sulfate INHALATION 03/02/20 03/02/20 06:50 History budesonide-formoterol [Symbicort] 2 puff INHALATION BID 03/02/20 03/02/20 03/02/20 06:50 History cetirizine [Zyrtec] 10 mg PO DAILY 03/02/20 03/02/20 03/02/20 06:50 History dextran 70-hypromellose (PF) drp 03/02/20 03/02/20 History [Natural Tears (PF)] guaifenesin [Mucinex] 600 mg PO BID 03/02/20 03/02/20 03/02/20 06:50 History ondansetron HCl [Zofran] 4 mg PO Q8H 03/02/20 03/02/20 03/02/20 History pantoprazole 40 mg PO DAILY 03/02/20 03/02/20 03/02/20 History potassium chloride 40 meq PO DAILY 03/02/20 03/02/20 03/02/20 History Artificial Tears 1 drp OPHTHALMIC (EYE) Q2H PRN 02/08/21 02/08/21 Unknown History Coricidin HBP Cold and Flu 1 tab PO BID PRN 02/08/21 02/08/21 Unknown History acetaminophen 650 mg PO Q4H PRN 02/08/21 02/08/21 02/05/21 History albuterol sulfate 1 puff INHALATION Q4H PRN 02/08/21 02/08/21 Unknown History citalopram 10 mg PO DAILY 02/08/21 02/08/21 02/07/21 History dextromethorphan-guaifenesin 10 ml PO Q4H PRN 02/08/21 02/08/21 02/05/21 History [Tussin DM] docusate sodium [Colace] 200 mg PO BEDTIME PRN 02/08/21 02/08/21 02/05/21 History eucalyptus-menthol [Cough Drops 1 everett MUCOUS MEMBRANE Q2H 02/08/21 02/08/21 Unknown History (with eucalyptus)] ferrous sulfate 325 mg PO DAILY 02/08/21 02/08/21 02/07/21 History furosemide [Lasix] 80 mg PO BID 02/08/21 02/08/21 02/07/21 History menthol [Biofreeze (menthol)] 1 applic TOPICAL BID PRN 02/08/21 02/08/21 Unknown History metolazone 10 mg PO DAILY 02/08/21 02/08/21 02/07/21 History metoprolol succinate 25 mg PO DAILY 02/08/21 02/08/21 02/07/21 History multivitamin 1 tab PO DAILY 02/08/21 02/08/21 02/07/21 History polyethylene glycol 3350 [Miralax] 17 g PO BID 02/08/21 02/08/21 02/07/21 History senna 17.2 mg PO BEDTIME 02/08/21 02/08/21 02/05/21 History sodium phosphates [Fleet Enema] 118 ml HI DAILY PRN 02/08/21 02/08/21 Unknown History tramadol 50 mg PO BEDTIME 02/08/21 02/08/21 02/06/21 History tramadol 50 mg PO QID PRN 02/08/21 02/08/21 02/05/21 History Allergies Allergy/AdvReac Type Severity Reaction Status Date / Time meperidine [From Demerol] Allergy Intermediate unknown Verified 12/13/19 15:40 oxybutynin Allergy Mild Unknown Verified 12/13/19 15:40 pentazocine Allergy Mild Unknown Verified 12/13/19 15:40 PFSH Acute PFSH: Medical History (Updated 02/08/21 @ 03:47 by Kika Cleary MD) Anemia Body mass index (BMI) greater than 50 Chronic diastolic (congestive) heart failure Chronic kidney disease, stage 3, mod decreased GFR COVID-19 vaccine administered Depression Essential hypertension History of COVID-19 History of ESBL E. coli infection History of pulmonary embolism (~2017) saddle embolism Hyperlipidemia Hypersomnia Lymphedema Obstructive sleep apnea on CPAP Paroxysmal atrial fibrillation Postmenopausal bleeding (~01/2020) requiring D&C Pulmonary hypertension Type 2 diabetes mellitus reported diagnosis in SNF and hospital records but not on treatment, normal blood sugars Surgical History (Updated 02/08/21 @ 03:47 by Kika Cleary MD) H/O oral surgery History of D&C (02/02/20) for postmenopausal bleeding Pacemaker Family History Other Family history unknown Social History Housing: Custodial Marital status: / Additional social history: - Tobacco use: Denies Alcohol use: Denies Drug use: Denies Vitals/I&O/Wt Last Vital Signs Temp 97.6 F 02/07/21 15:04 Pulse 75 02/07/21 15:34 Resp 16 02/07/21 15:34 BP 121/73 02/07/21 15:34 Pulse Ox 98 02/07/21 15:04 Weight last 48 hrs Weight 158.757 kg Physical Exam Narrative: EXAM NARRATIVE: Constitutional: Awake and alert, chronically and acutely ill-appearing, able to provide history HEENT: Normocephalic except for some bitemporal wasting noted, sclera slightly injected, nasopharynx without any bright red blood noted, oropharynx with dry mucous membranes and some loss of skin on her lips. Neck: Supple Respiratory: Shallow respirations, no Rales or wheezes nor rhonchi noted, mouth breathing but no accessory muscle use otherwise noted Cardiovascular: Irregular rhythm, distant heart sounds, 1+ radial pulses, faint dorsalis pedis pulses bilaterally, capillary refill is prolonged at fingertips and toes Abdomen: Distended, tense, mild diffuse tenderness without rebound or guarding, positive bowel sounds, bowel wall edema Extremities: 4+ edema, weeping in some areas, both legs are tender to touch right more so than left Skin: Overall dusky appearance, large area of healing ecchymoses to the right flank and hip area, fingertips and toes are markedly cyanotic with scattered sores suspicious for embolic or other vascular process, a few sores on the toes have actual eschar formation surrounded by hyperemic skin, no areas of fluctuance noted but not able to fully examine posterior regions in ER stretcher bed presently, erythema noted in intertriginous areas Neuro: Speech clear, face symmetric, muscle wasting noted to hands in particular as well as other areas, handgrip is equal but generally weak, does not move lower extremities much but degree of edema is a limiting factor, sensation is intact to light touch at hands more so than feet Psych: Normal affect, oriented to person place and situation as well as to severity of condition Data : 02/07/21 15:30 02/07/21 22:07 Other Labs: Laboratory Results WBC 7.1 10^3/uL (4.0-10.0) 02/07/21 15:30 RBC 3.45 10^6/uL (4.1-5.3) L 02/07/21 15:30 Hgb 9.2 g/dL (11.5-15.3) L 02/07/21 15:30 Hct 31.2 % (37.0-47.0) L 02/07/21 15:30 MCV 90.4 fl (81-99) 02/07/21 15:30 MCH 26.7 pg (28.0-34.0) L 02/07/21 15:30 MCHC 29.5 g/dL (30.0-36.0) L 02/07/21 15:30 RDW 19.9 % (12.1-15.1) H 02/07/21 15:30 Plt Count 245 10^3/cmm (130-400) 02/07/21 15:30 MPV 11.9 fL (7.4-10.4) H 02/07/21 15:30 Neut % (Auto) 71.6 % 02/07/21 15:30 Lymph % (Auto) 7.9 % 02/07/21 15:30 [place] % (Auto) 14.3 % 02/07/21 15:30 Eos % (Auto) 5.1 % 02/07/21 15:30 Baso % (Auto) 0.4 % 02/07/21 15:30 Neut # (Auto) 5.09 10^3/uL (1.8-7.7) 02/07/21 15:30 Lymph # (Auto) 0.6 10^3/uL (0.8-4.8) L 02/07/21 15:30 [place] # (Auto) 1.0 10^3/uL (0.2-0.9) H 02/07/21 15:30 Eos # (Auto) 0.4 10^3/uL (0.0-0.8) 02/07/21 15:30 Baso # (Auto) 0.0 10^3/uL (0.0-0.1) 02/07/21 15:30 Nucleated RBC % (auto) 0 % 02/07/21 15:30 Nucleated RBCs # 0.0 /100WBC 02/07/21 15:30 PT 22.30 SECONDS (12.1-14.9) H 02/07/21 16:50 INR 1.91 (0.8-1.2) H 02/07/21 16:50 APTT 46.0 SECONDS (23.9-36.7) H 02/07/21 16:50 Specimen Type Arterial 02/07/21 17:02 Sample Site Brachial, left 02/07/21 17:02 ABG pH 7.40 (7.35-7.45) 02/07/21 17:02 ABG pCO2 43.4 mmHg (35-45) 02/07/21 17:02 ABG pO2 112.0 mmHg (80.0-100.0) H 02/07/21 17:02 ABG HCO3 26.6 mmol/L (22-26) H 02/07/21 17:02 ABG O2 Saturation 99.3 02/07/21 17:02 ABG Base Excess 1.5 mmol/L (-2.0-2.0) 02/07/21 17:02 Gerry Test N/a 02/07/21 17:02 A-a O2 Gradient 10.9 mmHg (5-10) H 02/07/21 17:02 Hematocrit 27.9 % (37-47) L 02/07/21 17:02 Hgb O2 Saturation 97.2 % (95-100) 02/07/21 17:02 Carboxyhemoglobin 1.4 %THgb (0.4-20.1) 02/07/21 17:02 Methemoglobin 0.8 % (0.4-1.5) 02/07/21 17:02 Total Hemoglobin 9.1 g/dL (12-16) L 02/07/21 17:02 Sodium 132.0 mmol/L (131-143) 02/07/21 17:02 Potassium 5.2 mmol/L (3.5-5.0) H 02/07/21 17:02 Glucose 107.0 mg/dL (70-115) 02/07/21 17:02 Ionized Calcium 1.2 mmol/L (1.1-1.4) 02/07/21 17:02 O2 Delivery Device Nc 02/07/21 17:02 O2 Liters/Min 4.0 % 02/07/21 17:02 FiO2 36.0 % 02/07/21 17:02 Regional Agronomist ID Amh 02/07/21 17:02 Sodium 126 mmol/L (136-145) L 02/07/21 16:50 Potassium 5.9 mmol/L (3.5-5.1) H 02/07/21 16:50 Chloride 90 mmol/L (98-107) L 02/07/21 16:50 Carbon Dioxide 22 mmol/L (22-29) 02/07/21 16:50 Anion Gap 19.9 (5-19) H 02/07/21 16:50 BUN 67 mg/dL (8-23) H 02/07/21 16:50 Creatinine 2.0 mg/dL (0.5-0.9) H 02/07/21 16:50 GFR Calculation Not Reportable 02/07/21 16:50 Glucose 103 mg/dL (65-115) 02/07/21 16:50 Calculated Osmolality 282 mOsm/kg (285-295) L 02/07/21 16:50 Lactic Acid 1.4 mmol/L (0.5-2.2) 02/07/21 16:50 Calcium 8.7 mg/dL (8.5-10.5) 02/07/21 16:50 Total Bilirubin 1.1 mg/dL (0.15-1.2) 02/07/21 16:50 AST 10 U/L (0-32) 02/07/21 16:50 ALT < 5 U/L (0-33) 02/07/21 16:50 Alkaline Phosphatase 77 IU/L (35-105) 02/07/21 16:50 Creatine Kinase 28 U/L (26-192) 02/07/21 16:50 Troponin T Baseline 116 ng/L (0-10) H* 02/07/21 16:50 Troponin T 120 Minute 113.9 ng/L (0-10) H 02/07/21 19:28 Delta Troponin T -2.1 ABS# (0-10) L 02/07/21 19:28 Total Protein 7.1 g/dL (6.6-8.7) 02/07/21 16:50 Albumin 3.0 g/dL (3.5-5.2) L 02/07/21 16:50 Globulin 4.1 g/dL (1.3-4.6) 02/07/21 16:50 Urine Color Straw (Yellow) 02/07/21 17:33 Urine Appearance Clear (CLEAR) 02/07/21 17:33 Urine pH 5 (5-7) 02/07/21 17:33 Ur Specific [place] 1.010 (1.005-1.030) 02/07/21 17:33 Urine Protein Neg (Negative) 02/07/21 17:33 Urine Glucose (UA) Norm (Normal) 02/07/21 17:33 Urine Ketones Negative (Negative) 02/07/21 17:33 Urine Blood Neg (Negative) 02/07/21 17:33 Urine Nitrate Negative (Negative) 02/07/21 17:33 Urine Bilirubin Neg (Negative) 02/07/21 17:33 Urine Urobilinogen Norm mg/dL (Negative) 02/07/21 17:33 Ur Leukocyte Esterase Negative (Negative) 02/07/21 17:33 Impressions Chest X-Ray 02/07/21 16:10 IMPRESSION: Similar cardiomegaly and nodular opacities in the medial left lung base. Radiation Dose CTDIVOL = (mGy): DLP = (mGy-cm) Micro: Microbiology 02/07/21 16:50 Blood Culture - Preliminary Blood SPECIMEN COLLECTED 02/07/21 16:54 Blood Culture - Preliminary Blood SPECIMEN COLLECTED A&P Assessment and plan (1) Shortness of breath: Progressively worsening Status: Acute (2) Anasarca: Progressively worsening both chronically and acutely over the last few weeks. Appears to have had progressively worsening chronic kidney disease as well as acute kidney injury on top of known CHF and pulmonary hypertension. No known liver disease. Has some mild hypoalbuminemia. Status: Acute (3) CHF (congestive heart failure): Facility records indicate chronic diastolic CHF. No echocardiogram available presently. Specific type unknown but acute on chronic. Status: Acute Qualifiers: Heart failure chronicity: acute on chronic Heart failure type: unspecified Qualified Code(s): I50.9 - Heart failure, unspecified (4) Acute kidney injury: On top of chronic kidney disease stage III Status: Acute (5) Acute hyperkalemia: Related to above, normalized with treatment received in the emergency room Status: Acute (6) Elevated troponin: In the setting of above and below comorbid conditions. No known history of coronary artery disease. She has ST depression in several leads with overall low voltage. Somewhat concerning for possibility of pericardial effusion. No reports of any chest pain but has been having escalating shortness of breath as her anasarca has worsened. Baseline troponin is unclear and currently without significant delta. Status: Acute (7) Pulmonary hypertension: In a patient with known BMI greater than 50 and obstructive sleep apnea. On physical exam clinical findings are consistent with severe pulmonary hypertension. Has a history of saddle PE in past. Status: Chronic (8) Obstructive sleep apnea: Chronically on CPAP Status: Chronic (9) On home oxygen therapy: Chronically on 4 L of oxygen by nasal cannula Status: Chronic (10) Paroxysmal atrial fibrillation: Currently in atrial fibrillation, rate controlled, lesions secondary to hematoma and anemia Status: Chronic (11) Hematoma: Right flank and hip area, currently off of anticoagulation secondary to this Status: Acute (12) Anemia: Anemia of chronic kidney disease with iron deficiency and recent acute blood loss from first epistaxis and later large hematoma this month. Has had a drop in hemoglobin since then that could be delusional in nature versus ongoing bleeding. Off of anticoagulation and antiplatelet therapy since approximately the 17th or 18th of the month. Hemoglobin is stable from recent ED visit Status: Chronic (13) Coagulopathy: Off of Eliquis and antiplatelet therapy since the middle of the month with persistent elevation in PT/INR and PTT. Was given FFP on 02/03 ED visit because of an INR of 3.28 at that point in time. Status: Acute (14) Essential hypertension: Variable pressures noted here Status: Chronic (15) Hyperlipidemia: Chronically on statin therapy Status: Chronic (16) Body mass index (BMI) greater than 50: Status: Chronic Additional A&P Information Foot wounds present on admission to toes and heels Inpatient admission Diuretic therapy with Bumex Strict I's and O's and daily weight 1500 cc fluid restriction Lynch catheter for close monitoring of urine output in the setting of diuretics and comorbid conditions Paracentesis has been ordered although I would like to try to see what we can accomplish with diuresis given that once we start doing paracentesis and other form of invasive drainage we will probably have to continue doing such regularly with her comorbidities. Additionally plan to start her on anticoagulation secondary to digital findings and concern for thrombus and possible embolic phenomenon Follow-up read on abdominal ultrasound that is already been done Bilateral lower extremity arterial and venous Dopplers Echocardiogram to evaluate current ejection fraction, pericardial fluid, pulmonary hypertension, right ventricular pressure and as able any evidence of thrombus Heparin drip Check D-dimer Monitor for bleeding I would ideally like to get a CTA however unable to provide contrast currently. May consider VQ scan depending on clinical course and response to diuresis Monitor renal function Check urine electrolytes Check uric acid Check TSH Check BNP, it was significantly elevated a few days ago so expected to be the same Blood cultures were collected in the emergency room patient received a dose of vancomycin for reasons I cannot currently discern beyond distal extremity wounds Monitor fingers and toes for progressive worsening Cpap with sleep Breathing treatments and oxygen Monitor blood pressures Continue statin therapy Continue home metroprolol Home tramadol for pain Heparin drip currently provides VTE prophylaxis No mechanical prophylaxis secondary to evidence of vascular insufficiency and degree of edema/weeping Supportive care otherwise Findings, concerns and plans were discussed with patient. We talked about the fact that the combination of the degree of swelling that she has, renal failure, known pulmonary hypertension, heart failure etc. is not a good sign in terms of long-term prognosis. And told her that it can be extremely difficult to manage the degree of edema that she has and that we often have to balance renal function with need to diurese appropriately. She indicated that she understood poor prognosis but wanted to see if she could get any relief from her symptoms with more aggressive management provided in the inpatient setting. CODE STATUS was discussed and patient does not want any CPR or defibrillation. She would be okay with temporary intubation and mechanical ventilation if it might help her improve even if only in the short-term. Limited CODE STATUS information entered Anticipate disposition back to [facility] though will have to discern if she can continue at nonskilled or need to be in skilled portion for a time depending on clinical course Attestations Medical Necessity Statement*: Anticipated stay greater than two midnights inpatient with multiple comorbid conditions as noted above. She is requiring IV diuresis, initiation of heparin drip, serial laboratory studies and close monitoring as described. Coding Level of Care Code Acute [employer] for [facility] Diagnoses Shortness of breath R06.02 Anasarca R60.1 CHF (congestive heart failure) I50.9 Heart failure chronicity: acute on chronic Heart failure type: unspecified Acute kidney injury N17.9 Acute hyperkalemia E87.5 Elevated troponin R77.8 Pulmonary hypertension I27.20 Obstructive sleep apnea G47.33 On home oxygen therapy Z99.81 Paroxysmal atrial fibrillation I48.0 Hematoma T14.8XXA Anemia D64.9 Coagulopathy D68.9 Essential hypertension I10 Hyperlipidemia E78.5 Body mass index (BMI) greater than 50
[2021-02-07 19:48] LABS: Troponin 5 2HR Delta -2.1 ABS# (0-10)
[2021-02-07 19:50] LABS: Troponin 5 2HR 113.9 ng/L (0-10)
[2021-02-07 21:15] VITALS: PULSE 72; RESP 18; O2SAT 98
--- NOTE | 2021-02-07 21:16 | PC.NURSE ---
Pt. states that she has right hip and back soreness. I have changed patient position and placed pillow under hip.
[2021-02-07 21:40] VITALS: PULSE 69; RESP 19; O2SAT 96
[2021-02-07 22:02] LABS: Glucose Point of Care 83 mg/dL (70-110)
--- NOTE | 2021-02-07 22:10 | ECG_ITS ---
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 Measurements Intervals [place] Rate: 67 P: OK: QRS: -15 QRSD: 118 T: 0 QT: 410 QTc: 433 Interpretive Statements ATRIAL FIBRILLATION INDETERMINATE AXIS LOW QRS VOLTAGE IN PRECORDIAL LEADS [QRS DEFLECTION < 1.0 mV IN CHEST LEADS] INCOMPLETE RIGHT BUNDLE BRANCH BLOCK [90+ ms QRS DURATION, TERMINAL R IN V1/V2, 40+ ms S IN I/aVL/V4/V5/V6] MODERATE ST DEPRESSION [0.05+ mV ST DEPRESSION] Compared to ECG 02/07/2021 18:19:50 Low QRS voltage now present Incomplete right bundle-branch block now present ST (T wave) deviation now present Right bundle-branch block no longer present Electronically Signed On 02-08-2021 0:02:38 CDT by Terrance Nathan M.D. [email or web address]
[2021-02-07] MEDS: vancomycin 1,000 MG in sodium chloride 0.9% 250 ML 250 MG IV (22:12)
--- NOTE | 2021-02-07 22:17 | PC.NURSE ---
Pt. being held in ER to wait for a room. Admission orders transferred over. Pt. has medications ordered to lower potassium, that include insulin. Pt. POC glucose checked and glucose is 83. Hospitalist notified of glucose and that I wanted to clarify orders for insulin. Hospitalist states that the orders were put in hours previous. Hospitalist states to hold medication and get stat potassium level.
[2021-02-07 22:41] VITALS: BP 115/88; PULSE 72; RESP 15; O2SAT 94
[2021-02-07 22:41] LABS: Troponin 5 6HR Delta 9.9 ng/L (0-12)
[2021-02-07 22:43] LABS: Potassium 3.8 mmol/L (3.5-5.1)
--- NOTE | 2021-02-07 22:52 | PC.NURSE ---
Pt. potassium level came back at 3.8. Dr. Cleary ordered to hold potassium medications.
[2021-02-07 22:54] LABS: Troponin 5 6HR 125.9 ng/L (0-10)
[2021-02-08] VITALS (45 sets, daily range): BP systolic 108–178; BP diastolic 66–129; PULSE 67–118; RESP 10–23; TEMP 36.3–36.5; O2SAT 80–100
--- NOTE | 2021-02-08 01:46 | USCV_ITS ---
Kory Elder Age: 75 Gender: F : 1945 Exam Date: 02/08/2021 13:48 Ordering Phys: Kika Cleary MD Technologist: [place] [facility] [place] pad RIGHT LEFT Brachial 125.00 mmHg Brachial 125.00 mmHg Pressure (mmHg) Waveform Pressure (mmHg) Waveform 145.00 CERTIFICATION OFFICER 145.00 140.00 DPA 140.00 1.20 Ankle/Brachial Index 1.20 FINDINGS Normal resting ABIs of 1.2 bilaterally CONCLUSIONS No evidence of any significant arterial obstruction, based on the above findings. Dr Terrance Nathan MD [facility] (Electronically Signed) Final Date: 08 February 2021 22:26 S
--- NOTE | 2021-02-08 01:46 | USCV_ITS ---
Kory Elder Age: 75 Gender: F : 1945 Exam Date: 02/08/2021 13:37 Ordering Phys: Kika Cleary MD Technologist: Exam Location: [facility] [place] Indication: bilat edema HISTORY: Lower extremity edema. PROCEDURES: The venous duplex Doppler examination of both lower extremities was performed in the standard fashion. The following venous structures were evaluated: common femoral vein, profunda vein, proximal portion of the greater saphenous vein, superficial femoral vein, and the popliteal vein. In addition, the posterior tibial and peroneal trunk were evaluated. Bilaterally, the common femoral, superficial femoral, profunda femoral, popliteal, posterior tibial, greater saphenous veins, and the peroneal trunk were identified and interrogated in the standard fashion. These veins were found to be easily compressible with spontaneous blood flow. No evidence of insufficiency or thrombus noted. FINDINGS: Normal 2-D Doppler and augmentation and compressibility throughout the lower extremity venous structures. Additional imaging through the proximal calf veins also reveals no thrombus. Limited evaluation of the greater saphenous vein is patent with no thrombus.. Multiple echolucent areas are noted in the subcutaneous tissue bilaterally CONCLUSIONS No evidence of DVT in the above-mentioned identifiable veins. Features of edema/fluid retention in the subcutaneous tissue bilaterally in the below-knee level Dr Terrance Nathan MD [facility] (Electronically Signed) Final Date: 08 February 2021 22:24 S
[2021-02-08] MEDS: potassium chloride ER 20 mEq Tablet PO (02:59)
[2021-02-08] MEDS: bumetanide 0.25 mg/mL SDV 10 mL 2 MG IVP ×3 (03:00→20:48)
[2021-02-08] MEDS: heparin 5,000 unit/mL INJ 1 mL IV (03:48)
[2021-02-08 03:50] LABS: Urine Creatinine 23 mg/dL (28-217); Urine Random Sodium 21 mmol/L
[2021-02-08] MEDS: heparin drip 25,000 UNIT/500 ML PREMIX 36 UNIT IV (03:56)
--- NOTE | 2021-02-08 04:12 | PC.NURSE ---
Heparin protocol started on patient. Started at max of 1800 units/hr.
--- NOTE | 2021-02-08 04:17 | PC.NURSE ---
Pt. rolled on side, but has moved back to her back. Due to patients poor circulation in fingers, her Spo2 does not read well.
[2021-02-08 04:25] LABS: Basophils % 0.4 %; Eosinophils # 0.6 10^3/uL (0.0-0.8); Eosinophils % 7.6 %; Hematocrit 29.5 % (37.0-47.0); Hemoglobin 8.9 g/dL (11.5-15.3); Lymphocytes # 0.4 10^3/uL (0.8-4.8); Lymphocytes % 5.7 %; Mean Corpuscular HGB Conc 30.2 g/dL (30.0-36.0); Mean Corpuscular Hemoglobin 26.6 pg (28.0-34.0); Mean Corpuscular Volume 88.3 fl (81-99); Mean Platelet Volume 10.3 fL (7.4-10.4); Monocytes # 0.9 10^3/uL (0.2-0.9); Monocytes % 12.6 %; Neutrophils # 5.37 10^3/uL (1.8-7.7); Nucleated Red Blood Cells % 0 %; Platelet Count 302 10^3/cmm (130-400); Red Blood Count 3.34 10^6/uL (4.1-5.3); White Blood Count 7.4 10^3/uL (4.0-10.0)
[2021-02-08 04:53] LABS: Anion Gap 19.7 (5-19); Blood Urea Nitrogen 67 mg/dL (8-23); Calcium 8.6 mg/dL (8.5-10.5); Carbon Dioxide 25 mmol/L (22-29); Chloride 94 mmol/L (98-107); Glucose 105 mg/dL (65-115); Magnesium 2.2 mg/dL (1.7-2.3); NT Pro B Type Natriuretic Pept 19409 pg/mL (0-450); Osmolality Calculated 298 mOsm/kg (285-295); Phosphorus 4.7 mg/dL (2.5-4.5); Potassium 4.7 mmol/L (3.5-5.1); Sodium 134 mmol/L (136-145); Thyroid Stimulating Hormone 1.96 uIU/mL (0.27-4.20); Uric Acid 11.1 mg/dL (2.4-5.7)
[2021-02-08 05:14] LABS: INR 2.87 (0.8-1.2)
[2021-02-08 05:25] LABS: D Dimer 5.02 ug/mIFEU (0-0.59)
--- NOTE | 2021-02-08 05:53 | PC.NURSE ---
Report called, waiting on room to be cleaned for patient.
--- NOTE | 2021-02-08 06:00 | USCV_ITS ---
Kory Elder Age: 75 Gender: F : 1945 Exam Date: 02/08/2021 13:20 Ordering Phys: Kika Cleary MD Technologist: [place] [facility] [place]: CHF BP: 113 / 72 HR: 71 Rhythm: Sinus Technical Quality: Adequate MEASUREMENTS (Male / Female) Normal Values 2D ECHO LV Diastolic Diameter PLAX 3.7 cm 4.2 - 5.9 / 3.9 - 5.3 cm LV Systolic Diameter PLAX 2.2 cm IVS Diastolic Thickness 1.3 cm 0.6 - 1.0 / 0.6 - 0.9 cm IVS Systolic Thickness 1.7 cm LVPW Diastolic Thickness 1.4 cm 0.6 - 1.0 / 0.6 - 0.9 cm LVPW Systolic Thickness 2.0 cm LVOT Diameter 2.0 cm LV Ejection Fraction 2D Teich 72.3 % LV Ejection Fraction MOD 2C 74.6 % LV Ejection Fraction 2C AL 74.7 % LA Diameter 5.8 cm LA Width 6.6 cm LA Height 5.3 cm RA Width 5.7 cm RA Height 6.5 cm DOPPLER AV Peak Velocity 111.0 cm/s LVOT Peak Velocity 102.7 cm/s AV Area Cont Eq vti 3.1 cm squared AV Area Cont Eq pk 2.9 cm squared MV Area PHT 5.0 cm squared Mitral E to A Ratio 3.7 MV E' Velocity 57.5 cm/s Mitral E to MV E' Ratio 8.7 Mitral E to LV E' Lateral Ratio 7.8 Mitral E to LV E' Septal Ratio 9.7 TR Peak Velocity 365.0 cm/s TR Peak Gradient 53.3 mmHg TV Peak E Velocity 142.0 cm/s Right Atrial Pressure 3.0 mmHg Pulmonary Artery Systolic Pressu 56.3 mmHg FINDINGS Left Ventricle Normal left ventricular cavity size. Normal left ventricular systolic function. Left ventricular ejection fraction is estimated at 50 %. Flattened septum in diastole consistent with right ventricle volume overload, flattened septum in systole consistent with right ventricle pressure overload. Right Ventricle Severely increased right ventricular size. Severely decreased right ventricular systolic function. Severe pulmonary hypertension 70 mmHg. Right Atrium Normal right atrial size. Left Atrium Severely increased left atrial size. Mitral Valve Severely thickened mitral valve. Moderate mitral annular calcification. No mitral valve stenosis. Moderate mitral valve regurgitation. Aortic Valve Moderate aortic valve calcification. No aortic valve stenosis. No aortic valve regurgitation. Tricuspid Valve Severe tricuspid valve regurgitation. Pulmonic Valve Structurally normal pulmonic valve without significant stenosis. There is no pulmonic regurgitation. Pericardium Normal pericardium without effusion. Aorta Normal ascending aorta dimension. CONCLUSIONS 1-Normal left ventricular cavity size. Normal left ventricular systolic function. Left ventricular ejection fraction is estimated at 50 %. Flattened septum in diastole consistent with right ventricle volume overload, flattened septum in systole consistent with right ventricle pressure overload. 2-Severely increased right ventricular size. Severely decreased right ventricular systolic function. Severe pulmonary hypertension 70 mm. 3-Severely increased left atrial size. 4-Severely thickened mitral valve. Moderate mitral annular calcification. No mitral valve stenosis. Moderate mitral valve regurgitation. 5-Moderate aortic valve calcification. No aortic valve stenosis. No aortic valve regurgitation. 6-Severe tricuspid valve regurgitation. 7-There is no pericardial effusion. 8-When compared to the prior echocardiogram dated 26 November 2018 there is worsening of right ventricle function. Larissa Ruvalcaba MD (Electronically Signed) Final Date: 08 February 2021 15:48 S
[2021-02-08 06:57] LABS: Partial Thromboplastin Time > 250.0 SECONDS (23.9-36.7)
[2021-02-08 07:14] LABS: Fibrinogen 407 mg/dL (174-498)
--- NOTE | 2021-02-08 07:23 | PC.NURSE ---
Patient received from ED at 0622. Admit completed and handoff given to oncoming RN.
[2021-02-08] MEDS: ferrous sulfate EC 325 mg Tablet PO (08:15)
[2021-02-08] MEDS: docusate sodium 100 mg Capsule PO ×2 (08:16→17:03)
[2021-02-08] MEDS: guaiFENesin 600 mg Tablet PO ×2 (08:16→17:04)
[2021-02-08] MEDS: metoprolol succinate ER (24 HR) 25 mg Tablet PO (08:18)
[2021-02-08] MEDS: pantoprazole DR 40 mg Tablet PO (08:21)
[2021-02-08] MEDS: ondansetron 4 MG Tablet PO ×3 (08:22→17:04)
[2021-02-08] MEDS: citalopram 20 mg Tablet 10 MG PO (08:24)
[2021-02-08] MEDS: fluconazole 100 mg Tablet 200 MG PO (08:25)
[2021-02-08] MEDS: fluticasone nasal spray 16gm Btl 1 SPRAY INTRANASAL ×2 (08:33→17:04)
[2021-02-08] MEDS: cetirizine 10 mg Tablet PO (08:33)
[2021-02-08] MEDS: nystatin powder 15 gm Btl 1 APPLIC TOPICAL ×2 (08:34→17:03)
[2021-02-08 08:59] LABS: Hepatitis A Antibody IgM Non-Reactive (Nonreactive); Hepatitis B Core AB, Total Non-Reactive (Nonreactive); Hepatitis B Surface AB 3.5 (11.5-1000); Hepatitis B Surface Antigen Non-Reactive (Nonreactive); Hepatitis C Virus Antibody Non-Reactive (Nonreactive)
--- NOTE | 2021-02-08 10:14 | PC.CHAP ---
Pastoral Care Encounter/Spiritual Assessment Type of Contact [] Declined head miller visit [] Patient/Family/Request visit [] Outpatient visit [] Follow-up visit [] Physician referral [] Code/Alert [x] Routine visit [] Staff referral [] Actively dying [] Patient sleeping [] Family support [] [] Out of room [] Palliative care [] [] Receiving care in room [] Pre-surgical visit [] Trauma [] Long length of stay [] ICU visit [] Other: Relational/Emotional Strength [x] Patient feels connected with others/family/visitors/staff [] Distress [] Loneliness/isolation [] Abandonment Spirituality of Patient [x] Person of Niki [x] Attends Sabianism of their Niki [x] Believes in Prayer [] Reads Bible or Congregation materials [] There are Spiritual issues to be addressed [employer] Super[employer] Interventions [x] Prayer [x] Active listening []x Non-anxious presence [x] Spiritual/emotional support [] Crisis/trauma care [] Spiritual counseling [] Bereavement support [] Provided bereavement packet [] Provided Bible/devotional materials [] Provided toy/stuffed animal, coloring book to patient or family member [] Provided Communion [] Anointing/[place] [] Salvation [] Completed spiritual assessment [] Other: Impact on Illness or Injury [] Angry [] Fearful [] Anxious [] Often cries [] Exhaustion [] Unable to work [] Unable to attend advent [] Unable to walk/stand [] Unable to read [] Unable to drive [] Unable to eat/drink [] Unable to sleep [] Unable to be with family [] Patient intubated [] Other: Summary Time spent with patient 15min
[2021-02-08 10:30] LABS: Partial Thromboplastin Time > 250.0 SECONDS (23.9-36.7)
--- NOTE | 2021-02-08 12:47 | P.PN_ITS ---
Subjective Subjective: Interval history: Seen and examined this morning. Patient states she is doing well from respiratory standpoint. Her baseline oxygen at home is between 2 to 7 L. Right now she is on 4 L. He does state that she has been having a lot of trouble with lower extremity edema and his abdomen has just been increasing in girth. She has been on different dosages of water pills but is getting worse at this point. I asked her about her dusky fingertips and toes and she states that that is usually how they are and this is not new for her. Patient is very alert and oriented and able to provide a complete history. She denies any fevers, coughs. She says her legs weep with fluid. Vitals/I&O/Wt Last Vital Signs Temp 97.3 F L 02/08/21 11:24 Pulse 99 02/08/21 11:24 Resp 18 02/08/21 11:24 BP 120/72 02/08/21 11:24 Pulse Ox 95 02/08/21 11:24 02/07/21 02/08/21 02/08/21 22:59 06:59 14:59 Output Total 1100 / 1100 Balance -1100 / -1100 Weight last 48 hrs Weight 158.757 kg Physical Exam Narrative: EXAM NARRATIVE: General: Alert oriented x3, patient seen laying in bed, on 4 L nasal cannula. HEENT: Normocephalic, atraumatic, EOMI, Cardio: Regular rate rhythm, normal S1-S2, no murmurs rubs gallops, JVD slightly elevated but hard to tell due to body habitus. Respiratory: Lungs are clear to auscultation, no wheezes no rhonchi appreciated. I was able to auscultate the bases and anterior lung neves. Patient could not sit up for me. She did roll over to her side a little bit for me to auscultate. GI: Abdomen soft, nontender, significantly distended with abdominal ascites, bowel sounds hard to appreciate due to large volume ascites. Behavior: Appropriate and cooperative Extremities: Lower extremities are warm and well perfused but the toes are slightly dusky appearing. Patient states this is normal for her. Tips of toes are slightly colder compared to the rest of her body. She has venous stasis changes on lower extremities. There is yellowish fluid seen all over the bed. Did not appreciate any open sores on the legs. She has significant edema bilateral lower extremities. There is also a lot of dependent edema and buttock area. Urinary Catheter Management^: Lynch: Cath Placed During This Visit: yes Reason for Continuing Indwelling Catheter: Acute Urinary Retention or Obstruction Urinary Catheter Date of Insertion: 02/08/21 Urinary Catheter Time of Insertion: 02:50 Data : 02/08/21 16:23 02/08/21 16:23 Micro: Microbiology 02/07/21 16:50 Blood Culture - Preliminary Blood SPECIMEN COLLECTED 02/07/21 16:54 Blood Culture - Preliminary Blood SPECIMEN COLLECTED A&P Assessment and plan (1) Hyponatremia: Status: Acute (2) Coagulopathy: Status: Acute (3) Body mass index (BMI) greater than 50: Status: Chronic (4) Anasarca: Status: Acute (5) Acute kidney injury: Status: Acute (6) Essential hypertension: Status: Chronic (7) Hyperlipidemia: Status: Chronic (8) On home oxygen therapy: Status: Chronic (9) Pulmonary hypertension: Status: Chronic (10) Paroxysmal atrial fibrillation: Status: Chronic (11) Obstructive sleep apnea: Status: Chronic (12) CHF (congestive heart failure): Status: Acute Qualifiers: Heart failure chronicity: acute on chronic Heart failure type: unspecified Qualified Code(s): I50.9 - Heart failure, unspecified (13) Ascites: Status: Acute Additional A&P Information #Severe Right Heart Failure #Severe Pulmonary HTN #Liver coagulopathy secondary to right heart failure #Generalized Anasarca #Massive ascites #Obstructive Sleep Apnea #Obesity, BMI > 50 #Paroxysmal A.fib #HTN - controlled at this time #Hx of PE saddle embolism (2018 # Hx of COVID #Hx of ESBL E.Coli infection - Echo showed normal LVEF, Right ventricule increased size, severely decreased right ventricular systolic function. Severe pulm HTN 70 mm. Severely increase left atrial size. Severely thicked mitral valve. No evidence of pericardial effusion. - CT abdomen did show shrunken liver, unsure if cirhosis present. - She was on on diuretic regimen outpatient with lasix 80 BID with metolazone 10 mg daily. - I will continue her on bumex 2mg TID. Will add albumin q6 hours. Will need to diurese this patient aggresively - Continue CPAP at night time - Not hypoxic and on baseline O2. - Eliquis and Aspirin held last month due to development of epistaxis and right thigh hematoma. - She was placed on heparin drip overnight for dusky toes and fingers but patient states that is her baseline. INR elevated at 2.87, PTT > 250. Will hold heparin for now. Patient is at risk for bleeding. Will continue to monitor hemoglobin. Due to high bleeding risk, even if patient has vasculopathy in extremities, she is not a candidate for anticoagulation at this point. Will continue to monitor. Its possible that due to significant right heart failure and fluid overload, she has compression of extremity vessels. Will consult cardiology. Wait await recommendations. Will speak to IR if we can tap ascites. Unsure if it will be done due to elevated INR. - Lynch placed for strict I/O. #Hyponatremia #Hyperkalemia - Sodium 126 at admission. Has improved to 134 - K has also come back to normal. Will check labs daily or BID depending clinical course. #Acute kidney injury on CKD - baseline cr. 1.2-1.5. It is 2.0 on admission with elevated BUN. Uric acid 11.1 Will need to be diuresed. Will order urine creatinine. F: None indicated E: replete as needed N: Cardiac low salt diet A: She is bed bound. Requires malik lift. DVT ppx: Contraindicated. Attestations Medical Necessity Statement*: Will require > 72 hour inhospital stay Time Spent in Patient Care: 16 - 35 minutes Coding Level of Care Code Acute Advanced Practice Psychiatric Nurse for [facility] Diagnoses Hyponatremia E87.1 Coagulopathy D68.9 Body mass index (BMI) greater than 50 Anasarca R60.1 Acute kidney injury N17.9 Essential hypertension I10 Hyperlipidemia E78.5 On home oxygen therapy Z99.81 Pulmonary hypertension I27.20 Paroxysmal atrial fibrillation I48.0 Obstructive sleep apnea G47.33 CHF (congestive heart failure) I50.9 Heart failure chronicity: acute on chronic Heart failure type: unspecified Ascites R18.8
[2021-02-08 16:44] LABS: Basophils % 0.4 %; Eosinophils # 0.3 10^3/uL (0.0-0.8); Eosinophils % 4.7 %; Hematocrit 28.5 % (37.0-47.0); Hemoglobin 8.4 g/dL (11.5-15.3); Lymphocytes # 0.4 10^3/uL (0.8-4.8); Lymphocytes % 5.2 %; Mean Corpuscular HGB Conc 29.5 g/dL (30.0-36.0); Mean Corpuscular Hemoglobin 26.4 pg (28.0-34.0); Mean Corpuscular Volume 89.6 fl (81-99); Mean Platelet Volume 10.2 fL (7.4-10.4); Monocytes # 0.9 10^3/uL (0.2-0.9); Monocytes % 12.7 %; Neutrophils # 5.31 10^3/uL (1.8-7.7); Neutrophils % 76.4 %; Nucleated Red Blood Cells % 0 %; Platelet Count 287 10^3/cmm (130-400); Red Blood Count 3.18 10^6/uL (4.1-5.3); Red Cell Distribution Width 19.3 % (12.1-15.1)
[2021-02-08 17:02] LABS: Alanine Aminotransferase < 5 U/L (0-33); Albumin Level 3.1 g/dL (3.5-5.2); Alkaline Phosphatase 72 IU/L (35-105); Anion Gap 17.1 (5-19); Aspartate Amino Transferase 9 U/L (0-32); Blood Urea Nitrogen 65 mg/dL (8-23); Calcium 8.7 mg/dL (8.5-10.5); Carbon Dioxide 28 mmol/L (22-29); Chloride 91 mmol/L (98-107); Globulin 3.6 g/dL (1.3-4.6); Glucose 112 mg/dL (65-115); Osmolality Calculated 293 mOsm/kg (285-295); Potassium 4.1 mmol/L (3.5-5.1); Sodium 132 mmol/L (136-145); Total Protein 6.7 g/dL (6.6-8.7)
[2021-02-08 17:04] LABS: INR 1.87 (0.8-1.2)
--- NOTE | 2021-02-08 17:17 | PM.CONSULT ---
Providers/Reason For Consult Consulting Physician/Specialty*: Cardiology Reason for Consult*: Severe pulmonary hypertension, right-sided heart failure, atrial fibrillation, ascites Attending Physician: Linda White MD Primary Care Provider: Meredith Edgar MD History of Present Illness History of Present Illness I been asked to assist in the care of 75-year-old female past medical history significant for obesity severe pulmonary pretension history of congestive heart failure, history of severe right-sided heart failure with severely enlarged right ventricle, history of paroxysmal atrial fibrillation renal failure diabetes mellitus coagulopathy generalized anasarca ascites bilateral lower extremity edema and peripheral arterial disease. Echocardiogram was performed with showed normal left ventricular ejection fraction severely enlarged right ventricle with severely depressed right ventricle function impingement of the right ventricle on the left ventricle due to volume and pressure overload. Echo was also suggestive of severe pulmonary hypertension which is the major comorbidity of the patient. Patient has been diuresed. She has dusky blue toes but denies any pain she has bilateral lower extremity edema. Currently she is laying in the bed not in much distress she is on oxygen and has not been increasing his requirement. She denies fever chills she denies chest pain. Review of Systems Const: Reports: body aches, change in weight (Gain), fatigue, malaise and daytime sleepiness; Denies: fever(s), chills or diaphoresis ENMT: Reports: oral sores (Also involving the lips), dry mouth, nasal congestion and epistaxis (Earlier this month); Denies: throat pain Card: Reports: edema, orthopnea and acrocyanosis; Denies: chest pain, palpitations, lightheadedness or syncope Resp: Reports: dyspnea, productive cough (thin sputum), non-productive cough and chest congestion; Denies: pain on inspiration or hemoptysis GI: Reports: abdominal pain, early satiety, constipation and bloating; Denies: nausea, vomiting, diarrhea, hematochezia or melena : Denies: difficulty voiding or hematuria Musc: Reports: back pain, extremity pain, extremity swelling and muscle weakness Skin/Breast: Reports: pruritus, skin pain (lips), sores and other (weeping) Neuro: Reports: headache(s), weakness in extremities and other (non ambulatory at baseline); Denies: sensory changes, dizziness or difficulty communicating thoughts Psych: Reports: depression Endo: Denies: polyuria or polydipsia Kvng/Lymph: Reports: easy bruising and easy bleeding Meds/Allergies Home Medications and Allergies Home Medications Medication Instructions Recorded Confirmed Last Taken Type bisacodyl [Dulcolax (bisacodyl)] 10 mg IA DAILY PRN 01/31/20 02/08/21 Unknown History fluticasone propionate [Flonase 1 spray INTRANASAL BID 01/31/20 02/08/21 02/03/21 History Allergy Relief] lovastatin 20 mg PO BEDTIME 01/31/20 02/08/21 02/05/21 History sodium chloride [Saline Nasal] 1 spray INTRANASAL QID PRN 01/31/20 02/08/21 Unknown History albuterol sulfate 1 puff INHALATION Q4H 03/02/20 02/08/21 02/07/21 History budesonide-formoterol [Symbicort] 2 puff INHALATION BID 03/02/20 02/08/21 02/07/21 History cetirizine [Zyrtec] 10 mg PO DAILY 03/02/20 02/08/21 02/07/21 History dextran 70-hypromellose (PF) 1 drp OPHTHALMIC (EYE) DAILY 03/02/20 02/08/21 02/07/21 History [Natural Tears (PF)] guaifenesin [Mucinex] 600 mg PO BID 03/02/20 02/08/21 02/07/21 History ondansetron HCl [Zofran] 4 mg PO TIDWM 03/02/20 02/08/21 02/07/21 History pantoprazole 40 mg PO DAILY 03/02/20 02/08/21 02/07/21 History potassium chloride 40 meq PO DAILY 03/02/20 02/08/21 02/07/21 History Artificial Tears 1 drp OPHTHALMIC (EYE) Q2H PRN 02/08/21 02/08/21 Unknown History Coricidin HBP Cold and Flu 1 tab PO BID PRN 02/08/21 02/08/21 Unknown History acetaminophen 650 mg PO Q4H PRN 02/08/21 02/08/21 02/05/21 History albuterol sulfate 1 puff INHALATION Q4H PRN 02/08/21 02/08/21 Unknown History citalopram 10 mg PO DAILY 02/08/21 02/08/21 02/07/21 History dextromethorphan-guaifenesin 10 ml PO Q4H PRN 02/08/21 02/08/21 02/05/21 History [Tussin DM] docusate sodium [Colace] 200 mg PO BEDTIME PRN 02/08/21 02/08/21 02/05/21 History eucalyptus-menthol [Cough Drops 1 everett MUCOUS MEMBRANE Q2H 02/08/21 02/08/21 Unknown History (with eucalyptus)] ferrous sulfate 325 mg PO DAILY 02/08/21 02/08/21 02/07/21 History furosemide [Lasix] 80 mg PO BID 02/08/21 02/08/21 02/07/21 History menthol [Biofreeze (menthol)] 1 applic TOPICAL BID PRN 02/08/21 02/08/21 Unknown History metolazone 10 mg PO DAILY 02/08/21 02/08/21 02/07/21 History metoprolol succinate 25 mg PO DAILY 02/08/21 02/08/21 02/07/21 History multivitamin 1 tab PO DAILY 02/08/21 02/08/21 02/07/21 History polyethylene glycol 3350 [Miralax] 17 g PO BID 02/08/21 02/08/21 02/07/21 History senna 17.2 mg PO BEDTIME 02/08/21 02/08/21 02/05/21 History sodium phosphates [Fleet Enema] 118 ml IA DAILY PRN 02/08/21 02/08/21 Unknown History tramadol 50 mg PO BEDTIME 02/08/21 02/08/21 02/06/21 History tramadol 50 mg PO QID PRN 02/08/21 02/08/21 02/05/21 History Allergies Allergy/AdvReac Type Severity Reaction Status Date / Time meperidine [From Demerol] Allergy Intermediate unknown Verified 12/13/19 15:40 oxybutynin Allergy Mild Unknown Verified 12/13/19 15:40 pentazocine Allergy Mild Unknown Verified 12/13/19 15:40 Current Medications Current Medications Generic Name Dose Route Start Last Admin Trade Name Freq PRN Reason Stop Dose Admin Bumetanide 2 mg 02/08/21 02:00 02/08/21 15:16 Bumetanide 0.25 Mg/Ml Sdv 10 Ml IVP 2 mg Q12H NEEMA Administration Cetirizine HCl 10 mg 02/08/21 09:00 02/08/21 08:33 Cetirizine 10 Mg Tablet PO 10 mg DAILY NEEMA Administration Citalopram Hydrobromide 10 mg 02/08/21 09:00 02/08/21 08:24 Citalopram 20 Mg Tablet PO 10 mg DAILY NEEMA Administration Docusate Sodium 100 mg 02/08/21 09:00 02/08/21 17:03 Docusate Sodium 100 Mg Capsule PO 100 mg BID NEEMA Administration Ferrous Sulfate 325 mg 02/08/21 09:00 02/08/21 08:15 Ferrous Sulfate Ec 325 Mg Tablet PO 325 mg DAILY NEEMA Administration Fluconazole 200 mg 02/08/21 09:00 02/08/21 08:25 Fluconazole 100 Mg Tablet PO 02/10/21 09:01 200 mg DAILY NEEMA Administration Fluticasone Propionate 1 spray 02/08/21 09:00 02/08/21 17:04 Fluticasone Nasal [place] 16gm Btl INTRANASAL 1 spray BID NEEMA Administration Guaifenesin 600 mg 02/08/21 09:00 02/08/21 17:04 Guaifenesin 600 Mg Tablet PO 600 mg BID NEEMA Administration Albumin Human 25 gm in 100 mls @ 60 mls/hr 02/08/21 14:00 02/08/21 15:48 Albumin IV 60 mls/hr Q8H NEEMA Administration Metoprolol Succinate 25 mg 02/08/21 09:00 02/08/21 08:18 Metoprolol Succinate Er (24 Hr) 25 Mg Tablet PO 25 mg DAILY NEEMA Administration Nystatin 1 applic 02/08/21 09:00 02/08/21 17:03 Nystatin Powder 15 Gm Btl TOPICAL 1 applic BID NEEMA Administration Ondansetron HCl 4 mg 02/08/21 08:00 02/08/21 17:04 Ondansetron 4 Mg Tablet PO 4 mg TIDWM NEEMA Administration Pantoprazole Sodium 40 mg 02/08/21 09:00 02/08/21 08:[address] 40 Mg Tablet PO 40 mg DAILY NEEMA Administration Potassium Chloride 20 meq 02/08/21 02:00 02/08/21 16:04 Potassium Chloride Er 20 Meq Tablet PO Not Given Q12H NEEMA Fluticasone/Salmeterol 1 puff 02/08/21 09:00 02/08/21 08:37 Fluticasone-Salmeterol 250-50 Diskus INHALATION 1 puff BID NEEMA Administration PFSH Acute PFSH: Medical History (Updated 02/09/21 @ 17:19 by Larissa Ruvalcaba MD) Anemia Body mass index (BMI) greater than 50 Chronic diastolic (congestive) heart failure Chronic kidney disease, stage 3, mod decreased GFR COVID-19 vaccine administered Depression Essential hypertension History of COVID-19 History of ESBL E. coli infection History of pulmonary embolism (~2017) saddle embolism Hyperlipidemia Hypersomnia Lymphedema Obstructive sleep apnea on CPAP Paroxysmal atrial fibrillation Postmenopausal bleeding (~01/2020) requiring D&C Pulmonary hypertension Right-sided heart failure Type 2 diabetes mellitus reported diagnosis in SNF and hospital records but not on treatment, normal blood sugars Surgical History (Updated 02/08/21 @ 03:47 by Kika Cleary MD) H/O oral surgery History of D&C (02/02/20) for postmenopausal bleeding Pacemaker Family History Other Family history unknown Social History Housing: [facility] Marital status: / Additional social history: - Tobacco use: Denies Alcohol use: Denies Drug use: Denies Dietary Habits: Current diet type/program: regular Vitals/I&O/Wt Last Vital Signs Temp 97.5 F L 02/08/21 15:11 Pulse 76 02/08/21 15:11 Resp 20 H 02/08/21 15:11 BP 120/77 02/08/21 15:11 Pulse Ox 93 02/08/21 15:11 02/08/21 02/08/21 02/08/21 06:59 14:59 22:59 Intake Total 120 / 120 Output Total 1100 / 1100 250 / 1350 Balance -1100 / -1100 -130 / -1230 Weight last 48 hrs Weight 350 lb Physical Exam Narrative: EXAM NARRATIVE: GENERAL: Patient is alert, awake and oriented x3. NECK: No jugular vein distension. HEENT: No cyanosis. No icterus. No pallor. HEART: Regular S1 and S2. No murmur, rub or gallop. LUNGS: Clear to auscultate bilaterally. ABDOMEN: Firm protuberant, nontender with ascites CENTRAL NERVOUS SYSTEM: Grossly nonfocal. EXTREMITIES: Lower extremities with 2+ edema bilaterally. Pulses palpable in the lower extremities, both dorsalis pedis and posterior tibial. Urinary Catheter Management^: Lynch: Cath Placed During This Visit: yes Reason for Continuing Indwelling Catheter: Acute Urinary Retention or Obstruction Urinary Catheter Date of Insertion: 02/08/21 Urinary Catheter Time of Insertion: 02:50 Data Micro: Micro: Microbiology 02/07/21 16:50 Blood Culture - Pr eliminary Blood NEGATIVE TO JOYCE E 02/07/21 16:54 Blood Culture - Pr eliminary Blood NEGATIVE TO JOYCE E A&P Assessment and plan (1) Pulmonary hypertension: Patient has severe pulmonary hypertension which is had major comorbidities she has severe right-sided heart failure and ventricle failure, she has been diuresed well brother she is on the right side she has liver congestion and right-sided heart failure leading to lower extremity edema which is secondary to pressure overload, patient has poor long-term prognosis at such an advanced state of pulmonary hypertension. Rule out DVT, she is anemic and INR is on the higher side therefore at this point we will avoid anticoagulation if she has extensive DVT consider IVC filter, she may need to be seen by pulmonary hypertension clinic until then we can consider calcium channel justin along with sildenafil and oxygen. I have detailed discussion with the patient regarding this disease she understand it and would like to be managed conservatively. Status: Chronic (2) Ascites: Patient has severe generalized ascites most likely to right-sided heart failure may consider tapping of ascites which may help her breathing and somewhat lower extremity edema. Consider albumin and cautious diuresis not to compromise preload Status: Acute Qualifiers: Ascites type: other type Qualified Code(s): R18.8 - Other ascites (3) Right-sided heart failure: Patient has severe right-sided heart failure secondary to severe pulmonary hypertension, as defined above consider oxygen and pulmonary pretension treatment as above Status: Acute Qualifiers: Heart failure chronicity: chronic Qualified Code(s): I50.812 - Chronic right heart failure (4) Paroxysmal atrial fibrillation: Right now she is rate controlled Status: Chronic (5) Anemia: Denies any bleeding per rectum possible anemia of chronic diseases she is not on anticoagulation due to anemia Status: Chronic Qualifiers: Anemia type: unspecified type Qualified Code(s): D64.9 - Anemia, unspecified (6) Acute kidney injury: Most likely due to third spacing reduce cardiac output secondary to high right-sided pressures and due to diuresis, consider backing off of from diuresis Status: Acute (7) Coagulopathy: Most likely due to liver dysfunction secondary to congestion due to right-sided heart failure Status: Acute Consult Attestations Medical Necessity Statement: Patient require continuation hospitalization for above defined care. Coding Level of Care Code New Pt Acute Swager Operator for [facility] Fwd Patient Type New Medical Decision Making High Complexity Diagnoses Pulmonary hypertension I27.20 Ascites R18.8 Ascites type: other type Right-sided heart failure I50.812 Heart failure chronicity: chronic Paroxysmal atrial fibrillation I48.0 Anemia D64.9 Anemia type: unspecified type Acute kidney injury N17.9 Coagulopathy D68.9
[2021-02-08] MEDS: sennosides 8.6 mg Tablet 17.2 MG PO (20:47)
[2021-02-08] MEDS: atorvastatin 40 mg Tablet 20 MG PO (20:47)
[2021-02-08] MEDS: TRAMadol 50 mg Tablet PO (20:47)
--- NOTE | 2021-02-08 21:05 | PC.NURSE ---
i reported high pulse 118 to nurse
[2021-02-08 21:33] LABS: Basophils % 0.6 %; Eosinophils # 0.3 10^3/uL (0.0-0.8); Eosinophils % 4.8 %; Hematocrit 28.7 % (37.0-47.0); Hemoglobin 8.7 g/dL (11.5-15.3); Lymphocytes # 0.4 10^3/uL (0.8-4.8); Mean Corpuscular HGB Conc 30.3 g/dL (30.0-36.0); Mean Corpuscular Hemoglobin 26.4 pg (28.0-34.0); Mean Corpuscular Volume 87.2 fl (81-99); Mean Platelet Volume 10.3 fL (7.4-10.4); Monocytes # 0.8 10^3/uL (0.2-0.9); Monocytes % 11.7 %; Neutrophils # 5.18 10^3/uL (1.8-7.7); Neutrophils % 75.9 %; Nucleated Red Blood Cells % 0 %; Platelet Count 252 10^3/cmm (130-400); Red Blood Count 3.29 10^6/uL (4.1-5.3); White Blood Count 6.8 10^3/uL (4.0-10.0)
[2021-02-08] MEDS: acetaminophen 325 mg Tablet 650 MG PO (22:52)
[2021-02-09] VITALS (9 sets, daily range): BP systolic 101–119; BP diastolic 61–77; PULSE 60–120; RESP 14–20; TEMP 36.3–36.7; O2SAT 91–99
--- NOTE | 2021-02-09 00:03 | PC.NURSE ---
i reported high pulse 116 to nurse
[2021-02-09] MEDS: potassium chloride ER 20 mEq Tablet PO ×2 (02:04→16:14)
--- NOTE | 2021-02-09 05:18 | PC.NURSE ---
i reported high pulse 102 to nurse
[2021-02-09 05:48] LABS: Anion Gap 18.7 (5-19); Blood Urea Nitrogen 66 mg/dL (8-23); Calcium 8.8 mg/dL (8.5-10.5); Carbon Dioxide 26 mmol/L (22-29); Chloride 92 mmol/L (98-107); Glucose 104 mg/dL (65-115); Magnesium 2.1 mg/dL (1.7-2.3); Osmolality Calculated 295 mOsm/kg (285-295); Phosphorus 4.5 mg/dL (2.5-4.5); Potassium 3.7 mmol/L (3.5-5.1); Sodium 133 mmol/L (136-145)
[2021-02-09] MEDS: fluconazole 100 mg Tablet 200 MG PO (08:19)
[2021-02-09] MEDS: cetirizine 10 mg Tablet PO (08:19)
[2021-02-09] MEDS: ondansetron 4 MG Tablet PO ×2 (08:19→17:46)
[2021-02-09] MEDS: docusate sodium 100 mg Capsule PO ×2 (08:19→17:46)
[2021-02-09] MEDS: ferrous sulfate EC 325 mg Tablet PO (08:19)
[2021-02-09] MEDS: pantoprazole DR 40 mg Tablet PO (08:20)
[2021-02-09] MEDS: fluticasone nasal spray 16gm Btl 1 SPRAY INTRANASAL ×2 (08:20→17:46)
[2021-02-09] MEDS: guaiFENesin 600 mg Tablet PO ×2 (08:20→17:46)
[2021-02-09] MEDS: metoprolol succinate ER (24 HR) 25 mg Tablet PO (08:20)
[2021-02-09] MEDS: citalopram 20 mg Tablet 10 MG PO (08:24)
[2021-02-09] MEDS: bumetanide 0.25 mg/mL SDV 10 mL 2 MG IVP (08:24)
[2021-02-09 08:32] LABS: Basophils % 0.5 %; Eosinophils # 0.3 10^3/uL (0.0-0.8); Eosinophils % 4.3 %; Hematocrit 26.4 % (37.0-47.0); Lymphocytes # 0.5 10^3/uL (0.8-4.8); Lymphocytes % 7.2 %; Mean Corpuscular HGB Conc 30.3 g/dL (30.0-36.0); Mean Corpuscular Hemoglobin 27.2 pg (28.0-34.0); Mean Corpuscular Volume 89.8 fl (81-99); Mean Platelet Volume 10.4 fL (7.4-10.4); Monocytes # 0.9 10^3/uL (0.2-0.9); Monocytes % 13.6 %; Neutrophils % 73.8 %; Nucleated Red Blood Cells % 0 %; Platelet Count 272 10^3/cmm (130-400); Red Blood Count 2.94 10^6/uL (4.1-5.3); Red Cell Distribution Width 19.3 % (12.1-15.1); White Blood Count 6.2 10^3/uL (4.0-10.0)
[2021-02-09 09:47] LABS: INR 1.77 (0.8-1.2)
[2021-02-09 09:48] LABS: Partial Thromboplastin Time 42.5 SECONDS (23.9-36.7)
[2021-02-09] MEDS: dilTIAZem 30 mg Tablet PO ×3 (11:01→21:05)
--- NOTE | 2021-02-09 11:55 | PM.PN ---
Subjective Subjective: Interval history: Patient seen today. She is in a negative balance of 450. I will place her on fluid restriction today as well. She did put out 730 cc of urine. Currently on albumin every 6 hours and Bumex 2 mg twice daily. Cardizem 30 every 6 has been ordered for high heart rate. She states she is doing okay and does not have any breathing difficulty. She would like me to call her son today. Venous Dopplers and arterial Dopplers were negative. Vitals/I&O/Wt Last Vital Signs Temp 97.5 F L 02/09/21 11:03 Pulse 66 02/09/21 11:03 Resp 16 02/09/21 11:03 BP 119/73 02/09/21 11:03 Pulse Ox 98 02/09/21 11:03 02/08/21 02/09/21 02/09/21 22:59 06:59 14:59 Intake Total 1190 / 1190 360 / 1550 Output Total 500 / 1600 1330 / 2930 Balance 690 / -410 -970 / -1380 Weight last 48 hrs Weight 158.757 kg Physical Exam Narrative: EXAM NARRATIVE: General: Alert oriented x3, patient seen laying in bed, on 4 L nasal cannula. HEENT: Normocephalic, atraumatic, EOMI, Cardio: Regular rate rhythm, normal S1-S2, no murmurs rubs gallops, JVD slightly elevated but hard to tell due to body habitus. Respiratory: Lungs are clear to auscultation, no wheezes no rhonchi appreciated. GI: Abdomen soft, nontender, significantly distended with abdominal ascites, bowel sounds hard to appreciate due to large volume ascites. Behavior: Appropriate and cooperative Extremities: Lower extremities are warm and well perfused but the toes are slightly dusky appearing. Patient states this is normal for her. Tips of toes are slightly colder compared to the rest of her body. She has venous stasis changes on lower extremities. There is yellowish fluid seen all over the bed. Did not appreciate any open sores on the legs. She has significant edema bilateral lower extremities. There is also a lot of dependent edema and buttock area. Urinary Catheter Management^: Lynch: Cath Placed During This Visit: yes Reason for Continuing Indwelling Catheter: Acute Urinary Retention or Obstruction Urinary Catheter Date of Insertion: 10/29/21 Urinary Catheter Time of Insertion: 02:50 Data : 02/09/21 04:35 02/09/21 04:35 Micro: Microbiology 02/07/21 16:50 Blood Culture - Preliminary Blood NEGATIVE TO DATE 02/07/21 16:54 Blood Culture - Preliminary Blood NEGATIVE TO DATE A&P Assessment and plan (1) Hyponatremia: Status: Acute (2) Coagulopathy: Off of Eliquis and antiplatelet therapy since the middle of the month with persistent elevation in PT/INR and PTT. Was given FFP on 02/03 ED visit because of an INR of 3.28 at that point in time. Status: Acute (3) Body mass index (BMI) greater than 50: Status: Chronic (4) Anasarca: Progressively worsening both chronically and acutely over the last few weeks. Appears to have had progressively worsening chronic kidney disease as well as acute kidney injury on top of known CHF and pulmonary hypertension. No known liver disease. Has some mild hypoalbuminemia. Status: Acute (5) Acute kidney injury: On top of chronic kidney disease stage III Status: Acute (6) Essential hypertension: Variable pressures noted here Status: Chronic (7) Hyperlipidemia: Chronically on statin therapy Status: Chronic (8) On home oxygen therapy: Chronically on 4 L of oxygen by nasal cannula Status: Chronic (9) Pulmonary hypertension: In a patient with known BMI greater than 50 and obstructive sleep apnea. On physical exam clinical findings are consistent with severe pulmonary hypertension. Has a history of saddle PE in past. Status: Chronic (10) Paroxysmal atrial fibrillation: Currently in atrial fibrillation, rate controlled, lesions secondary to hematoma and anemia Status: Chronic (11) Obstructive sleep apnea: Chronically on CPAP Status: Chronic (12) CHF (congestive heart failure): Facility records indicate chronic diastolic CHF. No echocardiogram available presently. Specific type unknown but acute on chronic. Status: Acute Qualifiers: Heart failure chronicity: acute on chronic Heart failure type: unspecified Qualified Code(s): I50.9 - Heart failure, unspecified (13) Ascites: Status: Acute Additional A&P Information #Severe Right Heart Failure #Severe Pulmonary HTN #Liver coagulopathy secondary to right heart failure #Generalized Anasarca #Massive ascites #Obstructive Sleep Apnea #Obesity, BMI > 50 #Paroxysmal A.fib #HTN - controlled at this time #Hx of PE saddle embolism (2018 # Hx of COVID #Hx of ESBL E.Coli infection - Echo showed normal LVEF, Right ventricule increased size, severely decreased right ventricular systolic function. Severe pulm HTN 70 mm. Severely increase left atrial size. Severely thicked mitral valve. No evidence of pericardial effusion. - CT abdomen did show shrunken liver, unsure if cirhosis present. - She was on on diuretic regimen outpatient with lasix 80 BID with metolazone 10 mg daily. - I will continue her on bumex 2mg BID. Will add albumin q6 hours. Will need to diurese this patient aggresively - Continue CPAP at night time - Not hypoxic and on baseline O2. - Eliquis and Aspirin held last month due to development of epistaxis and right thigh hematoma. - She was placed on heparin drip at admission for dusky toes and fingers but patient states that is her baseline. INR elevated at 2.87, PTT > 250. Heparin was stopped in the morning. Patient is at risk for bleeding. Will continue to monitor hemoglobin. Due to high bleeding risk, even if patient has vasculopathy in extremities, she is not a candidate for anticoagulation at this point. Will continue to monitor. Its possible that due to significant right heart failure and fluid overload, she has compression of extremity vessels. I have updated family in detail today over the phone. I spoke with patient's son and his who is an RN. Hemoglobin 8.0 today. I will hold off on putting patient back on Eliquis or starting heparin due to risk of bleeding due to her coagulopathy. Will continue to watch hemoglobin. Will recheck in 12 hours Cardio on board - Lynch placed for strict I/O. Family would like to discuss case with leather fitter and hospitalist. Pt has been accepted at [facility] for high risk Tele Bed by Dr. NICHOLSON. Pt is on waiting list. Discussed with son at bedside and he is agreeable with plan. Once bed available, they will call us. #Hyponatremia #Hyperkalemia - Sodium 126 at admission. Has improved to 134 - K has also come back to normal. Will check labs daily or BID depending clinical course. #Acute kidney injury on CKD, possible hepatorenal syndrome - baseline cr. 1.2-1.5. It is 2.0 on admission with elevated BUN. Uric acid 11.1 Nephro consulted for worsening Bun/Cr. F: None indicated E: replete as needed N: Cardiac low salt diet A: She is bed bound. Requires malik lift. DVT ppx: Contraindicated. Prognosis is guarded. I have updated the son regarding prognosis as well. Attestations Medical Necessity Statement*: will require > 48 hours inpt stay Time Spent in Patient Care: Greater than 35 minutes (>than 50% of time spent in counselling and/or direct pt care on unit). Coding Level of Care Code Acute Physician Assistant Psychiatry for [facility] Fwd Diagnoses Hyponatremia E87.1 Coagulopathy D68.9 Body mass index (BMI) greater than 50 Anasarca R60.1 Acute kidney injury N17.9 Essential hypertension I10 Hyperlipidemia E78.5 On home oxygen therapy Z99.81 Pulmonary hypertension I27.20 Paroxysmal atrial fibrillation I48.0 Obstructive sleep apnea G47.33 CHF (congestive heart failure) I50.9 Heart failure chronicity: acute on chronic Heart failure type: unspecified Ascites R18.8
--- NOTE | 2021-02-09 17:28 | P.PN_ITS ---
Subjective Subjective: Interval history: She says she is feeling better denies any complaint Medications: Reviewed: Yes Vitals/I&O/Wt Last Vital Signs Temp 97.8 F 02/09/21 15:13 Pulse 62 02/09/21 15:13 Resp 14 02/09/21 15:13 BP 109/77 02/09/21 15:13 Pulse Ox 95 02/09/21 15:13 02/09/21 02/09/21 02/09/21 06:59 14:59 22:59 Intake Total 360 / 1550 100 / 100 Output Total 1330 / 2930 400 / 400 Balance -970 / -1380 100 / 100 -400 / -300 Physical Exam Narrative: EXAM NARRATIVE: GENERAL: Patient is alert, awake and oriented x3. NECK: No jugular vein distension. HEENT: No cyanosis. No icterus. No pallor. HEART: Regular S1 and S2. No murmur, rub or gallop. LUNGS: Clear to auscultate bilaterally. ABDOMEN: Firm protuberant, nontender with ascites CENTRAL NERVOUS SYSTEM: Grossly nonfocal. EXTREMITIES: Lower extremities with 2+ edema bilaterally. Pulses palpable in the lower extremities, both dorsalis pedis and posterior tibial. Urinary Catheter Management^: Lynch: Cath Placed During This Visit: yes Reason for Continuing Indwelling Catheter: Acute Urinary Retention or Obstruction Urinary Catheter Date of Insertion: 02/08/21 Urinary Catheter Time of Insertion: 02:50 Data : 02/09/21 04:35 02/09/21 04:35 Micro: Microbiology 02/07/21 16:50 Blood Culture - Preliminary Blood 02/07/21 16:54 Blood Culture - Preliminary Blood NEGATIVE TO DATE A&P Assessment and plan (1) Pulmonary hypertension: Patient has severe pulmonary hypertension which is had major comorbidities she has severe right-sided heart failure and ventricle failure, she has been diuresed well brother she is on the right side she has liver congestion and right-sided heart failure leading to lower extremity edema which is secondary to pressure overload, patient has poor long-term prognosis at such an advanced state of pulmonary hypertension. Rule out DVT, she is anemic and INR is on the higher side therefore at this point we will avoid anticoagulation if she has extensive DVT consider IVC filter, she may need to be seen by pulmonary hypertension clinic until then we can consider calcium channel justin along with sildenafil and oxygen. I have detailed discussion with the patient reg arding this disease she understand it and would like to be managed conservatively. On today's visit she is feeling better continue oxygen back off diuretics add sildenafil and calcium channel justin 30 mg Cardizem 3 times daily Status: Chronic (2) Ascites: Patient has severe generalized ascites most likely to right-sided heart failure may consider tapping of ascites which may help her breathing and somewhat lower extremity edema. Consider albumin and cautious diuresis not to compromise preload Consider tapping ascites for comfort, consider albumin Status: Acute Qualifiers: Ascites type: other type Qualified Code(s): R18.8 - Other ascites (3) Right-sided heart failure: Patient has severe right-sided heart failure secondary to severe pulmonary hypertension, as defined above consider oxygen and pulmonary pretension treatment as above Status: Acute Qualifiers: Heart failure chronicity: chronic Qualified Code(s): I50.812 - Chronic right heart failure (4) Paroxysmal atrial fibrillation: Right now she is rate controlled Status: Chronic (5) Anemia: Denies any bleeding per rectum possible anemia of chronic diseases she is not on anticoagulation due to anemia Status: Chronic Qualifiers: Anemia type: unspecified type Qualified Code(s): D64.9 - Anemia, unspecified (6) Acute kidney injury: Most likely due to third spacing reduce cardiac output secondary to high right-sided pressures and due to diuresis, consider backing off of from diuresis Status: Acute (7) Coagulopathy: Most likely due to liver dysfunction secondary to congestion due to right- sided heart failure Status: Acute Attestations Medical Necessity Statement*: Patient require continuation hospitalization for above defined care. Coding Level of Care Code Established Pt Acute Motion Picture Set Grip for Em Richardson Patient Type Established History Comprehensive Exam Comprehensive Medical Decision Making High Complexity Diagnoses Pulmonary hypertension I27.20 Ascites R18.8 Ascites type: other type Right-sided heart failure I50.812 Heart failure chronicity: chronic Paroxysmal atrial fibrillation I48.0 Anemia D64.9 Anemia type: unspecified type Acute kidney injury N17.9 Coagulopathy D68.9
--- NOTE | 2021-02-09 18:09 | P.CONIM_ITS ---
Providers/Reason For Consult Consulting Physician/Specialty*: Leila Dubon DO, telenephrology Reason for Consult*: Acute kidney injury Attending Physician: Linda White MD Primary Care Provider: Meredith Edgar MD History of Present Illness History of Present Illness Kory Elder is a 75 year old female presented to hospital for evaluation and treatment of worsening volume overload. Review of Systems ENMT: Reports: throat pain Card: Reports: edema Resp: Reports: other (O2 dependent) GI: Reports: other (distention) Meds/Allergies Home Medications and Allergies Home Medications Medication Instructions Recorded Confirmed Last Taken Type bisacodyl [Dulcolax (bisacodyl)] 10 mg AK DAILY PRN 01/31/20 02/08/21 Unknown History fluticasone propionate [Flonase 1 spray INTRANASAL BID 01/31/20 02/08/21 02/03/21 History Allergy Relief] lovastatin 20 mg PO BEDTIME 01/31/20 02/08/21 02/05/21 History sodium chloride [Saline Nasal] 1 spray INTRANASAL QID PRN 01/31/20 02/08/21 Unknown History albuterol sulfate 1 puff INHALATION Q4H 03/02/20 02/08/21 02/07/21 History budesonide-formoterol [Symbicort] 2 puff INHALATION BID 03/02/20 02/08/21 02/07/21 History cetirizine [Zyrtec] 10 mg PO DAILY 03/02/20 02/08/21 02/07/21 History dextran 70-hypromellose (PF) 1 drp OPHTHALMIC (EYE) DAILY 03/02/20 02/08/21 02/07/21 History [Natural Tears (PF)] guaifenesin [Mucinex] 600 mg PO BID 03/02/20 02/08/21 02/07/21 History ondansetron HCl [Zofran] 4 mg PO TIDWM 03/02/20 02/08/21 02/07/21 History pantoprazole 40 mg PO DAILY 03/02/20 02/08/21 02/07/21 History potassium chloride 40 meq PO DAILY 03/02/20 02/08/21 02/07/21 History Artificial Tears 1 drp OPHTHALMIC (EYE) Q2H PRN 02/08/21 02/08/21 Unknown History Coricidin HBP Cold and Flu 1 tab PO BID PRN 02/08/21 02/08/21 Unknown History acetaminophen 650 mg PO Q4H PRN 02/08/21 02/08/21 02/05/21 History albuterol sulfate 1 puff INHALATION Q4H PRN 02/08/21 02/08/21 Unknown History citalopram 10 mg PO DAILY 02/08/21 02/08/21 02/07/21 History dextromethorphan-guaifenesin 10 ml PO Q4H PRN 02/08/21 02/08/21 02/05/21 History [Tussin DM] docusate sodium [Colace] 200 mg PO BEDTIME PRN 02/08/21 02/08/21 02/05/21 History eucalyptus-menthol [Cough Drops 1 everett MUCOUS MEMBRANE Q2H 02/08/21 02/08/21 Unknown History (with eucalyptus)] ferrous sulfate 325 mg PO DAILY 02/08/21 02/08/21 02/07/21 History furosemide [Lasix] 80 mg PO BID 02/08/21 02/08/21 02/07/21 History menthol [Biofreeze (menthol)] 1 applic TOPICAL BID PRN 02/08/21 02/08/21 Unknown History metolazone 10 mg PO DAILY 02/08/21 02/08/21 02/07/21 History metoprolol succinate 25 mg PO DAILY 02/08/21 02/08/21 02/07/21 History multivitamin 1 tab PO DAILY 02/08/21 02/08/21 02/07/21 History polyethylene glycol 3350 [Miralax] 17 g PO BID 02/08/21 02/08/21 02/07/21 History senna 17.2 mg PO BEDTIME 02/08/21 02/08/21 02/05/21 History sodium phosphates [Fleet Enema] 118 ml AK DAILY PRN 02/08/21 02/08/21 Unknown History tramadol 50 mg PO BEDTIME 02/08/21 02/08/21 02/06/21 History tramadol 50 mg PO QID PRN 02/08/21 02/08/21 02/05/21 History Allergies Allergy/AdvReac Type Severity Reaction Status Date / Time meperidine [From Demerol] Allergy Intermediate unknown Verified 12/13/19 15:40 oxybutynin Allergy Mild Unknown Verified 12/13/19 15:40 pentazocine Allergy Mild Unknown Verified 12/13/19 15:40 Current Medications Current Medications Generic Name Dose Route Start Last Admin Trade Name Freq PRN Reason Stop Dose Admin Acetaminophen 650 mg 02/08/21 01:23 02/08/21 22:52 Acetaminophen 325 Mg Tablet PO 650 mg Q6H PRN Administration Mild/Mod Pain Or Temp >/= 101 Atorvastatin Calcium 20 mg 02/08/21 21:00 02/08/21 20:47 Atorvastatin 40 Mg Tablet PO 20 mg BEDTIME NEEMA Administration Cetirizine HCl 10 mg 02/08/21 09:00 02/09/21 08:19 Cetirizine 10 Mg Tablet PO 10 mg DAILY NEEMA Administration Citalopram Hydrobromide 10 mg 02/08/21 09:00 02/09/21 08:24 Citalopram 20 Mg Tablet PO 10 mg DAILY NEEMA Administration Diltiazem HCl 30 mg 02/09/21 08:30 02/09/21 16:14 Diltiazem 30 Mg Tablet PO 30 mg Q6H NEEMA Administration Docusate Sodium 100 mg 02/08/21 09:00 02/09/21 17:46 Docusate Sodium 100 Mg Capsule PO 100 mg BID NEEMA Administration Ferrous Sulfate 325 mg 02/08/21 09:00 02/09/21 08:19 Ferrous Sulfate Ec 325 Mg Tablet PO 325 mg DAILY NEEMA Administration Fluconazole 200 mg 02/08/21 09:00 02/09/21 08:19 Fluconazole 100 Mg Tablet PO 02/10/21 09:01 200 mg DAILY NEEMA Administration Fluticasone Propionate 1 spray 02/08/21 09:00 02/09/21 17:46 Fluticasone Nasal [place] 16gm Btl INTRANASAL 1 spray BID NEEMA Administration Guaifenesin 600 mg 02/08/21 09:00 02/09/21 17:46 Guaifenesin 600 Mg Tablet PO 600 mg BID NEEMA Administration Albumin Human 25 gm in 100 mls @ 60 mls/hr 02/08/21 14:00 02/09/21 16:13 Albumin IV 60 mls/hr Q8H NEEMA Administration Metoprolol Succinate 25 mg 02/08/21 09:00 02/09/21 08:20 Metoprolol Succinate Er (24 Hr) 25 Mg Tablet PO 25 mg DAILY NEEMA Administration Nystatin 1 applic 02/08/21 09:00 02/09/21 08:24 Nystatin Powder 15 Gm Btl TOPICAL Not Given BID NEEMA Ondansetron HCl 4 mg 02/08/21 08:00 02/09/21 17:46 Ondansetron 4 Mg Tablet PO 4 mg TIDWM NEEMA Administration Pantoprazole Sodium 40 mg 02/08/21 09:00 02/09/21 08:[address] 40 Mg Tablet PO 40 mg DAILY NEEMA Administration Potassium Chloride 20 meq 02/08/21 02:00 02/09/21 16:14 Potassium Chloride Er 20 Meq Tablet PO 20 meq Q12H NEEMA Administration Fluticasone/Salmeterol 1 puff 02/08/21 09:00 02/09/21 09:17 Fluticasone-Salmeterol 250-50 Diskus INHALATION 1 puff BID NEEMA Administration Senna 17.2 mg 02/08/21 21:00 02/08/21 20:47 Sennosides 8.6 Mg Tablet PO 17.2 mg BEDTIME NEEMA Administration Tramadol HCl 50 mg 02/08/21 21:00 02/08/21 20:47 Tramadol 50 Mg Tablet PO 50 mg BEDTIME NEEMA Administration PFSH Acute PFSH: Medical History Anemia Body mass index (BMI) greater than 50 Chronic diastolic (congestive) heart failure Chronic kidney disease, stage 3, mod decreased GFR COVID-19 vaccine administered Depression Essential hypertension History of COVID-19 History of ESBL E. coli infection History of pulmonary embolism (~2017) saddle embolism Hyperlipidemia Hypersomnia Lymphedema Obstructive sleep apnea on CPAP Paroxysmal atrial fibrillation Postmenopausal bleeding (~01/2020) requiring D&C Pulmonary hypertension Right-sided heart failure Type 2 diabetes mellitus reported diagnosis in SNF and hospital records but not on treatment, normal blood sugars Surgical History H/O oral surgery History of D&C (02/02/20) for postmenopausal bleeding Pacemaker Family History Other Family history unknown Social History (Reviewed 02/09/21 @ 18:21 by DARLEEN Campa Housing: Long-Term Marital status: / Additional social history: - Tobacco use: Denies Alcohol use: Denies Drug use: Denies Vitals/I&O/Wt Last Vital Signs Temp 97.8 F 02/09/21 15:13 Pulse 62 02/09/21 15:13 Resp 14 02/09/21 15:13 BP 109/77 02/09/21 15:13 Pulse Ox 95 02/09/21 15:13 02/09/21 02/09/21 02/09/21 06:59 14:59 22:59 Intake Total 360 / 1550 100 / 100 Output Total 1330 / 2930 400 / 400 Balance -970 / -1380 100 / 100 -400 / -300 Physical Exam Urinary Catheter Management^: Lynch: Cath Placed During This Visit: yes Reason for Continuing Indwelling Catheter: Acute Urinary Retention or Obstruction Urinary Catheter Date of Insertion: 02/08/21 Urinary Catheter Time of Insertion: 02:50 Data Labs: Other Labs: 7.40/43/112 Ca 8.8, Phos 4.5, Mg 2.1 urine sodium on admission 21, Cr 23 Urinalysis unremarkable Micro: Micro: Microbiology 02/07/21 16:50 Blood Culture - Pr eliminary Blood 02/07/21 16:54 Blood Culture - Pr eliminary Blood NEGATIVE TO JOYCE E Imaging^: CT Abd/Pel: Radiologist's impression: 02/03 Kidneys and ureters: Atrophic renal parenchyma. Negative for hydronephrosis. Large volume diffuse ascites. No free intraperitoneal air. A&P Additional A&P Information 1. Acute kidney injury, good urine output in response to IV bumex 2. Right heart failure, severe pulmonary hypertension 3. Anemia 4. Mild hyponatremia due to hypervolemia Prognosis poor. Agree with continued albumin, paracentesis, intermittent bumex. Discontinue KCl. Consult Attestations Medical Necessity Statement: see above Time Spent in Patient Care: Greater than 35 minutes Coding Level of Care Code Acute Irrigation Supervisor for Em Richardson
[2021-02-09 20:52] LABS: SARS Covid-2 Antigen Negative (Negative)
[2021-02-09] MEDS: TRAMadol 50 mg Tablet PO (21:04)
[2021-02-09] MEDS: atorvastatin 40 mg Tablet 20 MG PO (21:04)
[2021-02-09] MEDS: sennosides 8.6 mg Tablet 17.2 MG PO (21:05)
[2021-02-10] VITALS (9 sets, daily range): BP systolic 95–124; BP diastolic 63–84; PULSE 52–108; RESP 14–18; TEMP 36.4–36.7; O2SAT 93–98
[2021-02-10] MEDS: dilTIAZem 30 mg Tablet PO ×4 (02:13→20:40)
[2021-02-10 05:16] LABS: Basophils % 0.4 %; Eosinophils # 0.2 10^3/uL (0.0-0.8); Eosinophils % 2.7 %; Hematocrit 29.7 % (37.0-47.0); Hemoglobin 8.5 g/dL (11.5-15.3); Lymphocytes # 0.6 10^3/uL (0.8-4.8); Mean Corpuscular HGB Conc 28.6 g/dL (30.0-36.0); Mean Corpuscular Hemoglobin 26.5 pg (28.0-34.0); Mean Corpuscular Volume 92.5 fl (81-99); Mean Platelet Volume 10.2 fL (7.4-10.4); Monocytes # 0.9 10^3/uL (0.2-0.9); Monocytes % 10.1 %; Neutrophils # 7.12 10^3/uL (1.8-7.7); Neutrophils % 79.2 %; Nucleated Red Blood Cells % 0 %; Platelet Count 275 10^3/cmm (130-400); Red Blood Count 3.21 10^6/uL (4.1-5.3); Red Cell Distribution Width 19.4 % (12.1-15.1)
[2021-02-10 05:40] LABS: Anion Gap 22.7 (5-19); Blood Urea Nitrogen 65 mg/dL (8-23); Calcium 8.9 mg/dL (8.5-10.5); Carbon Dioxide 24 mmol/L (22-29); Chloride 93 mmol/L (98-107); Glucose 84 mg/dL (65-115); Magnesium 2.2 mg/dL (1.7-2.3); Osmolality Calculated 300 mOsm/kg (285-295); Phosphorus 4.3 mg/dL (2.5-4.5); Potassium 3.7 mmol/L (3.5-5.1); Sodium 136 mmol/L (136-145)
--- NOTE | 2021-02-10 06:51 | PM.PN ---
Subjective Subjective: Interval history: seen via telemedicine unsuccessful attempt at paracentesis this AM Denies pain Medications: Reviewed: Yes Vitals/I&O/Wt Last Vital Signs Temp 97.9 F 02/10/21 03:48 Pulse 108 H 02/10/21 03:48 Resp 14 02/10/21 03:48 BP 115/72 02/10/21 03:48 Pulse Ox 97 02/10/21 03:48 02/09/21 02/09/21 02/10/21 14:59 22:59 06:59 Intake Total 100 / 100 100 / 200 100 / 300 Output Total 400 / 400 Balance 100 / 100 -300 / -200 100 / -100 Weight last 48 hrs Weight 87.09 kg Physical Exam Const: COMMON NORMALS: no acute distress Extremity: GENERAL: Yes edema Urinary Catheter Management^: Lynch: Cath Placed During This Visit: yes Reason for Continuing Indwelling Catheter: Acute Urinary Retention or Obstruction Urinary Catheter Date of Insertion: 02/08/21 Urinary Catheter Time of Insertion: 02:50 Data : 02/10/21 09:49 02/10/21 04:17 Micro: Microbiology 02/07/21 16:50 Blood Culture - Preliminary Blood A&P Additional A&P Information 1. Acute kidney injury, had good urine output in response to IV bumex, decreased now with reduced dose. BUN/Cr stable 2. Right heart failure, severe pulmonary hypertension 3. Anemia, Hb stable 4. Mild hyponatremia due to hypervolemia, improved Prognosis poor. Plan for transfer to [facility]. Resume intermittent bumex. Attestations Medical Necessity Statement*: see above Time Spent in Patient Care: 16 - 35 minutes Coding Level of Care Code Acute Billing Representative for Em Richardson
[2021-02-10 09:56] LABS: Hematocrit 27.6 % (37.0-47.0); Hemoglobin 8.2 g/dL (11.5-15.3)
[2021-02-10] MEDS: docusate sodium 100 mg Capsule PO ×2 (10:10→18:44)
[2021-02-10] MEDS: guaiFENesin 600 mg Tablet PO ×2 (10:10→18:44)
[2021-02-10] MEDS: fluconazole 100 mg Tablet 200 MG PO (10:10)
[2021-02-10] MEDS: ondansetron 4 MG Tablet PO ×2 (10:11→18:44)
[2021-02-10] MEDS: pantoprazole DR 40 mg Tablet PO (10:11)
[2021-02-10] MEDS: cetirizine 10 mg Tablet PO (10:11)
[2021-02-10] MEDS: ferrous sulfate EC 325 mg Tablet PO (10:11)
[2021-02-10] MEDS: metoprolol succinate ER (24 HR) 25 mg Tablet PO (10:12)
[2021-02-10] MEDS: citalopram 20 mg Tablet 10 MG PO (10:12)
[2021-02-10] MEDS: phytonadione (ADULT) 10 MG in sodium chloride 0.9% 50 ML 153 MG IV (10:12)
[2021-02-10] MEDS: bumetanide 0.25 mg/mL SDV 10 mL 2 MG IVP (11:31)
[2021-02-10] MEDS: fluticasone nasal spray 16gm Btl 1 SPRAY INTRANASAL ×2 (11:34→18:46)
[2021-02-10] MEDS: nystatin powder 15 gm Btl 1 APPLIC TOPICAL ×2 (11:34→18:46)
--- NOTE | 2021-02-10 13:18 | PC.SOCIAL ---
IM follow up explained and copy provided no questions voiced.
--- NOTE | 2021-02-10 16:31 | PM.PN ---
Subjective Subjective: Interval history: Seen and examined this morning. Patient is doing the same as last night. There is good urine output. Creatinine went down to 2.1. Paracentesis was attempted by ER physician Dr. Hope. Good fluid pocket was found but once catheter was inserted patient had significant bleeding at the insertion site. Procedure had to be aborted. Suture was placed. Unable to obtain any fluid sample. Patient did tolerate procedure well. Vitals remained stable. She is on 4 L nasal cannula. Son was updated over the phone. He will be coming to visit today. Patient does state that she feels better compared to admission. Vitals/I&O/Wt Last Vital Signs Temp 97.9 F 02/10/21 11:24 Pulse 60 02/10/21 11:24 Resp 18 02/10/21 15:01 BP 122/84 02/10/21 11:24 Pulse Ox 97 02/10/21 15:01 02/10/21 02/10/21 02/10/21 06:59 14:59 22:59 Intake Total 100 / 300 520 / 520 Balance 100 / -100 520 / 520 Weight last 48 hrs Weight 87.09 kg Physical Exam Narrative: EXAM NARRATIVE: General: Alert oriented x3, patient seen laying in bed, on 4 L nasal cannula. HEENT: Normocephalic, atraumatic, EOMI, Cardio: Regular rate rhythm, normal S1-S2, no murmurs rubs gallops, JVD slightly elevated but hard to tell due to body habitus. Respiratory: Lungs are clear to auscultation, no wheezes no rhonchi appreciated. GI: Abdomen soft, nontender, significantly distended with abdominal ascites, bowel sounds hard to appreciate due to large volume ascites. Paracentesis catheter insertion site appears clean. Pressure bandage applied over it. Behavior: Appropriate and cooperative Extremities: Lower extremities are warm and well perfused but the toes are slightly dusky appearing. Patient states this is normal for her. Tips of toes are slightly colder compared to the rest of her body. She has venous stasis changes on lower extremities. Less drainage from lower extremities seen today. Generalized anasarca still present but appears slightly improved. Dependent edema still present in buttock and thigh area. Urinary Catheter Management^: Lynch: Cath Placed During This Visit: yes Reason for Continuing Indwelling Catheter: Acute Urinary Retention or Obstruction Urinary Catheter Date of Insertion: 02/08/21 Urinary Catheter Time of Insertion: 02:50 Data : 02/10/21 09:49 02/10/21 04:17 Micro: Microbiology 02/07/21 16:50 Blood Culture - Preliminary Blood Staphylococcus sp coag neg A&P Assessment and plan (1) Hyponatremia: Status: Acute (2) Coagulopathy: Off of Eliquis and antiplatelet therapy since the middle of the month with persistent elevation in PT/INR and PTT. Was given FFP on 02/03 ED visit because of an INR of 3.28 at that point in time. Status: Acute (3) Body mass index (BMI) greater than 50: Status: Chronic (4) Anasarca: Progressively worsening both chronically and acutely over the last few weeks. Appears to have had progressively worsening chronic kidney disease as well as acute kidney injury on top of known CHF and pulmonary hypertension. No known liver disease. Has some mild hypoalbuminemia. Status: Acute (5) Acute kidney injury: On top of chronic kidney disease stage III Status: Acute (6) Essential hypertension: Variable pressures noted here Status: Chronic (7) Hyperlipidemia: Chronically on statin therapy Status: Chronic (8) On home oxygen therapy: Chronically on 4 L of oxygen by nasal cannula Status: Chronic (9) Pulmonary hypertension: In a patient with known BMI greater than 50 and obstructive sleep apnea. On physical exam clinical findings are consistent with severe pulmonary hypertension. Has a history of saddle PE in past. Status: Chronic (10) Paroxysmal atrial fibrillation: Currently in atrial fibrillation, rate controlled, lesions secondary to hematoma and anemia Status: Chronic (11) Obstructive sleep apnea: Chronically on CPAP Status: Chronic (12) CHF (congestive heart failure): Facility records indicate chronic diastolic CHF. No echocardiogram available presently. Specific type unknown but acute on chronic. Status: Acute Qualifiers: Heart failure chronicity: acute on chronic Heart failure type: unspecified Qualified Code(s): I50.9 - Heart failure, unspecified (13) Ascites: Status: Acute Qualifiers: Ascites type: other type Qualified Code(s): R18.8 - Other ascites Additional A&P Information #Severe Right Heart Failure #Severe Pulmonary HTN #Liver coagulopathy secondary to right heart failure, no known liver cirrhosis evidenced on previous CAT scans from previous admissions. #Generalized Anasarca #Massive ascites #Obstructive Sleep Apnea #Obesity, BMI > 50 #Paroxysmal A.fib #HTN - controlled at this time #Hx of PE saddle embolism (2018 # Hx of COVID #Hx of ESBL E.Coli infection - Echo showed normal LVEF, Right ventricule increased size, severely decreased right ventricular systolic function. Severe pulm HTN 70 mm. Severely increase left atrial size. Severely thicked mitral valve. No evidence of pericardial effusion. - CT abdomen did show shrunken liver, unsure if cirhosis present. - She was on on diuretic regimen outpatient with lasix 80 BID with metolazone 10 mg daily. - I will continue her on bumex 2mg BID. Will add albumin q6 hours. Will need to diurese this patient aggresively - Continue CPAP at night time - Not hypoxic and on baseline O2. - Eliquis and Aspirin held last month due to development of epistaxis and right thigh hematoma. - She was placed on heparin drip at admission for dusky toes and fingers but patient states that is her baseline. INR elevated at 2.87, PTT > 250. Heparin was stopped in the morning. Patient is at risk for bleeding. Will continue to monitor hemoglobin. Due to high bleeding risk, even if patient has vasculopathy in extremities, she is not a candidate for anticoagulation at this point. Will continue to monitor. I will hold off on putting patient back on Eliquis or starting heparin due to risk of bleeding due to her coagulopathy. Will continue to watch hemoglobin. Will recheck in 12 hours Cardio on board - Lynch placed for strict I/O. -Patient has had good urine output in the last 2 days. She appears slightly improved. Nephrology is following. Paracentesis was attempted today by ER physician. Due to significant bleeding at catheter insertion site procedure had to be aborted. Vitamin K 10 mg x 1 was given. Pt has been accepted at [facility] for high risk Tele Bed by Dr. NICHOLSON. Pt is on waiting list. Discussed with son at bedside and he is agreeable with plan. Once bed available, they will call us. Patient is not hypoxic. She is on her baseline oxygen. Suspicion of PE is low at this time. Did discuss with the son regarding CTA chest but there is risk of contrast nephropathy. We will continue to monitor patient. #Hyponatremia #Hyperkalemia - Sodium 126 at admission. It has normalized to 136. Potassium is 3.7 today. #Acute kidney injury on CKD, possible hepatorenal syndrome - baseline cr. 1.2-1.5. It is 2.0 on admission with elevated BUN. Uric acid 11.1 Nephro consulted for worsening Bun/Cr. We will continue Bumex IV once daily for now. Nephrology following. F: None indicated E: replete as needed N: Cardiac low salt diet A: She is bed bound. Requires malik lift. DVT ppx: Contraindicated. Prognosis is guarded. I have updated the son regarding prognosis as well. Son was updated in detail today. Attestations Medical Necessity Statement*: Patient will be transferred to [facility] once a bed is available. Time Spent in Patient Care: Greater than 35 minutes (>than 50% of time spent in counselling and/or direct pt care on unit). Coding Level of Care Code Acute Computer Training Specialist for [facility] Fwd Diagnoses Hyponatremia E87.1 Coagulopathy D68.9 Body mass index (BMI) greater than 50 Anasarca R60.1 Acute kidney injury N17.9 Essential hypertension I10 Hyperlipidemia E78.5 On home oxygen therapy Z99.81 Pulmonary hypertension I27.20 Paroxysmal atrial fibrillation I48.0 Obstructive sleep apnea G47.33 CHF (congestive heart failure) I50.9 Heart failure chronicity: acute on chronic Heart failure type: unspecified Ascites R18.8 Ascites type: other type
[2021-02-10 16:55] LABS: Gamma Glutamyl Transferase 16 U/L (5-36)
[2021-02-10 18:33] LABS: Lactate Dehydrogenase 212 U/L (135-214)
[2021-02-10 18:57] LABS: Basophils % 0.3 %; Eosinophils # 0.2 10^3/uL (0.0-0.8); Eosinophils % 1.9 %; Hematocrit 27.8 % (37.0-47.0); Hemoglobin 8.1 g/dL (11.5-15.3); Lymphocytes # 0.6 10^3/uL (0.8-4.8); Lymphocytes % 7.3 %; Mean Corpuscular HGB Conc 29.1 g/dL (30.0-36.0); Mean Corpuscular Hemoglobin 26.4 pg (28.0-34.0); Mean Corpuscular Volume 90.6 fl (81-99); Mean Platelet Volume 10.2 fL (7.4-10.4); Monocytes # 0.7 10^3/uL (0.2-0.9); Monocytes % 9.1 %; Neutrophils # 6.33 10^3/uL (1.8-7.7); Neutrophils % 80.6 %; Nucleated Red Blood Cells % 0 %; Platelet Count 253 10^3/cmm (130-400); Red Blood Count 3.07 10^6/uL (4.1-5.3); Red Cell Distribution Width 19.4 % (12.1-15.1); White Blood Count 7.8 10^3/uL (4.0-10.0)
[2021-02-10] MEDS: TRAMadol 50 mg Tablet PO (20:40)
[2021-02-10] MEDS: sennosides 8.6 mg Tablet 17.2 MG PO (20:40)
[2021-02-10] MEDS: atorvastatin 40 mg Tablet 20 MG PO (20:41)
--- NOTE | 2021-02-10 22:04 | PM.PN ---
Subjective Subjective: Interval history: Patient says she is feeling better, attempt to tap ascites was performed but it was aborted possible due to some bleeding issues Medications: Reviewed: Yes Vitals/I&O/Wt Last Vital Signs Temp 97.6 F 02/10/21 20:00 Pulse 80 02/10/21 21:05 Resp 18 02/10/21 21:05 BP 95/63 02/10/21 20:00 Pulse Ox 98 02/10/21 21:05 02/10/21 02/10/21 02/10/21 06:59 14:59 22:59 Intake Total 100 / 300 571 / 571 220 / 791 Balance 100 / -100 571 / 571 220 / 791 Weight last 48 hrs Weight 192 lb Physical Exam Narrative: EXAM NARRATIVE: GENERAL: Patient is alert, awake and oriented x3. NECK: No jugular vein distension. HEENT: No cyanosis. No icterus. No pallor. HEART: Irregularly r S1 and S2. No murmur, rub or gallop. LUNGS: Decreased breath sound bilaterally. ABDOMEN: Firm, nontender and distended. No guarding, fluid thrill positive CENTRAL NERVOUS SYSTEM: Grossly nonfocal. EXTREMITIES: Lower extremities with 1+ edema bilaterally. Bluish discoloration of the toes which is chronic both feet warm, no motor or sensory deficit Urinary Catheter Management^: Lynch: Cath Placed During This Visit: yes Reason for Continuing Indwelling Catheter: Acute Urinary Retention or Obstruction Urinary Catheter Date of Insertion: 02/08/21 Urinary Catheter Time of Insertion: 02:50 Data : 02/10/21 18:43 02/10/21 04:17 Micro: Microbiology 02/07/21 16:50 Blood Culture - Preliminary Blood Staphylococcus sp coag neg A&P Assessment and plan (1) Pulmonary hypertension: Patient has severe pulmonary hypertension which is had major comorbidities she has severe right-sided heart failure and ventricle failure, she has been diuresed well brother she is on the right side she has liver congestion and right-sided heart failure leading to lower extremity edema which is secondary to pressure overload, patient has poor long-term prognosis at such an advanced state of pulmonary hypertension. Rule out DVT, she is anemic and INR is on the higher side therefore at this point we will avoid anticoagulation if she has extensive DVT consider IVC filter, she may need to be seen by pulmonary hypertension clinic until then we can consider calcium channel justin along with sildenafil and oxygen. I have detailed discussion with the patient regarding this disease she understand it and would like to be managed conservatively. On today's visit she is feeling better continue oxygen back off diuretics add sildenafil and calcium channel justin 30 mg Cardizem 3 times daily Our medicine colleagues has consulted [facility] pulmonary pretension clinic I have heard that they have accepted transfer awaiting bed Status: Chronic (2) Ascites: Patient has severe generalized ascites most likely to right-sided heart failure may consider tapping of ascites which may help her breathing and somewhat lower extremity edema. Consider albumin and cautious diuresis not to compromise preload Consider tapping ascites for comfort, consider albumin As defined above may require ascites tapped which may will benefit Status: Acute Qualifiers: Ascites type: other type Qualified Code(s): R18.8 - Other ascites (3) Right-sided heart failure: Patient has severe right-sided heart failure secondary to severe pulmonary hypertension, as defined above consider oxygen and pulmonary pretension treatment as above To [facility] for dedicated pulmonary pretension clinic and heart failure team for further management Status: Acute Qualifiers: Heart failure chronicity: chronic Qualified Code(s): I50.812 - Chronic right heart failure (4) Paroxysmal atrial fibrillation: Rate controlled not on anticoagulation due to high INR r Status: Chronic (5) Anemia: Denies any bleeding per rectum possible anemia of chronic diseases she is not on anticoagulation due to anemia Status: Chronic Qualifiers: Anemia type: unspecified type Qualified Code(s): D64.9 - Anemia, unspecified (6) Acute kidney injury: Most likely due to third spacing reduce cardiac output secondary to high right-sided pressures and due to diuresis, consider backing off of from diuresis Status: Acute (7) Coagulopathy: Most likely due to liver dysfunction secondary to congestion due to right-sided heart failure Status: Acute Attestations Medical Necessity Statement*: Patient require continuation hospitalization for work-up and care. Patient has poor short and long-term prognosis. Discussed with the patient in detail she understood it. I have tried twice to reach out with the family but somehow there and my timings were different I will try to reach them by phone tomorrow. I have discussed this plan in detail with our hospitalist colleague Coding Level of Care Code Established Pt Acute Operations Officer Afloat for Chg Fwd Patient Type Established History Detailed Exam Detailed Medical Decision Making Moderate Complexity Diagnoses Pulmonary hypertension I27.20 Ascites R18.8 Ascites type: other type Right-sided heart failure I50.812 Heart failure chronicity: chronic Paroxysmal atrial fibrillation I48.0 Anemia D64.9 Anemia type: unspecified type Acute kidney injury N17.9 Coagulopathy D68.9
[2021-02-11] VITALS (11 sets, daily range): BP systolic 84–112; BP diastolic 50–78; PULSE 48–65; RESP 16–20; TEMP 36.3–36.4; O2SAT 96–100; BMI 47.4
[2021-02-11] MEDS: dilTIAZem 30 mg Tablet PO (02:42)
[2021-02-11 04:33] LABS: Basophils % 0.3 %; Eosinophils # 0.3 10^3/uL (0.0-0.8); Eosinophils % 4.3 %; Hematocrit 26.4 % (37.0-47.0); Hemoglobin 7.9 g/dL (11.5-15.3); Lymphocytes # 0.5 10^3/uL (0.8-4.8); Lymphocytes % 7.9 %; Mean Corpuscular HGB Conc 29.9 g/dL (30.0-36.0); Mean Corpuscular Hemoglobin 26.7 pg (28.0-34.0); Mean Corpuscular Volume 89.2 fl (81-99); Mean Platelet Volume 9.9 fL (7.4-10.4); Monocytes # 0.7 10^3/uL (0.2-0.9); Monocytes % 11.2 %; Neutrophils # 4.39 10^3/uL (1.8-7.7); Neutrophils % 75.4 %; Nucleated Red Blood Cells % 0 %; Platelet Count 258 10^3/cmm (130-400); Red Blood Count 2.96 10^6/uL (4.1-5.3); Red Cell Distribution Width 19.5 % (12.1-15.1); White Blood Count 5.8 10^3/uL (4.0-10.0)
[2021-02-11 04:39] LABS: INR 1.74 (0.8-1.2)
[2021-02-11 04:49] LABS: Anion Gap 20.2 (5-19); Blood Urea Nitrogen 69 mg/dL (8-23); Calcium 8.9 mg/dL (8.5-10.5); Carbon Dioxide 26 mmol/L (22-29); Chloride 90 mmol/L (98-107); Glucose 95 mg/dL (65-115); Magnesium 2.1 mg/dL (1.7-2.3); Osmolality Calculated 296 mOsm/kg (285-295); Phosphorus 4.4 mg/dL (2.5-4.5); Potassium 3.2 mmol/L (3.5-5.1); Sodium 133 mmol/L (136-145)
[2021-02-11] MEDS: citalopram 20 mg Tablet 10 MG PO (08:20)
[2021-02-11] MEDS: pantoprazole DR 40 mg Tablet PO (08:20)
[2021-02-11] MEDS: docusate sodium 100 mg Capsule PO ×2 (08:20→18:27)
[2021-02-11] MEDS: guaiFENesin 600 mg Tablet PO ×2 (08:20→18:27)
[2021-02-11] MEDS: ondansetron 4 MG Tablet PO ×2 (08:21→18:27)
[2021-02-11] MEDS: ferrous sulfate EC 325 mg Tablet PO (08:21)
[2021-02-11] MEDS: fluticasone nasal spray 16gm Btl 1 SPRAY INTRANASAL ×2 (08:21→18:28)
[2021-02-11] MEDS: cetirizine 10 mg Tablet PO (08:21)
[2021-02-11] MEDS: bumetanide 0.25 mg/mL SDV 10 mL 2 MG IVP ×2 (08:21→18:27)
--- NOTE | 2021-02-11 08:30 | PM.PN ---
Subjective Subjective: Interval history: weak, swollen, dec sob, + abd pain, poor appetite Medications: Reviewed: Yes Medication Review Details: Current Medications Acetaminophen (Acetaminophen 325 Mg Tablet) 650 mg PO Q6H PRN PRN Reason: Mild/Mod Pain Or Temp >/= 101 Last Admin: 02/08/21 22:52 Dose: 650 mg Documented by: Albuterol Sulfate (Albuterol 8 Gm Mdi) 1 puff INHALATION Q4H PRN PRN Reason: Congestion Artificial Tears (Artificial Tears Op Soln 15 Ml Btl) 1 drop EYE-BOTH Q4H PRN PRN Reason: DRY EYE(S) Atorvastatin Calcium (Atorvastatin 40 Mg Tablet) 20 mg PO BEDTIME [facility] Last Admin: 02/10/21 20:41 Dose: 20 mg Documented by: Bisacodyl (Bisacodyl 5 Mg Tablet) 10 mg PO DAILY PRN; Protocol PRN Reason: Constipation (see protocol) Bumetanide (Bumetanide 0.25 Mg/Ml Sdv 10 Ml) 2 mg IVP DAILY [facility] Last Admin: 02/11/21 08:21 Dose: 2 mg Documented by: Calcium Carbonate (Calcium Carbonate 500 Mg Chew Tablet) 1,000 mg PO Q4H PRN PRN Reason: DYSPEPSI Camphor/Menthol/Phenol (Blistex Lip Oint 7 Gm Tube) 1 applic TOPICAL PRN PRN PRN Reason: DRYNESS Cetirizine HCl (Cetirizine 10 Mg Tablet) 10 mg PO DAILY [facility] Last Admin: 02/11/21 08:21 Dose: 10 mg Documented by: Citalopram Hydrobromide (Citalopram 20 Mg Tablet) 10 mg PO DAILY [facility] Last Admin: 02/11/21 08:20 Dose: 10 mg Documented by: Diltiazem HCl (Diltiazem 30 Mg Tablet) 30 mg PO Q6H [facility] Last Admin: 02/11/21 02:42 Dose: 30 mg Documented by: Docusate Sodium (Docusate Sodium 100 Mg Capsule) 100 mg PO BID [facility] Last Admin: 02/11/21 08:20 Dose: 100 mg Documented by: Ferrous Sulfate (Ferrous Sulfate Ec 325 Mg Tablet) 325 mg PO DAILY [facility] Last Admin: 02/11/21 08:21 Dose: 325 mg Documented by: Fluticasone Propionate (Fluticasone Nasal [place] 16gm Btl) 1 spray INTRANASAL BID [facility] Last Admin: 02/11/21 08:21 Dose: 1 spray Documented by: Guaifenesin (Guaifenesin 600 Mg Tablet) 600 mg PO BID [facility] Last Admin: 02/11/21 08:20 Dose: 600 mg Documented by: Albumin Human (Albumin) 25 gm in 100 mls @ 60 mls/hr IV Q8H [facility] Last Infusion: 02/11/21 08:27 Dose: Infused Documented by: Metoprolol Succinate (Metoprolol Succinate Er (24 Hr) 25 Mg Tablet) 25 mg PO DAILY [facility] Last Admin: 02/10/21 10:12 Dose: 25 mg Documented by: Nystatin (Nystatin Powder 15 Gm Btl) 1 applic TOPICAL BID [facility] Last Admin: 02/10/21 18:46 Dose: 1 applic Documented by: Ondansetron HCl (Ondansetron 2 Mg/Ml Sdv 2 Ml) 4 mg IVP Q6H PRN PRN Reason: NAUSEA AND VOMITING Ondansetron HCl (Ondansetron 4 Mg Tablet) 4 mg PO TIDWM [facility] Last Admin: 02/11/21 08:21 Dose: 4 mg Documented by: Pantoprazole Sodium (Pantoprazole Dr 40 Mg Tablet) 40 mg PO DAILY [facility] Last Admin: 02/11/21 08:20 Dose: 40 mg Documented by: Fluticasone/Salmeterol (Fluticasone-Salmeterol 250-50 Diskus) 1 puff INHALATION BID [facility] Last Admin: 02/11/21 08:19 Dose: 1 puff Documented by: Senna (Sennosides 8.6 Mg Tablet) 17.2 mg PO BEDTIME [facility] Last Admin: 02/10/21 20:40 Dose: 17.2 mg Documented by: Tramadol HCl (Tramadol 50 Mg Tablet) 50 mg PO QID PRN PRN Reason: moderate to severe pain Tramadol HCl (Tramadol 50 Mg Tablet) 50 mg PO BEDTIME [facility] Last Admin: 02/10/21 20:40 Dose: 50 mg Documented by: Vitals/I&O/Wt Last Vital Signs Temp 97.4 F L 02/11/21 08:00 Pulse 48 L 02/11/21 08:20 Resp 18 02/11/21 08:20 BP 97/61 02/11/21 08:00 Pulse Ox 96 02/11/21 08:20 02/10/21 02/11/21 02/11/21 22:59 06:59 14:59 Intake Total 220 / 791 140 / 931 100 / 100 Output Total 0 / 0 Balance 220 / 791 140 / 931 100 / 100 Weight last 48 hrs Weight 129.274 kg Weight 87.09 kg Physical Exam Narrative: EXAM NARRATIVE: examined w/ RN- telehealth visit vs noted- bp low, on nc 02 -swollen, ascites in bed heent- nc/at neck- supple, obese lungs dull bases, poor air movement, crackles b/l heart- reg, + s1, s2 abd soft, ascites, distended, +bs ext b/l edema neuro-a,a, o x 2+ Urinary Catheter Management^: Lynch: Cath Placed During This Visit: yes Reason for Continuing Indwelling Catheter: Acute Urinary Retention or Obstruction Urinary Catheter Date of Insertion: 02/08/21 Urinary Catheter Time of Insertion: 02:50 Data : 02/11/21 04:17 02/11/21 04:17 Micro: Microbiology 02/07/21 16:50 Blood Culture - Preliminary Blood Staphylococcus sp coag neg A&P Additional A&P Information 75 yr old female severe pulm htn, right heart failure, p a fib. Pt here w/ anasarca and SOB. 1. Acute kidney injury -presumed CRS from right heart failure 2. Right heart failure, severe pulmonary hypertension -per cardiology -if paracentesis- please give albumin w/ paracentesis -would inc bumex w/ poor uop 3. Anemia, Hb 7.9- check iron studies 4. Mild hyponatremia due to hypervolemia 5. replete k 6. check vit d and uric acid 7. Plan for transfer to [place] noted seen and examine dw/ RN- telehealth visit time spent 30 minutes Attestations Medical Necessity Statement*: bro, rt heart failure, anemia Time Spent in Patient Care: 16 - 35 minutes (>than 50% of time spent in counselling and/or direct pt care on unit). Coding Level of Care Code Acute Leather Leveler for Em Richardson
[2021-02-11 09:50] LABS: Ferritin 118 ng/mL (15-150); Iron 20 ug/dL (37-145); Percent Saturation 12.1 % (20-50); Total Iron Binding Capacity 164 mcg/dl; Unsaturated Iron Binding 144 ug/dL (112-347); Uric Acid 12.2 mg/dL (2.4-5.7)
[2021-02-11] MEDS: nystatin powder 15 gm Btl 1 APPLIC TOPICAL ×2 (10:48→18:28)
[2021-02-11] MEDS: potassium chloride ER 20 mEq Tablet 40 MEQ PO (10:48)
--- NOTE | 2021-02-11 11:05 | PC.NURSE ---
Alondra at [facility] updated on patient. Per Alondra patient is still on their wait list and is hopeful they will have discharges today to be able to assign patient a bed.
--- NOTE | 2021-02-11 17:18 | P.PN_ITS ---
Subjective Subjective: Interval history: Patient endorsed feeling better however very lethargic and fatigued, patient stated that at home she is a 3 to 4 L, she was, AV molly blocking agents, Bumex dose increased by decorative engraver apprentice secondary to an adequate urine output, in the chart it is not properly documented however at the bedside she had about 800 mL Secondary to low blood pressure I have held AV molly blocking agents Bumex is being given with albumin, paracentesis counseled, awaiting bed availability at [facility] Vitals/I&O/Wt Last Vital Signs Temp 97.3 F L 02/11/21 11:50 Pulse 55 L 02/11/21 15:56 Resp 17 02/11/21 15:56 BP 94/69 02/11/21 15:56 Pulse Ox 98 02/11/21 15:56 02/11/21 02/11/21 02/11/21 06:59 14:59 22:59 Intake Total 140 / 931 700 / 700 Balance 140 / 931 700 / 700 Weight last 48 hrs Weight 129.274 kg Weight 87.09 kg Physical Exam Narrative: EXAM NARRATIVE: Morbidly obese female She has cyanotic appearance of toes and digits but seems to be chronic No active ischemic ulcers Generalized anasarca Venous stasis dermatitis Multiple petechia and bruises of upper and lower extremities Awake and alert Fatigued and lethargic No active neuro focal deficit Saturating well on 3 L Bilateral breath sounds with crackles at the bases Urinary Catheter Management^: Lynch: Cath Placed During This Visit: yes Reason for Continuing Indwelling Catheter: Acute Urinary Retention or Obstruction Urinary Catheter Date of Insertion: 02/08/21 Urinary Catheter Time of Insertion: 02:50 Data : 02/11/21 04:17 02/11/21 04:17 A&P Additional A&P Information Severe pulmonary hypertension with right-sided heart failure Currently on Bumex and albumin combination Bumex dose has been increased by decorative engraver apprentice however her blood pressure has been on the softer side, monitor closely for now Waiting bed placement at [facility] she has been accepted by Underlying multiple comorbid conditions such as sleep apnea history of saddle embolism History of Covid Coagulopathy related to hepatic congestion Related to right-sided heart failure no active bleeding however multiple pe techiae and bruises all over extremities INR today 1.7 Previous albumin level 3.1 Hypotension related to medications: Held AV molly blocking agents Heart rate 55-60 Previous history of A. fib Acute on chronic kidney disease: Likely cardiorenal syndrome creatinine seems to be plateaued at 2.1-2.2 appreciate nephro recommendations Potassium 3.2 Bicarb 26 no signs of contraction alkalosis Acid 12.2 no active acute gout episode in case of joint pain would recommend steroids and avoid allopurinol Limited resuscitation no CPR okay with intubation in case of respiratory distress Fluid restricted consistent carb diet DVT prophylaxis: Start heparin INR 1.7 Awaiting bed placement at [facility] Medical Necessity Statement*: Awaiting bed placement Time Spent in Patient Care: less than 15 minutes Coding Level of Care Code Acute Residential Property Consultant for Em Richardson
--- NOTE | 2021-02-11 18:33 | PM.PN ---
Subjective Subjective: Interval history: Patient states she is feeling better today but remains fatigued. Medications: Reviewed: Yes Medication Review Details: Current Medications Acetaminophen (Acetaminophen 325 Mg Tablet) 650 mg PO Q6H PRN PRN Reason: Mild/Mod Pain Or Temp >/= 101 Last Admin: 02/08/21 22:52 Dose: 650 mg Documented by: Albuterol Sulfate (Albuterol 8 Gm Mdi) 1 puff INHALATION Q4H PRN PRN Reason: Congestion Artificial Tears (Artificial Tears Op Soln 15 Ml Btl) 1 drop EYE-BOTH Q4H PRN PRN Reason: DRY EYE(S) Atorvastatin Calcium (Atorvastatin 40 Mg Tablet) 20 mg PO BEDTIME [facility] Last Admin: 02/10/21 20:41 Dose: 20 mg Documented by: Bisacodyl (Bisacodyl 5 Mg Tablet) 10 mg PO DAILY PRN; Protocol PRN Reason: Constipation (see protocol) Bumetanide (Bumetanide 0.25 Mg/Ml Sdv 10 Ml) 2 mg IVP DAILY [facility] Last Admin: 02/11/21 08:21 Dose: 2 mg Documented by: Calcium Carbonate (Calcium Carbonate 500 Mg Chew Tablet) 1,000 mg PO Q4H PRN PRN Reason: DYSPEPSI Camphor/Menthol/Phenol (Blistex Lip Oint 7 Gm Tube) 1 applic TOPICAL PRN PRN PRN Reason: DRYNESS Cetirizine HCl (Cetirizine 10 Mg Tablet) 10 mg PO DAILY [facility] Last Admin: 02/11/21 08:21 Dose: 10 mg Documented by: Citalopram Hydrobromide (Citalopram 20 Mg Tablet) 10 mg PO DAILY [facility] Last Admin: 02/11/21 08:20 Dose: 10 mg Documented by: Diltiazem HCl (Diltiazem 30 Mg Tablet) 30 mg PO Q6H [facility] Last Admin: 02/11/21 02:42 Dose: 30 mg Documented by: Docusate Sodium (Docusate Sodium 100 Mg Capsule) 100 mg PO BID [facility] Last Admin: 02/11/21 08:20 Dose: 100 mg Documented by: Ferrous Sulfate (Ferrous Sulfate Ec 325 Mg Tablet) 325 mg PO DAILY [facility] Last Admin: 02/11/21 08:21 Dose: 325 mg Documented by: Fluticasone Propionate (Fluticasone Nasal [place] 16gm Btl) 1 spray INTRANASAL BID [facility] Last Admin: 02/11/21 08:21 Dose: 1 spray Documented by: Guaifenesin (Guaifenesin 600 Mg Tablet) 600 mg PO BID [facility] Last Admin: 02/11/21 08:20 Dose: 600 mg Documented by: Albumin Human (Albumin) 25 gm in 100 mls @ 60 mls/hr IV Q8H [facility] Last Infusion: 02/11/21 08:27 Dose: Infused Documented by: Metoprolol Succinate (Metoprolol Succinate Er (24 Hr) 25 Mg Tablet) 25 mg PO DAILY [facility] Last Admin: 02/10/21 10:12 Dose: 25 mg Documented by: Nystatin (Nystatin Powder 15 Gm Btl) 1 applic TOPICAL BID [facility] Last Admin: 02/10/21 18:46 Dose: 1 applic Documented by: Ondansetron HCl (Ondansetron 2 Mg/Ml Sdv 2 Ml) 4 mg IVP Q6H PRN PRN Reason: NAUSEA AND VOMITING Ondansetron HCl (Ondansetron 4 Mg Tablet) 4 mg PO TIDWM [facility] Last Admin: 02/11/21 08:21 Dose: 4 mg Documented by: Pantoprazole Sodium (Pantoprazole Dr 40 Mg Tablet) 40 mg PO DAILY [facility] Last Admin: 02/11/21 08:20 Dose: 40 mg Documented by: Fluticasone/Salmeterol (Fluticasone-Salmeterol 250-50 Diskus) 1 puff INHALATION BID [facility] Last Admin: 02/11/21 08:19 Dose: 1 puff Documented by: Senna (Sennosides 8.6 Mg Tablet) 17.2 mg PO BEDTIME [facility] Last Admin: 02/10/21 20:40 Dose: 17.2 mg Documented by: Tramadol HCl (Tramadol 50 Mg Tablet) 50 mg PO QID PRN PRN Reason: moderate to severe pain Tramadol HCl (Tramadol 50 Mg Tablet) 50 mg PO BEDTIME [facility] Last Admin: 02/10/21 20:40 Dose: 50 mg Documented by: Vitals/I&O/Wt Last Vital Signs Temp 97.3 F L 02/11/21 11:50 Pulse 55 L 02/11/21 15:56 Resp 17 02/11/21 15:56 BP 94/69 02/11/21 15:56 Pulse Ox 98 02/11/21 15:56 02/11/21 02/11/21 02/11/21 06:59 14:59 22:59 Intake Total 140 / 931 700 / 700 220 / 920 Output Total 900 / 900 Balance 140 / 931 700 / 700 -680 / 20 Weight last 48 hrs Weight 285 lb Weight 192 lb Physical Exam Narrative: EXAM NARRATIVE: GENERAL: Patient is alert, awake and oriented x3. NECK: No jugular vein distension. HEENT: No cyanosis. No icterus. No pallor. HEART: Irregularly Irregular S1 and S2. No murmur, rub or gallop. LUNGS: Decreased breath sound bilaterally. ABDOMEN: Firm, nontender and distended. No guarding, fluid thrill positive CENTRAL NERVOUS SYSTEM: Grossly nonfocal. EXTREMITIES: Lower extremities with 1+ edema bilaterally. Bluish discoloration of the toes which is chronic both feet warm, no motor or sensory deficit Urinary Catheter Management^: Lynch: Cath Placed During This Visit: yes Reason for Continuing Indwelling Catheter: Acute Urinary Retention or Obstruction Urinary Catheter Date of Insertion: 02/08/21 Urinary Catheter Time of Insertion: 02:50 Data : 02/11/21 04:17 02/11/21 04:17 A&P Assessment and plan (1) Pulmonary hypertension: Patient has severe pulmonary hypertension which is had major comorbidities she has severe right-sided heart failure and ventricle failure, she has been diuresed well brother she is on the right side she has liver congestion and right-sided heart failure leading to lower extremity edema which is secondary to pressure overload, patient has poor long-term prognosis at such an advanced state of pulmonary hypertension. Rule out DVT, she is anemic and INR is on the higher side therefore at this point we will avoid anticoagulation if she has extensive DVT consider IVC filter, she may need to be seen by pulmonary hypertension clinic until then we can consider calcium channel justin along with sildenafil and oxygen. I have detailed discussion with the patient regarding this disease she understand it and would like to be managed conservatively. On today's visit she is feeling better continue oxygen back off diuretics add sildenafil and calcium channel justin 30 mg Cardizem 3 times daily Our medicine colleagues has consulted [facility] pulmonary pretension clinic I have heard that they have accepted transfer awaiting bed Patient awaiting bed for transfer Status: Chronic (2) Ascites: Patient has severe generalized ascites most likely to right-sided heart failure may consider tapping of ascites which may help her breathing and somewhat lower extremity edema. Consider albumin and cautious diuresis not to compromise preload Consider tapping ascites for comfort, consider albumin As defined above may require ascites tapped which may will benefit Continue Bumex and albumin as per nephrology Status: Acute Qualifiers: Ascites type: other type Qualified Code(s): R18.8 - Other ascites (3) Right-sided heart failure: Patient has severe right-sided heart failure secondary to severe pulmonary hypertension, as defined above consider oxygen and pulmonary pretension treatment as above To [facility] for dedicated pulmonary pretension clinic and heart failure team for further management Patient on calcium channel justin if sildenafil not available may can add isosorbide mononitrate Status: Acute Qualifiers: Heart failure chronicity: chronic Qualified Code(s): I50.812 - Chronic right heart failure (4) Paroxysmal atrial fibrillation: Rate controlled not on anticoagulation due to high INR Status: Chronic (5) Anemia: Denies any bleeding per rectum possible anemia of chronic diseases she is not on anticoagulation due to anemia Status: Chronic Qualifiers: Anemia type: unspecified type Qualified Code(s): D64.9 - Anemia, unspecified (6) Acute kidney injury: Most likely due to third spacing reduce cardiac output secondary to high right-sided pressures and due to diuresis, consider backing off of from diuresis Status: Acute (7) Coagulopathy: Most likely due to liver dysfunction secondary to congestion due to right-sided heart failure Status: Acute Attestations Medical Necessity Statement*: Patient require continuation hospitalization for above defined care. Coding Level of Care Code Established Pt Acute Rails Developer for Em Richardson Patient Type Established History Detailed Exam Detailed Medical Decision Making Moderate Complexity Diagnoses Pulmonary hypertension I27.20 Ascites R18.8 Ascites type: other type Right-sided heart failure I50.812 Heart failure chronicity: chronic Paroxysmal atrial fibrillation I48.0 Anemia D64.9 Anemia type: unspecified type Acute kidney injury N17.9 Coagulopathy D68.9
--- NOTE | 2021-02-11 19:36 | PM.TDS ---
Transfer Summary Providers Date of Admission: 02/07/21 21:22 Date of Discharge: 02/11/21 Attending Provider at Admission: Linda White MD Attending Provider at Transfer: Larissa Edmondson MD Primary Care Provider: Meredith Edgar MD Anticipated Date of Transfer: Anticipated date of transfer: 02/11/21 Receiving Facility & Provider: Receiving Provider: [] Receiving facility: [] Diagnoses at Discharge Discharge Diagnosis (1) Pulmonary hypertension: Status: Chronic (2) Ascites: Status: Acute Qualifiers: Ascites type: other type Qualified Code(s): R18.8 - Other ascites (3) Right-sided heart failure: Status: Acute Qualifiers: Heart failure chronicity: chronic Qualified Code(s): I50.812 - Chronic right heart failure (4) Paroxysmal atrial fibrillation: Status: Chronic (5) Anemia: Status: Chronic Qualifiers: Anemia type: unspecified type Qualified Code(s): D64.9 - Anemia, unspecified (6) Acute kidney injury: Status: Acute (7) Coagulopathy: Status: Acute Reason for Visit Reason for Visit: SOB, EDEMA Hospital Course Hospital Course hpi by Dr White History of Present Illness Kory Elder is a 75 year old female who presented to the emergency room with complaint of increasing difficulty breathing, edema/anasarca and progressive worsening lately. Her son came to see her and discussed current condition with her, strongly encouraging her to come into the hospital for evaluation. Mrs. Elder has multiple comorbid medical conditions including chronic diastolic CHF, chronic kidney disease, hypertension, sleep apnea, pulmonary hypertension, paroxysmal atrial fibrillation and diabetes among others. Earlier this month around the or , she developed epistaxis. Prior to that she had been on Eliquis and aspirin therapy. She was seen in the emergency room and had a Rhino Rocket placed. Eliquis and aspirin were stopped shortly after that. She has had problems with significant edema for some time necessitating increasing diuretic doses. She had previously been on Lasix 40 mg and metolazone 5 but at some point within the last year has had increased up to 80 mg twice a day of Lasix and 10 mg daily of metolazone. Doses have not been recently changed that I have been able to discern from available records although I did see a notation that there was to be follow-up secondary to medication adjustments around February 11. This may simply be from when her blood thinners were stopped. Despite diuretic therapy she has had continued weeping from both lower extremities, left more so than right, increasing abdominal girth in addition to lower extremity edema and gradually increasing shortness of breath. She resides in the nonskilled portion of [place]. She does not walk at baseline and requires movement with Jerald lift. 4 to 5 days ago she was found to have significant bruising along her left hip and flank area. She was seen in the emergency room then. She had a noncontrasted CT of the abdomen and pelvis that revealed ascites and body wall edema. Hemoglobin was down from values on ED visit on January 27 but was monitored and essentially stable and ultimately discharged back to skilled facility from the emergency room. The hematomas were described as decreasing suggestive of not being new. Suspected that it had to do from the Jerald lift but unknown. No report of any falls. She has had further decline as described since that time and presents again today. She denies chest pain. She has had a nonproductive cough. She has had pain in her back and buttock area although admits that that is chronic. She denies any fever. She has had general malaise. No nausea or vomiting. She has had constipation and takes laxatives for that. Work-up in the emergency room revealed significant ascites and clinical evidence of acute CHF. She had worsening renal function compared to prior values, elevated coagulation studies despite being off of anticoagulants for more than a week, baseline troponin greater than 100 with negative delta, low voltage EKG, stable but persistent anemia without thrombocytopenia, hyperkalemia and hyponatremia, normal lactic acid and mild hypoalbuminemia. On physical exam noted to have significant cyanosis of fingers and toes along with sores at fingers and toes. I could find no documentation of this having been present previously. Discussed with nursing staff at [facility] who are familiar with Mrs. Elder and they state that the significant discoloration and sores on the fingers and toes started within the last 2 weeks and has progressively worsened. She has been getting different treatments particularly to wounds on her toes. She denies a history of blood clots. On anticoagulation due to paroxysmal atrial fibrillation. CT of the abdomen and pelvis without contrast within the last week showed some atherosclerotic changes but was unrevealing, without the contrast, for anything further from a vascular standpoint. Patient's primary complaint during my evaluation is buttock pain. She is able to provide history for the most part although nursing staff help fill in some of the timeframe gaps. Patient is being admitted for further evaluation and management. While she does not want to be resuscitated, she would be okay with short-term intubation and mechanical ventilation if it afforded an opportunity for improvement. Hospital course This patient was admitted for management of severe pulmonary hypertension, right-sided heart failure, generalized anasarca with hepatic congestion. 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 She initially spent 2 days in the ICU and she was diuresed aggressively with Bumex and albumin. Cardiology and nephro were consulted. She has history of atrial fibrillation which was controlled with the help of calcium channel justin due to underlying pulmonary hypertension. Fluoroscope Operator Dr. Soriano recommended evaluation at pulmonary hypertension clinic at [facility]. Please review his consultation note for further details. Poor prognosis was discussed with the family. Hg is around 7.9-8 however no active bleeding during hospitalization. She was hyponatremic secondary to hypervolemia. Deputy Building Guard agreed with Bumex & albumin combination. Paracentesis attempt by the ER physician was unsuccessful secondary to bleeding at the catheter insertion site. Patient will be transferred to [facility], Dr. Conley accepted the patient. Of not UTI, urine culture positive for E. coli, pansensitive, patient remained afebrile Covid antigen negative, hepatitis panel negative echo CONCLUSIONS 1-Normal left ventricular cavity size. Normal left ventricular systolic function. Left ventricular ejection fraction is estimated at 50 %. Flattened septum in diastole consistent with right ventricle volume overload, flattened septum in systole consistent with right ventricle pressure overload. 2-Severely increased right ventricular size. Severely decreased right ventricular systolic function. Severe pulmonary hypertension 70 mm. 3-Severely increased left atrial size. 4-Severely thickened mitral valve. Moderate mitral annular calcification. No mitral valve stenosis. Moderate mitral valve regurgitation. 5-Moderate aortic valve calcification. No aortic valve stenosis. No aortic valve regurgitation. 6-Severe tricuspid valve regurgitation. 7-There is no pericardial effusion. 8-When compared to the prior echocardiogram dated 26 November 2018 there is worsening of right ventricle function. venous doppler: CONCLUSIONS No evidence of DVT in the above-mentioned identifiable veins. Features of edema/fluid retention in the subcutaneous tissue bilaterally in the below-knee leve POPEYE: CONCLUSIONS No evidence of any significant arterial obstruction, based on the above findings. CT/CT abdomen pelvis wo con [id number] IMPRESSION: Large volume diffuse ascites. A CT/CT abdomen pelvis w con* [id number] IMPRESSION: 1. Cardiomegaly. 2. 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 3. Mural thickening of the urinary bladder might suggest cystitis. 4. No other acute abnormalities are seen in the abdomen and pelvi Physical Exam Urinary Catheter Management^: Lynch: Cath Placed During This Visit: yes Reason for Continuing Indwelling Catheter: Acute Urinary Retention or Obstruction Urinary Catheter Date of Insertion: 02/08/21 Urinary Catheter Time of Insertion: 02:50 TS Data Data Completed and Pending: Completed Studies During Hospitalization Category Date Time Status XR chest 1V go ble [id number] Stat Exams 02/07/21 16:10 Completed CV ankle brachial index [id number] Routi ne Ultrasound 02/08/21 01:46 [place] [id number] Routin e Ultrasound 02/08/21 01:46 Completed CV. echo complete * [id number] Routine Ultrasound 02/08/21 06:00 [place] [id number] Stat Ultrasound 02/07/21 16:17 Completed Pending at discharge Category Date Time Status Blood Culture Sta t Lab 02/07/21 16:50 Results Complete Blood Co unt w/Auto AM LABS Lab 02/12/21 04:00 Ordered Complete Blood Co unt w/Auto AM LABS Lab 02/13/21 04:00 Ordered Complete Blood Co unt w/Auto AM LABS Lab 02/14/21 04:00 Ordered Comprehensive Met abolic Panel AM LA BS Lab 02/12/21 04:00 Ordered Comprehensive Met abolic Panel AM LA BS Lab 02/13/21 04:00 Ordered Comprehensive Met abolic Panel AM LA BS Lab 02/14/21 04:00 Ordered Magnesium AM LABS Lab 02/12/21 04:00 Ordered Magnesium AM LABS Lab 02/13/21 04:00 Ordered Magnesium AM LABS Lab 02/14/21 04:00 Ordered Phosphorus AM LAB S Lab 02/12/21 04:00 Ordered Phosphorus AM LAB S Lab 02/13/21 04:00 Ordered Phosphorus AM LAB S Lab 02/14/21 04:00 Ordered Platelet Count Q2 D Lab 02/12/21 04:00 Ordered Urine Culture Rou frankie Lab 02/09/21 18:23 Uncollected Vitamin D 1,25 Di hydroxy Routine Lab 02/11/21 04:17 Received Labs from last 24 hours 02/11/21 02/11/21 02/11/21 04:17 04:17 04:17 WBC RBC Hgb Hct MCV MCH MCHC RDW Plt Count MPV Neut % (Auto) Lymph % (Auto) [place] % (Auto) Eos % (Auto) Baso % (Auto) Neut # (Auto) Lymph # (Auto) [place] # (Auto) Eos # (Auto) Baso # (Auto) Nucleated RBC % (a uto) Nucleated RBCs # PT 20.70 H INR 1.74 H Sodium Potassium Chloride Carbon Dioxide Anion Gap BUN Creatinine GFR Calculation Glucose Calculated Osmolal ity Uric Acid 12.2 H Calcium Phosphorus Magnesium Iron 20 L TIBC 164 % Saturation 12.1 L Unsat Iron Binding 144 Ferritin 118 25-OH Vitamin D To martin Pending 1,25 Dihydroxy Vit D2 Pending 1,25 Dihydroxy Vit D3 Pending 02/11/21 02/11/21 04:17 04:17 WBC 5.8 RBC 2.96 L Hgb 7.9 L Hct 26.4 L MCV 89.2 MCH 26.7 L MCHC 29.9 L RDW 19.5 H Plt Count 258 MPV 9.9 Neut % (Auto) 75.4 Lymph % (Auto) 7.9 [place] % (Auto) 11.2 Eos % (Auto) 4.3 Baso % (Auto) 0.3 Neut # (Auto) 4.39 Lymph # (Auto) 0.5 L [place] # (Auto) 0.7 Eos # (Auto) 0.3 Baso # (Auto) 0.0 Nucleated RBC % (a uto) 0 Nucleated RBCs # 0.0 PT INR Sodium 133 L Potassium 3.2 L Chloride 90 L Carbon Dioxide 26 Anion Gap 20.2 H BUN 69 H Creatinine 2.2 H GFR Calculation Not Reportable Glucose 95 Calculated Osmolal ity 296 H Uric Acid Calcium 8.9 Phosphorus 4.4 Magnesium 2.1 Iron TIBC % Saturation Unsat Iron Binding Ferritin 25-OH Vitamin D To martin 1,25 Dihydroxy Vit D2 1,25 Dihydroxy Vit D3 Vitals: Last Vital Signs Temp 97.6 F 02/11/21 19:12 Pulse 62 02/11/21 19:12 Resp 17 02/11/21 19:12 BP 90/56 02/11/21 19:12 Pulse Ox 100 02/11/21 19:12 TS Medications Medications Home Medications bisacodyl [Dulcolax (bisacodyl)] 10 mg ME DAILY PRN 01/31/20 [History Confirmed 02/08/21] fluticasone propionate [Flonase Allergy Relief] 1 spray INTRANASAL BID 01/31/20 [History Confirmed 02/08/21] lovastatin 20 mg PO BEDTIME 01/31/20 [History Confirmed 02/08/21] sodium chloride [Saline Nasal] 1 spray INTRANASAL QID PRN 01/31/20 [History Confirmed 02/08/21] albuterol sulfate 1 puff INHALATION Q4H 03/02/20 [History Confirmed 02/08/21] budesonide-formoterol [Symbicort] 2 puff INHALATION BID 03/02/20 [History Confirmed 02/08/21] cetirizine [Zyrtec] 10 mg PO DAILY 03/02/20 [History Confirmed 02/08/21] dextran 70-hypromellose (PF) [Natural Tears (PF)] 1 drp OPHTHALMIC (EYE) DAILY 03/02/20 [History Confirmed 02/08/21] guaifenesin [Mucinex] 600 mg PO BID 03/02/20 [History Confirmed 02/08/21] ondansetron HCl [Zofran] 4 mg PO TIDWM 03/02/20 [History Confirmed 02/08/21] pantoprazole 40 mg PO DAILY 03/02/20 [History Confirmed 02/08/21] potassium chloride 40 meq PO DAILY 03/02/20 [History Confirmed 02/08/21] Artificial Tears 1 drp OPHTHALMIC (EYE) Q2H PRN 02/08/21 [History Confirmed 02/08/21] Coricidin HBP Cold and Flu 1 tab PO BID PRN 02/08/21 [History Confirmed 02/08/21] acetaminophen 650 mg PO Q4H PRN 02/08/21 [History Confirmed 02/08/21] albuterol sulfate 1 puff INHALATION Q4H PRN 02/08/21 [History Confirmed 02/08/21] citalopram 10 mg PO DAILY 02/08/21 [History Confirmed 02/08/21] dextromethorphan-guaifenesin [Tussin DM] 10 ml PO Q4H PRN 02/08/21 [History Confirmed 02/08/21] docusate sodium [Colace] 200 mg PO BEDTIME PRN 02/08/21 [History Confirmed 02/08/21] eucalyptus-menthol [Cough Drops (with eucalyptus)] 1 everett MUCOUS MEMBRANE Q2H 02/08/21 [History Confirmed 02/08/21] ferrous sulfate 325 mg PO DAILY 02/08/21 [History Confirmed 02/08/21] furosemide [Lasix] 80 mg PO BID 02/08/21 [History Confirmed 02/08/21] menthol [Biofreeze (menthol)] 1 applic TOPICAL BID PRN 02/08/21 [History Confirmed 02/08/21] metolazone 10 mg PO DAILY 02/08/21 [History Confirmed 02/08/21] metoprolol succinate 25 mg PO DAILY 02/08/21 [History Confirmed 02/08/21] multivitamin 1 tab PO DAILY 02/08/21 [History Confirmed 02/08/21] polyethylene glycol 3350 [Miralax] 17 g PO BID 02/08/21 [History Confirmed 02/08/21] senna 17.2 mg PO BEDTIME 02/08/21 [History Confirmed 02/08/21] sodium phosphates [Fleet Enema] 118 ml ME DAILY PRN 02/08/21 [History Confirmed 02/08/21] tramadol 50 mg PO BEDTIME 02/08/21 [History Confirmed 02/08/21] tramadol 50 mg PO QID PRN 02/08/21 [History Confirmed 02/08/21] Active Medications Acetaminophen (Acetaminophen 325 Mg Tablet) 650 mg PO Q6H PRN PRN Reason: Mild/Mod Pain Or Temp >/= 101 Last Admin: 02/08/21 22:52 Dose: 650 mg Documented by: Albuterol Sulfate (Albuterol 8 Gm Mdi) 1 puff INHALATION Q4H PRN PRN Reason: Congestion Artificial Tears (Artificial Tears Op Soln 15 Ml Btl) 1 drop EYE-BOTH Q4H PRN PRN Reason: DRY EYE(S) Atorvastatin Calcium (Atorvastatin 40 Mg Tablet) 20 mg PO BEDTIME NEEMA Last Admin: 02/10/21 20:41 Dose: 20 mg Documented by: Bisacodyl (Bisacodyl 5 Mg Tablet) 10 mg PO DAILY PRN; Protocol PRN Reason: Constipation (see protocol) Bumetanide (Bumetanide 0.25 Mg/Ml Sdv 10 Ml) 2 mg IVP BIDWM [facility] Last Admin: 02/11/21 18:27 Dose: 2 mg Documented by: Calcium Carbonate (Calcium Carbonate 500 Mg Chew Tablet) 1,000 mg PO Q4H PRN PRN Reason: DYSPEPSI Camphor/Menthol/Phenol (Blistex Lip Oint 7 Gm Tube) 1 applic TOPICAL PRN PRN PRN Reason: DRYNESS Cetirizine HCl (Cetirizine 10 Mg Tablet) 10 mg PO DAILY [facility] Last Admin: 02/11/21 08:21 Dose: 10 mg Documented by: Citalopram Hydrobromide (Citalopram 20 Mg Tablet) 10 mg PO DAILY [facility] Last Admin: 02/11/21 08:20 Dose: 10 mg Documented by: Diltiazem HCl (Diltiazem 30 Mg Tablet) 30 mg PO Q6H [facility] Last Admin: 02/11/21 02:42 Dose: 30 mg Documented by: Docusate Sodium (Docusate Sodium 100 Mg Capsule) 100 mg PO BID [facility] Last Admin: 02/11/21 18:27 Dose: 100 mg Documented by: Ferrous Sulfate (Ferrous Sulfate Ec 325 Mg Tablet) 325 mg PO DAILY [facility] Last Admin: 02/11/21 08:21 Dose: 325 mg Documented by: Fluticasone Propionate (Fluticasone Nasal [place] 16gm Btl) 1 spray INTRANASAL BID [facility] Last Admin: 02/11/21 18:28 Dose: 1 spray Documented by: Guaifenesin (Guaifenesin 600 Mg Tablet) 600 mg PO BID [facility] Last Admin: 02/11/21 18:27 Dose: 600 mg Documented by: Albumin Human (Albumin) 25 gm in 100 mls @ 60 mls/hr IV Q12H [facility] Metoprolol Succinate (Metoprolol Succinate Er (24 Hr) 25 Mg Tablet) 25 mg PO DAILY [facility] Last Admin: 02/10/21 10:12 Dose: 25 mg Documented by: Nystatin (Nystatin Powder 15 Gm Btl) 1 applic TOPICAL BID [facility] Last Admin: 02/11/21 18:28 Dose: 1 applic Documented by: Ondansetron HCl (Ondansetron 2 Mg/Ml Sdv 2 Ml) 4 mg IVP Q6H PRN PRN Reason: NAUSEA AND VOMITING Ondansetron HCl (Ondansetron 4 Mg Tablet) 4 mg PO TIDWM [facility] Last Admin: 02/11/21 18:27 Dose: 4 mg Documented by: Pantoprazole Sodium (Pantoprazole Dr 40 Mg Tablet) 40 mg PO DAILY [facility] Last Admin: 02/11/21 08:20 Dose: 40 mg Documented by: Fluticasone/Salmeterol (Fluticasone-Salmeterol 250-50 Diskus) 1 puff INHALATION BID [facility] Last Admin: 02/11/21 08:19 Dose: 1 puff Documented by: Senna (Sennosides 8.6 Mg Tablet) 17.2 mg PO BEDTIME [facility] Last Admin: 02/10/21 20:40 Dose: 17.2 mg Documented by: Tramadol HCl (Tramadol 50 Mg Tablet) 50 mg PO QID PRN PRN Reason: moderate to severe pain Tramadol HCl (Tramadol 50 Mg Tablet) 50 mg PO BEDTIME [facility] Last Admin: 02/10/21 20:40 Dose: 50 mg Documented by: Discharge Plan Discharge Patient Disposition: Xfer Other Condition: Stable Prescriptions: No Action ondansetron HCl [Zofran] 4 mg Tablet 4 mg PO TIDWM RF: 0 potassium chloride 40 mEq/15 mL Liquid 40 meq PO DAILY RF: 0 pantoprazole 40 mg Tablet,Delayed Release (Dr/Ec) 40 mg PO DAILY RF: 0 albuterol sulfate 90 mcg/actuation Hfa Aerosol Inhaler 1 puff INHALATION Q4H RF: 0 budesonide-formoterol [Symbicort] 160-4.5 mcg/actuation Hfa Aerosol Inhaler 2 puff INHALATION BID RF: 0 Natural Tears (PF) 0.1-0.3 % Dropperette 1 drp ophthalmic (eye) DAILY RF: 0 Zyrtec 10 mg Tablet,Disintegrating 10 mg PO DAILY RF: 0 guaifenesin [Mucinex] 600 mg Tablet Extended Release 12hr 600 mg PO BID RF: 0 Artificial Tears 1 drp ophthalmic (eye) Q2H PRN (Reason: Dry Eyes) RF: 0 multivitamin Tablet 1 tab PO DAILY RF: 0 senna 8.6 mg Tablet 17.2 mg PO BEDTIME RF: 0 acetaminophen 325 mg Tablet 650 mg PO Q4H PRN (Reason: mild pain or fever) RF: 0 citalopram 10 mg Tablet 10 mg PO DAILY RF: 0 Tussin DM 10-100 mg/5 mL Liquid 10 ml PO Q4H PRN (Reason: Cough) RF: 0 tramadol 50 mg Tablet 50 mg PO QID PRN (Reason: moderate to severe pain) RF: 0 tramadol 50 mg Tablet 50 mg PO BEDTIME RF: 0 Lasix 80 mg Tablet 80 mg PO BID RF: 0 ferrous sulfate 325 mg (65 mg iron) Tablet 325 mg PO DAILY RF: 0 Fleet Enema 19-7 gram/118 mL Enema 118 ml ME DAILY PRN (Reason: Constipation) RF: 0 Colace 100 mg Capsule 200 mg PO BEDTIME PRN (Reason: Constipation) RF: 0 metoprolol succinate 25 mg Tablet Extended Release 24 Hr 25 mg PO DAILY RF: 0 Miralax 17 gram/dose Powder 17 g PO BID RF: 0 metolazone 10 mg Tablet 10 mg PO DAILY RF: 0 albuterol sulfate 90 mcg/actuation Hfa Aerosol Inhaler 1 puff INHALATION Q4H PRN (Reason: Congestion) RF: 0 Cough Drops (with eucalyptus) Lozenge 1 everett MUCOUS MEMBRANE Q2H RF: 0 Biofreeze (menthol) 4 % Gel 1 applic TOPICAL BID PRN (Reason: right knee pain) RF: 0 Coricidin HBP Cold and Flu 1 tab PO BID PRN (Reason: Congestion) RF: 0 bisacodyl [Dulcolax (bisacodyl)] 10 mg Suppository 10 mg ME DAILY PRN (Reason: constipation) RF: 0 lovastatin 20 mg Tablet 20 mg PO BEDTIME RF: 0 fluticasone propionate [Flonase Allergy Relief] 50 mcg/actuation [place],Suspension 1 spray INTRANASAL BID RF: 0 sodium chloride [Saline Nasal] 0.65 % Aerosol,[place] 1 spray INTRANASAL QID PRN (Reason: Allergy Symptoms) RF: 0 Discharge Orders: Discharge Order (Routine); Ordered 02/11/21 Ordered By: Larissa Edmondson Referrals: [facility] [Outside] Meredith Edgar MD [Primary Care Provider] - Discharge Diet: Cardiac Transfer Attestations Time Spent in Transfer Care*: less than 30 min Quality Metrics Clinical Quality Measures: During this hospital stay, did patient experience: None Coding Level of Care Code Acute Dog Beautician for Chg Fwd Diagnoses Pulmonary hypertension I27.20 Ascites R18.8 Ascites type: other type Right-sided heart failure I50.812 Heart failure chronicity: chronic Paroxysmal atrial fibrillation I48.0 Anemia D64.9 Anemia type: unspecified type Acute kidney injury N17.9 Coagulopathy D68.9
--- NOTE | 2021-02-11 22:26 | PC.NURSE ---
Mrs Kory Elder was transported her to [facility] via EMS transport at approximately 2100 via gurney. Wearing oxygen at 3L via nasal cannula. Has indwelling nash in place. Nash is functioning and patent. clear yellow urine observed in bag. Patient's dentures were sent with patient in container. Patient is alert and oriented x2. Has IV in the right AC, IV patent at time of transport. Patient has one dressing on the lower left abdomen. No drainage observed on wound dressing. Son notified via phone call by shift nurse at approximately [phone]
[2021-02-14 11:22] LABS: Vit D 1,25 (Oh)2, Total 8 pg/mL (18-72); Vit D2 1,25 (Oh)2 <8 pg/mL; Vit D3 1,25 (Oh)2 8 pg/mL
== END 2021-02-11 21:30 | disposition short-term general hospital (02) | DRG 315 ==
LOC: ER 18:32 → ER IP 22:14 → MEDSURG 02-08 05:58
PROVIDERS: Hospitalist; Internal Medicine Nephrology; Admitting Provider Internal Medicine; Emergency Provider Family Medicine; PCP Family Medicine; Visit Provider Internal Medicine
DX: I27.20 Pulmonary hypertension, unspecified (principal); I13.0 Hypertensive heart and chronic kidney disease with heart failure and stage 1 through stage 4 chronic kidney disease, or unspecified chronic kidney disease; E87.1 Hypo-osmolality and hyponatremia; R18.8 Other ascites; Z68.42 Body mass index [BMI] 45.0-49.9, adult; N17.9 Acute kidney failure, unspecified; D68.4 Acquired coagulation factor deficiency; I50.813 Acute on chronic right heart failure; N18.30 Chronic kidney disease, stage 3 unspecified; E11.22 Type 2 diabetes mellitus with diabetic chronic kidney disease; D63.1 Anemia in chronic kidney disease; E11.51 Type 2 diabetes mellitus with diabetic peripheral angiopathy without gangrene; F32.A Depression, unspecified; Z86.16 Personal history of COVID-19; Z86.718 Personal history of other venous thrombosis and embolism; E78.5 Hyperlipidemia, unspecified; G47.33 Obstructive sleep apnea (adult) (pediatric); Z95.0 Presence of cardiac pacemaker; E87.6 Hypokalemia; G89.29 Other chronic pain; M54.9 Dorsalgia, unspecified; E66.01 Morbid (severe) obesity due to excess calories; Z99.81 Dependence on supplemental oxygen; I08.1 Rheumatic disorders of both mitral and tricuspid valves; K76.1 Chronic passive congestion of liver; K59.00 Constipation, unspecified
CPT/HCPCS: 36415; 36416; 36600; 51702; 71045; 76705; 80048; 80051; 80053; 81003; 82330; 82550; 82570; 82652; 82728; 82805; 82962; 82977; 83540; 83550; 83605; 83615; 83735; 83880; 84100; 84132; 84300; 84443; 84484; 84550; 85014; 85018; 85025; 85378; 85384; 85610; 85730; 86705; 86706; 86709; 86803; 87040; 87205; 87340; 87426; 93005; 93306; 93922; 93970; 94640; 99285; J1644; J3370; J3430; J3490; J7050; P9047; Q0162; Q3014

== ENCOUNTER 2021-09-03 18:36 | Inpatient (IN) | payer MEDICARE, MEDICAID, SELFPAY ==
[2021-09-03] VITALS (11 sets, daily range): BP systolic 80–106; BP diastolic 36–57; PULSE 88–118; RESP 14–21; TEMP 38–38.8; O2SAT 90–95
--- NOTE | 2021-09-03 18:46 | ECG_ITS ---
[facility] Test Date: 2021-09-03 Pat Name: Kory Elder Department: Room: Gender: Female Hog Driver: : 1945 Requested By: Tulio Hope Order Number: [id number] Lor[place] MD: Madelyn Jackson M.D. Measurements Intervals [place] Rate: 112 P: OR: QRS: 91 QRSD: 122 T: 4 QT: 325 QTc: 444 Interpretive Statements ATRIAL FIBRILLATION WITH RAPID VENTRICULAR RESPONSE INDETERMINATE AXIS RIGHT BUNDLE BRANCH BLOCK [120+ ms QRS DURATION, UPRIGHT V1, 40+ ms S IN I/aVL/V4/V5/V6] Compared to ECG 02/07/2021 22:35:27 Right bundle-branch block now present Incomplete right bundle-branch block no longer present ST (T wave) deviation no longer present Electronically Signed On 09-04-2021 22:02:08 CDT by Madelyn Jackson M.D. [id number]
--- NOTE | 2021-09-03 18:46 | XRR_ITS ---
PROCEDURE INFORMATION: Exam: XR Chest Exam date and time: 09/03/2021 7:50 PM Age: 75 years old Clinical indication: Fever; Additional info: AMS TECHNIQUE: Imaging protocol: XR of the chest. Views: 1 view. COMPARISON: CR XR chest 1V portable [id number] 02/07/2021 4:15 PM FINDINGS: Lungs: Interval development of patchy left lower lobe airspace disease suspicious for pneumonia. Stable scarring and volume loss in the right and left upper lobes. Pleural spaces: No pleural effusion. No pneumothorax. Heart/Mediastinum: Stable moderate enlargement of the cardiac silhouette. Vasculature: Stable vascular calcifications in the aorta. Bones/joints: Unremarkable for age. XR/XR chest 1V portable [id number] IMPRESSION: 1. Interval development of patchy left lower lobe airspace disease suspicious for pneumonia. Recommend followup chest imaging to insure resolution of these findings. 2. Incidental/nonacute findings are listed in the report.
--- NOTE | 2021-09-03 18:46 | CTR_ITS ---
PROCEDURE INFORMATION: Exam: CT Head Without Contrast Exam date and time: 09/03/2021 9:11 PM Age: 75 years old Clinical indication: Altered mental status/memory loss and fever; Patient HX: AMS. General weakness and lethargy. Fever. TECHNIQUE: Imaging protocol: Computed tomography of the head without contrast. Sagittal and coronal reformatted images were created and reviewed. Radiation optimization: All CT scans at this facility use at least one of these dose optimization techniques: automated exposure control; mA and/or kV adjustment per patient size (includes targeted exams where dose is matched to clinical indication); or iterative reconstruction. COMPARISON: No relevant prior studies available. RADIATION DOSE METRICS: Total DLP (mGy-cm): 1111.68 FINDINGS: Brain: No acute intracranial hemorrhage. No acute infarct. No intra-axial or extra-axial masses. Chance-white matter differentiation is preserved. No cerebral edema. No extra-axial fluid collections. No midline shift. No evidence for Chiari 1 malformation. Bilateral basal ganglia calcifications. Mild atrophy of the brain parenchyma. Cerebral ventricles: No hydrocephalus. Paranasal sinuses: Visualized paranasal sinuses are clear. Mastoid air cells: Mastoid air cells are clear bilaterally. Orbital cavities: Globes and lenses, extraocular muscles, and optic nerves are intact bilaterally. No acute intraorbital abnormality. Vasculature: Atherosclerotic changes in the visualized arteries. Bones/joints: No acute fracture. Soft tissues: No acute abnormality of the extracranial soft tissues. CT/CT head wo con* [id number] IMPRESSION: 1. No acute abnormality of the brain. 2. Mild atrophy of the brain parenchyma. 3. Incidental/nonacute findings are listed in the report.
--- NOTE | 2021-09-03 18:49 | ED_ITS ---
HPI - General Adult General: Chief complaint: Altered Mental Status Stated complaint: POSSIBLE SEPSIS/ FEVER Time Seen by Provider: 09/03/21 18:38 History of Present Illness: Patient is 75-year-old female with a history of diastolic heart failure, CKD, DNR who presents the emergency room the onset altered mental status and fever. Earlier today around 230 this afternoon, nursing staff noticed patient is altered and [place]. EMS was called and patient was brought to the emergency room. In route, patient had a fever of 102.5. Fingerstick within normal. Rest of vitals within normal.. Patient was on 3 L oxygen currently satting at 93 to 94%. Patient is altered and rest of h istory is limited. Is unclear with the patient has had oxygen requirement earlier today. Onset: earlier today Duration:ongoing Location:home Severity:moderate Review of Systems General: Reports: ROS unobtainable due to mental status Const: Reports: fever(s) and chills Neuro: Reports: other (+altered mental status) [facility] ED PFSH: Medical History Anemia Body mass index (BMI) greater than 50 Chronic diastolic (congestive) heart failure Chronic kidney disease, stage 3, mod decreased GFR COVID-19 vaccine administered Depression Essential hypertension History of COVID-19 History of ESBL E. coli infection History of pulmonary embolism (~2017) saddle embolism Hyperlipidemia Hypersomnia Lymphedema Obstructive sleep apnea on CPAP Paroxysmal atrial fibrillation Postmenopausal bleeding (~01/2020) requiring D&C Pulmonary hypertension Right-sided heart failure Type 2 diabetes mellitus reported diagnosis in SNF and hospital records but not on treatment, normal blood sugars Surgical History H/O oral surgery History of D&C (02/02/20) for postmenopausal bleeding Pacemaker Family History Other Family history unknown Social History Housing: [facility] Marital status: / Additional social history: - Tobacco use: Denies Alcohol use: Denies Drug use: Denies Physical Exam HENMT: COMMON NORMALS: atraumatic HEAD & SCALP: atraumatic Eye: COMMON NORMALS: EOMs intact bilaterally and conjunctivae normal CONJUNCTIVA: Yes conjunctivae normal Neck/C-Spine: COMMON NORMALS: full ROM and supple Resp: OTHER: +mild increased work of breathing/ coarse breath sounds b/l Cardio: RATE: tachycardic OTHER: +irregular irregular tacyhcardia GI: COMMON NORMALS: Soft to palpation and non-tender PALPATION: Yes Soft to palpation Extremity: COMMON NORMALS: full ROM Neuro: OTHER: AAOX1(self), occasionally following commands, intermittently somnolent Psych: OTHER: + Unable to assess due to altered mental status Skin: OTHER: + Stage I sacral decubitus ulcer +R upper gluteal and lower lumbar erythema with clear demarcation Procedures Central Line Placement Left Femoral: Time Out Performed: Yes Patient Placed on Monitor/Pulse Ox: Yes MD Prep: mask, gown and gloves Central Line Prep: Povidone-Iodine 1%, Chlorhexidine scrub and sterile drapes applied Local Anesthetic: lidocaine 1% Amount of anesthesia used (mL): 5 Ultrasound Used for Placement: Yes Central Line Lumen Inserted: triple Post Procedure: sutured in place, good blood return and all ports aspira marciano, flushed, capped Patient Tolerated Procedure: well Complications: none Course Vital Signs: Vital signs: Vital Signs Temperature 97.9 F 09/06/21 00:00 Pulse Rate 79 09/06/21 00:00 Respiratory Rate 16 09/06/21 00:00 Blood Pressure 104/65 09/06/21 00:00 Pulse Oximetry 95 09/06/21 00:00 MDM - General Adult Medical Decision Making 75-year-old female history of DNR, CKD, atrial fibrillation, right sided heart failure presenting to the emergency room with concerns for altered mental status setting fever. Patient is febrile to 101.5 degrees. On arrival, patient had soft blood pressure 81/50. Given progressive heart failure, decision was made to start patient slowly with IVF. Patient received vancomycin, IV Tylenol. Norepinephrine. Central line is placed. Please refer to the procedure note. X-ray chest showed new onset of pneumonia. Troponin of 224 with no prior baseline for comparison. EKG is nonischemic. Patient will be admitted to hospital for demand ischemia and severe pneumonia. Patient received aspirin Lovenox. CT head for any brain bleed. Pending urine at this time patient is unable to produce urine. Gallbladder appears to be distended on ultrasound without any signs of pericystic changes. No signs of calcific stone. Do not suspect acute cholecystitis at this time. Disposition: ICU Lab Data : 09/05/21 03:00 09/05/21 03:00 Radiology Impressions Chest X-Ray 09/03/21 18:46 IMPRESSION: 1. Interval development of patchy left lower lobe airspace disease suspicious for pneumonia. Recommend followup chest imaging to insure resolution of these findings. 2. Incidental/nonacute findings are listed in the report. ADDENDUM: 09/03/212058 Urgent results were discussed with TULIO Cope on 09/03/2021 at 8:[address] 09/03/21 18:46 IMPRESSION: 1. No acute abnormality of the brain. 2. Mild atrophy of the brain parenchyma. 3. Incidental/nonacute findings are listed in the report. Abdomen/Pelvis CT 09/03/21 18:54 IMPRESSION: 1. Mild anasarca. 2. Distended gallbladder without calcified stones. This can be further evaluated with right upper quadrant ultrasound. COMMENTS: Consistent with the [employer]'s Incidental Findings Committee white paper (J Am Sharon Radiol 2018): Any incidental renal lesion less than 1 cm or classified as too small to characterize, or any incidental cystic renal lesion characterized as simple-appearing, is likely benign. No follow-up imaging is recommended for these lesions per consensus recommendations based on imaging criteria. Gallbladder Ultrasound 09/03/21 22:04 IMPRESSION: Distended gallbladder with intraluminal sludge and borderline gallbladder wall thickening with pericholecystic fluid. Sonographic findings are equivocal for acute cholecystitis in the appropriate clinical setting. HIDA scan could provide a more sensitive evaluation for acute cholecystitis. Knee X-Ray 09/04/21 02:10 IMPRESSION: 1. No acute fracture or dislocation. 2. Advanced degenerative changes and osteopenia. Old fracture deformity of the upper tibia. Laboratory Results WBC 18.9 10^3/uL (4.0-10.0) H 09/03/21 19:10 RBC 4.24 10^6/uL (4.1-5.3) 09/03/21 19:10 Hgb 12.1 g/dL (11.5-15.3) 09/03/21 19:10 Hct 38.3 % (37.0-47.0) 09/03/21 19:10 MCV 90.3 fl (81-99) 09/03/21 19:10 MCH 28.5 pg (28.0-34.0) 09/03/21 19:10 MCHC 31.6 g/dL (30.0-36.0) 09/03/21 19:10 RDW 15.7 % (12.1-15.1) H 09/03/21 19:10 Plt Count 260 10^3/cmm (130-400) 09/03/21 19:10 MPV 10.8 fL (7.4-10.4) H 09/03/21 19:10 Neut % (Auto) 95.5 % 09/03/21 19:10 Lymph % (Auto) 1.6 % 09/03/21 19:10 Sabine % (Auto) 1.3 % 09/03/21 19:10 Eos % (Auto) 0.5 % 09/03/21 19:10 Baso % (Auto) 0.2 % 09/03/21 19:10 Neut # (Auto) 18.00 10^3/uL (1.8-7.7) H 09/03/21 19:10 Lymph # (Auto) 0.3 10^3/uL (0.8-4.8) L 09/03/21 19:10 Sabine # (Auto) 0.2 10^3/uL (0.2-0.9) 09/03/21 19:10 Eos # (Auto) 0.1 10^3/uL (0.0-0.8) 09/03/21 19:10 Baso # (Auto) 0.0 10^3/uL (0.0-0.1) 09/03/21 19:10 Nucleated RBC % (auto) 0 % 09/03/21 19:10 Nucleated RBCs # 0.0 /100WBC 09/03/21 19:10 PT 23.50 SECONDS (12.1-14.9) H 09/03/21 22:24 INR 2.06 (0.8-1.2) H 09/03/21 22:24 Specimen Type Arterial 09/03/21 19:03 Sample Site Radial, left 09/03/21 19:03 ABG pH 7.46 (7.35-7.45) H 09/03/21 19:03 ABG pCO2 38.2 mmHg (35-45) 09/03/21 19:03 ABG pO2 68.0 mmHg (80.0-100.0) L 09/03/21 19:03 ABG HCO3 27.0 mmol/L (22-26) H 09/03/21 19:03 ABG Base Excess 3.0 mmol/L (-2.0-2.0) H 09/03/21 19:03 Gerry Test Pos 09/03/21 19:03 Hematocrit 35.4 % (37-47) L 09/03/21 19:03 O2 Delivery Device Nc 09/03/21 19:03 O2 Liters/Min 2.0 % 09/03/21 19:03 Executive Sales Assistant ID Buttr 09/03/21 19:03 Sodium 134 mmol/L (136-145) L 09/03/21 19:10 Potassium 4.2 mmol/L (3.5-5.1) 09/03/21 19:10 Chloride 92 mmol/L (98-107) L 09/03/21 19:10 Carbon Dioxide 26 mmol/L (22-29) 09/03/21 19:10 Anion Gap 20.2 (5-19) H 09/03/21 19:10 BUN 50 mg/dL (8-23) H 09/03/21 19:10 Creatinine 1.2 mg/dL (0.5-0.9) H 09/03/21 19:10 GFR Calculation Not Reportable 09/03/21 19:10 Glucose 118 mg/dL (65-115) H 09/03/21 19:10 Calculated Osmolality 292 mOsm/kg (285-295) 09/03/21 19:10 Lactate 3.1 mmol/L (0.5-2.2) H 09/03/21 19:20 Calcium 8.6 mg/dL (8.5-10.5) 09/03/21 19:10 Phosphorus 4.2 mg/dL (2.5-4.5) 09/03/21 19:10 Magnesium 2.0 mg/dL (1.7-2.3) 09/03/21 19:10 Total Bilirubin 1.1 mg/dL (0.15-1.2) 09/03/21 19:10 AST 20 U/L (0-32) 09/03/21 19:10 ALT 28 U/L (0-33) 09/03/21 19:10 Alkaline Phosphatase 157 IU/L (35-105) H 09/03/21 19:10 Ammonia 12 umol/L (11-51) 09/03/21 22:34 Troponin T Baseline 224 ng/L (0-10) H* 09/03/21 19:10 Troponin T 120 Minute 245.3 ng/L (0-10) H 09/03/21 21:25 Delta Troponin T 21.3 ABS# (0-10) H* 09/03/21 21:25 NT-Pro-B Natriuret Pep 5515 pg/mL (0-450) H 09/03/21 19:10 Total Protein 7.3 g/dL (6.6-8.7) 09/03/21 19:10 Albumin 3.8 g/dL (3.5-5.2) 09/03/21 19:10 Globulin 3.5 g/dL (1.3-4.6) 09/03/21 19:10 Lipase 12 U/L (13-60) L 09/03/21 19:10 TSH 1.81 uIU/mL (0.27-4.20) 09/03/21 19:10 Free T4 1.37 ng/dL (0.82-1.77) 09/03/21 19:10 PTH Intact 68.0 pg/mL (15-65) H 09/03/21 19:10 Calcium (PTH Intact) 8.7 mg/dL (8.5-10.5) 09/03/21 19:10 Urine Color Yellow (Yellow) 09/03/21 07:52 Urine Appearance Sl hazy (CLEAR) 09/03/21 07:52 Urine pH 5 (5-7) 09/03/21 07:52 Ur Specific [place] 1.005 (1.005-1.030) 09/03/21 07:52 Urine Protein Neg (Negative) 09/03/21 07:52 Urine Glucose (UA) Norm (Normal) 09/03/21 07:52 Urine Ketones Negative (Negative) 09/03/21 07:52 Urine Blood 3+ (Negative) H 09/03/21 07:52 Urine Nitrate Negative (Negative) 09/03/21 07:52 Urine Bilirubin Neg (Negative) 09/03/21 07:52 Urine Urobilinogen Norm mg/dL (Negative) 09/03/21 07:52 Ur Leukocyte Esterase 2+ (Negative) H 09/03/21 07:52 Urine RBC 0-4 /hpf (0-2) H 09/03/21 07:52 Urine WBC 55-80 /hpf (0-5) H 09/03/21 07:52 Ur Squamous Epith Cells 10-15 /hpf (0-5) H 09/03/21 07:52 Amorphous Sediment Not Reportable 09/03/21 07:52 Urine Bacteria 1+ /hpf (NONE) H 09/03/21 07:52 Urine Opiates Screen Positive ng/mL (Negative) H 09/03/21 07:52 Ur Barbiturates Screen Negative ng/mL (Negative) 09/03/21 07:52 Ur Phencyclidine Scrn Negative ng/mL (Negative) 09/03/21 07:52 Ur Amphetamines Screen Negative ng/mL (Negative) 09/03/21 07:52 U Benzodiazepines Scrn Negative ng/mL (Negative) 09/03/21 07:52 Urine Cocaine Screen Negative ng/mL (Negative) 09/03/21 07:52 U Marijuana (THC) Screen Negative ng/mL (Negative) 09/03/21 07:52 Coronavirus 229E (PCR) Not detected (NOT DETECT) 09/03/21 19:30 Influenza Type A Ag Negative (Negative) 09/03/21 19:30 Influenza Type B Ag Negative (Negative) 09/03/21 19:30 SARS-CoV-2 (PCR) Not detected (NOT DETECT) 09/03/21 19:30 Imaging Data Other Imaging: Radiologist's impression: [address] [address] XRay Report Signed Patient: Kory Elder Unit #: [id number] : 1945 Age/Sex: 75 / F ADM Date: 09/03/21 Loc: ER Room/Bed: Attending Dr: Ordering Provider/Ordering MD: Tulio Hope MD Date of Service: 09/03/21 Procedure(s): XR chest 1V portable [id number] Accession Number(s): [id number] Report Number: [id number] PROCEDURE INFORMATION: Exam: XR Chest Exam date and time: 09/03/2021 7:50 PM Age: 75 years old Clinical indication: Fever; Additional info: AMS TECHNIQUE: Imaging protocol: XR of the chest. Views: 1 view. COMPARISON: CR XR chest 1V portable [id number] 02/07/2021 4:15 PM FINDINGS: Lungs: Interval development of patchy left lower lobe airspace disease suspicious for pneumonia. Stable scarring and volume loss in the right and left upper lobes. Pleural spaces: No pleural effusion. No pneumothorax. Heart/Mediastinum: Stable moderate enlargement of the cardiac silhouette. Vasculature: Stable vascular calcifications in the aorta. Bones/joints: Unremarkable for age. XR/XR chest 1V portable [id number] IMPRESSION: 1. Interval development of patchy left lower lobe airspace disease suspicious for pneumonia. Recommend followup chest imaging to insure resolution of these findings. 2. Incidental/nonacute findings are listed in the report. ? Dictated By: Jojo Travis MD Signed By: Jojo Travis MD Signed Date/Time: 09/03/212031 DD/ [address] [place] [address] CT Scan Report Signed Patient: Kory Elder Unit #: [id number] : 1945 Age/Sex: 75 / F ADM Date: 09/03/21 Loc: ER Room/Bed: Attending Dr: Ordering Provider/Ordering MD: Tulio Hope MD Date of Service: 09/03/21 Procedure(s): CT abdomen pelvis con [id number] Accession Number(s): [id number] Report Number: [id number] PROCEDURE INFORMATION: Exam: CT Abdomen And Pelvis Without Contrast Exam date and time: 09/03/2021 9:16 PM Age: 75 years old Clinical indication: Abnormal findings; Abnormal lab test; Abnormal kidney function lab tests and elevated wbc; Prior surgery; Surgery type: Stimulator. Pacemaker. Patient HX: Elevated wbc. Elevated creatinine. Redness to RT side of lower back and RT glute. Fever. ; Additional info: Erythema R upper glute lower back area, AMS, fever TECHNIQUE: Imaging protocol: Computed tomography of the abdomen and pelvis without contrast. Radiation optimization: All CT scans at this facility use at least one of these dose optimization techniques: automated exposure control; mA and/or kV adjustment per patient size (includes targeted exams where dose is matched to clinical indication); or iterative reconstruction. COMPARISON: CT abdomen pelvis con [id number] 02/03/2021 11:16 PM RADIATION DOSE METRICS: Total DLP (mGy-cm): 3066.22 FINDINGS: Tubes, catheters and devices: Left femoral line noted. Heart: Cardiomegaly. Liver: Normal. No mass. Gallbladder and bile ducts: Distended gallbladder. No calcified stones. No ductal dilation. Pancreas: Atrophic. No ductal dilation. Spleen: Normal. No splenomegaly. Adrenal glands: Normal. No mass. Kidneys and ureters: No renal stones. Mildly hyperdense lesions noted in the right kidney measuring up to 1.3 cm in size, most likely hemorrhagic cysts as these were not seen on contrast-enhanced study 01/22/2020. No hydronephrosis. Stomach and bowel: Unremarkable. No obstruction. No mucosal thickening. Appendix: No evidence of appendicitis. Intraperitoneal space: Unremarkable. No free air. No significant fluid collection. Vasculature: Unremarkable. No abdominal aortic aneurysm. Lymph nodes: Unremarkable. No enlarged lymph nodes. Urinary bladder:? Lynch catheter noted within a decompressed bladder. Reproductive: Unremarkable as visualized. Bones/joints: No acute fracture. Soft tissues: Spinal stimulator device noted in the right low back extending through the right S4 neural foramina. Mild anasarca. No abscess. CT/CT abdomen pelvis con [id number] IMPRESSION: 1. Mild anasarca. 2. Distended gallbladder without calcified stones. This can be further evaluated with right upper quadrant ultrasound. ? COMMENTS: Consistent with the [place] [employer]'s Incidental Findings Committee white paper (J Am Sharon Radiol 2018): Any incidental renal lesion less than 1 cm or classified as too small to characterize, or any incidental cystic renal lesion characterized as simple-appearing, is likely benign. No follow-up imaging is recommended for these lesions per consensus recommendations based on imaging criteria. ? Dictated By: Haja Colunga DO Signed By: Haja Colunga DO Signed Date/Time: 09/03/212141 DD/ [address] [address] [address] Scan Report Signed Patient: Kory Elder Unit #: [id number] : 1945 Age/Sex: 75 / F ADM Date: 09/03/21 Loc: ER Room/Bed: Attending Dr: Ordering Provider/Ordering MD: Tulio Hope MD Date of Service: 09/03/21 Procedure(s): CT head wo con* [id number] Accession Number(s): [id number] Report Number: [id number] PROCEDURE INFORMATION: Exam: CT Head Without Contrast Exam date and time: 09/03/2021 9:11 PM Age: 75 years old Clinical indication: Altered mental status/memory loss and fever; Patient HX: AMS. General weakness and lethargy. Fever. TECHNIQUE: Imaging protocol: Computed tomography of the head without contrast. Sagittal and coronal reformatted images were created and reviewed. Radiation optimization: All CT scans at this facility use at least one of these dose optimization techniques: automated exposure control; mA and/or kV adjustment per patient size (includes targeted exams where dose is matched to clinical indication); or iterative reconstruction. COMPARISON: No relevant prior studies available. RADIATION DOSE METRICS: Total DLP (mGy-cm): 1111.68 FINDINGS: Brain: No acute intracranial hemorrhage. No acute infarct. No intra-axial or extra-axial masses. Chance-white matter differentiation is preserved. No cerebral edema. No extra-axial fluid collections. No midline shift. No evidence for Chiari 1 malformation. Bilateral basal ganglia calcifications. Mild atrophy of the brain parenchyma. Cerebral ventricles: No hydrocephalus. Paranasal sinuses: Visualized paranasal sinuses are clear. Mastoid air cells: Mastoid air cells are clear bilaterally. Orbital cavities: Globes and lenses, extraocular muscles, and optic nerves are intact bilaterally. No acute intraorbital abnormality. Vasculature: Atherosclerotic changes in the visualized arteries. Bones/joints: No acute fracture. Soft tissues: No acute abnormality of the extracranial soft tissues. CT/CT head wo con* [id number] IMPRESSION: 1. No acute abnormality of the brain. 2. Mild atrophy of the brain parenchyma. 3. Incidental/nonacute findings are listed in the report. ? Dictated By: Jojo Travis MD Signed By: Jojo Travis MD Signed Date/Time: 09/03/212124 DD/ 10 Critical Care Time Critical Care Time: Critical Care Time: Yes Total Critical Care Time: 35 Attestation: The high probability of a clinically significant, sudden or life threatening deterioration of the patient's cardiovascular system(s) required my full and direct attention, intervention and personal management. The critical care time is as shown. This time is in addition to time spent performing any reported procedures but includes the following: [x] Data and vital sign review and interpretation [x] Patient assessment, examination and intervention [x] Documentation [x] Medication orders and management Discharge Plan Discharge Patient Disposition: Admitted As Inpatient Admit Provider: Carlitos Kidd Clinical Impression: Fever, Altered mental status, Hypoxemia, DNR (do not resuscitate), Pneumonia, Septic shock Condition: Stable Discharge Diet: Cardiac and Diabetic Discharge Activity: Increase activity as tolerated Coding Level of Care Code ED Silk Winding Machine Operator for Chg Fwd Exam Detailed
--- NOTE | 2021-09-03 18:54 | CTR_ITS ---
PROCEDURE INFORMATION: Exam: CT Abdomen And Pelvis Without Contrast Exam date and time: 09/03/2021 9:16 PM Age: 75 years old Clinical indication: Abnormal findings; Abnormal lab test; Abnormal kidney function lab tests and elevated wbc; Prior surgery; Surgery type: Stimulator. Pacemaker. Patient HX: Elevated wbc. Elevated creatinine. Redness to RT side of lower back and RT glute. Fever. ; Additional info: Erythema R upper glute lower back area, AMS, fever TECHNIQUE: Imaging protocol: Computed tomography of the abdomen and pelvis without contrast. Radiation optimization: All CT scans at this facility use at least one of these dose optimization techniques: automated exposure control; mA and/or kV adjustment per patient size (includes targeted exams where dose is matched to clinical indication); or iterative reconstruction. COMPARISON: CT abdomen pelvis con [id number] 02/03/2021 11:16 PM RADIATION DOSE METRICS: Total DLP (mGy-cm): 3066.22 FINDINGS: Tubes, catheters and devices: Left femoral line noted. Heart: Cardiomegaly. Liver: Normal. No mass. Gallbladder and bile ducts: Distended gallbladder. No calcified stones. No ductal dilation. Pancreas: Atrophic. No ductal dilation. Spleen: Normal. No splenomegaly. Adrenal glands: Normal. No mass. Kidneys and ureters: No renal stones. Mildly hyperdense lesions noted in the right kidney measuring up to 1.3 cm in size, most likely hemorrhagic cysts as these were not seen on contrast-enhanced study 01/22/2020. No hydronephrosis. Stomach and bowel: Unremarkable. No obstruction. No mucosal thickening. Appendix: No evidence of appendicitis. Intraperitoneal space: Unremarkable. No free air. No significant fluid collection. Vasculature: Unremarkable. No abdominal aortic aneurysm. Lymph nodes: Unremarkable. No enlarged lymph nodes. Urinary bladder: Lynch catheter noted within a decompressed bladder. Reproductive: Unremarkable as visualized. Bones/joints: No acute fracture. Soft tissues: Spinal stimulator device noted in the right low back extending through the right S4 neural foramina. Mild anasarca. No abscess. CT/CT abdomen pelvis con [id number] IMPRESSION: 1. Mild anasarca. 2. Distended gallbladder without calcified stones. This can be further evaluated with right upper quadrant ultrasound. COMMENTS: Consistent with the [place] [employer]'s Incidental Findings Committee white paper (J Am Sharon Radiol 2018): Any incidental renal lesion less than 1 cm or classified as too small to characterize, or any incidental cystic renal lesion characterized as simple-appearing, is likely benign. No follow-up imaging is recommended for these lesions per consensus recommendations based on imaging criteria.
[2021-09-03 19:15] LABS: ABG PCO2 38.2 mmHg (35-45); ABG PH Result 7.46 (7.35-7.45); Arterial Blood Gas Hematocrit 35.4 % (37-47); Blood Gas Allen Test Pos; Blood Gas Sample Site Radial, left; Blood Gas Sample Type Arterial; Oxygen Device NC
[2021-09-03 19:23] LABS: Basophils % 0.2 %; Eosinophils # 0.1 10^3/uL (0.0-0.8); Eosinophils % 0.5 %; Hematocrit 38.3 % (37.0-47.0); Hemoglobin 12.1 g/dL (11.5-15.3); Lymphocytes # 0.3 10^3/uL (0.8-4.8); Lymphocytes % 1.6 %; Mean Corpuscular HGB Conc 31.6 g/dL (30.0-36.0); Mean Corpuscular Hemoglobin 28.5 pg (28.0-34.0); Mean Corpuscular Volume 90.3 fl (81-99); Mean Platelet Volume 10.8 fL (7.4-10.4); Monocytes # 0.2 10^3/uL (0.2-0.9); Monocytes % 1.3 %; Neutrophils % 95.5 %; Nucleated Red Blood Cells % 0 %; Platelet Count 260 10^3/cmm (130-400); Red Blood Count 4.24 10^6/uL (4.1-5.3); Red Cell Distribution Width 15.7 % (12.1-15.1); White Blood Count 18.9 10^3/uL (4.0-10.0)
[2021-09-03] MEDS: cefepime 1,000 MG in sodium chloride 0.9% (plus) 50 ML 100 MG IV (19:23)
[2021-09-03] MEDS: acetaminophen 1,000 MG/100 ML PIGGYBACK 400 MG IV (19:30)
[2021-09-03] MEDS: sodium chloride 0.9% 500 ML 999 ML IV (19:30)
[2021-09-03 19:48] LABS: Troponin(5th) Baseline 224 ng/L (0-10)
[2021-09-03 19:50] LABS: Alanine Aminotransferase 28 U/L (0-33); Albumin Level 3.8 g/dL (3.5-5.2); Alkaline Phosphatase 157 IU/L (35-105); Anion Gap 20.2 (5-19); Aspartate Amino Transferase 20 U/L (0-32); Blood Urea Nitrogen 50 mg/dL (8-23); Calcium 8.6 mg/dL (8.5-10.5); Carbon Dioxide 26 mmol/L (22-29); Chloride 92 mmol/L (98-107); Globulin 3.5 g/dL (1.3-4.6); Glucose 118 mg/dL (65-115); Lipase 12 U/L (13-60); NT Pro B Type Natriuretic Pept 5515 pg/mL (0-450); Osmolality Calculated 292 mOsm/kg (285-295); Potassium 4.2 mmol/L (3.5-5.1); Sodium 134 mmol/L (136-145); Total Bilirubin 1.1 mg/dL (0.15-1.2); Total Protein 7.3 g/dL (6.6-8.7)
[2021-09-03] MEDS: vancomycin 1,000 MG in sodium chloride 0.9% 250 ML 250 MG IV (20:00)
[2021-09-03 20:05] LABS: Lactate (Lactic Acid level) 3.1 mmol/L (0.5-2.2)
[2021-09-03 20:07] LABS: Influenza A by IFA Negative (Negative); Influenza B by IFA Negative (Negative)
[2021-09-03] MEDS: enoxaparin 80 mg/0.8 mL Syringe 70 MG SUBCUT (20:27)
[2021-09-03] MEDS: aspirin 300 mg Supp PR (20:27)
--- NOTE | 2021-09-03 20:46 | ECG_ITS ---
[facility] Test Date: 2021-09-03 Pat Name: Kory Elder Department: Room: Gender: Female Customer Order Clerk: : 1945 Requested By: Tulio Hope Order Number: [id number] Reading MD: Madelyn Jackson M.D. Measurements Intervals [place] Rate: 98 P: NM: QRS: 88 QRSD: 120 T: 27 QT: 337 QTc: 431 Interpretive Statements ATRIAL FIBRILLATION INDETERMINATE AXIS RIGHT BUNDLE BRANCH BLOCK [120+ ms QRS DURATION, UPRIGHT V1, 40+ ms S IN I/aVL/V4/V5/V6] Compared to ECG 09/03/2021 19:19:42 No significant changes Electronically Signed On 09-04-2021 22:10:39 CDT by Madelyn Jackson M.D. [id number]
--- NOTE | 2021-09-03 21:00 | PC.NURSE ---
Central line was placed by Dr Hope in left groin. Triple lumen. Time out @ 2029. Septic technique used. patient tolerated well.
[2021-09-03 21:21] LABS: Adenovirus Not Detected (NOT DETECT); Chlamydia Pneumoniae Not Detected (NOT DETECT); Coronavirus 229E,HKU1,NL63,OC4 Not Detected (NOT DETECT); Human Metapneumovirus Not Detected (NOT DETECT); Human Rhinovirus/Enterovirus Not Detected (NOT DETECT); Influenza A Not Detected (NOT DETECT); Influenza A H1 Not Detected (NOT DETECT); Influenza A H1-2009 Not Detected (NOT DETECT); Influenza A H3 Not Detected (NOT DETECT); Influenza B Not Detected (NOT DETECT); Mycoplasma Pneumoniae Not Detected (NOT DETECT); Parainfluenza Virus Type 1 Not Detected (NOT DETECT); Parainfluenza Virus Type 2 Not Detected (NOT DETECT); Parainfluenza Virus Type 3 Not Detected (NOT DETECT); Parainfluenza Virus Type 4 Not Detected (NOT DETECT); Respiratory Syncytial Virus A Not Detected (NOT DETECT); Respiratory Syncytial Virus B Not Detected (NOT DETECT); SARS-COV-2 Not Detected (NOT DETECT)
--- NOTE | 2021-09-03 22:04 | USR_ITS ---
PROCEDURE INFORMATION: Exam: US Abdomen; Limited Exam date and time: 09/03/2021 10:16 PM Age: 75 years old Clinical indication: Abnormal findings; Abnormal radiologic finding of the abdomen; Radiologic exam and body structure: CT scan; Additional info: Distended gallbladder TECHNIQUE: Imaging protocol: US abdomen. Real time ultrasound with image documentation. Limited exam focused on the region of clinical interest. COMPARISON: US abdomen lmt fluid [id number] 02/07/2021 4:39 PM FINDINGS: Gallbladder: Distended gallbladder with low-level internal echoes suggestive of sludge. Borderline gallbladder wall thickening at 3-4 mm. Pericholecystic fluid. Biliary ducts: Common bile duct caliber is within normal limits 4 mm. US/US gall bladder [id number] IMPRESSION: Distended gallbladder with intraluminal sludge and borderline gallbladder wall thickening with pericholecystic fluid. Sonographic findings are equivocal for acute cholecystitis in the appropriate clinical setting. HIDA scan could provide a more sensitive evaluation for acute cholecystitis.
--- NOTE | 2021-09-03 22:22 | P.HP_ITS ---
Providers/Chief Complaint Primary Care Provider: Meredith Edgar MD Chief Complaint: POSSIBLE SEPSIS/ FEVER History of Present Illness The patient is a 75 old female who was transferred to the emergency department due to fever and encephalopathy.? Unfortunately, during my encounter with the patient I found that she is still encephalopathic.? Because of this, I am unable to obtain further history of present illness or past medical history.? She presents for further evaluation Review of Systems General: Reports: 10 or more systems reviewed and unremarkable except in HPI and below Medications/Allergies Home Medications Medication Instructions Recorded Confirmed Last Taken Type bisacodyl 10 mg rectal suppository 10 mg NH DAILY PRN 01/31/20 09/03/21 Unknown History (Dulcolax (bisacodyl)) fluticasone propionate 50 1 spray INTRANASAL BID 01/31/20 09/03/21 09/03/21 History mcg/actuation nasal spray,suspension (Flonase Allergy Relief) sodium chloride 0.65 % nasal spray 1 spray INTRANASAL QID PRN 01/31/20 09/03/21 Unknown History aerosol (Saline Nasal) albuterol sulfate 90 mcg/actuation 1 puff INHALATION Q4H 03/02/20 09/03/21 09/03/21 History aerosol inhaler budesonide-formoterol HFA 160 2 puff INHALATION BID 03/02/20 09/03/21 09/03/21 History mcg-4.5 mcg/actuation aerosol inhaler (Symbicort) guaifenesin 600 mg tablet, 600 mg PO BID 03/02/20 09/03/21 09/03/21 History extended release 12 hr (Mucinex) pantoprazole 40 mg tablet,delayed 40 mg PO DAILY 03/02/20 09/03/21 09/03/21 History release acetaminophen 325 mg tablet 650 mg PO Q4H PRN 02/08/21 09/03/21 02/05/21 History citalopram 10 mg tablet 10 mg PO DAILY 02/08/21 09/03/21 09/03/21 History furosemide 80 mg tablet (Lasix) 80 mg PO BID 02/08/21 09/03/21 02/07/21 History polyethylene glycol 3350 17 17 g PO BID 02/08/21 09/03/21 09/03/21 History gram/dose oral powder (Miralax) sennosides 8.6 mg tablet (senna) 17.2 mg PO BEDTIME 02/08/21 09/03/21 09/03/21 History tramadol 50 mg tablet 50 mg PO Q6H 02/08/21 09/03/21 09/03/21 History apixaban 5 mg tablet (Eliquis) 5 mg PO BID 09/03/21 09/03/21 09/03/21 History bumetanide 1 mg tablet 3 mg PO BID 09/03/21 09/03/21 09/03/21 History cetirizine 10 mg tablet 10 mg PO DAILY 09/03/21 09/03/21 09/03/21 History oxycodone 5 mg tablet 5 mg PO Q4H PRN 09/03/21 09/03/21 Unknown History polyvinyl alcohol 1.4 % eye drops 1 drp OPHTHALMIC (EYE) DAILY 09/03/21 09/03/21 09/03/21 History Allergies Allergy/AdvReac Type Severity Reaction Status Date / Time meperidine [From Demerol] Allergy Intermediate unknown Verified 09/03/21 19:57 oxybutynin Allergy Mild Unknown Verified 09/03/21 19:57 pentazocine Allergy Mild Unknown Verified 09/03/21 19:57 PFSH Acute PFSH: Medical History Anemia Body mass index (BMI) greater than 50 Chronic diastolic (congestive) heart failure Chronic kidney disease, stage 3, mod decreased GFR COVID-19 vaccine administered Depression Essential hypertension History of COVID-19 History of ESBL E. coli infection History of pulmonary embolism (~2017) saddle embolism Hyperlipidemia Hypersomnia Lymphedema Obstructive sleep apnea on CPAP Paroxysmal atrial fibrillation Postmenopausal bleeding (~01/2020) requiring D&C Pulmonary hypertension Right-sided heart failure Type 2 diabetes mellitus reported diagnosis in SNF and hospital records but not on treatment, normal blood sugars Surgical History H/O oral surgery History of D&C (02/02/20) for postmenopausal bleeding Pacemaker Family History Other Family history unknown Social History Housing: Jail Marital status: / Additional social history: - Tobacco use: Denies Alcohol use: Denies Drug use: Denies Vitals/I&O/Wt Last Vital Signs Temp 100.4 F H 09/03/21 20:11 Pulse 100 09/03/21 22:04 Resp 21 H 09/03/21 20:05 BP 99/56 09/03/21 22:04 Pulse Ox 95 09/03/21 20:05 09/03/21 09/03/21 09/03/21 06:59 14:59 22:59 Intake Total 703.658 / 703.658 Balance 703.658 / 703.658 Physical Exam Narrative: General: -Alert -No acute distress -No dyspnea -No tachypnea Head: -Atraumatic -Normocephalic Eyes: -Pupils equally round and reactive to light and accommodation -Extraocular muscles intact Neurological: -Cranial nerves II-XII intact Neck: -No jugular venous distention -No thyromegaly -No cervical lymphadenopathy Heart: -Regular rate -Regular rhythm -No murmurs -No gallops -No rubs Lungs: -No wheeze -No rhonchi -No rales ? Abdomen: -Normal bowel sounds in all four quadrants -No rebound -No guarding -No tenderness Extremities: -2/4 pulse in all four extremities -No clubbing -No cyanosis -No edema -No calf tenderness present bilaterally -Negative Higinio?s sign bilaterally Musculoskeletal: -5/5 bilateral upper extremity strength -5/5 bilateral lower extremity strength -Sensorium of bilateral upper extremities are equal and intact -Sensorium of bilateral lower extremities are equal and intact ? Additional Details / Additional Findings / Exceptions / Miscellaneous: Urinary Catheter Management: Lynch: Cath Placed During This Visit: yes Urinary Catheter Date of Insertion: 09/03/21 Urinary Catheter Time of Insertion: 19:30 Data : 09/03/21 19:10 09/03/21 19:10 Micro: Microbiology 09/03/21 19:25 Blood Culture - Preliminary Blood SPECIMEN COLLECTED 09/03/21 19:20 Blood Culture - Preliminary Blood SPECIMEN COLLECTED A&P Assessment and plan (1) Fever: Status: Acute Plan sepsis secondary to pneumonia. Patient has resultant hypotension for which she has been started on an IV Levophed drip per protocol. I am hesitant to initiate IV fluids given her history of CHF, paracentesis requiring ascites. Pneumonia. Blood culture ?2 drawn the emergency department pending. A cephamycin 500 Mill grams IV daily plus Rocephin 1 g IV daily encephalopathy. This may be secondary to pneumonia. CT of the head negative for acute process. Ammonia level pending. Urinalysis pending. urine drug screen pending. Neuro checks every 4 hours. Will monitor patient on telemetry and checks her cardiac enzymes. Chronic kidney disease, unknown baseline creatinine. Will monitor creatinine intermittently Paroxysmal atrial for ablation, status post pacemaker placement. Telemetry monitoring. Eliquis 5 Mill grams by mouth twice a day obstructive sleep apnea. CPAP/BiPAP: Okay to use home device and/or pressure when sleeping if the patient uses CPAP/BiPAP at home Constipation Chronic pain Elevated troponin, query ACS. Will monitor patient on telemetry and checks her cardiac enzymes. Check TSH, free T4, magnesium level. In the morning we will recheck EKG and check fasting lipid panel. Aspirin 81 Mill grams by mouth daily plus Lipitor 40 Mill grams by mouth daily at bedtime. No nitroglycerin or beta- justin due to hypotension for which she has on IV Levophed. No further studies will be ordered at this time as the patient, given her overall medical c ondition, would not be a candidate for any sort of intervention CHF, ejection fraction 50%, severe pulmonary hypertension, moderate mitral regurgitation, severe tricuspid regurgitation. History of vitamin D deficiency Depression Seasonal allergies COPD, I believe the patient is O2 dependent via nasal cannula however I am uncertain of her baseline oxygen flow rate Diabetes. Will check fasting glucose Abraham at at bedtime and provide insulin sliding scale GERD Hyperlipidemia. Fasting lipid panel pending. Lipitor 40 Mill cans by mouth daily at bedtime History of hypertension. Patient currently hypotensive and on IV Levophed drip per protocol History of hyperuricemia History of iron deficiency Distended gallbladder. Will monitor LFTs periodically with CMP. Right upper quadrant ultrasound pending History of hepatic artery aneurysm General joint disease History of coagulopathy. Will monitor PT/INR periodically DVT prophylaxis. Eliquis 5 Mill grams by mouth twice a day Attestations Medical Necessity Statement*: the patient's anticipated length of stay is great than 2 midnights for treatment of her sepsis due to pneumonia Coding Level of Care Code Acute Supervisor Electronics Testing for [facility] Fwd Diagnoses Fever R50.9
[2021-09-03 22:24] LABS: Troponin 5 2HR 245.3 ng/L (0-10); Troponin 5 2HR Delta 21.3 ABS# (0-10)
[2021-09-03 22:41] LABS: INR 2.06 (0.8-1.2)
[2021-09-03 23:15] LABS: Ammonia 12 umol/L (11-51)
[2021-09-03 23:17] LABS: Free T4 Free Thyroxine 1.37 ng/dL (0.82-1.77); Phosphorus 4.2 mg/dL (2.5-4.5); Thyroid Stimulating Hormone 1.81 uIU/mL (0.27-4.20)
[2021-09-04] VITALS (52 sets, daily range): BP systolic 70–124; BP diastolic 44–80; PULSE 65–93; RESP 14–26; TEMP 36.6–37.8; O2SAT 82–100; BMI 30.8
[2021-09-04 00:13] LABS: Calcium 8.7 mg/dL (8.5-10.5)
--- NOTE | 2021-09-04 00:46 | ECG_ITS ---
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 Measurements Intervals [place] Rate: 82 P: MT: QRS: -10 QRSD: 135 T: 36 QT: 417 QTc: 490 Interpretive Statements ATRIAL FIBRILLATION WITH ABERRANT CONDUCTION OR VENTRICULAR PREMATURE COMPLEXES INDETERMINATE AXIS RIGHT BUNDLE BRANCH BLOCK [120+ ms QRS DURATION, UPRIGHT V1, 40+ ms S IN I/aVL/V4/V5/V6] Compared to ECG 09/03/2021 21:28:23 Ventricular premature complex(es) now present Aberrant conduction of supraventricular beat(s) now present Electronically Signed On 09-05-2021 11:49:25 CDT by Madelyn Jackson M.D. [email or web address] ([email or web address]) [facility] va medical centerSay2mes[facility].[email or web address]/[id number]
[2021-09-04] MEDS: piperacillin-tazobactam 3.375 GM in sodium chloride 0.9% (plus) 50 ML IV ×3 (01:41→16:30)
--- NOTE | 2021-09-04 02:08 | XR_ITS ---
WS: [id number] Exam: XR knee RT 1-2V [id number] Date/Time of Exam: 09/04/2021 4:11 AM Reason For Exam: bruising and pain A total knee prosthesis is in place. No sign of fracture or loosening. No obvious joint effusion. XR/XR knee RT 1-2V [id number] IMPRESSION: 1. Intact total knee replacement without acute finding.
--- NOTE | 2021-09-04 02:10 | PC.NURSE ---
Addendum entered by Shirin Hamm RN 09/04/21 05:09: Dr. Kidd also informed of patient having very frequent pvc's in heart rhythm. No new orders received for this. Original Note: PVCs/Knees/ bladder scan Patient's bilateral knees found to be bruised and patient complains of pain when moving. Additionally, patient has had no urine output since a nash catheter was inserted. Dr. Kidd called and notified. Order received to obtain 2 view xrays of bilateral knees and to inform him of bladder scan results.
--- NOTE | 2021-09-04 02:10 | XR_ITS ---
WS: [id number] Exam: XR knee LT 1-2V [id number] Date/Time of Exam: 09/04/2021 4:11 AM Reason For Exam: bruising and pain No obvious acute fracture noted. Old fracture deformity of the upper tibia. Advanced degenerative lizz nges of the medial lateral joint compartments and marked varus deformity of the knee. Osteopenia. XR/XR knee LT 1-2V [id number] IMPRESSION: 1. No acute fracture or dislocation. 2. Advanced degenerative changes and osteopenia. Old fracture deformity of the upper tibia.
--- NOTE | 2021-09-04 02:40 | PC.NURSE ---
Bladder Scan Bladder scan on patient revealed only [address] Kidd notified and order received to start maintenance IV NS @ 75 ml/hr. See MAR for administration.
[2021-09-04 02:46] LABS: Hematocrit 35.4 % (37.0-47.0); Hemoglobin 11.3 g/dL (11.5-15.3); Mean Corpuscular HGB Conc 31.9 g/dL (30.0-36.0); Mean Corpuscular Hemoglobin 29.4 pg (28.0-34.0); Mean Corpuscular Volume 91.9 fl (81-99); Mean Platelet Volume 11.4 fL (7.4-10.4); Platelet Count 286 10^3/cmm (130-400); Red Blood Count 3.85 10^6/uL (4.1-5.3)
[2021-09-04 03:07] LABS: Alanine Aminotransferase 25 U/L (0-33); Albumin Level 3.4 g/dL (3.5-5.2); Alkaline Phosphatase 124 IU/L (35-105); Anion Gap 18.3 (5-19); Aspartate Amino Transferase 24 U/L (0-32); Blood Urea Nitrogen 50 mg/dL (8-23); Calcium 8.2 mg/dL (8.5-10.5); Carbon Dioxide 26 mmol/L (22-29); Chloride 92 mmol/L (98-107); Chol HDL Ratio 2.87 mg/dL (0.0-4.40); Cholesterol 135 mg/dL (0-200); Globulin 3.1 g/dL (1.3-4.6); Glucose 110 mg/dL (65-115); HDL Cholesterol 47 mg/dL (60-100); LDL Cholesterol Calculated 61 mg/dL (50-129); Osmolality Calculated 290 mOsm/kg (285-295); Potassium 3.3 mmol/L (3.5-5.1); Sodium 133 mmol/L (136-145); Total Protein 6.5 g/dL (6.6-8.7); Triglycerides 137 mg/dL (0-150)
[2021-09-04 03:12] LABS: Troponin 5 6HR 223.4 ng/L (0-10)
[2021-09-04 03:13] LABS: Troponin 5 6HR Delta -0.6 ng/L (0-12); White Blood Count 39.8 10^3/uL (4.0-10.0)
[2021-09-04 03:14] LABS: Absolute Segmented Neutrophil 34.2 10/cmm (1.6-7.1); Band Neutrophils Absolute 4.8 10^3/cmm (0.0-1.2); Eosinophils 0 %; Lymphocytes 1 %; Lymphocytes Absolute 0.4 10^3/cmm (1.2-3.4); Monocytes Absolute 0.4 10^3/cmm (0.1-0.6); Platelet Estimate Normal (Normal); Segmented Neutrophils 86 %; Total Cells Counted 100 (0-100)
[2021-09-04 03:15] LABS: Anisocytosis Trace; Poikilocytosis Trace
[2021-09-04] MEDS: sodium chloride 0.9% 1,000 ML 75 ML IV (03:21)
--- NOTE | 2021-09-04 03:21 | PC.PHAR ---
Vancomycin is dosed at 1250mg IVPB every 24 hours to produce a predicted trough level of 17.16 (population based pharmacokinetic analysis). A trough level has been ordered from the lab to be obtained before the fourth dose to confirm and adjust if needed.
--- NOTE | 2021-09-04 03:36 | PC.NURSE ---
Critical Lab Patient's WBC count and 6 hour troponin came back critical at 39.[address] Kidd contacted and notified; order received to draw a lactic acid level now. Order placed.
--- NOTE | 2021-09-04 03:58 | PC.NURSE ---
Admission Assessment/Immunizations Admission assessment and immunization assessment information received from David Redd LPN at [facility] in which patient resides.
--- NOTE | 2021-09-04 04:20 | PC.NURSE ---
Pain Patient complaining of pain in knees when moved, score of an 8 on the FLACC scale. No pain medication ordered for patient; Dr. Kidd contacted and order received for 1 mg Morphine IVP Q4H for moderate to severe pain. See MAR for medication administration.
[2021-09-04 04:39] LABS: Lactate (Lactic Acid level) 2.6 mmol/L (0.5-2.2)
--- NOTE | 2021-09-04 04:45 | PC.NURSE ---
Nash Still no urine output produced by patient. Upon checking the nash catheter for placement, catheter found to be out of patient and lying on the bed. Patient voided in bed soon after. Attempt to replace nash catheter unsuccessful; sterile technique used. Receiving nurse to be made aware.
[2021-09-04] MEDS: morphine 4 mg/mL SDV 1 mL 1 MG IVP (04:51)
[2021-09-04 07:19] LABS: Glucose Point of Care 123 mg/dL (70-110)
--- NOTE | 2021-09-04 07:21 | PM.PN ---
Subjective Subjective: Patient admitted last night with sepsis. Overnight, her Levophed requirements increased. Per report, there is difficulty obtaining Lynch overnight. No reported urine output. This morning, she complains of headache. She complains of bilateral knee pains. She denies shortness of breath, chest pain, chills, or abdominal pain. She reports that at baseline she wears 4 L of oxygen at the nursing facility. Medications: Reviewed: Yes Vitals/I&O/Wt Last Vital Signs Temp 98.3 F 09/04/21 04:00 Pulse 79 09/04/21 06:30 Resp 16 09/04/21 06:30 BP 103/70 09/04/21 06:30 Pulse Ox 90 09/04/21 06:30 09/03/21 09/04/21 09/04/21 22:59 06:59 14:59 Intake Total 1008.141 / 1008.141 214.147 / 1222.288 Balance 1008.141 / 1008.141 214.147 / 1222.288 Weight last 48 hrs Weight 83.96 kg Weight 83.96 kg Physical Exam Narrative: General: Patient is awake. Appears ill. Head: Normocephalic. Atraumatic. EOM intact. Neck: No JVD. Cardiovascular: RRR. No gallops. No murmurs. Hypotensive. Central line. Lungs: Breath sounds are diminished bilateral bases. Faint rhonchi in left lower lung zone. Adequate air movement. On nasal cannula. No use of accessory muscles, no crackles or wheezes. Skin: No jaundice. No rashes. Abdomen: Hypoactive bowel sounds, abdomen soft and nontender. Genito Urinary: Genital exam not performed since complaints not related. Rectal: Rectal exam not performed since no symptoms indicated blood loss. Extremeties: No cyanosis or clubbing. Bilateral knees are tender to palpation. Left knee with bruising. Neurological: Moves all 4 extremities. No myoclonus. Urinary Catheter Management: Lynch: Cath Placed During This Visit: yes Urinary Catheter Date of Insertion: 09/03/21 Urinary Catheter Time of Insertion: 19:30 Data : 09/04/21 01:49 09/04/21 01:49 Micro: Microbiology 09/03/21 19:25 Blood Culture - Preliminary Blood SPECIMEN COLLECTED 09/03/21 19:20 Blood Culture - Preliminary Blood SPECIMEN COLLECTED A&P Assessment and plan (1) Septic shock: -Septic shock secondary to community-acquired pneumonia -Continue Levophed, MAP goal of >65 mmHg -Stop maintenance fluids -Additional NS 1 L bolus -Blood cultures pending -Procalcitonin and CRP to aid in prognostication -Urinalysis pending -Continue vancomycin -MRSA swab -Continue Zosyn Status: Acute (2) Pneumonia: -Community-acquired pneumonia -Continue IV abx as above -Pulmonary toilet Status: Acute (3) Altered mental status: -Secondary to acute infectious and metabolic encephalopathy -Mentation slightly improved -Treat underlying infection Status: Acute (4) Acute kidney injury: -Acute kidney injury on chronic kidney disease of unknown stage -Suspect prerenal in setting of septic shock -Strict I&Os -Daily weights -Avoid nephrotoxins Status: Acute (5) Paroxysmal atrial fibrillation: -Continue therapeutic anticoagulation with apixaban -Continuous telemetry monitoring -High risk for RVR Status: Chronic (6) Knee pain, bilateral: -Unclear etiology, suspect trauma from fall -Plain films pending Status: Acute (7) Coagulopathy: -Secondary to apixaban -Monitor for s/s of bleeding Status: Acute (8) Hypoxemia: -Chronic hypoxic respiratory failure -Continue supplemental oxygen support for SPO2 goal of 88-92% Status: Acute (9) Right-sided heart failure: -Daily assessment of volume -Strict I&Os Status: Acute Qualifiers: Heart failure chronicity: chronic Qualified Code(s): I50.812 - Chronic right heart failure (10) Essential hypertension: -Antihypertensives on hold due to shock Status: Chronic (11) Pulmonary hypertension: -Likely contributing to her hypoxia -Optimize fluid balance Status: Chronic (12) Hyperlipidemia: -Continue statin -Continue aspirin Status: Chronic (13) Obstructive sleep apnea: Status: Chronic (14) Headache: -CT head negative for acute findings -Tylenol PRN Status: Acute (15) Diabetes mellitus: -SSI -Avoid hypoglycemia Status: Acute (16) Body mass index (BMI) greater than 50: -Would eventually benefit from weight loss Status: Chronic (17) Myocardial injury: -Secondary to septic shock -Telemetry monitoring Status: Acute (18) COPD (chronic obstructive pulmonary disease): -Not in acute exacerbation Status: Acute (19) Gallbladder disorder: -Abdomenal CT reviewed -RUQ US reviewed -Consider general surgery consult should she develop symptoms c/w colic Status: Acute Attestations Medical Necessity Statement*: The high probability of a clinically significant, sudden or life threatening deterioration of the patient's cardiovascular, pulmonary, renal system(s) required my full and direct attention, intervention and personal management. The critical care time is as shown. This time is in addition to time spent performing any reported procedures but includes the following: [x] Data and vital sign review and interpretation [x] Patient assessment, examination and intervention [x] Documentation [x] Medication orders and management Critical Care Time: 35 Coding Level of Care Code Acute Golf Course Assistant for g Fwd Diagnoses Altered mental status R41.82 Hypoxemia R09.02 Pneumonia J18.9 Septic shock A41.9; R65.21 Right-sided heart failure I50.812 Heart failure chronicity: chronic Coagulopathy D68.9 Body mass index (BMI) greater than 50 Acute kidney injury N17.9 Essential hypertension I10 Hyperlipidemia E78.5 Pulmonary hypertension I27.20 Paroxysmal atrial fibrillation I48.0 Obstructive sleep apnea G47.33 Knee pain, bilateral M25.561; M25.562 Headache R51.9 Diabetes mellitus E11.9 Myocardial injury I5A COPD (chronic obstructive pulmonary disease) J44.9 Gallbladder disorder K82.9
[2021-09-04] MEDS: aspirin 81 mg Chew Tablet PO (08:22)
[2021-09-04] MEDS: potassium chloride ER 20 mEq Tablet PO (08:22)
[2021-09-04] MEDS: apixaban 5 mg Tablet PO ×2 (08:22→17:19)
[2021-09-04] MEDS: sodium chloride 0.9% 1,000 ML 999 ML IV (08:23)
[2021-09-04] MEDS: norepinephrine 8 MG in dextrose 5 % 500 ML 45.72 MG IV (08:24)
[2021-09-04 08:26] LABS: Amphetamines Screen Urine Negative (Negative); Barbiturates Screen Urine Negative (Negative); Benzodiazepines Screen Urine Negative (Negative); Cocaine Screen Urine Negative (Negative); Opiate Screen Urine Positive (Negative); PCP Screen Urine Negative (Negative); THC Screen Urine Negative (Negative)
[2021-09-04 08:31] LABS: Add Urine Microscopic? YES; Bilirubin Urine Neg (Negative); Blood Urine 3+ (Negative); Glucose Urine UA Norm (Normal); Ketones Urine Negative (Negative); Leukocyte Esterase Urine 2+ (Negative); Nitrate Urine Negative (Negative); Protein Urine Neg (Negative); Specific Gravity, Urine 1.005 (1.005-1.030); Urine Appearance SL Hazy (CLEAR); Urine Color Yellow (Yellow); Urobilinogen Urine Norm (Negative); pH Urine 5 (5-7)
[2021-09-04 08:32] LABS: Bacteria Urine 1+ /hpf; RBC Urine 0-4 /hpf (0-2); WBC Urine 55-80 /hpf (0-5)
[2021-09-04 08:58] LABS: C Reactive Protein 62.7 mg/L (0.0-4.9)
[2021-09-04 09:04] LABS: Procalcitonin 47.72 ng/mL (0-0.5)
--- NOTE | 2021-09-04 09:34 | PC.CHAP ---
Pastoral Care Encounter/Spiritual Assessment Type of Contact [] Declined candle molder visit [] Patient/Family/Request visit [] Outpatient visit [] Follow-up visit [] Physician referral [] Code/Alert [x] Routine visit [] Staff referral [] Actively dying [] Patient sleeping [] Family support [] [] Out of room [] Palliative care [] [] Receiving care in room [] Pre-surgical visit [] Trauma [] Long length of stay [x] ICU visit [] Other: Relational/Emotional Strength [] Patient feels connected with others/family/visitors/staff [] Distress [] Loneliness/isolation [] Abandonment Spirituality of Patient [] Person of Niki [] Attends Muslim of their Niki [] Believes in Prayer [] Reads Bible or Bahai materials [] There are Spiritual issues to be addressed Medical Sales Specialist Interventions [x] Prayer [] Active listening [] Non-anxious presence [] Spiritual/emotional support [] Crisis/trauma care [] Spiritual counseling [] Bereavement support [] Provided bereavement packet [] Provided Bible/devotional materials [] Provided toy/stuffed animal, coloring book to patient or family member [] Provided Communion [] Anointing/Lewis [] Salvation [x] Completed spiritual assessment [] Other: Impact on Illness or Injury [] Angry [] Fearful [] Anxious [] Often cries [] Exhaustion [] Unable to work [] Unable to attend islam [] Unable to walk/stand [] Unable to read [] Unable to drive [] Unable to eat/drink [] Unable to sleep [] Unable to be with family [] Patient intubated [] Other: Summary Time spent with patient
[2021-09-04 11:15] LABS: Bacillus cereus group Not Detected (NOT DETECT); Bacillus subtillis group Not Detected (NOT DETECT); Corynebacterium Not Detected (NOT DETECT); Cutibacterium acnes (P.acnes) Not Detected (NOT DETECT); Enterococcus Not Detected (NOT DETECT); Enterococcus faecalis Not Detected (NOT DETECT); Enterococcus faecium Not Detected (NOT DETECT); Lactobacillus species Not Detected (NOT DETECT); Listeria Not Detected (NOT DETECT); Listeria monocytogenes Not Detected (NOT DETECT); Micrococcus Not Detected (NOT DETECT); Pan Candida Not Detected (NOT DETECT); Pan Gram-Negative Not Detected (NOT DETECT); Staphylococcus epidermidis Not Detected (NOT DETECT); Staphylococcus lugdunensis Not Detected (NOT DETECT); Staphylococcus species Not Detected (NOT DETECT); Streptococcus agalactiae Detected (NOT DETECT); Streptococcus anginosus group Not Detected (NOT DETECT); Streptococcus pneumoniae Not Detected (NOT DETECT); Streptococcus pyogenes Not Detected (NOT DETECT); Streptococcus species Detected (NOT DETECT)
--- NOTE | 2021-09-04 11:30 | USCV_ITS ---
Kory Elder Age: 75 Gender: F : 1945 Exam Date: 09/04/2021 12:00 Ordering Phys: Jm Kay MD Technologist: KATIE Exam Location: [facility] Indication: bacteremia BP: 94 / 50 HR: 71 Rhythm: Sinus Technical Quality: Adequate MEASUREMENTS (Male / Female) Normal Values 2D ECHO LV Diastolic Diameter PLAX 3.6 cm 4.2 - 5.9 / 3.9 - 5.3 cm LV Systolic Diameter PLAX 2.5 cm IVS Diastolic Thickness 1.8 cm 0.6 - 1.0 / 0.6 - 0.9 cm IVS Systolic Thickness 2.2 cm LVPW Diastolic Thickness 1.5 cm 0.6 - 1.0 / 0.6 - 0.9 cm LVPW Systolic Thickness 2.0 cm LVOT Diameter 2.0 cm LV Ejection Fraction 2D Teich 62.1 % LV Ejection Fraction MOD 2C 56.1 % LV Ejection Fraction 2C AL 57.8 % LA Diameter 6.1 cm LA Width 5.4 cm LA Height 6.8 cm RA Width 5.1 cm RA Height 7.3 cm Aorta at Sinotubular Diameter 3.1 cm IVC Diameter 2.4 cm M-MODE Aortic Annulus Diameter 3.3 cm LA Ao Ratio MM 1.8 MV E Point Septal Separation 0.3 cm DOPPLER AV Peak Velocity 134.0 cm/s LVOT Peak Velocity 95.0 cm/s AV Area Cont Eq vti 2.4 cm squared AV Area Cont Eq pk 2.1 cm squared MV Peak Velocity 136.0 cm/s MV Area PHT 3.9 cm squared Mitral E to A Ratio 193.3 MV E' Velocity 61.5 cm/s Mitral E to MV E' Ratio 12.2 Mitral E to LV E' Lateral Ratio 16.8 Mitral E to LV E' Septal Ratio 9.6 TR Peak Velocity 396.5 cm/s TR Peak Gradient 62.9 mmHg TV Peak E Velocity 50.0 cm/s Right Atrial Pressure 15.0 mmHg Pulmonary Artery Systolic Pressu 77.9 mmHg PV Peak Velocity 106.0 cm/s FINDINGS Left Ventricle Normal left ventricular size. LV systolic function is normal with EF of 55-60%. No regional wall motion abnormalities. Right Ventricle The right ventricle is mildly dilated Right Atrium The right atrium is dilated. Elevated RA pressure Left Atrium The left atrium is severely dilated. Mitral Valve Moderate mitral annular calcification without significant stenosis or prolapse. Aortic Valve Aortic valve is thickened. There is a 11mm mass noted on the non coronary cusp. This is consistent with vegetation. There is no aortic regurgitation. Tricuspid Valve Grossly normal without significant stenosis. Moderate regurgitation. RVSP is >60mmHg. This is consistent with severe pulmonary hypertension Pulmonic Valve Not well visualized. Mild pulmonary hypertension Pericardium Normal pericardium without effusion. Aorta Normal ascending aorta dimension. IVC CONCLUSIONS LV systolic function is normal with EF 55 to 60%. Mildly dilated right ventricular Biatrial enlargement Moderate mitral annular calcification. Aortic valve is thickened. There is a 11mm mass noted on the non coronary cusp. This is consistent with vegetation Moderate tricuspid regurgitation. Severe pulmonary hypertension. 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
[2021-09-04 11:44] LABS: Glucose Point of Care 145 mg/dL (70-110)
[2021-09-04] MEDS: insulin lispro 100 unit/1 mL SUBCUT ×2 (12:28→21:23)
--- NOTE | 2021-09-04 13:35 | PC.NURSE ---
Called Dr. Kay and reported increased temperature of patient, received IV tylenol order. Also received a PRN order for vasopressin if Levophed needs increase to 15 mcg/min
[2021-09-04] MEDS: acetaminophen 1,000 MG/100 ML PIGGYBACK 400 MG IV ×2 (14:17→21:32)
[2021-09-04] MEDS: norepinephrine 8 MG in dextrose 5 % 500 ML 60.96 MG IV (19:20)
[2021-09-04] MEDS: vancomycin 1,250 MG/250 ML PIGGYBACK 250 MG IV (20:53)
[2021-09-04] MEDS: atorvastatin 40 mg Tablet PO (20:53)
--- NOTE | 2021-09-04 21:15 | PC.NURSE ---
Family Update Aldo Matias, son, called and received update on patient. Vital signs, blood pressure medication, mental status, and oxygen requirements discussed. Son verbalized understanding and stated no further questions. He states he will call again in the morning for further changes.
[2021-09-05] VITALS (61 sets, daily range): BP systolic 79–128; BP diastolic 45–76; PULSE 64–95; RESP 16; TEMP 36.5–36.6; O2SAT 73–98; BMI 31.8
[2021-09-05] MEDS: piperacillin-tazobactam 3.375 GM in sodium chloride 0.9% (plus) 50 ML IV ×3 (00:38→17:06)
[2021-09-05 03:54] LABS: Basophils # 0.1 10^3/uL (0.0-0.1); Basophils % 0.3 %; Eosinophils # 0.1 10^3/uL (0.0-0.8); Eosinophils % 0.2 %; Hematocrit 30.7 % (37.0-47.0); Hemoglobin 9.8 g/dL (11.5-15.3); Lymphocytes # 0.9 10^3/uL (0.8-4.8); Lymphocytes % 2.2 %; Mean Corpuscular HGB Conc 31.9 g/dL (30.0-36.0); Mean Corpuscular Hemoglobin 29.1 pg (28.0-34.0); Mean Corpuscular Volume 91.1 fl (81-99); Mean Platelet Volume 11.3 fL (7.4-10.4); Monocytes # 1.8 10^3/uL (0.2-0.9); Monocytes % 4.4 %; Neutrophils # 35.38 10^3/uL (1.8-7.7); Neutrophils % 85.2 %; Nucleated Red Blood Cells % 0 %; Platelet Count 235 10^3/cmm (130-400); Red Blood Count 3.37 10^6/uL (4.1-5.3); Red Cell Distribution Width 16.2 % (12.1-15.1)
[2021-09-05 04:10] LABS: Alanine Aminotransferase 17 U/L (0-33); Albumin Level 2.8 g/dL (3.5-5.2); Alkaline Phosphatase 100 IU/L (35-105); Aspartate Amino Transferase 21 U/L (0-32); Blood Urea Nitrogen 46 mg/dL (8-23); Calcium 8.1 mg/dL (8.5-10.5); Carbon Dioxide 25 mmol/L (22-29); Chloride 98 mmol/L (98-107); Globulin 3.6 g/dL (1.3-4.6); Glucose 113 mg/dL (65-115); Osmolality Calculated 293 mOsm/kg (285-295); Phosphorus 3.3 mg/dL (2.5-4.5); Sodium 135 mmol/L (136-145); Total Bilirubin 0.7 mg/dL (0.15-1.2); Total Protein 6.4 g/dL (6.6-8.7)
[2021-09-05 04:39] LABS: Slide Review Slide Review Perform; White Blood Count 41.5 10^3/uL (4.0-10.0)
[2021-09-05] MEDS: acetaminophen 1,000 MG/100 ML PIGGYBACK 400 MG IV (05:26)
[2021-09-05 07:56] LABS: Glucose Point of Care 133 mg/dL (70-110)
[2021-09-05] MEDS: apixaban 5 mg Tablet PO ×2 (09:24→17:06)
[2021-09-05] MEDS: aspirin 81 mg Chew Tablet PO (09:24)
[2021-09-05] MEDS: potassium chloride ER 20 mEq Tablet 40 MEQ PO ×2 (09:24→14:06)
--- NOTE | 2021-09-05 10:00 | PC.NURSE ---
Norepinephrine decreased to 9 mcg/min.
--- NOTE | 2021-09-05 10:33 | P.PN_ITS ---
Subjective Subjective: Patient remains in septic shock. Blood cultures with group B strep. Levophed titrated to 10. She continues to endorse headache and generalized weakness. Medications: Reviewed: Yes Vitals/I&O/Wt Last Vital Signs Temp 97.7 F 09/05/21 04:00 Pulse 79 09/05/21 09:00 Resp 16 09/05/21 04:00 BP 94/58 09/05/21 09:00 Pulse Ox 96 09/05/21 09:00 09/04/21 09/05/21 09/05/21 22:59 06:59 14:59 Intake Total 1853.898 / 3952.782 478.930 / 4431.712 Output Total 600 / 600 950 / 1550 Balance 1253.898 / 3352.782 -471.070 / 2881.712 Weight last 48 hrs Weight 86.999 kg Weight 83.96 kg Weight 83.96 kg Physical Exam Narrative: General: Patient is awake. Appears fatigued. Head:? Normocephalic. Atraumatic. EOM intact. Neck: No JVD. Cardiovascular: RRR. No gallops. No murmurs.? Central line. Lungs: Breath sounds are diminished bilateral bases.?Faint rhonchi in left lower lung zone.? Adequate air movement.? On 2L nasal cannula.? No use of accessory muscles, no crackles or wheezes. Skin: No jaundice. No rashes. Abdomen: Bowel sounds present, abdomen soft and nontender. Genito Urinary: Genital exam not performed since complaints not related. Rectal: Rectal exam not performed since no symptoms indicated blood loss. Extremeties: No cyanosis or clubbing.? Bilateral knees are tender to palpation.? Left knee bruise. Neurological: Moves all 4 extremities. No myoclonus. Urinary Catheter Management: Lynch: Cath Placed During This Visit: yes Reason for Continuing Indwelling Catheter: Accurate Measurement of Urinary Output in Critically Ill Patients Urinary Catheter Date of Insertion: 09/04/21 Urinary Catheter Time of Insertion: 08:17 Data : 09/05/21 03:00 09/05/21 03:00 Micro: Microbiology 09/04/21 13:30 Blood Culture - Preliminary Blood SPECIMEN COLLECTED 09/04/21 13:27 Blood Culture - Preliminary Blood SPECIMEN COLLECTED 09/03/21 19:25 Blood Culture - Preliminary Blood Strep agalactiae - (group b) 09/03/21 19:20 Blood Culture - Preliminary Blood Strep agalactiae - (group b) A&P Assessment and plan (1) Septic shock: -Septic shock secondary to community-acquired pneumonia and Strep agalactiae bacteremia -Worsening leukocytosis noted -Continue Levophed, MAP goal of >65 mmHg -Blood cultures (09/03) + for Strep agalactiae -Repeat BCx (09/04) pending -TTE pending -Continue vancomycin -Continue Zosyn Status: Acute (2) Pneumonia: -Community-acquired pneumonia -Continue vancomycin and Zosyn Status: Acute (3) Altered mental status: -Improving -Unclear mental baseline, will need to confirm Status: Acute (4) Acute kidney injury: -Suspect prerenal in setting of septic shock -Strict I&Os -Daily weights -Avoid nephrotoxins Status: Acute (5) Paroxysmal atrial fibrillation: -Continue therapeutic anticoagulation with apixaban -Continuous telemetry monitoring Status: Chronic (6) Knee pain, bilateral: -Plain films personally reviewed, no acute findings -Analgesics as needed Status: Acute (7) Coagulopathy: -Secondary to apixaban -No s/s of bleeding Status: Acute (8) Hypoxemia: -Chronic hypoxic respiratory failure with reported baseline of 4L -Continue supplemental oxygen support for SPO2 goal of 88-92% Status: Acute (9) Right-sided heart failure: -Daily assessment of volume -Strict I&Os Status: Acute Qualifiers: Heart failure chronicity: chronic Qualified Code(s): I50.812 - Chronic right heart failure (10) Essential hypertension: -Antihypertensives on hold due to shock Status: Chronic (11) Pulmonary hypertension: -Optimize fluid balance Status: Chronic (12) Hyperlipidemia: -Continue aspirin and statin Status: Chronic (13) Myocardial injury: -Telemetry monitoring Status: Acute (14) Diabetes mellitus: -SSI Status: Acute (15) COPD (chronic obstructive pulmonary disease): -No wheezing on exam, not in acute exacerbation Status: Acute (16) Gallbladder disorder: -No abdominal pain Status: Acute (17) Headache: -Analgesics as needed Status: Acute (18) Hypokalemia: -Replete potassium -Check Mg at next lab draw -Telemetry monitoring Status: Acute (19) Obstructive sleep apnea: Status: Chronic Plan DVT ppx: Apixaban Attestations Medical Necessity Statement*: Patient remains critically ill on vasopressor support for septic shock for which she requires continued hospitalization Critical Care Time: The high probability of a clinically significant, sudden or life threatening deterioration of the patient's circulatory, renal, cardiovascular system(s) required my full and direct attention, intervention and personal management. The critical care time is as shown. This time is in addition to time spent performing any reported procedures but includes the following: [x] Data and vital sign review and interpretation [x] Patient assessment, examination and intervention [x] Documentation [x] Medication orders and management Critical Care Time (min): 35 Coding Level of Care Code Acute Emr Implementation Specialist for [facility] Fwd Diagnoses Septic shock A41.9; R65.21 Pneumonia J18.9 Altered mental status R41.82 Acute kidney injury N17.9 Paroxysmal atrial fibrillation I48.0 Knee pain, bilateral M25.561; M25.562 Coagulopathy D68.9 Hypoxemia R09.02 Right-sided heart failure I50.812 Heart failure chronicity: chronic Essential hypertension I10 Pulmonary hypertension I27.20 Hyperlipidemia E78.5 Myocardial injury I5A Diabetes mellitus E11.9 COPD (chronic obstructive pulmonary disease) J44.9 Gallbladder disorder K82.9 Headache R51.9 Obstructive sleep apnea G47.33 Hypokalemia E87.6
[2021-09-05 11:46] LABS: Glucose Point of Care 160 mg/dL (70-110)
[2021-09-05] MEDS: norepinephrine 8 MG in dextrose 5 % 500 ML 30.48 MG IV (14:00)
[2021-09-05] MEDS: insulin lispro 100 unit/1 mL SUBCUT ×2 (14:07→20:18)
[2021-09-05 15:24] LABS: Bacillus cereus group Not Detected (NOT DETECT); Bacillus subtillis group Not Detected (NOT DETECT); Corynebacterium Not Detected (NOT DETECT); Cutibacterium acnes (P.acnes) Not Detected (NOT DETECT); Enterococcus Not Detected (NOT DETECT); Enterococcus faecalis Not Detected (NOT DETECT); Enterococcus faecium Not Detected (NOT DETECT); Lactobacillus species Not Detected (NOT DETECT); Listeria Not Detected (NOT DETECT); Listeria monocytogenes Not Detected (NOT DETECT); Micrococcus Not Detected (NOT DETECT); Pan Candida Not Detected (NOT DETECT); Pan Gram-Negative Not Detected (NOT DETECT); Staphylococcus epidermidis Not Detected (NOT DETECT); Staphylococcus lugdunensis Not Detected (NOT DETECT); Staphylococcus species Detected (NOT DETECT); Streptococcus agalactiae Not Detected (NOT DETECT); Streptococcus anginosus group Not Detected (NOT DETECT); Streptococcus pneumoniae Not Detected (NOT DETECT); Streptococcus pyogenes Not Detected (NOT DETECT); Streptococcus species Not Detected (NOT DETECT); mecA Detected (NOT DETECT); mecC Not Detected (NOT DETECT)
[2021-09-05 17:06] LABS: Glucose Point of Care 130 mg/dL (70-110)
--- NOTE | 2021-09-05 18:51 | P.TS_ITS ---
Transfer Summary Providers Date of Admission: 09/04/21 01:26 Date of Discharge/Transfer: 09/06/21 Attending Provider at Admission: Carlitos Kidd DO Attending Provider at Transfer: Jm Kay MD Primary Care Provider: Meredith Edgar MD Transfer Plans: Anticipated date of transfer: 09/06/21 . Receiving Facility: [facility] . Receiving Provider: Juan Miguel Conteh . Diagnoses at Discharge Discharge Diagnosis (1) Septic shock: Status: Acute (2) Pneumonia: Status: Acute (3) Altered mental status: Status: Acute (4) Acute kidney injury: Status: Acute (5) Paroxysmal atrial fibrillation: Status: Chronic (6) Knee pain, bilateral: Status: Acute (7) Coagulopathy: Status: Acute (8) Hypoxemia: Status: Acute (9) Right-sided heart failure: Status: Acute Qualifiers: Heart failure chronicity: chronic Qualified Code(s): I50.812 - Chronic right heart failure (10) Essential hypertension: Status: Chronic (11) Pulmonary hypertension: Status: Chronic (12) Hyperlipidemia: Status: Chronic (13) Myocardial injury: Status: Acute (14) Diabetes mellitus: Status: Acute (15) COPD (chronic obstructive pulmonary disease): Status: Acute (16) Gallbladder disorder: Status: Acute (17) Headache: Status: Acute (18) Hypokalemia: Status: Acute (19) Obstructive sleep apnea: Status: Chronic Permanent problem details: on CPAP Reason for Visit Reason for Visit POSSIBLE SEPSIS/ FEVER Hospital Course Hospital Course Kory Elder is a 75-year-old female with past medical history significant for chronic diastolic heart failure with preserved ejection fraction, pulmonary hypertension, chronic kidney disease stage III, depression, hypertension, pulmonary embolism, paroxysmal atrial fibrillation, and type 2 diabetes who presented from nursing facility with fever and altered mental status. She was found to have septic shock secondary to community-acquired pneumonia complicated by strep agalactiae bacteremia with infective endocarditis. She was admitted to the ICU requiring vasopressor support with Levophed. She was treated with broad-spectrum antibiotics with vancomycin and Zosyn. Transthoracic echocardiogram revealed a 11 mm vegetation on the noncoronary cusp. Discussed vegetation diagnosis of infective endocarditis with patient. There is no CT surgery support at [facility] for additional 6 days and no infectious disease provider available either. Patient opted to be transferred to [facility]. Patient was discussed with CT surgeon at [facility] as well as nurse practitioner for the sommelier who accepted patient to the medical ICU for further management. In addition to above, patient was found to have altered mental status upon admission secondary to metabolic encephalopathy which improved with treatment. She was also found to have acute kidney injury on chronic kidney disease stage III which improved with IV fluids. She complained of headache with a negative plain head CT. She complained of bilateral knee pain with negative plain films. She was transferred to [facility] intensive care unit. Physical Exam Narrative: General: Patient is awake. Appears fatigued. Head:? Normocephalic. Atraumatic. EOM intact. Neck: No JVD. Cardiovascular: RRR. No gallops. No murmurs.? Central line. Lungs: Breath sounds are diminished bilateral bases.?Faint rhonchi in left lower lung zone.? Adequate air movement.? On 2L nasal cannula.? No use of accessory muscles, no crackles or wheezes. Skin: No jaundice. No rashes. Abdomen: Bowel sounds present, abdomen soft and nontender. Genito Urinary: Genital exam not performed since complaints not related. Rectal: Rectal exam not performed since no symptoms indicated blood loss. Extremeties: No cyanosis or clubbing.? Bilateral knees are tender to palpation.? Left knee bruise. Neurological: Moves all 4 extremities. No myoclonus. Urinary Catheter Management: Lynch: Cath Placed During This Visit: yes Reason for Continuing Indwelling Catheter: Accurate Measurement of Urinary Output in Critically Ill Patients Urinary Catheter Date of Insertion: 09/04/21 Urinary Catheter Time of Insertion: 08:17 TS Data Studies Completed and Pending Pending at discharge Category Date Time Status Blood Culture Stat Lab 09/03/21 19:25 Results Blood Culture Stat Lab 09/04/21 13:27 Results CBC Auto Diff [Complete Blood Count w/Auto] AM LABS Lab 09/06/21 04:00 Ordered Magnesium AM LABS Lab 09/06/21 04:00 Ordered Renal Function Panel AM LABS Lab 09/06/21 04:00 Ordered Vancomycin Trough Timed Lab 09/06/21 19:00 Ordered Labs from last 24 hours 09/05/21 09/05/21 09/05/21 17:03 11:40 07:53 WBC RBC Hgb Hct MCV MCH MCHC RDW Plt Count MPV Neut % (Auto) Lymph % (Auto) [place] % (Auto) Eos % (Auto) Baso % (Auto) Neut # (Auto) Lymph # (Auto) [place] # (Auto) Eos # (Auto) Baso # (Auto) Nucleated RBC % (auto) Nucleated RBCs # Sodium Potassium Chloride Carbon Dioxide Anion Gap BUN Creatinine GFR Calculation Glucose POC Glucose 130 H 160 H 133 H Calculated Osmolality Calcium Phosphorus Total Bilirubin AST ALT Alkaline Phosphatase Total Protein Albumin Globulin 09/05/21 09/05/21 03:00 03:00 WBC 41.5 H* RBC 3.37 L Hgb 9.8 L Hct 30.7 L MCV 91.1 MCH 29.1 MCHC 31.9 RDW 16.2 H Plt Count 235 MPV 11.3 H Neut % (Auto) 85.2 Lymph % (Auto) 2.2 [place] % (Auto) 4.4 Eos % (Auto) 0.2 Baso % (Auto) 0.3 Neut # (Auto) 35.38 H Lymph # (Auto) 0.9 [place] # (Auto) 1.8 H Eos # (Auto) 0.1 Baso # (Auto) 0.1 Nucleated RBC % (auto) 0 Nucleated RBCs # 0.0 Sodium 135 L Potassium 3.0 L Chloride 98 Carbon Dioxide 25 Anion Gap 15.0 BUN 46 H Creatinine 1.2 H GFR Calculation Not Reportable Glucose 113 POC Glucose Calculated Osmolality 293 Calcium 8.1 L Phosphorus 3.3 Total Bilirubin 0.7 AST 21 ALT 17 Alkaline Phosphatase 100 Total Protein 6.4 L Albumin 2.8 L Globulin 3.6 Completed Studies During Hospitalization Category Date Time Status CT abdomen pelvis wo con [id number] Urgent Cat Scan 09/03/21 18:[address] head wo con* [id number] Urgent Cat Scan 09/03/21 18:46 Completed XR chest 1V portable [id number] Urgent Exams 09/03/21 18:46 Completed XR knee LT 1-2V [id number] Routine Exams 09/04/21 02:10 Completed XR knee RT 1-2V [id number] Routine Exams 09/04/21 02:08 Completed US echo complete [CV. echo complete* [id number]] Routine Ultrasound 09/04/21 11:30 Completed US gall bladder [id number] Urgent Ultrasound 09/03/21 22:04 Completed Laboratory Last Values WBC 41.5 10^3/uL (4.0-10.0) H* 09/05/21 03:00 RBC 3.37 10^6/uL (4.1-5.3) L 09/05/21 03:00 Hgb 9.8 g/dL (11.5-15.3) L 09/05/21 03:00 Hct 30.7 % (37.0-47.0) L 09/05/21 03:00 MCV 91.1 fl (81-99) 09/05/21 03:00 MCH 29.1 pg (28.0-34.0) 09/05/21 03:00 MCHC 31.9 g/dL (30.0-36.0) 09/05/21 03:00 RDW 16.2 % (12.1-15.1) H 09/05/21 03:00 Plt Count 235 10^3/cmm (130-400) 09/05/21 03:00 MPV 11.3 fL (7.4-10.4) H 09/05/21 03:00 Neut % (Auto) 85.2 % 09/05/21 03:00 Lymph % (Auto) 2.2 % 09/05/21 03:00 [place] % (Auto) 4.4 % 09/05/21 03:00 Eos % (Auto) 0.2 % 09/05/21 03:00 Baso % (Auto) 0.3 % 09/05/21 03:00 Neut # (Auto) 35.38 10^3/uL (1.8-7.7) H 09/05/21 03:00 Lymph # (Auto) 0.9 10^3/uL (0.8-4.8) 09/05/21 03:00 [place] # (Auto) 1.8 10^3/uL (0.2-0.9) H 09/05/21 03:00 Eos # (Auto) 0.1 10^3/uL (0.0-0.8) 09/05/21 03:00 Baso # (Auto) 0.1 10^3/uL (0.0-0.1) 09/05/21 03:00 Nucleated RBC % (auto) 0 % 09/05/21 03:00 Total Counted 100 (0-100) 09/04/21 01:49 Atypical Lymphs % 0.0 % (0-5) 09/04/21 01:49 Absolute Neutrophils 39.0 10^3/cmm (1.4-6.5) H 09/04/21 01:49 Segmented Neutrophils 86 % 09/04/21 01:49 Abs Segm Neuts (Man) 34.2 10/cmm (1.6-7.1) H 09/04/21 01:49 Band Neutrophils 12.0 % 09/04/21 01:49 Abs Band Neuts (Man) 4.8 10^3/cmm (0.0-1.2) H 09/04/21 01:49 Absolute Lymphocytes 0.4 10^3/cmm (1.2-3.4) L 09/04/21 01:49 Lymphocytes (Manual) 1 % 09/04/21 01:49 Monocytes (Manual) 1.0 % 09/04/21 01:49 Absolute Monocytes 0.4 10^3/cmm (0.1-0.6) 09/04/21 01:49 Eosinophils (Manual) 0 % 09/04/21 01:49 Absolute Eosinophils 0.0 10^3/cmm (0.0-0.7) 09/04/21 01:49 Basophils (Manual) 0.0 % 09/04/21 01:49 Absolute Basophils 0.0 10^3/cmm (0.0-0.2) 09/04/21 01:49 Nucleated RBCs # 0.0 /100WBC 09/05/21 03:00 Platelet Estimate Normal (Normal) 09/04/21 01:49 Poikilocytosis Trace 09/04/21 01:49 Anisocytosis Trace 09/04/21 01:49 PT 23.50 SECONDS (12.1-14.9) H 09/03/21 22:24 INR 2.06 (0.8-1.2) H 09/03/21 22:24 Specimen Type Arterial 09/03/21 19:03 Sample Site Radial, left 09/03/21 19:03 ABG pH 7.46 (7.35-7.45) H 09/03/21 19:03 ABG pCO2 38.2 mmHg (35-45) 09/03/21 19:03 ABG pO2 68.0 mmHg (80.0-100.0) L 09/03/21 19:03 ABG HCO3 27.0 mmol/L (22-26) H 09/03/21 19:03 ABG Base Excess 3.0 mmol/L (-2.0-2.0) H 09/03/21 19:03 Gerry Test Pos 09/03/21 19:03 Hematocrit 35.4 % (37-47) L 09/03/21 19:03 O2 Delivery Device Nc 09/03/21 19:03 O2 Liters/Min 2.0 % 09/03/21 19:03 [employer] ID Buttr 09/03/21 19:03 Sodium 135 mmol/L (136-145) L 09/05/21 03:00 Potassium 3.0 mmol/L (3.5-5.1) L 09/05/21 03:00 Chloride 98 mmol/L (98-107) 09/05/21 03:00 Carbon Dioxide 25 mmol/L (22-29) 09/05/21 03:00 Anion Gap 15.0 (5-19) 09/05/21 03:00 BUN 46 mg/dL (8-23) H 09/05/21 03:00 Creatinine 1.2 mg/dL (0.5-0.9) H 09/05/21 03:00 GFR Calculation Not Reportable 09/05/21 03:00 Glucose 113 mg/dL (65-115) 09/05/21 03:00 POC Glucose 130 mg/dL (70-110) H 09/05/21 17:03 Calculated Osmolality 293 mOsm/kg (285-295) 09/05/21 03:00 Lactate 2.6 mmol/L (0.5-2.2) H 09/04/21 04:09 Calcium 8.1 mg/dL (8.5-10.5) L 09/05/21 03:00 Phosphorus 3.3 mg/dL (2.5-4.5) 09/05/21 03:00 Magnesium 2.0 mg/dL (1.7-2.3) 09/03/21 19:10 Total Bilirubin 0.7 mg/dL (0.15-1.2) 09/05/21 03:00 AST 21 U/L (0-32) 09/05/21 03:00 ALT 17 U/L (0-33) 09/05/21 03:00 Alkaline Phosphatase 100 IU/L (35-105) 09/05/21 03:00 Ammonia 12 umol/L (11-51) 09/03/21 22:34 Troponin T Baseline 224 ng/L (0-10) H* 09/03/21 19:10 Troponin T 120 Minute 245.3 ng/L (0-10) H 09/03/21 21:25 Delta Troponin T 21.3 ABS# (0-10) H* 09/03/21 21:25 Troponin T Hi Sens 6Hr 223.4 ng/L (0-10) H 09/04/21 01:49 Troponin T Hi Sens 6Hr Delta -0.6 ng/L (0-12) L 09/04/21 01:49 C-Reactive Protein 62.7 mg/L (0.0-4.9) H 09/04/21 01:49 NT-Pro-B Natriuret Pep 5515 pg/mL (0-450) H 09/03/21 19:10 Total Protein 6.4 g/dL (6.6-8.7) L 09/05/21 03:00 Albumin 2.8 g/dL (3.5-5.2) L 09/05/21 03:00 Globulin 3.6 g/dL (1.3-4.6) 09/05/21 03:00 Triglycerides 137 mg/dL (0-150) 09/04/21 01:49 Cholesterol 135 mg/dL (0-200) 09/04/21 01:49 LDL Cholesterol, Calc 61 mg/dL (50-129) 09/04/21 01:49 HDL Cholesterol 47 mg/dL (60-100) L 09/04/21 01:49 LDL/HDL Ratio 1.30 RATIO (0.00-3.22) 09/04/21 01:49 Cholesterol/HDL Ratio 2.87 mg/dL (0.0-4.40) 09/04/21 01:49 Lipase 12 U/L (13-60) L 09/03/21 19:10 Procalcitonin 47.72 ng/mL (0-0.5) H 09/04/21 01:49 TSH 1.81 uIU/mL (0.27-4.20) 09/03/21 19:10 Free T4 1.37 ng/dL (0.82-1.77) 09/03/21 19:10 PTH Intact 68.0 pg/mL (15-65) H 09/03/21 19:10 Calcium (PTH Intact) 8.7 mg/dL (8.5-10.5) 09/03/21 19:10 Urine Color Yellow (Yellow) 09/03/21 07:52 Urine Appearance Sl hazy (CLEAR) 09/03/21 07:52 Urine pH 5 (5-7) 09/03/21 07:52 Ur Specific [place] 1.005 (1.005-1.030) 09/03/21 07:52 Urine Protein Neg (Negative) 09/03/21 07:52 Urine Glucose (UA) Norm (Normal) 09/03/21 07:52 Urine Ketones Negative (Negative) 09/03/21 07:52 Urine Blood 3+ (Negative) H 09/03/21 07:52 Urine Nitrate Negative (Negative) 09/03/21 07:52 Urine Bilirubin Neg (Negative) 09/03/21 07:52 Urine Urobilinogen Norm mg/dL (Negative) 09/03/21 07:52 Ur Leukocyte Esterase 2+ (Negative) H 09/03/21 07:52 Urine RBC 0-4 /hpf (0-2) H 09/03/21 07:52 Urine WBC 55-80 /hpf (0-5) H 09/03/21 07:52 Ur Squamous Epith Cells 10-15 /hpf (0-5) H 09/03/21 07:52 Amorphous Sediment Not Reportable 09/03/21 07:52 Urine Bacteria 1+ /hpf (NONE) H 09/03/21 07:52 Urine Opiates Screen Positive ng/mL (Negative) H 09/03/21 07:52 Ur Barbiturates Screen Negative ng/mL (Negative) 09/03/21 07:52 Ur Phencyclidine Scrn Negative ng/mL (Negative) 09/03/21 07:52 Ur Amphetamines Screen Negative ng/mL (Negative) 09/03/21 07:52 U Benzodiazepines Scrn Negative ng/mL (Negative) 09/03/21 07:52 Urine Cocaine Screen Negative ng/mL (Negative) 09/03/21 07:52 U Marijuana (THC) Screen Negative ng/mL (Negative) 09/03/21 07:52 Coronavirus 229E (PCR) Not detected (NOT DETECT) 09/03/21 19:30 Influenza Type A Ag Negative (Negative) 09/03/21 19:30 Influenza Type B Ag Negative (Negative) 09/03/21 19:30 SARS-CoV-2 (PCR) Not detected (NOT DETECT) 09/03/21 19:30 Radiology Impressions Chest X-Ray 09/03/21 18:46 IMPRESSION: 1. Interval development of patchy left lower lobe airspace disease suspicious for pneumonia. Recommend followup chest imaging to insure resolution of these findings. 2. Incidental/nonacute findings are listed in the report. ADDENDUM: 09/03/212058 Urgent results were discussed with AYE Cope on 09/03/2021 at 8:[address] 09/03/21 18:46 IMPRESSION: 1. No acute abnormality of the brain. 2. Mild atrophy of the brain parenchyma. 3. Incidental/nonacute findings are listed in the report. Abdomen/Pelvis CT 09/03/21 18:54 IMPRESSION: 1. Mild anasarca. 2. Distended gallbladder without calcified stones. This can be further evaluated with right upper quadrant ultrasound. COMMENTS: Consistent with the [employer]'s Incidental Findings Committee white paper (J Am Sharon Radiol 2018): Any incidental renal lesion less than 1 cm or classified as too small to characterize, or any incidental cystic renal lesion characterized as simple-appearing, is likely benign. No follow-up imaging is recommended for these lesions per consensus recommendations based on imaging criteria. Gallbladder Ultrasound 09/03/21 22:04 IMPRESSION: Distended gallbladder with intraluminal sludge and borderline gallbladder wall thickening with pericholecystic fluid. Sonographic findings are equivocal for acute cholecystitis in the appropriate clinical setting. HIDA scan could provide a more sensitive evaluation for acute cholecystitis. Knee X-Ray 09/04/21 02:10 IMPRESSION: 1. No acute fracture or dislocation. 2. Advanced degenerative changes and osteopenia. Old fracture deformity of the upper tibia. Recent Clincial Data Last Vital Signs Temp 97.7 F 09/05/21 04:00 Pulse 90 09/05/21 18:00 Resp 16 09/05/21 04:00 BP 105/69 09/05/21 18:00 Pulse Ox 96 09/05/21 18:00 Vital Signs Pulse BP Pulse Ox 09/05/21 18:00 90 105/69 96 09/05/21 17:30 74 79/58 96 09/05/21 17:00 77 107/58 92 09/05/21 16:30 72 80/54 95 09/05/21 16:00 65 96/59 88 L 09/05/21 15:30 64 94/74 97 09/05/21 15:00 73 97/65 09/05/21 14:30 71 93/49 95 09/05/21 14:00 80 89/52 97 09/05/21 13:30 74 89/53 96 09/05/21 13:00 83 101/60 73 L 09/05/21 12:30 90 108/63 85 L 09/05/21 12:00 74 96/62 77 L 09/05/21 11:30 80 105/60 94 09/05/21 11:00 79 105/49 91 09/05/21 10:30 82 103/60 95 09/05/21 10:00 74 93/49 97 09/05/21 09:30 79 104/50 09/05/21 09:00 79 94/58 96 09/05/21 08:30 78 99/62 76 L 09/05/21 08:00 76 108/58 79 L 09/05/21 07:30 76 109/51 96 09/05/21 07:00 79 96/56 96 Intake & Output/Weight 09/03/21 09/04/21 09/05/21 09/06/21 06:59 06:59 06:59 06:59 Intake Total 1222.288 / 5559.883 5344.712 / 4431.712 640.012 / 640.012 Output Total 1550 / 1550 700 / 700 Balance 1222.288 / 2430.945 5547.712 / 2881.712 -59.988 / -59.988 Weight 83.96 kg 86.999 kg Vitals Last Vital Signs Temp 97.7 F 09/05/21 04:00 Pulse 90 09/05/21 18:00 Resp 16 09/05/21 04:00 BP 105/69 09/05/21 18:00 Pulse Ox 96 09/05/21 18:00 TS Medications Medications Apixaban (Apixaban 5 Mg Tablet) 5 mg PO BID NEEMA Last Admin: 09/05/21 17:06 Dose: 5 mg Documented by: Aspirin (Aspirin 81 Mg Chew Tablet) 81 mg PO DAILY [facility] Last Admin: 09/05/21 09:24 Dose: 81 mg Documented by: Atorvastatin Calcium (Atorvastatin 40 Mg Tablet) 40 mg PO BEDTIME NEEMA Last Admin: 09/04/21 20:53 Dose: 40 mg Documented by: Dextrose (Dextrose 50% Syringe 50 Ml) 25 ml IVP ONCE PRN; Protocol PRN Reason: hypoglycemia protocol Dextrose (Dextrose 50% Syringe 50 Ml) 50 ml IVP PRN PRN; Protocol PRN Reason: hypoglycemia protocol Glucagon (Glucagon 1 Mg/Ml Inj 1 Ml) 1 mg IM ONCE PRN; Protocol PRN Reason: Adult Acute Hypoglycemia Prot. Norepinephrine Bitartrate 4 mg (/ Dextrose) 254 mls @ 0 mls/hr IV .Q0M [facility]; Protocol Last Titration: 09/05/21 17:09 Dose: Infused Documented by: Dextrose (D5w) 500 mls @ 100 mls/hr IV ONCE PRN; Protocol PRN Reason: Adult Acute Hypoglycemia Prot Piperacillin Sod/Tazobactam (Sod 3.375 gm/ Sodium Chloride) 50 mls @ 12.5 mls/hr IV Q8H [facility]; Protocol Last Admin: 09/05/21 17:06 Dose: 12.5 mls/hr Documented by: Vancomycin/PEG/[place]/Lysine/Water (Vancocin) 1,250 mg in 250 mls @ 250 mls/hr IV Q24H [facility] Last Infusion: 09/04/21 22:29 Dose: Infused Documented by: Norepinephrine Bitartrate 8 mg (/ Dextrose) 508 mls @ 0 mls/hr IV .Q0M NEEMA; Protocol Last Titration: 09/05/21 17:09 Dose: 7 mcg/min, 26.67 mls/hr Documented by: Vasopressin 100 unit/ Sodium (Chloride) 100 mls @ 0 mls/hr IV .Q0M PRN; Protocol PRN Reason: HYPOTENSION Insulin Human Lispro (Insulin Lispro 100 Unit/1 Ml) 0 unit SUBCUT WM&BEDTIME [facility]; Protocol Last Admin: 09/05/21 18:37 Dose: Not Given Documented by: Morphine Sulfate (Morphine 4 Mg/Ml Sdv 1 Ml) 1 mg IVP Q4H PRN PRN Reason: MODERATE TO SEVERE PAIN Last Admin: 09/04/21 04:51 Dose: 1 mg Documented by: Ondansetron HCl (Ondansetron 2 Mg/Ml Sdv 2 Ml) 4 mg IVP Q6H PRN PRN Reason: NAUSEA AND VOMITING Discontinued Medications Acetaminophen (Acetaminophen 650 Mg Supp) 650 mg [place] ONCE ONE Stop: 09/03/21 18:48 Last Admin: 09/03/21 19:44 Dose: Not Given Documented by: Aspirin (Aspirin 300 Mg Supp) 300 mg [place] ONCE ONE Stop: 09/03/21 20:00 Last Admin: 09/03/21 20:27 Dose: 300 mg Documented by: Enoxaparin Sodium (Enoxaparin 80 Mg/0.8 Ml Syringe) 70 mg SUBCUT ONCE ONE Stop: 09/03/21 20:00 Last Admin: 09/03/21 20:27 Dose: 70 mg Documented by: Sodium Chloride (Sodium Chloride 0.9%) 1,000 mls @ 999 mls/hr IV .Q1H1M ONE Stop: 09/03/21 19:47 Last Admin: 09/03/21 20:15 Dose: Not Given Documented by: Sodium Chloride (Sodium Chloride 0.9%) 1,000 mls @ 999 mls/hr IV .Q1H1M ONE Stop: 09/03/21 19:47 Last Admin: 09/03/21 20:15 Dose: Not Given Documented by: Vancomycin HCl 1,000 mg/ (Sodium Chloride) 250 mls @ 250 mls/hr IV ONCE ONE; Protocol Stop: 09/03/21 19:46 Last Infusion: 09/03/21 21:00 Dose: Infused Documented by: Cefepime HCl 1,000 mg/ Sodium (Chloride) 50 mls @ 100 mls/hr IV ONCE ONE; Protocol Stop: 09/03/21 19:16 Last Infusion: 09/03/21 19:53 Dose: Infused Documented by: Sodium Chloride (Sodium Chloride 0.9%) 500 mls @ 999 mls/hr IV .Q31M ONE Stop: 09/03/21 19:25 Last Infusion: 09/03/21 20:01 Dose: Infused Documented by: Acetaminophen (Acetaminophen) 1,000 mg in 100 mls @ 400 mls/hr IV ONCE ONE Stop: 09/03/21 19:43 Last Infusion: 09/03/21 19:45 Dose: Infused Documented by: Sodium Chloride (Sodium Chloride 0.9%) 1,000 mls @ 75 mls/hr IV .[id number] [facility] Last Infusion: 09/04/21 21:30 Dose: Infused Documented by: Sodium Chloride (Sodium Chloride 0.9%) 1,000 mls @ 999 mls/hr IV .Q1H1M ONE Stop: 09/04/21 08:43 Last Infusion: 09/04/21 10:30 Dose: Infused Documented by: Acetaminophen (Acetaminophen) 1,000 mg in 100 mls @ 400 mls/hr IV Q8H [facility] Stop: 09/05/21 05:59 Last Infusion: 09/05/21 05:51 Dose: Infused Documented by: Potassium Chloride (Potassium Chloride Er 20 Meq Tablet) 20 meq PO ONCE ONE Stop: 09/04/21 07:43 Last Admin: 09/04/21 08:22 Dose: 20 meq Documented by: Potassium Chloride (Potassium Chloride Er 20 Meq Tablet) 40 meq PO Q6H [facility] Stop: 09/05/21 15:01 Last Admin: 09/05/21 14:06 Dose: 40 meq Documented by: Allergies meperidine [From Demerol] Allergy (Intermediate, Verified 09/03/21 19:57) unknown oxybutynin Allergy (Mild, Verified 09/03/21 19:57) Unknown pentazocine Allergy (Mild, Verified 09/03/21 19:57) Unknown Home Medications bisacodyl 10 mg rectal suppository (Dulcolax (bisacodyl)) 10 mg [place] DAILY PRN 01/31/20 [History Confirmed 09/03/21] fluticasone propionate 50 mcg/actuation nasal spray,suspension (Flonase Allergy Relief) 1 spray INTRANASAL BID 01/31/20 [History Confirmed 09/03/21] sodium chloride 0.65 % nasal spray aerosol (Saline Nasal) 1 spray INTRANASAL QID PRN 01/31/20 [History Confirmed 09/03/21] albuterol sulfate 90 mcg/actuation aerosol inhaler 1 puff INHALATION Q4H 03/02/20 [History Confirmed 09/03/21] budesonide-formoterol HFA 160 mcg-4.5 mcg/actuation aerosol inhaler (Symbicort) 2 puff INHALATION BID 03/02/20 [History Confirmed 09/03/21] guaifenesin 600 mg tablet, extended release 12 hr (Mucinex) 600 mg PO BID 03/02/20 [History Confirmed 09/03/21] pantoprazole 40 mg tablet,delayed release 40 mg PO DAILY 03/02/20 [History Confirmed 09/03/21] acetaminophen 325 mg tablet 650 mg PO Q4H PRN 02/08/21 [History Confirmed 09/03/21] citalopram 10 mg tablet 10 mg PO DAILY 02/08/21 [History Confirmed 09/03/21] furosemide 80 mg tablet (Lasix) 80 mg PO BID 02/08/21 [History Confirmed 09/03/21] polyethylene glycol 3350 17 gram/dose oral powder (Miralax) 17 g PO BID 02/08/21 [History Confirmed 09/03/21] sennosides 8.6 mg tablet (senna) 17.2 mg PO BEDTIME 02/08/21 [History Confirmed 09/03/21] tramadol 50 mg tablet 50 mg PO Q6H 02/08/21 [History Confirmed 09/03/21] apixaban 5 mg tablet (Eliquis) 5 mg PO BID 09/03/21 [History Confirmed 09/03/21] bumetanide 1 mg tablet 3 mg PO BID 09/03/21 [History Confirmed 09/03/21] cetirizine 10 mg tablet 10 mg PO DAILY 09/03/21 [History Confirmed 09/03/21] oxycodone 5 mg tablet 5 mg PO Q4H PRN 09/03/21 [History Confirmed 09/03/21] polyvinyl alcohol 1.4 % eye drops 1 drp OPHTHALMIC (EYE) DAILY 09/03/21 [History Confirmed 09/03/21] Discharge Plan Discharge Patient Disposition: Xfer Other Condition: Stable Prescriptions: No Action pantoprazole 40 mg Tablet,Delayed Release (Dr/Ec) 40 mg PO DAILY 0RF albuterol sulfate 90 mcg/actuation Hfa Aerosol Inhaler 1 puff INHALATION Q4H 0RF Rx Instructions: while awake budesonide-formoterol [Symbicort] 160-4.5 mcg/actuation Hfa Aerosol Inhaler 2 puff INHALATION BID 0RF guaifenesin [Mucinex] 600 mg Tablet Extended Release 12hr 600 mg PO BID 0RF sennosides [senna] 8.6 mg Tablet 17.2 mg PO BEDTIME 0RF acetaminophen 325 mg Tablet 650 mg PO Q4H PRN (Reason: mild pain or fever) 0RF citalopram 10 mg Tablet 10 mg PO DAILY 0RF tramadol 50 mg Tablet 50 mg PO Q6H 0RF furosemide [Lasix] 80 mg Tablet 80 mg PO BID 0RF polyethylene glycol 3350 [Miralax] 17 gram/dose Powder 17 g PO BID 0RF bisacodyl [Dulcolax (bisacodyl)] 10 mg Suppository 10 mg [place] DAILY PRN (Reason: constipation) 0RF fluticasone propionate [Flonase Allergy Relief] 50 mcg/actuation [place],Suspension 1 spray INTRANASAL BID 0RF Saline Nasal 0.65 % Aerosol,[place] 1 spray INTRANASAL QID PRN (Reason: Allergy Symptoms) 0RF cetirizine 10 mg Tablet 10 mg PO DAILY 0RF Natural Tears 1.4 % Drops 1 drp OPHTHALMIC (EYE) DAILY 0RF bumetanide 1 mg Tablet 3 mg PO BID 0RF oxycodone 5 mg Tablet 5 mg PO Q4H PRN (Reason: Pain) 0RF Eliquis 5 mg Tablet 5 mg PO BID 0RF Discharge Orders: Transfer Out of Facility (Order); Ordered 09/05/21 Ordered By: Jm Kay Referrals: Meredith Edgar MD [Primary Care Provider] - Discharge Diet: Cardiac and Diabetic Discharge Activity: Increase activity as tolerated Patient Instructions: Opioid Safety Transfer Attestations Time Spent in Transfer Care: greater than 30 min Quality Metrics Clinical Quality Measures [ No reported AMI, CVA or VTE this stay] Coding Level of Care Code Acute Shared Services Representative for [facility] Fwd Diagnoses Septic shock A41.9; R65.21 Pneumonia J18.9 Altered mental status R41.82 Acute kidney injury N17.9 Paroxysmal atrial fibrillation I48.0 Knee pain, bilateral M25.561; M25.562 Coagulopathy D68.9 Hypoxemia R09.02 Right-sided heart failure I50.812 Heart failure chronicity: chronic Essential hypertension I10 Pulmonary hypertension I27.20 Hyperlipidemia E78.5 Myocardial injury I5A Diabetes mellitus E11.9 COPD (chronic obstructive pulmonary disease) J44.9 Gallbladder disorder K82.9 Headache R51.9 Hypokalemia E87.6 Obstructive sleep apnea G47.33
[2021-09-05 20:13] LABS: Glucose Point of Care 148 mg/dL (70-110)
[2021-09-05] MEDS: atorvastatin 40 mg Tablet PO (20:19)
[2021-09-05] MEDS: vancomycin 1,250 MG/250 ML PIGGYBACK 250 MG IV (20:19)
--- NOTE | 2021-09-05 23:49 | PC.NURSE ---
EMS at bedside gave report to EMS crew. Explained that Levophed drip was running at 7mcg/min and to keep map greater than 65. No complaints of pain or nausea at this time. She is resting quietly. Accepting of transfer. Son notified of transfer and room number and phone number to new unit where patient is going.
[2021-09-06] VITALS: BP 104/65; PULSE 79; RESP 16; TEMP 36.6; O2SAT 95
== END 2021-09-06 00:01 | disposition short-term general hospital (02) | DRG 871 ==
LOC: ER 22:21 → ICU 22:40
PROVIDERS: Admitting Provider Internal Medicine; Emergency Provider Emergency Medicine; PCP Family Medicine; Visit Provider Internal Medicine
DX: A41.9 Sepsis, unspecified organism (principal); J18.9 Pneumonia, unspecified organism; R65.21 Severe sepsis with septic shock; I26.99 Other pulmonary embolism without acute cor pulmonale; G93.41 Metabolic encephalopathy; I33.0 Acute and subacute infective endocarditis; N17.9 Acute kidney failure, unspecified; I50.32 Chronic diastolic (congestive) heart failure; I13.0 Hypertensive heart and chronic kidney disease with heart failure and stage 1 through stage 4 chronic kidney disease, or unspecified chronic kidney disease; D68.9 Coagulation defect, unspecified; J96.11 Chronic respiratory failure with hypoxia; I5A Non-ischemic myocardial injury (non-traumatic); I48.0 Paroxysmal atrial fibrillation; M25.561 Pain in right knee; M25.562 Pain in left knee; E78.5 Hyperlipidemia, unspecified; E11.9 Type 2 diabetes mellitus without complications; J44.9 Chronic obstructive pulmonary disease, unspecified; I27.20 Pulmonary hypertension, unspecified; N18.30 Chronic kidney disease, stage 3 unspecified; F32.A Depression, unspecified; B95.1 Streptococcus, group B, as the cause of diseases classified elsewhere; Z66 Do not resuscitate; I95.9 Hypotension, unspecified; Z95.0 Presence of cardiac pacemaker; G47.33 Obstructive sleep apnea (adult) (pediatric); I08.1 Rheumatic disorders of both mitral and tricuspid valves; Z99.81 Dependence on supplemental oxygen; I50.812 Chronic right heart failure; K82.9 Disease of gallbladder, unspecified; E87.6 Hypokalemia
CPT/HCPCS: 36416; 36556; 36592; 36600; 51702; 70450; 71045; 73560; 74176; 76705; 80053; 80061; 80306; 81001; 82140; 82310; 82803; 82962; 83605; 83690; 83735; 83880; 83970; 84100; 84145; 84439; 84443; 84484; 85007; 85025; 85610; 86140; 87040; 87077; 87150; 87186; 87205; 87635; 87641; 87804; 93005; 93306; 96365; 96366; 96367; 96372; 99291; J0692; J1650; J1815; J2270; J2543; J3370; J7030; J7040; J7050

== ENCOUNTER 2022-01-20 22:30 | Observation (INO) | payer MEDICARE, MEDICAID, SELFPAY ==
--- NOTE | 2022-01-20 22:34 | ED_ITS ---
HPI - Weakness General: Chief complaint: Dental/Oral Stated complaint: Hypotension/weakness Time Seen by Provider: 01/20/22 22:34 History of Present Illness: Ms. Elder is a 76-year-old lady with complex past medical history including use of Eliquis presenting to the Emergency Department due to low blood pressure. On 01/14 she underwent several mandibular teeth extraction and reports essentially oozing blood since that time. Today she felt weak and staff at her alf found her to be hypotensive. Intensity of generalized weakness is moderate. Denies fever or other infectious symptoms. No other specific changes in health, exacerbating, or alleviating factors identified. Onset (ago): day(s) Duration: constant Severity: mild Relieving factors: none Exacerbating factors: none Context: recent surgery Review of Systems General: Reports: 10 or more systems reviewed and unremarkable except in HPI and below PFSH ED PFSH: Medical History Anemia Body mass index (BMI) greater than 50 Chronic diastolic (congestive) heart failure Chronic kidney disease, stage 3, mod decreased GFR COVID-19 vaccine administered Depression Essential hypertension History of COVID-19 History of ESBL E. coli infection History of pulmonary embolism (~2017) saddle embolism Hyperlipidemia Hypersomnia Lymphedema Obstructive sleep apnea on CPAP Paroxysmal atrial fibrillation Postmenopausal bleeding (~01/2020) requiring D&C Pulmonary hypertension Right-sided heart failure Type 2 diabetes mellitus reported diagnosis in SNF and hospital records but not on treatment, normal blood sugars Surgical History H/O oral surgery History of D&C (02/02/20) for postmenopausal bleeding Pacemaker Family History Other Family history unknown Social History Housing: Halfway Marital status: / Additional social history: - Tobacco use: Denies Alcohol use: Denies Drug use: Denies Physical Exam Const: COMMON NORMALS: alert GENERAL APPEARANCE: cooperative, well de veloped and ill appearing HENMT: COMMON NORMALS: normocephalic and atraumatic HEAD & SCALP: normocephalic and atraumatic THROAT: posterior oropharynx normal OTHER: Generalized venous oozing extract at bedside, no single-vessel identified at source of bleeding. No arterial bleeding identified. Eye: COMMON NORMALS: conjunctivae normal CONJUNCTIVA: Yes conjunctivae normal SCLERA: sclerae normal Neck/C-Spine: COMMON NORMALS: supple GENERAL: Yes trachea midline Resp: COMMON NORMALS: clear to auscultation bilaterally EFFORT & INSPECTION: Yes able to speak in complete sentences AUSCULTATION: clear to auscultation bilaterally Cardio: COMMON NORMALS: regular rate and regular rhythm RATE: regular rate RHYTHM: regular rhythm GI: COMMON NORMALS: Soft to palpation PALPATION: Yes Soft to palpation and No Tenderness to palpation present (GI) Extremity: GENERAL: Yes normal exam except as noted and No edema Neuro: COMMON NORMALS: moves all extremities SENSORIUM/ORIENTATION: Yes alert and No Orientation impaired Psych: COMMON NORMALS: mental status grossly normal and Normal thought process present THOUGHT PROCESS: Normal thought process present Course ED course: - Patient was seen and evaluated by me at bedside - Patient placed on cardiac monitors, IV access obtained - Initial evaluation notable for exam as above. Somewhat ill appearance and continuing to receive IV fluids secondary to hypotension. - Labs and xrays personally interpreted by me -IV fluids given - Labs notable for normocytic anemia worse than baseline, metabolic panel similar to baseline. INR elevated. Initial troponin elevated though delta troponin at 2 hours is negative. - Imaging notable for no lobar consolidation, bibasilar likely atelectasis, no pneumothorax. -Attempted gauze soaked in TXA applied topically without complete resolution of bleeding though there is some improvement - Upon serial reexamination after treatment the patient was improved - Based on patient history, evaluation, and testing as interpreted the most likely cause of the patient's condition is acute blood loss anemia secondary to dental procedure - The results of ED evaluation were discussed with the patient including plan for admission due to requirement for level of care not available if discharged to prevent significant worsening/deterioration. - Admitting service was contacted and Dr Sharma with the hospitalist service agreed to admit the patient - Patient was admitted without further deterioration or significant events. Note: Click bubbles or prepopulated neves in note writing are used for assistance with data collection and billing and are inherently more limited than narrative and other text portions of this note. Please use narrative for additional clinical history and defer to narrative/free test for any case of contradictory information. If information appears in only free text or click bubble it should be considered present or absent as reported. Please contact note fiction and nonfiction prose writer for clarifications of clinical information or contradictory information. MDM is a brief summary, contradictory or erroneous seeming information should be clarified and full note should be reviewed. Vital Signs: Vital signs: Vital Signs Temperature 98.1 F 01/22/22 11:24 Pulse Rate 83 01/22/22 11:24 Respiratory Rate 16 01/22/22 11:24 Blood Pressure 105/60 01/22/22 11:24 Pulse Oximetry 98 01/22/22 11:24 Oxygen Delivery Me thod 01/22/22 11:24 Oxygen Flow Rate 3 01/22/22 11:24 MDM - Weakness Medical Decision Making 76-year-old lady presenting with hypotension and generalized weakness in the context of continued bleeding after dental procedure and use of Eliquis. Consented for blood transfusion and admitted for further management. Medical Records I reviewed the patient's medical records. Lab Data I reviewed the patient's lab results. : 01/22/22 08:56 01/22/22 04:05 Radiology Impressions Chest X-Ray 01/20/22 22:39 IMPRESSION: 1. Cardiomegaly. 2. Bibasilar atelectasis versus minimal infiltrate. Laboratory Results WBC 7.1 10^3/uL (4.0-10.0) 01/20/22 22:40 RBC 2.05 10^6/uL (4.1-5.3) L 01/20/22 22:40 Hgb 5.5 g/dL (11.5-15.3) L* 01/20/22 22:40 Hct 18.0 % (37.0-47.0) L* 01/20/22 22:40 MCV 87.8 fl (81-99) 01/20/22 22:40 MCH 26.8 pg (28.0-34.0) L 01/20/22 22:40 MCHC 30.6 g/dL (30.0-36.0) 01/20/22 22:40 RDW 16.7 % (12.1-15.1) H 01/20/22 22:40 Plt Count 191 10^3/cmm (130-400) 01/20/22 22:40 MPV 11.6 fL (7.4-10.4) H 01/20/22 22:40 Neut % (Auto) 49.7 % 01/20/22 22:40 Lymph % (Auto) 30.3 % 01/20/22 22:40 [place] % (Auto) 13.4 % 01/20/22 22:40 Eos % (Auto) 5.5 % 01/20/22 22:40 Baso % (Auto) 0.7 % 01/20/22 22:40 Neut # (Auto) 3.55 10^3/uL (1.8-7.7) 01/20/22 22:40 Lymph # (Auto) 2.2 10^3/uL (0.8-4.8) 01/20/22 22:40 [place] # (Auto) 1.0 10^3/uL (0.2-0.9) H 01/20/22 22:40 Eos # (Auto) 0.4 10^3/uL (0.0-0.8) 01/20/22 22:40 Baso # (Auto) 0.1 10^3/uL (0.0-0.1) 01/20/22 22:40 Nucleated RBC % (auto) 0 % 01/20/22 22:40 Nucleated RBCs # 0.0 /100WBC 01/20/22 22:40 PT 21.60 SECONDS (12.1-14.9) H 01/20/22 22:40 INR 1.85 (0.8-1.2) H 01/20/22 22:40 APTT 32.9 SECONDS (23.9-36.7) 01/20/22 22:40 Sodium 138 mmol/L (136-145) 01/20/22 22:40 Potassium 4.3 mmol/L (3.5-5.1) 01/20/22 22:40 Chloride 96 mmol/L (98-107) L 01/20/22 22:40 Carbon Dioxide 29 mmol/L (22-29) 01/20/22 22:40 Anion Gap 17.3 (5-19) 01/20/22 22:40 BUN 56 mg/dL (8-23) H 01/20/22 22:40 Creatinine 1.4 mg/dL (0.5-0.9) H 01/20/22 22:40 GFR Calculation Not Reportable 01/20/22 22:40 Glucose 176 mg/dL (65-115) H 01/20/22 22:40 Calculated Osmolality 306 mOsm/kg (285-295) H 01/20/22 22:40 Calcium 8.2 mg/dL (8.5-10.5) L 01/20/22 22:40 Total Bilirubin 0.7 mg/dL (0.15-1.2) 01/20/22 22:40 AST 15 U/L (0-32) 01/20/22 22:40 ALT 7 U/L (0-33) 01/20/22 22:40 Alkaline Phosphatase 105 U/L (35-105) 01/20/22 22:40 Troponin T Baseline 187 ng/L (0-10) H* 01/20/22 22:40 Troponin T 120 Minute 159.0 ng/L (0-10) H 01/21/22 00:55 Delta Troponin T -28.0 ABS# (0-10) L 01/21/22 00:55 Total Protein 5.6 g/dL (6.6-8.7) L 01/20/22 22:40 Albumin 3.0 g/dL (3.5-5.2) L 01/20/22 22:40 Globulin 2.6 g/dL (1.3-4.6) 01/20/22 22:40 Blood Type A Positive 01/20/22:47 Rho(D) Type Positive 01/20/22:47 Antibody Screen Negative 01/20/22 22:47 Crossmatch See Detail 01/20/22 22:47 Critical Care Time Critical Care Time: Critical Care Time: Yes Total Critical Care Time: 35 Attestation: Due to a high probability of clinically significant, possibly life threatening deterioration, the patient required my highest level of attention and preparedn ess to intervene emergently and I personally spent this critical care time directly and personally managing the patient. This critical care time included obtaining a history; examining the patient; pulse oximetry; ordering and review of laboratory and imaging studies; arranging urgent treatment with development of a management plan; evaluation of patient's response to treatment; frequent reassessment; and, discussions with other providers as applicable. It was exclusive of separately billable procedures. Discharge Plan Discharge Patient Disposition: Placed in Observation Admit Provider: Ezequiel Sharma Clinical Impression: Surgical wound hemorrhage after dental procedure, Acute hypotension, Acute blo od loss anemia (ABLA) Discharge Diet: GI Soft Coding Level of Care Code ED Quarrying Manager for Em Richardson
[2022-01-20 22:37] VITALS: BP 92/45; PULSE 81; RESP 12; TEMP 36.6; O2SAT 100; BMI 38.2
--- NOTE | 2022-01-20 22:39 | XRR_ITS ---
PROCEDURE INFORMATION: Exam: XR Chest Exam date and time: 01/20/2022 10:47 PM Age: 76 years old Clinical indication: Shortness of breath; Additional info: SOB TECHNIQUE: Imaging protocol: Radiologic exam of the chest. Views: 1 view. COMPARISON: CR (CHEST, ) 09/03/2021 7:50 PM FINDINGS: Lungs: Bibasilar atelectasis versus minimal infiltrate. Pleural spaces: Unremarkable. No pleural effusion. No pneumothorax. Heart/Mediastinum: Cardiomegaly. Bones/joints: Unremarkable. XR/XR chest 1V portable [id number] IMPRESSION: 1. Cardiomegaly. 2. Bibasilar atelectasis versus minimal infiltrate.
[2022-01-20 22:41] VITALS: BP 92/45; PULSE 75; RESP 17; O2SAT 100
[2022-01-20 22:50] LABS: Basophils # 0.1 10^3/uL (0.0-0.1); Basophils % 0.7 %; Eosinophils # 0.4 10^3/uL (0.0-0.8); Eosinophils % 5.5 %; Lymphocytes # 2.2 10^3/uL (0.8-4.8); Lymphocytes % 30.3 %; Mean Corpuscular HGB Conc 30.6 g/dL (30.0-36.0); Mean Corpuscular Hemoglobin 26.8 pg (28.0-34.0); Mean Corpuscular Volume 87.8 fl (81-99); Mean Platelet Volume 11.6 fL (7.4-10.4); Monocytes % 13.4 %; Neutrophils # 3.55 10^3/uL (1.8-7.7); Neutrophils % 49.7 %; Nucleated Red Blood Cells % 0 %; Platelet Count 191 10^3/cmm (130-400); Red Blood Count 2.05 10^6/uL (4.1-5.3); Red Cell Distribution Width 16.7 % (12.1-15.1); White Blood Count 7.1 10^3/uL (4.0-10.0)
--- NOTE | 2022-01-20 22:57 | ECG_ITS ---
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 Measurements Intervals [place] Rate: 68 P: [place]: QRS: 95 QRSD: 119 T: -22 QT: 435 QTc: 465 Interpretive Statements ATRIAL FIBRILLATION INDETERMINATE AXIS INCOMPLETE RIGHT BUNDLE BRANCH BLOCK [90+ ms QRS DURATION, TERMINAL R IN V1/V2, 40+ ms S IN I/aVL/V4/V5/V6] Compared to ECG 09/04/2021 02:00:57 Incomplete right bundle-branch block now present Ventricular premature complex(es) no longer present Aberrant conduction of supraventricular beat(s) no longer present Right bundle-branch block no longer present Electronically Signed On 01-22-2022 8:29:40 CDT by Seth Man M.D. [id number]
[2022-01-20] MEDS: sodium chloride 0.9% 1,000 ML 999 ML IV (23:00)
[2022-01-20 23:03] VITALS: BP 94/54; PULSE 77; RESP 16; O2SAT 100
[2022-01-20 23:03] LABS: INR 1.85 (0.8-1.2); Partial Thromboplastin Time 32.9 SECONDS (23.9-36.7)
[2022-01-20 23:08] LABS: Hemoglobin 5.5 g/dL (11.5-15.3)
[2022-01-20 23:10] LABS: Alanine Aminotransferase 7 U/L (0-33); Alkaline Phosphatase 105 U/L (35-105); Aspartate Amino Transferase 15 U/L (0-32); Blood Urea Nitrogen 56 mg/dL (8-23); Calcium 8.2 mg/dL (8.5-10.5); Carbon Dioxide 29 mmol/L (22-29); Chloride 96 mmol/L (98-107); Globulin 2.6 g/dL (1.3-4.6); Glucose 176 mg/dL (65-115); Osmolality Calculated 306 mOsm/kg (285-295); Sodium 138 mmol/L (136-145); Total Bilirubin 0.7 mg/dL (0.15-1.2); Total Protein 5.6 g/dL (6.6-8.7)
[2022-01-20 23:31] LABS: Anion Gap 17.3 (5-19); Potassium 4.3 mmol/L (3.5-5.1)
[2022-01-20 23:59] LABS: Troponin(5th) Baseline 187 ng/L (0-10)
[2022-01-21] VITALS (24 sets, daily range): BP systolic 85–109; BP diastolic 44–74; PULSE 70–87; RESP 11–20; TEMP 35.8–37.1; O2SAT 93–100
[2022-01-21] MEDS: tranexamic acid 1,000 mg/10mL SDV 1000 MG IRRIGATION (00:07)
[2022-01-21] MEDS: sodium chloride 0.9% 100 mL Bag 50 ML IV ×2 (00:15→11:00)
--- NOTE | 2022-01-21 00:40 | ECG_ITS ---
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 Measurements Intervals [place] Rate: 79 P: [place]: QRS: 75 QRSD: 112 T: -19 QT: 407 QTc: 467 Interpretive Statements ATRIAL FIBRILLATION INDETERMINATE AXIS INCOMPLETE RIGHT BUNDLE BRANCH BLOCK [90+ ms QRS DURATION, TERMINAL R IN V1/V2, 40+ ms S IN I/aVL/V4/V5/V6] Compared to ECG 01/20/2022 22:57:59 No significant changes Electronically Signed On 01-22-2022 8:19:11 CDT by Seth Man M.D. [id number]
--- NOTE | 2022-01-21 01:35 | P.HP_ITS ---
Providers/Chief Complaint Primary Care Provider: Meredith Edgar MD Chief Complaint: Hypotension/weakness History of Present Illness Kory Elder is a 76 year old female with past medical history of diastolic heart failure, PE, paroxysmal atrial fibrillation on Eliquis, infective endocarditis,DM, sleep apnea morbid obesity [facility] resident,Was brought in with chief complaint of oral cavity bleeding which started after her teeth extraction, she had teeth extraction done on this , bleeding started on Thursday. Eliquis was kept on hold 2 days prior to teeth extraction, it was later resumed.She likely took last dose of Eliquis yesterday, as per the patient it was completely stopped today at the [facility]. She currently denies any hematuria,BRBPR, melena, hemoptysis. Upon arrival in the ER see received Tranexamic acid. Her H&H: In the ER was 5.5/18. Patient is due to receive 2 units PRBC. Her other labs and vitals have been reviewed. Review of Systems General: Reports: 10 or more systems reviewed and unremarkable except in HPI and below Const: Denies: fever(s), chills, body aches, change in appetite or diaphoresis Card: Denies: palpitations, edema, swelling of feet/ankles, dyspnea on exertion, orthopnea or leg pain with exertion Resp: Denies: dyspnea, productive cough, wheezing or pain on inspiration GI: Denies: abdominal pain, nausea, vomiting, diarrhea or constipation : Denies: flank pain Musc: Denies: back pain, extremity pain or extremity swelling Neuro: Denies: headache(s) or confusion Medications/Allergies Home Medications Medication Instructions Recorded Confirmed Last Taken Type bisacodyl 10 mg rectal suppository 10 mg FL DAILY PRN constipation 01/31/20 09/03/21 Unknown History (Dulcolax (bisacodyl)) fluticasone propionate 50 1 spray intranasal BID 01/31/20 09/03/21 09/03/21 History mcg/actuation nasal spray,suspension (Flonase Allergy Relief) sodium chloride 0.65 % nasal spray 1 spray intranasal QID PRN Allergy 01/31/20 09/03/21 Unknown History aerosol (Saline Nasal) Symptoms albuterol sulfate 90 mcg/actuation 1 puff inhalation Q4H 03/02/20 09/03/21 09/03/21 History aerosol inhaler budesonide-formoterol HFA 160 2 puff inhalation BID 03/02/20 09/03/21 09/03/21 History mcg-4.5 mcg/actuation aerosol inhaler (Symbicort) guaifenesin 600 mg tablet, 600 mg PO BID 03/02/20 09/03/21 09/03/21 History extended release 12 hr (Mucinex) pantoprazole 40 mg tablet,delayed 40 mg PO DAILY 03/02/20 09/03/21 09/03/21 History release acetaminophen 325 mg tablet 650 mg PO Q4H PRN mild pain or 02/08/21 09/03/21 02/05/21 History fever citalopram 10 mg tablet 10 mg PO DAILY 02/08/21 09/03/21 09/03/21 History furosemide 80 mg tablet (Lasix) 80 mg PO BID 02/08/21 09/03/21 02/07/21 History polyethylene glycol 3350 17 17 g PO BID 02/08/21 09/03/21 09/03/21 History gram/dose oral powder (Miralax) sennosides 8.6 mg tablet (senna) 17.2 mg PO BEDTIME 02/08/21 09/03/21 09/03/21 History tramadol 50 mg tablet 50 mg PO Q6H 02/08/21 09/03/21 09/03/21 History apixaban 5 mg tablet (Eliquis) 5 mg PO BID 09/03/21 09/03/21 09/03/21 History bumetanide 1 mg tablet 3 mg PO BID 09/03/21 09/03/21 09/03/21 History cetirizine 10 mg tablet 10 mg PO DAILY 09/03/21 09/03/21 09/03/21 History oxycodone 5 mg tablet 5 mg PO Q4H PRN Pain 09/03/21 09/03/21 Unknown History polyvinyl alcohol 1.4 % eye drops 1 drp ophthalmic (eye) DAILY 09/03/21 09/03/21 09/03/21 History Allergies Allergy/AdvReac Type Severity Reaction Status Date / Time meperidine [From Demerol] Allergy Intermediate unknown Verified 01/20/22 22:41 oxybutynin Allergy Mild Unknown Verified 01/20/22 22:41 pentazocine Allergy Mild Unknown Verified 01/20/22 22:41 PFSH Acute PFSH: Medical History Anemia Body mass index (BMI) greater than 50 Chronic diastolic (congestive) heart failure Chronic kidney disease, stage 3, mod decreased GFR COVID-19 vaccine administered Depression Essential hypertension History of COVID-19 History of ESBL E. coli infection History of pulmonary embolism (~2017) saddle embolism Hyperlipidemia Hypersomnia Lymphedema Obstructive sleep apnea on CPAP Paroxysmal atrial fibrillation Postmenopausal bleeding (~01/2020) requiring D&C Pulmonary hypertension Right-sided heart failure Type 2 diabetes mellitus reported diagnosis in SNF and hospital records but not on treatment, normal blood sugars Surgical History H/O oral surgery History of D&C (02/02/20) for postmenopausal bleeding Pacemaker Family History Other Family history unknown Social History Housing: Snf Marital status: / Additional social history: - Tobacco use: Denies Alcohol use: Denies Drug use: Denies Vitals/I&O/Wt Last Vital Signs Temp 98.8 F 01/21/22 00:45 Pulse 86 01/21/22 01:00 Resp 13 01/21/22 01:00 BP 86/47 01/21/22 01:00 Pulse Ox 96 01/21/22 01:00 O2 Del Method 01/21/22 01:00 O2 Flow Rate 3 01/21/22 01:00 01/20/22 01/20/22 01/21/22 14:59 22:59 06:59 Intake Total 1000 / 1000 Balance 1000 / 1000 Weight last 48 hrs Weight 104.326 kg Physical Exam Const: COMMON NORMALS: patient oriented x3 HENMT: COMMON NORMALS: normocephalic, atraumatic, hearing grossly normal bilaterally and external ears normal HEAD & SCALP: normocephalic and atraumatic EXTERNAL EAR: Yes external ears normal Resp: COMMON NORMALS: normal respiratory effort, No retractions, No use of accessory muscles and clear to auscultation bilaterally EFFORT & INSPECTION: Yes symmetric chest movement AUSCULTATION: clear to auscultation bilaterally Cardio: COMMON NORMALS: regular rate, regular rhythm, S1 normal heart sound present, S2 normal heart sound present, No gallops present (Cardio), No murmurs present (Cardio), No rub (Cardio) and Peripheral pulses 2+ throughout RATE: regular rate RHYTHM: regular rhythm HEART SOUNDS: S1 normal heart sound present and S2 normal heart sound present PERIPHERAL PULSES: Peripheral pulses 2+ throughout GI: COMMON NORMALS: Normal to inspection, nondistended, normoactive bowel sounds present, Soft to palpation, non-tender, No hepatosplenomegaly present and no masses AUSCULTATION: Yes normoactive bowel sounds PALPATION: Yes Soft to palpation and Yes No hepatosplenomegaly present RECTAL EXAM: deferred Extremity: COMMON NORMALS: no clubbing, cyanosis or edema and no pedal edema Neuro: COMMON NORMALS: patient oriented x3 Data : 01/20/22 22:40 01/20/22 22:40 A&P Assessment and plan (1) Paroxysmal atrial fibrillation: (2) Pulmonary hypertension: (3) Essential hypertension: (4) COPD (chronic obstructive pulmonary disease): (5) Surgical wound hemorrhage after dental procedure: (6) Anemia: Plan 76 year old female with past medical history of diastolic heart failure, PE, paroxysmal atrial fibrillation on Eliquis, infective endocarditis, sleep apnea morbid obesity [facility] resident,Was brought in with chief complaint of oral cavity bleeding which started after her teeth extraction. Assessment: Acute blood loss anemia HFpEF History of pulmonary embolism History of paroxysmal atrial fibrillation History of sleep apnea COPD Diabetes Plan: Currently n.p.o. Monitor H&H every 6 hours Continue to hold Eliquis Tranexamic acid can be repeated Monica CODE STATUS: AND Attestations Medical Necessity Statement*: Patient in hospital for management of anemia. Need for blood transfusion. Anticipated length of stay greater than 2 midnights Coding Level of Care Code Acute Marketing Analytics Analyst for [facility] Fwd Exam Detailed Diagnoses Paroxysmal atrial fibrillation I48.0 Pulmonary hypertension I27.20 Essential hypertension I10 COPD (chronic obstructive pulmonary disease) J44.9 Surgical wound hemorrhage after dental procedure K91.840; Z98.818 Anemia D64.9
--- NOTE | 2022-01-21 04:44 | ECG_ITS ---
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 Measurements Intervals [place] Rate: 75 P: [place]: QRS: 85 QRSD: 116 T: -74 QT: 429 QTc: 480 Interpretive Statements ATRIAL FIBRILLATION INCOMPLETE RIGHT BUNDLE BRANCH BLOCK [90+ ms QRS DURATION, TERMINAL R IN V1/V2, 40+ ms S IN I/aVL/V4/V5/V6] Compared to ECG 01/21/2022 01:07:17 Indeterminate axis no longer present Electronically Signed On 01-22-2022 8:19:29 CDT by Seth Man M.D. [id number]
[2022-01-21 07:28] LABS: Basophils # 0.1 10^3/uL (0.0-0.1); Eosinophils # 0.2 10^3/uL (0.0-0.8); Eosinophils % 2.8 %; Hematocrit 23.2 % (37.0-47.0); Lymphocytes # 1.6 10^3/uL (0.8-4.8); Lymphocytes % 25.8 %; Mean Corpuscular Hemoglobin 27.4 pg (28.0-34.0); Mean Corpuscular Volume 88.2 fl (81-99); Mean Platelet Volume 10.9 fL (7.4-10.4); Monocytes # 0.6 10^3/uL (0.2-0.9); Monocytes % 9.7 %; Neutrophils # 3.64 10^3/uL (1.8-7.7); Neutrophils % 59.9 %; Nucleated Red Blood Cells % 0 %; Platelet Count 147 10^3/cmm (130-400); Red Blood Count 2.63 10^6/uL (4.1-5.3); Red Cell Distribution Width 15.3 % (12.1-15.1); White Blood Count 6.1 10^3/uL (4.0-10.0)
[2022-01-21 07:39] LABS: Hemoglobin 7.2 g/dL (11.5-15.3)
[2022-01-21 07:49] LABS: Anion Gap 15.3 (5-19); Blood Urea Nitrogen 54 mg/dL (8-23); Carbon Dioxide 27 mmol/L (22-29); Chloride 101 mmol/L (98-107); Glucose 142 mg/dL (65-115); Osmolality Calculated 305 mOsm/kg (285-295); Potassium 4.3 mmol/L (3.5-5.1); Sodium 139 mmol/L (136-145)
[2022-01-21 08:16] LABS: Troponin 5 6HR 165.3 ng/L (0-10); Troponin 5 6HR Delta -21.7 ng/L (0-12)
--- NOTE | 2022-01-21 09:29 | PM.PN ---
Subjective Subjective: Bleeding has stopped I would allow her to eat now Blood pressure is still soft patient is awake and alert Hemoglobin 7.2 Vitals/I&O/Wt Last Vital Signs Temp 97.6 F 01/21/22 08:00 Pulse 81 01/21/22 08:00 Resp 15 01/21/22 08:00 BP 95/58 01/21/22 08:00 Pulse Ox 99 01/21/22 08:00 O2 Del Method 01/21/22 08:00 O2 Flow Rate 3 01/21/22 05:05 01/20/22 01/21/22 01/21/22 22:59 06:59 14:59 Intake Total 1700 / 1700 Balance 1700 / 1700 Weight last 48 hrs Weight 104.326 kg Physical Exam Narrative: Patient is awake and alert Laying supine No active bleeding from her frontal lower central teeth Awake and alert Currently on 2 L nasal cannula Abdomen soft Bedbound Data : 01/21/22 07:16 01/21/22 07:16 A&P Assessment and plan (1) Anemia: (2) Surgical wound hemorrhage after dental procedure: Plan Eliquis related bleeding from her teeth after extraction, I would not recommend continuation of Eliquis for at least 1 week We will give her another unit of PRBC Blood pressure is slightly softer side Does not look fluid overloaded Currently on 2 L of nasal cannula DNR/DNI DVT prophylaxis SCDs Attestations Medical Necessity Statement*: Continue medical management Time Spent in Patient Care: 30 Coding Level of Care Code Acute Meter Reading Clerk for [facility] Fwd Diagnoses Anemia D64.9 Surgical wound hemorrhage after dental procedure K91.840; Z98.818
[2022-01-21] MEDS: pantoprazole 40 mg SDV IVP (09:58)
[2022-01-21 16:04] LABS: Hematocrit 25.4 % (37.0-47.0); Hemoglobin 7.9 g/dL (11.5-15.3)
[2022-01-21 19:15] LABS: Hematocrit 23.1 % (37.0-47.0); Hemoglobin 7.7 g/dL (11.5-15.3)
[2022-01-22] VITALS (7 sets, daily range): BP systolic 104–111; BP diastolic 60–72; PULSE 69–83; RESP 16–17; TEMP 36.7–36.8; O2SAT 94–98
[2022-01-22 05:07] LABS: Basophils # 0.1 10^3/uL (0.0-0.1); Basophils % 0.6 %; Eosinophils # 0.7 10^3/uL (0.0-0.8); Eosinophils % 8.2 %; Hemoglobin 7.2 g/dL (11.5-15.3); Lymphocytes # 1.5 10^3/uL (0.8-4.8); Lymphocytes % 17.8 %; Mean Corpuscular HGB Conc 31.3 g/dL (30.0-36.0); Mean Corpuscular Hemoglobin 27.9 pg (28.0-34.0); Mean Corpuscular Volume 89.1 fl (81-99); Mean Platelet Volume 11.3 fL (7.4-10.4); Monocytes # 0.7 10^3/uL (0.2-0.9); Monocytes % 8.3 %; Neutrophils # 5.42 10^3/uL (1.8-7.7); Neutrophils % 64.6 %; Nucleated Red Blood Cells % 0 %; Platelet Count 150 10^3/cmm (130-400); Red Blood Count 2.58 10^6/uL (4.1-5.3); Red Cell Distribution Width 16.1 % (12.1-15.1); White Blood Count 8.4 10^3/uL (4.0-10.0)
[2022-01-22 05:35] LABS: Anion Gap 16.9 (5-19); Blood Urea Nitrogen 51 mg/dL (8-23); Calcium 8.1 mg/dL (8.5-10.5); Carbon Dioxide 24 mmol/L (22-29); Chloride 99 mmol/L (98-107); Glucose 127 mg/dL (65-115); Osmolality Calculated 297 mOsm/kg (285-295); Potassium 3.9 mmol/L (3.5-5.1); Sodium 136 mmol/L (136-145)
[2022-01-22] MEDS: pantoprazole 40 mg SDV IVP (08:52)
--- NOTE | 2022-01-22 09:00 | PC.CHAP ---
Pastoral Care Encounter/Spiritual Assessment Type of Contact [] Declined pin ticket machine operator visit [] Patient/Family/Request visit [] Outpatient visit [] Follow-up visit [] Physician referral [] Code/Alert [x] Routine visit [] Staff referral [] Actively dying [x] Patient sleeping [] Family support [] [] Out of room [] Palliative care [] [] Receiving care in room [] Pre-surgical visit [] Trauma [] Long length of stay [] ICU visit [] Other: Relational/Emotional Strength [] Patient feels connected with others/family/visitors/staff [] Distress [] Loneliness/isolation [] Abandonment Spirituality of Patient [] Person of Niki [] Attends Confucianism of their Niki [] Believes in Prayer [] Reads Bible or Nondenominational materials [] There are Spiritual issues to be addressed Privacy Analyst Interventions [] Prayer [] Active listening [] Non-anxious presence [] Spiritual/emotional support [] Crisis/trauma care [] Spiritual counseling [] Bereavement support [] Provided bereavement packet [] Provided Bible/devotional materials [] Provided toy/stuffed animal, coloring book to patient or family member [] Provided Communion [] Anointing/[place] [] Salvation [] Completed spiritual assessment [] Other: Impact on Illness or Injury [] Angry [] Fearful [] Anxious [] Often cries [] Exhaustion [] Unable to work [] Unable to attend zoroastrianism [] Unable to walk/stand [] Unable to read [] Unable to drive [] Unable to eat/drink [] Unable to sleep [] Unable to be with family [] Patient intubated [] Other: Summary Time spent with patient
[2022-01-22 09:52] LABS: Hematocrit 24.9 % (37.0-47.0)
--- NOTE | 2022-01-22 09:58 | P.DS_ITS ---
Discharge Providers Date of Admission: 01/21/22 01:26 Date of Discharge: January 22, 2022 Attending Provider at Admission: Ezequiel Sharma MD Attending Provider at Discharge: Larissa Edmondson MD Primary Care Provider: Meredith Edgar MD Diagnoses at Discharge Discharge Diagnosis (1) Anemia: Status: Acute (2) Surgical wound hemorrhage after dental procedure: Status: Acute Reason for Visit Reason for Visit: Hypotension/weakness Hospital Course Hospital Course 76-year female who was sent to the hospital for active bleeding after tooth extraction, patient started taking Eliquis 24hrs after her tooth extraction and started noticing profuse bleeding, she required 2 units PRBC which improved her hemoglobin to 8.0. She remained hemodynamically stable her bleeding has stopped. Plan is to [facility] her back to her [facility] with instructions to hold Eliquis for at least 1 more week. She is able to tolerate mechanical soft diet. Please see H&P for further detail. Creatinine is at baseline she does have chronic kidney disease. Physical Exam Narrative: Gum bleeding has stopped No active bleeding EOMI, PERRLA No new focal deficit Patient is bedbound Abdomen soft Alert in her diet Currently on 3 L nasal cannula Afebrile Pleasant and cooperative during my evaluation Discharge Data Studies Completed and Pending Completed Studies During Hospitalization Category Date Time Status XR chest 1V portable [id number] Stat Exams 01/20/22 22:39 Completed Pending at discharge Category Date Time Status Basic Metabolic Panel AM LABS Lab 01/23/22 04:00 Ordered Basic Metabolic Panel AM LABS Lab 01/24/22 04:00 Ordered Complete Blood Count w/Auto AM LABS Lab 01/23/22 04:00 Ordered Complete Blood Count w/Auto AM LABS Lab 01/24/22 04:00 Ordered Radiology Impressions Chest X-Ray 01/20/22 22:39 IMPRESSION: 1. Cardiomegaly. 2. Bibasilar atelectasis versus minimal infiltrate. Laboratory Results WBC 8.4 10^3/uL (4.0-10.0) 01/22/22 04:05 RBC 2.58 10^6/uL (4.1-5.3) L 01/22/22 04:05 Hgb 8.0 g/dL (11.5-15.3) L 01/22/22 08:56 Hct 24.9 % (37.0-47.0) L 01/22/22 08:56 MCV 89.1 fl (81-99) 01/22/22 04:05 MCH 27.9 pg (28.0-34.0) L 01/22/22 04:05 MCHC 31.3 g/dL (30.0-36.0) 01/22/22 04:05 RDW 16.1 % (12.1-15.1) H 01/22/22 04:05 Plt Count 150 10^3/cmm (130-400) 01/22/22 04:05 MPV 11.3 fL (7.4-10.4) H 01/22/22 04:05 Neut % (Auto) 64.6 % 01/22/22 04:05 Lymph % (Auto) 17.8 % 01/22/22 04:05 [place] % (Auto) 8.3 % 01/22/22 04:05 Eos % (Auto) 8.2 % 01/22/22 04:05 Baso % (Auto) 0.6 % 01/22/22 04:05 Neut # (Auto) 5.42 10^3/uL (1.8-7.7) 01/22/22 04:05 Lymph # (Auto) 1.5 10^3/uL (0.8-4.8) 01/22/22 04:05 [place] # (Auto) 0.7 10^3/uL (0.2-0.9) 01/22/22 04:05 Eos # (Auto) 0.7 10^3/uL (0.0-0.8) 01/22/22 04:05 Baso # (Auto) 0.1 10^3/uL (0.0-0.1) 01/22/22 04:05 Nucleated RBC % (auto) 0 % 01/22/22 04:05 Nucleated RBCs # 0.0 /100WBC 01/22/22 04:05 PT 21.60 SECONDS (12.1-14.9) H 01/20/22 22:40 INR 1.85 (0.8-1.2) H 01/20/22 22:40 APTT 32.9 SECONDS (23.9-36.7) 01/20/22 22:40 Sodium 136 mmol/L (136-145) 01/22/22 04:05 Potassium 3.9 mmol/L (3.5-5.1) 01/22/22 04:05 Chloride 99 mmol/L (98-107) 01/22/22 04:05 Carbon Dioxide 24 mmol/L (22-29) 01/22/22 04:05 Anion Gap 16.9 (5-19) 01/22/22 04:05 BUN 51 mg/dL (8-23) H 01/22/22 04:05 Creatinine 1.2 mg/dL (0.5-0.9) H 01/22/22 04:05 GFR Calculation Not Reportable 01/22/22 04:05 Glucose 127 mg/dL (65-115) H 01/22/22 04:05 Calculated Osmolality 297 mOsm/kg (285-295) H 01/22/22 04:05 Calcium 8.1 mg/dL (8.5-10.5) L 01/22/22 04:05 Total Bilirubin 0.7 mg/dL (0.15-1.2) 01/20/22 22:40 AST 15 U/L (0-32) 01/20/22 22:40 ALT 7 U/L (0-33) 01/20/22 22:40 Alkaline Phosphatase 105 U/L (35-105) 01/20/22 22:40 Troponin T Baseline 187 ng/L (0-10) H* 01/20/22 22:40 Troponin T 120 Minute 159.0 ng/L (0-10) H 01/21/22 00:55 Delta Troponin T -28.0 ABS# (0-10) L 01/21/22 00:55 Troponin T Hi Sens 6Hr 165.3 ng/L (0-10) H 01/21/22 07:16 Troponin T Hi Sens 6Hr Delta -21.7 ng/L (0-12) L 01/21/22 07:16 Total Protein 5.6 g/dL (6.6-8.7) L 01/20/22 22:40 Albumin 3.0 g/dL (3.5-5.2) L 01/20/22 22:40 Globulin 2.6 g/dL (1.3-4.6) 01/20/22 22:40 Blood Type A Positive 01/20/22 22:47 Rho(D) Type Positive 01/20/22 22:47 Antibody Screen Negative 01/20/22 22:47 Crossmatch See Detail 01/20/22 22:47 Vitals Last Vital Signs Temp 98.0 F 01/22/22 07:50 Pulse 79 01/22/22 09:21 Resp 16 01/22/22 09:21 BP 109/66 01/22/22 07:50 Pulse Ox 97 01/22/22 09:21 O2 Del Method 01/22/22 09:21 O2 Flow Rate 3 01/22/22 09:21 Discharge Plan Discharge Patient Disposition: Xfer SNF Condition: Stable Prescriptions: Continued pantoprazole 40 mg Tablet,Delayed Release (Dr/Ec) 40 mg PO DAILY albuterol sulfate 90 mcg/actuation Hfa Aerosol Inhaler 1 puff INHALATION Q4H Rx Instructions: while awake budesonide-formoterol [Symbicort] 160-4.5 mcg/actuation Hfa Aerosol Inhaler 2 puff INHALATION BID acetaminophen 325 mg Tablet 650 mg PO Q4H PRN (Reason: mild pain or fever) citalopram 10 mg Tablet 10 mg PO DAILY tramadol 50 mg Tablet 50 mg PO Q6H PRN (Reason: Pain) polyethylene glycol 3350 [Miralax] 17 gram/dose Powder 17 g PO DAILY bisacodyl [Dulcolax (bisacodyl)] 10 mg Suppository 10 mg [place] DAILY PRN (Reason: constipation) fluticasone propionate [Flonase Allergy Relief] 50 mcg/actuation [place],Suspension 1 spray INTRANASAL BID PRN (Reason: allergic rhinitis) atorvastatin 40 mg Tablet 40 mg PO DAILY hydrocodone-acetaminophen 5-325 mg Tablet 1 tab PO Q4H PRN (Reason: Pain) Zofran 4 mg Tablet 4 mg PO Q4H PRN (Reason: Nausea) Keflex 500 mg Capsule 500 mg PO Q8H Enema 19-7 gram/118 mL Enema 118 ml [place] DAILY PRN (Reason: Constipation) Culturelle 10 billion cell Capsule 1 cap PO DAILY Coricidin 2-325 mg Tablet 1 tab PO BID PRN (Reason: Allergic Rhinitis) Changed bumetanide 1 mg Tablet 1 mg PO BID Qty: 10 0RF Held Eliquis 5 mg Tablet 5 mg PO BID Hold Instructions: Resume on 01/31/22. Discharge Orders: Discharge Order (Routine); Ordered 01/22/22 Ordered By: Larissa Edmondson Referrals: Meredith Edgar MD [Primary Care Provider] - Discharge Diet: GI Soft Patient Instructions: Opioid Safety Discharge Attestations Time Spent in Discharge Care*: less than 30 min Quality Metrics Clinical Quality Measures [ No reported AMI, CVA or VTE this stay] Coding Level of Care Code Acute Chg FW DC note Diagnoses Anemia D64.9 Surgical wound hemorrhage after dental procedure K91.840; Z98.818
[2022-01-22 11:19] LABS: SARS Covid-2 Antigen negative (Negative)
--- NOTE | 2022-01-22 11:59 | PC.NURSE ---
Discharge: Report called to Ang[facility] at [facility].
== END 2022-01-22 14:42 | disposition skilled nursing facility (03) | DRG 920 ==
LOC: ER 01-21 01:42 → MEDSURG 01-21 01:47
PROVIDERS: Admitting Provider Internal Medicine; Emergency Provider Emergency Medicine; PCP Family Medicine; Visit Provider Internal Medicine
DX: K91.840 Postprocedural hemorrhage of a digestive system organ or structure following a digestive system procedure (principal); D62 Acute posthemorrhagic anemia; I13.0 Hypertensive heart and chronic kidney disease with heart failure and stage 1 through stage 4 chronic kidney disease, or unspecified chronic kidney disease; I50.32 Chronic diastolic (congestive) heart failure; N18.30 Chronic kidney disease, stage 3 unspecified; E11.22 Type 2 diabetes mellitus with diabetic chronic kidney disease; Z86.711 Personal history of pulmonary embolism; I48.0 Paroxysmal atrial fibrillation; G47.33 Obstructive sleep apnea (adult) (pediatric); Z99.89 Dependence on other enabling machines and devices; E66.01 Morbid (severe) obesity due to excess calories; Z68.38 Body mass index [BMI] 38.0-38.9, adult; F32.A Depression, unspecified; E78.5 Hyperlipidemia, unspecified; I27.20 Pulmonary hypertension, unspecified; Z66 Do not resuscitate; Z74.01 Bed confinement status; J44.9 Chronic obstructive pulmonary disease, unspecified; Z79.891 Long term (current) use of opiate analgesic; Z79.51 Long term (current) use of inhaled steroids
CPT/HCPCS: 36415; 36430; 71045; 80048; 80053; 84484; 85014; 85018; 85025; 85610; 85730; 86850; 86900; 86920; 87426; 93005; 99285; C9113; G0378; J7030; P9016

== ENCOUNTER → 2022-01-31 08:48 | Day surgery (SDC) | payer MEDICARE, MEDICAID, SELFPAY ==
[2022-01-31] VITALS (9 sets, daily range): BP systolic 104–142; BP diastolic 60–79; PULSE 70–92; RESP 18; TEMP 36.1–36.4; O2SAT 94–100
[2022-01-31 09:38] LABS: Hematocrit 25.7 % (37.0-47.0); Hemoglobin 7.5 g/dL (11.5-15.3)
[2022-01-31] MEDS: sodium chloride 0.9% (100 ml) 100 ML 10 ML ×2 (10:55→12:52)
--- NOTE | 2022-01-31 14:32 | PC.NURSE ---
Pt to GI lab for blood transfusion. Hg 7.5 today. Two units PRBC's infused without difficulty. No reaction noted. Tolerated well. Back to [facility] via transportation,
== END ==
PROVIDERS: PCP Family Medicine; Visit Provider Internal Medicine
DX: D64.9 Anemia, unspecified (principal)
CPT/HCPCS: 36415; 36430; 85014; 85018; 86850; 86900; 86920; P9016

== ENCOUNTER 2022-02-06 09:27 | Outpatient (CLI) | payer MEDICARE, MEDICAID, SELFPAY ==
[2022-02-06 09:35] LABS: Basophils # 0.1 10^3/uL (0.0-0.1); Basophils % 1.6 %; Eosinophils # 0.4 10^3/uL (0.0-0.8); Eosinophils % 8.3 %; Hematocrit 29.8 % (37.0-47.0); Hemoglobin 9.2 g/dL (11.5-15.3); Lymphocytes # 0.7 10^3/uL (0.8-4.8); Lymphocytes % 14.7 %; Mean Corpuscular HGB Conc 30.9 g/dL (30.0-36.0); Mean Corpuscular Hemoglobin 27.3 pg (28.0-34.0); Mean Corpuscular Volume 88.4 fl (81-99); Mean Platelet Volume 10.7 fL (7.4-10.4); Monocytes # 0.5 10^3/uL (0.2-0.9); Monocytes % 9.7 %; Neutrophils % 65.3 %; Nucleated Red Blood Cells % 0 %; Platelet Count 221 10^3/cmm (130-400); Red Blood Count 3.37 10^6/uL (4.1-5.3); Red Cell Distribution Width 16.7 % (12.1-15.1); White Blood Count 5.1 10^3/uL (4.0-10.0)
== END 2022-02-06 09:28 | disposition home or self-care (01) ==
PROVIDERS: PCP Family Medicine; Visit Provider Nurse Practitioner Family
DX: D64.9 Anemia, unspecified (principal)
CPT/HCPCS: 85025

== ENCOUNTER 2022-03-24 09:50 | Emergency (ER) | payer MEDICARE, MEDICAID, SELFPAY ==
[2022-03-24] VITALS (65 sets, daily range): BP systolic 82–149; BP diastolic 47–113; PULSE 70–87; RESP 11–24; TEMP 36.6; O2SAT 81–100; BMI 45.2
--- NOTE | 2022-03-24 10:02 | ECG_ITS ---
[facility] Test Date: 2022-03-24 Pat Name: Kory Elder Department: Room: Gender: Female Form Maker: : [id number] Requested By: Baljeet Carvajal Order Number: [id number] Lorraine MD: Bahman Lagos M.D. Measurements Intervals [place] Rate: 79 P: 0 HI: 0 QRS: 122 QRSD: 115 T: -17 QT: 376 QTc: 431 Interpretive Statements ATRIAL FIBRILLATION INDETERMINATE AXIS INCOMPLETE RIGHT BUNDLE BRANCH BLOCK [90+ ms QRS DURATION, TERMINAL R IN V1/V2, 40+ ms S IN I/aVL/V4/V5/V6] Compared to ECG 01/21/2022 04:44:27 Indeterminate axis now present Electronically Signed On 03-24-2022 14:59:59 DIP LUBE OPERATOR by Bahman Lagos M.D. [email or web address]
--- NOTE | 2022-03-24 10:02 | XR_ITS ---
WS: [id number] Portable AP upright chest, 03/24/2022 Clinical Data: dyspnea/cough Comparison: Portable chest, 01/20/2022 Findings: No nodules, masses or effusions are seen. The heart is modestly large. There is probable mi tral valve calcification. The pulmonary vascularity is not increased. No pneumonia or pneumothorax is seen. There are monitor leads on the chest wall. XR/XR chest 1V portable [id number] Impression: Cardiomegaly and probable mitral valve calcification.
[2022-03-24 10:17] LABS: Basophils # 0.1 10^3/uL (0.0-0.1); Basophils % 1.9 %; Eosinophils # 0.6 10^3/uL (0.0-0.8); Eosinophils % 11.8 %; Hematocrit 36.9 % (37.0-47.0); Hemoglobin 10.6 g/dL (11.5-15.3); Lymphocytes % 19.2 %; Mean Corpuscular HGB Conc 28.7 g/dL (30.0-36.0); Mean Corpuscular Hemoglobin 23.8 pg (28.0-34.0); Mean Corpuscular Volume 82.7 fl (81-99); Mean Platelet Volume 10.6 fL (7.4-10.4); Monocytes # 0.7 10^3/uL (0.2-0.9); Monocytes % 13.7 %; Neutrophils # 2.81 10^3/uL (1.8-7.7); Neutrophils % 53.2 %; Nucleated Red Blood Cells % 0 %; Platelet Count 305 10^3/cmm (130-400); Red Blood Count 4.46 10^6/uL (4.1-5.3); Red Cell Distribution Width 17.1 % (12.1-15.1); White Blood Count 5.3 10^3/uL (4.0-10.0)
--- NOTE | 2022-03-24 10:27 | ED_ITS ---
HPI - General Adult General: Chief complaint: General Medical Stated complaint: LOWER EDEMA PAIN Time Seen by Provider: 03/24/22 09:53 Source: patient Mode of arrival: wheelchair History of Present Illness: 76-year-old female presents emergency room complaining of significant weight gain in the last week. Patient is on Bumex look like it is no was changed or was switched from Lasix to Bumex around 13 March according to the MAR sheet. Its not clear on the MAR sheet. Patient tells me she was taking Lasix before. She denies any chest pain she has significant edema of the lower extremities and has anasarca. She reports little to no urine output. Onset (ago): week(s) (1) Location: abdomen and lower extremity Severity: moderate Quality: aching Relieving factors: none Exacerbating factors: none Associated symptoms: Reports dyspnea and short of breath; Deny chest pain, confusion, cough, diaphoresis, decreased appetite, fevers/chills, headache(s), malaise, nausea, rash, palpitations, seizures, syncope, vomiting or weakness Review of Systems Const: Reports: fatigue; Denies: fever(s), chills, malaise or diaphoresis ENMT: Denies: throat pain, ear or mastoid pain, nasal discharge or nasal congestion Card: Reports: edema and swelling of feet/ankles; Denies: chest pain, palpitations or syncope Resp: Reports: dyspnea GI: Reports: abdominal pain; Denies: nausea or vomiting : Denies: flank pain, difficulty voiding, dysuria, urinary frequency or urinary urgency Skin/Breast: Denies: rash Neuro: Denies: headache(s) or confusion PFS ED PFSH: Medical History Acute hyperkalemia Anemia Anemia Anemia Ascites Body mass index (BMI) greater than 50 CHF (congestive heart failure) Chronic diastolic (congestive) heart failure Chronic kidney disease, stage 3, mod decreased GFR COPD (chronic obstructive pulmonary disease) COVID-19 vaccine administered Depression Essential hypertension Hematoma History of COVID-19 History of ESBL E. coli infection History of pulmonary embolism (~2017) saddle embolism Hyperlipidemia Hypersomnia Lymphedema Obstructive sleep apnea on CPAP On home oxygen therapy 4L continuous Paroxysmal atrial fibrillation Postmenopausal bleeding (~01/2020) requiring D&C Pulmonary hypertension Right-sided heart failure Surgical wound hemorrhage after dental procedure Type 2 diabetes mellitus reported diagnosis in SNF and hospital records but not on treatment, normal blood sugars Surgical History H/O oral surgery History of D&C (02/02/20) for postmenopausal bleeding Pacemaker Family History Other Family history unknown Social History Housing: Group Home Marital status: / Additional social history: - Tobacco use: Denies Alcohol use: Denies Drug use: Denies Physical Exam Const: COMMON NORMALS: no acute distress GENERAL APPEARANCE: cooperative and comfortable ORIENTATION/CONSCIOUSNESS: Yes awake, Yes oriented to person, Yes oriented to place and Yes oriented to time HENMT: COMMON NORMALS: normocephalic, atraumatic and hearing grossly normal bilaterally HEAD & SCALP: normocephalic and atraumatic Resp: COMMON NORMALS: normal respiratory effort, No retractions, No use of accessory muscles and clear to auscultation bilaterally AUSCULTATION: clear to auscultation bilaterally Cardio: COMMON NORMALS: regular rate, regular rhythm and No murmurs present (Cardio) RATE: regular rate RHYTHM: regular rhythm GI: COMMON NORMALS: Soft to palpation and No hepatosplenomegaly present AUSCULTATION: Yes normoactive bowel sounds PALPATION: Yes Soft to palpation, No Tenderness to palpation present (GI), No Guarding due to palpation present (GI) and Yes No hepatosplenomegaly present Extremity: OTHER: 3+ edema bilateral lower extremities with anasarca abdominal Neuro: SENSORIUM/ORIENTATION: Yes oriented to person, Yes oriented to place and Yes oriented to time Skin: COMMON NORMALS: no rashes or lesions noted GENERAL SKIN EXAM: no rashes or lesions noted Course Vital Signs: Vital signs: Vital Signs Temperature 97.8 F 03/24/22 09:59 Pulse Rate 81 03/24/22 15:05 Respiratory Rate 16 03/24/22 15:05 Blood Pressure 101/59 03/24/22 15:05 Pulse Oximetry 100 03/24/22 15:05 Oxygen Delivery Me thod 03/24/22 09:59 Oxygen Flow Rate 3 03/24/22 09:59 MDM - General Adult Medical Decision Making Movement of swelling with normal renal function Lynch placed she was given a total of 120 of Lasix. We will [place] discharge her I do not think she requires inpatient care at this time call and check to the [facility] they can do IV Lasix or leave the IV in place to give her metaxalone 5 mg 30 minutes prior to her Lasix dose Lasix 120 daily for the next 3 days Daily BMPs follow-up with her primary care doctor Medical Records I reviewed the patient's medical records. Lab Data I reviewed the patient's lab results. 03/24/22 10:10 03/24/22 10:10 Radiology Impressions Chest X-Ray 03/24/22 10:02 Impression: Cardiomegaly and probable mitral valve calcification. Laboratory Results WBC 5.3 10^3/uL (4.0-10.0) 03/24/22 10:10 RBC 4.46 10^6/uL (4.1-5.3) 03/24/22 10:10 Hgb 10.6 g/dL (11.5-15.3) L 03/24/22 10:10 Hct 36.9 % (37.0-47.0) L 03/24/22 10:10 MCV 82.7 fl (81-99) 03/24/22 10:10 MCH 23.8 pg (28.0-34.0) L 03/24/22 10:10 MCHC 28.7 g/dL (30.0-36.0) L 03/24/22 10:10 RDW 17.1 % (12.1-15.1) H 03/24/22 10:10 Plt Count 305 10^3/cmm (130-400) 03/24/22 10:10 MPV 10.6 fL (7.4-10.4) H 03/24/22 10:10 Neut % (Auto) 53.2 % 03/24/22 10:10 Lymph % (Auto) 19.2 % 03/24/22 10:10 [place] % (Auto) 13.7 % 03/24/22 10:10 Eos % (Auto) 11.8 % 03/24/22 10:10 Baso % (Auto) 1.9 % 03/24/22 10:10 Neut # (Auto) 2.81 10^3/uL (1.8-7.7) 03/24/22 10:10 Lymph # (Auto) 1.0 10^3/uL (0.8-4.8) 03/24/22 10:10 [place] # (Auto) 0.7 10^3/uL (0.2-0.9) 03/24/22 10:10 Eos # (Auto) 0.6 10^3/uL (0.0-0.8) 03/24/22 10:10 Baso # (Auto) 0.1 10^3/uL (0.0-0.1) 03/24/22 10:10 Nucleated RBC % (auto) 0 % 03/24/22 10:10 Nucleated RBCs # 0.0 /100WBC 03/24/22 10:10 Sodium 132 mmol/L (136-145) L 03/24/22 10:10 Potassium 4.5 mmol/L (3.5-5.1) 03/24/22 10:10 Chloride 95 mmol/L (98-107) L 03/24/22 10:10 Carbon Dioxide 24 mmol/L (22-29) 03/24/22 10:10 Anion Gap 17.5 (5-19) 03/24/22 10:10 BUN 48 mg/dL (8-23) H 03/24/22 10:10 Creatinine 0.6 mg/dL (0.5-0.9) 03/24/22 10:10 GFR Calculation Not Reportable 03/24/22 10:10 Glucose 107 mg/dL (65-115) 03/24/22 10:10 Calculated Osmolality 287 mOsm/kg (285-295) 03/24/22 10:10 Calcium 8.5 mg/dL (8.5-10.5) 03/24/22 10:10 Total Bilirubin 0.8 mg/dL (0.15-1.2) 03/24/22 10:10 AST 17 U/L (0-32) 03/24/22 10:10 ALT < 5 U/L (0-33) 03/24/22 10:10 Alkaline Phosphatase 110 U/L (35-105) H 03/24/22 10:10 Total Protein 7.1 g/dL (6.6-8.7) 03/24/22 10:10 Albumin 3.2 g/dL (3.5-5.2) L 03/24/22 10:10 Globulin 3.9 g/dL (1.3-4.6) 03/24/22 10:10 Urine Color Yellow (Yellow) 03/24/22 13:30 Urine Appearance Clear (CLEAR) 03/24/22 13:30 Urine pH 5 (5-7) 03/24/22 13:30 Ur Specific [place] 1.015 (1.005-1.030) 03/24/22 13:30 Urine Protein Neg (Negative) 03/24/22 13:30 Urine Glucose (UA) Norm (Normal) 03/24/22 13:30 Urine Ketones Negative (Negative) 03/24/22 13:30 Urine Blood Neg (Negative) 03/24/22 13:30 Urine Nitrate Negative (Negative) 03/24/22 13:30 Urine Bilirubin Neg (Negative) 03/24/22 13:30 Urine Urobilinogen Norm mg/dL (Negative) 03/24/22 13:30 Ur Leukocyte Esterase Negative (Negative) 03/24/22 13:30 Discharge Plan Discharge Patient Disposition: Home Clinical Impression: Anasarca Condition: Stable Prescriptions: New metolazone 5 mg tablet 5 mg PO DAILY Qty: 20 0RF Rx Instructions: Take 1 tablet 30 minutes prior to Lasix dose. No Action pantoprazole 40 mg Tablet,Delayed Release (Dr/Ec) 40 mg PO DAILY albuterol sulfate 90 mcg/actuation Hfa Aerosol Inhaler 1 puff INHALATION Q4H Rx Instructions: while awake budesonide-formoterol [Symbicort] 160-4.5 mcg/actuation Hfa Aerosol Inhaler 2 puff INHALATION BID acetaminophen 325 mg Tablet 650 mg PO Q4H PRN (Reason: mild pain or fever) citalopram 10 mg Tablet 10 mg PO DAILY tramadol 50 mg Tablet 50 mg PO Q6H PRN (Reason: Pain) polyethylene glycol 3350 [Miralax] 17 gram/dose Powder 17 g PO DAILY bisacodyl [Dulcolax (bisacodyl)] 10 mg Suppository 10 mg [place] DAILY PRN (Reason: constipation) fluticasone propionate [Flonase Allergy Relief] 50 mcg/actuation [place],Suspension 1 spray INTRANASAL BID PRN (Reason: allergic rhinitis) Eliquis 5 mg Tablet 5 mg PO BID Hold Instructions: Resume on 01/31/22. atorvastatin 40 mg Tablet 40 mg PO DAILY hydrocodone-acetaminophen 5-325 mg Tablet 1 tab PO Q4H PRN (Reason: Pain) ondansetron HCl 4 mg Tablet 4 mg PO Q4H PRN (Reason: Nausea) cephalexin 500 mg Capsule 500 mg PO Q8H Enema 19-7 gram/118 mL Enema 118 ml [place] DAILY PRN (Reason: Constipation) Culturelle 10 billion cell Capsule 1 cap PO DAILY chlorpheniramine-acetaminophen 2-325 mg Tablet 1 tab PO BID PRN (Reason: Allergic Rhinitis) bumetanide 1 mg Tablet 1 mg PO BID Qty: 10 0RF Discharge Orders: Discharge ED (Routine); Ordered 03/24/22 Ordered By: Baljeet Parada Referrals: Meredith Edgar MD [Primary Care Provider] - Discharge Diet: Usual diet Patient Instructions: Opioid Safety, Pain Management Activity Restrictions/Additional Instructions: You were seen today for fluid overload. Your laboratory studies were not significantly abnormal. You are anemic but it is actually improved from usual baseline. Your kidney function was your baseline. [facility] be [facility] with a Lynch catheter in place. You should hold your Bumex for the next 3 days. Take oral metolazone 5 mg, 30 minutes prior to a Lasix dose of 120 mg IV for the next 3 days, after 3 days resume the Bumex 4 mg daily. You should have daily basic metabolic profiles done which your primary care doctor can review. Coding Level of Care Code ED Purchasing And Fiscal Clerk for Chg Fwd Exam Detailed
[2022-03-24 10:50] LABS: Alanine Aminotransferase < 5 U/L (0-33); Albumin Level 3.2 g/dL (3.5-5.2); Alkaline Phosphatase 110 U/L (35-105); Anion Gap 17.5 (5-19); Aspartate Amino Transferase 17 U/L (0-32); Blood Urea Nitrogen 48 mg/dL (8-23); Calcium 8.5 mg/dL (8.5-10.5); Carbon Dioxide 24 mmol/L (22-29); Chloride 95 mmol/L (98-107); Globulin 3.9 g/dL (1.3-4.6); Glucose 107 mg/dL (65-115); Osmolality Calculated 287 mOsm/kg (285-295); Potassium 4.5 mmol/L (3.5-5.1); Sodium 132 mmol/L (136-145); Total Bilirubin 0.8 mg/dL (0.15-1.2); Total Protein 7.1 g/dL (6.6-8.7)
[2022-03-24] MEDS: FUROsemide 10 mg/mL SDV 10mL 80 MG IVP (13:41)
[2022-03-24 13:47] LABS: Add Urine Microscopic? NO; Charge for UA Resulting for Rev
[2022-03-24 13:54] LABS: Bilirubin Urine Neg (Negative); Blood Urine Neg (Negative); Glucose Urine UA Norm (Normal); Ketones Urine Negative (Negative); Leukocyte Esterase Urine Negative (Negative); Nitrate Urine Negative (Negative); Protein Urine Neg (Negative); Specific Gravity, Urine 1.015 (1.005-1.030); Urine Appearance Clear (CLEAR); Urine Color Yellow (Yellow); Urobilinogen Urine Norm (Negative); pH Urine 5 (5-7)
[2022-03-24] MEDS: FUROsemide 10 mg/mL SDV 4mL 40 MG IVP (15:07)
== END 2022-03-24 17:35 | disposition home or self-care (01) ==
PROVIDERS: Emergency Provider Family Medicine; PCP Family Medicine
DX: R60.1 Generalized edema (principal); Z79.01 Long term (current) use of anticoagulants; I13.0 Hypertensive heart and chronic kidney disease with heart failure and stage 1 through stage 4 chronic kidney disease, or unspecified chronic kidney disease; E11.22 Type 2 diabetes mellitus with diabetic chronic kidney disease; N18.30 Chronic kidney disease, stage 3 unspecified; I50.9 Heart failure, unspecified; J44.9 Chronic obstructive pulmonary disease, unspecified; E78.5 Hyperlipidemia, unspecified; Z95.0 Presence of cardiac pacemaker
CPT/HCPCS: 51702; 71045; 80053; 81003; 85025; 93005; 96374; 96376; 99284; J1940

== ENCOUNTER 2022-03-27 11:31 | Inpatient (IN) | payer MEDICARE, MEDICAID, SELFPAY ==
[2022-03-27] VITALS (12 sets, daily range): BP systolic 96–113; BP diastolic 58–81; PULSE 68–80; RESP 15–19; TEMP 36.5–36.6; O2SAT 90–99; BMI 45.7
--- NOTE | 2022-03-27 11:34 | ED_ITS ---
HPI - General Adult General: Chief complaint: Shortness of Breath/Dyspnea Stated complaint: general swelling Time Seen by Provider: 03/27/22 11:33 History of Present Illness: Ms. Elder is a 76-year-old lady with complex past medical history including chronic hypoxic respiratory failure, diabetes, anasarca, right-sided heart failure presenting to the emergency department due to concern of volume overload with abnormal lung sounds. She reports considerable weight gain over the past few months and multiple failed dose increases of Lasix. She was seen 1 week ago for similar and has not had improvement. She does have a Lynch catheter in place and is unsure of urine output. She endorses mild increased shortness of breath and increased lower extremity tenderness. Intensity symptoms is moderate. Course has worsened. No other specific changes in health, exacerbating, or alleviating factors identified. Onset (ago): week(s) Severity: moderate Quality: other Relieving factors: none Exacerbating factors: movement Associated symptoms: Reports dyspnea, malaise and other; Deny chest pain or cough Review of Systems General: Reports: 10 or more systems reviewed and unremarkable except in HPI and below Const: Reports: malaise Card: Denies: chest pain Resp: Reports: dyspnea PFSH ED PFSH: Medical History Acute hyperkalemia Anemia Anemia Anemia Ascites Body mass index (BMI) greater than 50 CHF (congestive heart failure) Chronic diastolic (congestive) heart failure Chronic kidney disease, stage 3, mod decreased GFR COPD (chronic obstructive pulmonary disease) COVID-19 vaccine administered Depression Essential hypertension Hematoma History of COVID-19 History of ESBL E. coli infection History of pulmonary embolism (~2017) saddle embolism Hyperlipidemia Hypersomnia Lymphedema Obstructive sleep apnea on CPAP On home oxygen therapy 4L continuous Paroxysmal atrial fibrillation Postmenopausal bleeding (~01/2020) requiring D&C Pulmonary hypertension Right-sided heart failure Surgical wound hemorrhage after dental procedure Type 2 diabetes mellitus reported diagnosis in SNF and hospital records but not on treatment, normal blood sugars Surgical History H/O oral surgery History of D&C (02/02/20) for postmenopausal bleeding Pacemaker Family History Other Family history unknown Social History Housing: [facility] Marital status: / Additional social history: - Tobacco use: Denies Alcohol use: Denies Drug use: Denies Physical Exam Const: COMMON NORMALS: alert GENERAL APPEARANCE: cooperative, well developed and ill appearing (Chronically) HENMT: COMMON NORMALS: normocephalic and atraumatic HEAD & SCALP: normocephalic and atraumatic Eye: COMMON NORMALS: conjunctivae normal CONJUNCTIVA: Yes conjunctivae normal SCLERA: sclerae normal Neck/C-Spine: COMMON NORMALS: supple GENERAL: Yes trachea midline Resp: EFFORT & INSPECTION: Yes able to speak in complete sentences and Yes tachypneic AUSCULTATION: rales Cardio: COMMON NORMALS: regular rate and regular rhythm RATE: regular rate RHYTHM: regular rhythm GI: COMMON NORMALS: Soft to palpation PALPATION: Yes Soft to palpation and No Tenderness to palpation present (GI) PERCUSSION: normal to percussion Extremity: GENERAL: Yes normal exam except as noted and Yes edema Neuro: COMMON NORMALS: moves all extremities SENSORIUM/ORIENTATION: Yes alert and No Orientation impaired Psych: COMMON NORMALS: mental status grossly normal and Normal thought process present THOUGHT PROCESS: Normal thought process present Course Vital Signs: Vital signs: Vital Signs Temperature 97.9 F 04/01/22 20:00 Pulse Rate 73 04/01/22 20:00 Respiratory Rate 16 04/01/22 20:00 Blood Pressure 110/70 04/01/22 20:00 Pulse Oximetry 96 04/01/22 20:00 Oxygen Delivery Me thod 04/01/22 20:00 Oxygen Flow Rate 3 04/01/22 20:00 [facility] - General Adult Medical Decision Making 76-year-old lady presenting with generalized swelling evidence of volume overload. Exam as above. There is clinical evidence of volume overload. EKG reports atrial fibrillation with controlled ventricle response, nonspecific ST segment abnormalities, no STEMI. Labs with no leukocytosis, normocytic anemia is present. Metabolic panel with elevated creatinine which meets EDITH criteria though patient does have a history of kidney disease. Initial troponin significantly elevated with your troponin similar. BNP is elevated. Chest x-ray demonstrates bilateral prominence concerning for fluid overload. No pneumothorax or lobar consolidation. Most likely etiology of patient symptoms acute on chronic heart failure with EDITH that has failed outpatient management. The results of ED evaluation were discussed with the patient including plan for admission due to requirement for level of care not available if discharged to prevent significant worsening/deterioration. Patient agreeable with plan. Discussed with hospitalist service who was agreeable to admit patient. Medical Records I reviewed the patient's medical records. Lab Data I reviewed the patient's lab results. 04/01/22 07:58 04/01/22 07:58 Radiology Impressions Chest X-Ray 03/27/22 11:59 IMPRESSION: 1. Very mild peribronchial wall thickening; query viral infection/bronchitis, chronic bronchitis and/or asthma. 2. Approximately unchanged cardiomegaly. Laboratory Results WBC 5.5 10^3/uL (4.0-10.0) 03/27/22 12:10 RBC 4.07 10^6/uL (4.1-5.3) L 03/27/22 12:10 Hgb 9.8 g/dL (11.5-15.3) L 03/27/22 12:10 Hct 33.9 % (37.0-47.0) L 03/27/22 12:10 MCV 83.3 fl (81-99) 03/27/22 12:10 MCH 24.1 pg (28.0-34.0) L 03/27/22 12:10 MCHC 28.9 g/dL (30.0-36.0) L 03/27/22 12:10 RDW 17.2 % (12.1-15.1) H 03/27/22 12:10 Plt Count 268 10^3/cmm (130-400) 03/27/22 12:10 MPV 10.6 fL (7.4-10.4) H 03/27/22 12:10 Neut % (Auto) 51.7 % 03/27/22 12:10 Lymph % (Auto) 19.2 % 03/27/22 12:10 Slope % (Auto) 14.5 % 03/27/22 12:10 Eos % (Auto) 12.0 % 03/27/22 12:10 Baso % (Auto) 2.4 % 03/27/22 12:10 Neut # (Auto) 2.85 10^3/uL (1.8-7.7) 03/27/22 12:10 Lymph # (Auto) 1.1 10^3/uL (0.8-4.8) 03/27/22 12:10 Slope # (Auto) 0.8 10^3/uL (0.2-0.9) 03/27/22 12:10 Eos # (Auto) 0.7 10^3/uL (0.0-0.8) 03/27/22 12:10 Baso # (Auto) 0.1 10^3/uL (0.0-0.1) 03/27/22 12:10 Nucleated RBC % (auto) 0 % 03/27/22 12:10 Nucleated RBCs # 0.0 /100WBC 03/27/22 12:10 Sodium 133 mmol/L (136-145) L 03/27/22 12:10 Potassium 4.8 mmol/L (3.5-5.1) 03/27/22 12:10 Chloride 93 mmol/L (98-107) L 03/27/22 12:10 Carbon Dioxide 26 mmol/L (22-29) 03/27/22 12:10 Anion Gap 18.8 (5-19) 03/27/22 12:10 BUN 58 mg/dL (8-23) H 03/27/22 12:10 Creatinine 2.3 mg/dL (0.5-0.9) H 03/27/22 12:10 GFR Calculation Not Reportable 03/27/22 12:10 Glucose 103 mg/dL (65-115) 03/27/22 12:10 Estimat Average Glucose 126 03/27/22 12:10 Hemoglobin A1c 6.0 % (4.0-6.0) 03/27/22 12:10 Calculated Osmolality 292 mOsm/kg (285-295) 03/27/22 12:10 Calcium 8.4 mg/dL (8.5-10.5) L 03/27/22 12:10 Magnesium 2.5 mg/dL (1.7-2.3) H 03/27/22 12:10 Total Bilirubin 0.6 mg/dL (0.15-1.2) 03/27/22 12:10 AST 18 U/L (0-32) 03/27/22 12:10 ALT 7 U/L (0-33) 03/27/22 12:10 Alkaline Phosphatase 101 U/L (35-105) 03/27/22 12:10 Troponin T Baseline 255 ng/L (0-10) H* 03/27/22 12:10 Troponin T 120 Minute 257.3 ng/L (0-10) H 03/27/22 15:10 Delta Troponin T 2.3 ABS# (0-10) 03/27/22 15:10 NT-Pro-B Natriuret Pep 33141 pg/mL (0-450) H 03/27/22 12:10 Total Protein 6.5 g/dL (6.6-8.7) L 03/27/22 12:10 Albumin 3.4 g/dL (3.5-5.2) L 03/27/22 12:10 Globulin 3.1 g/dL (1.3-4.6) 03/27/22 12:10 TSH 1.36 uIU/mL (0.27-4.20) 03/27/22 12:10 Discharge Plan Discharge Patient Disposition: Admitted As Inpatient Admit Provider: Redd Phipps Clinical Impression: Acute kidney injury, Pulmonary hypertension, Acute on chronic clinical systolic heart failure Condition: Stable Coding Level of Care Code ED Rag Collector for Chg Fwd Exam Comprehensive
--- NOTE | 2022-03-27 11:59 | XRR_ITS ---
PROCEDURE INFORMATION: Exam: XR Chest Exam date and time: 03/27/2022 12:04 PM Age: 76 years old Clinical indication: Shortness of breath. TECHNIQUE: Imaging protocol: Radiologic exam of the chest. Views: 1 view. COMPARISON: CR XR chest 1V portable [id number] 03/24/2022 10:20 AM FINDINGS: Lungs: Very mild peribronchial wall thickening. No pulmonary consolidation. Pleural spaces: No pleural effusion. No pneumothorax. Heart/Mediastinum: The cardiac silhouette is enlarged; similar to prior. Probable dense calcification in the mitral annulus. No gross evidence of pneumomediastinum. Bones/joints: No gross fracture. XR/XR chest 1V portable [id number] IMPRESSION: 1. Very mild peribronchial wall thickening; query viral infection/bronchitis, chronic bronchitis and/or asthma. 2. Approximately unchanged cardiomegaly.
[2022-03-27 12:17] LABS: Basophils # 0.1 10^3/uL (0.0-0.1); Basophils % 2.4 %; Eosinophils # 0.7 10^3/uL (0.0-0.8); Hematocrit 33.9 % (37.0-47.0); Hemoglobin 9.8 g/dL (11.5-15.3); Lymphocytes # 1.1 10^3/uL (0.8-4.8); Lymphocytes % 19.2 %; Mean Corpuscular HGB Conc 28.9 g/dL (30.0-36.0); Mean Corpuscular Hemoglobin 24.1 pg (28.0-34.0); Mean Corpuscular Volume 83.3 fl (81-99); Mean Platelet Volume 10.6 fL (7.4-10.4); Monocytes # 0.8 10^3/uL (0.2-0.9); Monocytes % 14.5 %; Neutrophils # 2.85 10^3/uL (1.8-7.7); Neutrophils % 51.7 %; Nucleated Red Blood Cells % 0 %; Platelet Count 268 10^3/cmm (130-400); Red Blood Count 4.07 10^6/uL (4.1-5.3); Red Cell Distribution Width 17.2 % (12.1-15.1); White Blood Count 5.5 10^3/uL (4.0-10.0)
--- NOTE | 2022-03-27 12:28 | ECG_ITS ---
[facility] Test Date: 2022-03-27 Pat Name: Kory Elder Department: Room: Gender: Female Land Checker: : 1945 Requested By: Yandel Vang Order Number: [id number] Lorraine MD: Seth Man M.D. Measurements Intervals [place] Rate: 71 P: 0 [place]: 0 QRS: 119 QRSD: 97 T: 59 QT: 403 QTc: 439 Interpretive Statements ATRIAL FIBRILLATION INDETERMINATE AXIS PATTERN CONSISTENT WITH PULMONARY DISEASE INCOMPLETE RIGHT BUNDLE BRANCH BLOCK [90+ ms QRS DURATION, TERMINAL R IN V1/V2, 40+ ms S IN I/aVL/V4/V5/V6] Compared to ECG 03/24/2022 10:41:08 No significant changes Electronically Signed On 03-28-2022 13:49:26 MANAGER CARDIOVASCULAR by Seth Man M.D. [email or web address]/store/[id number]
[2022-03-27 12:38] LABS: Troponin(5th) Baseline 255 ng/L (0-10)
[2022-03-27 12:46] LABS: Alanine Aminotransferase 7 U/L (0-33); Albumin Level 3.4 g/dL (3.5-5.2); Alkaline Phosphatase 101 U/L (35-105); Aspartate Amino Transferase 18 U/L (0-32); Blood Urea Nitrogen 58 mg/dL (8-23); Calcium 8.4 mg/dL (8.5-10.5); Carbon Dioxide 26 mmol/L (22-29); Chloride 93 mmol/L (98-107); Globulin 3.1 g/dL (1.3-4.6); Glucose 103 mg/dL (65-115); Magnesium 2.5 mg/dL (1.7-2.3); NT Pro B Type Natriuretic Pept 12109 pg/mL (0-450); Osmolality Calculated 292 mOsm/kg (285-295); Sodium 133 mmol/L (136-145); Total Bilirubin 0.6 mg/dL (0.15-1.2); Total Protein 6.5 g/dL (6.6-8.7)
[2022-03-27 12:48] LABS: Anion Gap 18.8 (5-19); Potassium 4.8 mmol/L (3.5-5.1)
--- NOTE | 2022-03-27 14:18 | ECG_ITS ---
[facility] Test Date: 2022-03-27 Pat Name: Kory Elder Department: Room: Gender: Female Wood Shop Teacher: : 1945 Requested By: Yandel Vang Order Number: [id number] Lorraine MD: Seth Man M.D. Measurements Intervals [place] Rate: 65 P: 0 [place]: 0 QRS: 198 QRSD: 104 T: 27 QT: 394 QTc: 412 Interpretive Statements ATRIAL FIBRILLATION INDETERMINATE AXIS PATTERN CONSISTENT WITH PULMONARY DISEASE INCOMPLETE RIGHT BUNDLE BRANCH BLOCK [90+ ms QRS DURATION, TERMINAL R IN V1/V2, 40+ ms S IN I/aVL/V4/V5/V6] Compared to ECG 03/27/2022 12:28:18 No significant changes Electronically Signed On 03-28-2022 13:53:13 YOUTH COORDINATOR by Seth Man M.D. [email or web address]/store/[id number]
--- NOTE | 2022-03-27 14:21 | USCV_ITS ---
Kory Elder Age: 76 Gender: F : 1945 Exam Date: 03/27/2022 15:51 Ordering Phys: Redd Phipps MD Technologist: Kishor Stevens Exam Location: [facility] Indication: ? rt side heart failure BP: 97 / 61 HR: 74 Rhythm: Sinus Technical Quality: Good MEASUREMENTS (Male / Female) Normal Values 2D ECHO LV Diastolic Diameter PLAX 3.5 cm 4.2 - 5.9 / 3.9 - 5.3 cm LV Systolic Diameter PLAX 1.4 cm IVS Diastolic Thickness 0.9 cm 0.6 - 1.0 / 0.6 - 0.9 cm IVS Systolic Thickness 1.4 cm LVPW Diastolic Thickness 1.4 cm 0.6 - 1.0 / 0.6 - 0.9 cm LVPW Systolic Thickness 1.4 cm LVOT Diameter 2.1 cm LV Ejection Fraction 2D Teich 89.3 % LV Ejection Fraction MOD 2C 58.6 % LV Ejection Fraction 2C AL 58.6 % LA Diameter 5.5 cm IVC Diameter 2.4 cm M-MODE Aortic Annulus Diameter 3.6 cm LA Ao Ratio MM 1.5 MV E Point Septal Separation 0.8 cm DOPPLER AV Peak Velocity 124.0 cm/s LVOT Peak Velocity 80.0 cm/s AV Area Cont Eq vti 2.2 cm squared AV Area Cont Eq pk 2.2 cm squared MV Area PHT 3.3 cm squared Mitral E to A Ratio 3.0 MV E' Velocity 45.0 cm/s Mitral E to MV E' Ratio 7.8 Mitral E to LV E' Lateral Ratio 8.0 Mitral E to LV E' Septal Ratio 7.7 TR Peak Velocity 388.0 cm/s TR Peak Gradient 60.2 mmHg TV Peak E Velocity 130.0 cm/s Right Atrial Pressure 3.0 mmHg Pulmonary Artery Systolic Pressu 63.2 mmHg RV Acceleration Time 0.1 s FINDINGS Left Ventricle Left ventricle is normal in size. LV systolic function is normal with EF of 55 to 60%. No regional wall motion abnormalities are seen. Right Ventricle RV is dilated and hypokinetic Right Atrium Normal in size Left Atrium Dilated Mitral Valve Moderate mitral annular calcification. Trace mitral regurgitation. Aortic Valve Aortic valve is thickened and calcified. No significant stenosis or regurgitation. Tricuspid Valve Mild tricuspid regurgitation. RVSP is more than 60mmHg. This is consistent with severe pulmonary hypertension. Pulmonic Valve Trace pulmonic regurgitation. Pericardium Normal Aorta Normal in size IVC Not well visualized. CONCLUSIONS LV systolic function is normal with EF of 55-60% RV is dilated and hypokinetic. Left atrial enlargement Trace mitral regurgitation Aortic valve is thickened and calcified. Mild tricuspid regurgitation. Severe pulmonary hypertension Trace pulmonic regurgitation Compared to prior echocardiogram from 09/04/2021, vegetation on aortic valve is not visualized. RV hypokinesis appears to be more significant Seth Man MD (Electronically Signed) Final Date: 27 March 2022 17:55 S
--- NOTE | 2022-03-27 14:22 | PM.HP ---
Providers/Chief Complaint Primary Care Provider: Meredith Edgar MD Chief Complaint: general swelling History of Present Illness Kory Elder is a 76 year old female with a past medical history diastolic CHF, history of pulm embolism, history of atrial fibrillation not on Eliquis?, Pulmonary hypertension, history of endocarditis, diabetes, sleep apnea, morbid obesity, who is a care home resident who presents [facility] as she is developed increased shortness of breath and bilateral from edema. She tells her that she is at the care home she does not ambulate, she is in a motorized scooter for the last 2 weeks she has developed increased bilateral extremity edema weeping edema with increased shortness of breath. Denies any chest pain denies any palpitations. She tells me that they have tried different regimens of Lasix, including Bumex without improvement. Back in 01/21/2022, she had acute blood loss anemia after dental extraction, and her Eliquis was held, not sure exactly why it was not resumed, so because it was supposed to be held for a week. We will have to check to the care home. She also had a 11 mm vegetation in the coronary cusp back in August, required transfer to [facility], I am not exactly sure what happened during that hospitalization the patient's not sure. In addition she is on Entresto, I am not exactly sure why Review of Systems Const: Denies: fever(s) or chills Card: Denies: chest pain Resp: Reports: dyspnea Musc: Denies: neck pain or back pain Medications/Allergies Home Medications Medication Instructions Recorded Confirmed Last Taken Type bisacodyl 10 mg rectal suppository 10 mg AK DAILY PRN constipation 01/31/20 03/27/22 Unknown History (Dulcolax (bisacodyl)) fluticasone propionate 50 1 spray intranasal BID PRN 01/31/20 03/27/22 09/03/21 History mcg/actuation nasal allergic rhinitis spray,suspension (Flonase Allergy Relief) albuterol sulfate 90 mcg/actuation 1 puff inhalation Q4H 03/02/20 03/27/22 03/27/22 History aerosol inhaler budesonide-formoterol HFA 160 2 puff inhalation BID 03/02/20 03/27/22 09/03/21 History mcg-4.5 mcg/actuation aerosol inhaler (Symbicort) pantoprazole 40 mg tablet,delayed 40 mg PO DAILY 03/02/20 03/27/22 03/27/22 History release acetaminophen 325 mg tablet 650 mg PO Q4H PRN mild pain or 02/08/21 03/27/22 02/05/21 History fever citalopram 10 mg tablet 10 mg PO DAILY 02/08/21 03/27/22 03/27/22 History polyethylene glycol 3350 17 17 g PO DAILY 02/08/21 03/27/22 03/27/22 History gram/dose oral powder (Miralax) tramadol 50 mg tablet 50 mg PO Q6H PRN Pain 02/08/21 03/27/22 09/03/21 History Lactobacillus rhamnosus GG 10 1 cap PO DAILY 01/21/22 03/27/22 03/27/22 History billion cell capsule (Culturelle) atorvastatin 40 mg tablet 40 mg PO DAILY 01/21/22 03/27/22 03/26/22 History cephalexin 500 mg capsule 500 mg PO Q8H 01/21/22 03/27/22 03/27/22 History chlorpheniramine-acetaminophen 2 1 tab PO BID PRN Allergic Rhinitis 01/21/22 03/27/22 Unknown History mg-325 mg tablet hydrocodone 5 mg-acetaminophen 325 1 tab PO Q4H PRN Pain 01/21/22 03/27/22 Unknown History mg tablet ondansetron HCl 4 mg tablet 4 mg PO Q4H PRN Nausea 01/21/22 03/27/22 03/27/22 History sodium phosphates 19 gram-7 118 ml AK DAILY PRN Constipation 01/21/22 03/27/22 Unknown History gram/118 mL enema (Enema) metolazone 5 mg tablet 5 mg PO DAILY #20 tabs 03/24/22 03/27/22 03/26/22 Rx albuterol sulfate 2.5 mg/3 mL 2.5 mg inhalation Q4H PRN 03/27/22 03/27/22 Unknown History (0.083 %) solution for nebulization Shortness Of Breath Or Wheezing bisacodyl 10 mg rectal suppository 10 mg AK DAILY PRN Constipation 03/27/22 03/27/22 Unknown History (Dulcolax (bisacodyl)) bumetanide 2 mg tablet 2 mg PO BID 03/27/22 03/27/22 03/24/22 History furosemide 10 mg/mL injection 120 mg IM DAILY 03/27/22 03/27/22 03/27/22 History solution sacubitril 24 mg-valsartan 26 mg 1 tab PO BID 03/27/22 03/27/22 03/27/22 History tablet (Entresto) Allergies Allergy/AdvReac Type Severity Reaction Status Date / Time meperidine [From Demerol] Allergy Intermediate unknown Verified 03/27/22 11:51 oxybutynin Allergy Mild Unknown Verified 03/27/22 11:51 pentazocine Allergy Mild Unknown Verified 03/27/22 11:51 PFSH Acute PFSH: Medical History Acute hyperkalemia Anemia Anemia Anemia Ascites Body mass index (BMI) greater than 50 CHF (congestive heart failure) Chronic diastolic (congestive) heart failure Chronic kidney disease, stage 3, mod decreased GFR COPD (chronic obstructive pulmonary disease) COVID-19 vaccine administered Depression Essential hypertension Hematoma History of COVID-19 History of ESBL E. coli infection History of pulmonary embolism (~2017) saddle embolism Hyperlipidemia Hypersomnia Lymphedema Obstructive sleep apnea on CPAP On home oxygen therapy 4L continuous Paroxysmal atrial fibrillation Postmenopausal bleeding (~01/2020) requiring D&C Pulmonary hypertension Right-sided heart failure Surgical wound hemorrhage after dental procedure Type 2 diabetes mellitus reported diagnosis in SNF and hospital records but not on treatment, normal blood sugars Surgical History H/O oral surgery History of D&C (02/02/20) for postmenopausal bleeding Pacemaker Family History Other Family history unknown Social History Housing: Longterm Marital status: / Additional social history: - Tobacco use: Denies Alcohol use: Denies Drug use: Denies Vitals/I&O/Wt Last Vital Signs Pulse 77 03/27/22 11:42 Resp 16 03/27/22 11:42 BP 106/58 03/27/22 11:42 Pulse Ox 94 03/27/22 11:42 O2 Del Method 03/27/22 11:42 O2 Flow Rate 4 03/27/22 11:42 Weight last 48 hrs Weight 124.738 kg Physical Exam Const: COMMON NORMALS: no acute distress and patient oriented x3 Eye: COMMON NORMALS: Equal, round and reactive pupils present and EOMs intact bilaterally Neck/C-Spine: COMMON NORMALS: no lymphadenopathy and no JVD Resp: COMMON NORMALS: normal respiratory effort, No retractions, No use of accessory muscles and clear to auscultation bilaterally AUSCULTATION: wheezes Cardio: COMMON NORMALS: regular rate, regular rhythm, S1 normal heart sound present and S2 normal heart sound present RATE: regular rate RHYTHM: regular rhythm HEART SOUNDS: S1 normal heart sound present and S2 normal heart sound present GI: COMMON NORMALS: Normal to inspection, nondistended, normoactive bowel sounds present, Soft to palpation, non-tender and No hepatosplenomegaly present Extremity: NARRATIVE EXTREMITY EXAM: 3+ pitting edema bilateral lower extremity Neuro: COMMON NORMALS: patient oriented x3 Psych: COMMON NORMALS: mental status grossly normal Data 03/27/22 12:10 03/27/22 12:10 A&P Assessment and plan (1) CHF exacerbation: (2) Diastolic CHF: (3) Pulmonary hypertension: (4) Acute on chronic clinical systolic heart failure: (5) Right-sided heart failure: Qualifiers: Heart failure chronicity: chronic Qualified Code(s): I50.812 - Chronic right heart failure (6) Diabetes mellitus: (7) DNR (do not resuscitate): (8) Body mass index (BMI) greater than 50: (9) Shortness of breath: (10) Anasarca: (11) Obstructive sleep apnea: (12) NSTEMI (non-ST elevated myocardial infarction): Plan Systolic and diastolic CHF exacerbation, fluid overload, anasarca -With underlying right-sided heart failure, pulmonary hypertension, systolic and diastolic CHF Plan -Admit to CSU -Fluid restrictions 1000 cc -Cardiac echo -Does have elevated troponins, NSTEMI, serial EKGs serial troponins telemetry monitoring, no chest pain complaints -She is not on Eliquis for atrial fibrillation? It was never resumed after her discharge, not sure why we will have to find of the care home -Telemetry monitoring, cardiac echo -Bumex 1 mg every 8 hours -Creatinine is elevated to 2.3 will need to monitor urine output, monitor potassium, monitor magnesium, -She might require dialysis if her fluid load does not prove or her creatinine worsens -A1c for type 2 diabetes mellitus however she is not on insulin any treatment for diabetes -I am not sure exactly why she is on Entresto? We will have to file for the care home -Has THANH, continue CPAP during the night -DNR/DNI -Lovenox for DVT prophylaxis Attestations Medical Necessity Statement*: patient requires hospitalization for fluid overload, systolic diastolic CHF exacerbation, inpatient, greater than 2 minutes, EDITH Coding Level of Care Code Acute Profile Saw Operator for [facility] Fwd Diagnoses CHF exacerbation I50.9 Diastolic CHF I50.30 Pulmonary hypertension I27.20 Acute on chronic clinical systolic heart failure I50.23 Right-sided heart failure I50.812 Heart failure chronicity: chronic Diabetes mellitus E11.9 DNR (do not resuscitate) Z66 Body mass index (BMI) greater than 50 Shortness of breath R06.02 Anasarca R60.1 Obstructive sleep apnea G47.33 NSTEMI (non-ST elevated myocardial infarction) I21.4
[2022-03-27 15:11] LABS: Estmated Average Glucose 126
[2022-03-27 15:58] LABS: Troponin 5 2HR 257.3 ng/L (0-10); Troponin 5 2HR Delta 2.3 ABS# (0-10)
[2022-03-27] MEDS: aspirin 81 mg EC Tablet PO (17:35)
[2022-03-27] MEDS: enoxaparin 40 mg/0.4 mL Syringe SUBCUT (17:35)
[2022-03-27] MEDS: bumetanide 0.25 mg/mL SDV 4 mL 1 MG IVP (17:36)
[2022-03-27] MEDS: albuterol 2.5 mg/3 mL Neb INHALATION (18:05)
[2022-03-27] MEDS: albumin 25 G/100 ML BAG 60 G IV (18:11)
--- NOTE | 2022-03-27 18:11 | ECG_ITS ---
[facility] Test Date: 2022-03-27 Pat Name: Kory Elder Department: Room: 112 Gender: Female Dermatology Physician: : 1945 Requested By: Yandel Vang Order Number: [id number] Lorraine MD: Seth Man M.D. Measurements Intervals [place] Rate: 78 P: 0 [place]: 0 QRS: 228 QRSD: 112 T: 18 QT: 388 QTc: 443 Interpretive Statements ATRIAL FIBRILLATION INDETERMINATE AXIS RIGHT BUNDLE BRANCH BLOCK [120+ ms QRS DURATION, UPRIGHT V1, 40+ ms S IN I/aVL/V4/V5/V6] POSSIBLE ANTERIOR MYOCARDIAL INFARCTION , PROBABLY OLD [30 ms Q WAVE IN V3/V4, OR R < 0.2 mV IN V4] Compared to ECG 03/27/2022 14:18:58 Right bundle-branch block now present Myocardial infarct finding now present Incomplete right bundle-branch block no longer present Electronically Signed On 03-28-2022 13:52:41 PRINT SHOP STENOGRAPHER by Seth Man M.D. [id number]
[2022-03-27 18:29] LABS: Thyroid Stimulating Hormone 1.36 uIU/mL (0.27-4.20)
[2022-03-27 19:08] LABS: Troponin 5 6HR Delta 5.2 ng/L (0-12)
[2022-03-27 19:09] LABS: Troponin 5 6HR 260.2 ng/L (0-10)
[2022-03-27 20:00] LABS: Glucose Point of Care 139 mg/dL (70-110)
[2022-03-27] MEDS: budesonide 0.5 mg/2 mL Neb INHALATION (21:47)
[2022-03-28] VITALS (146 sets, daily range): BP systolic 104–118; BP diastolic 52–74; PULSE 60–84; RESP 10–30; TEMP 36.4–36.9; O2SAT 82–100
[2022-03-28] MEDS: bumetanide 0.25 mg/mL SDV 4 mL 1 MG IVP ×3 (00:15→18:02)
[2022-03-28] MEDS: albumin 25 G/100 ML BAG 60 G IV ×3 (00:16→18:27)
[2022-03-28 03:00] LABS: Basophils # 0.1 10^3/uL (0.0-0.1); Basophils % 1.9 %; Eosinophils # 0.5 10^3/uL (0.0-0.8); Eosinophils % 10.5 %; Hematocrit 33.1 % (37.0-47.0); Hemoglobin 9.6 g/dL (11.5-15.3); Lymphocytes # 0.8 10^3/uL (0.8-4.8); Lymphocytes % 19.1 %; Mean Corpuscular Hemoglobin 24.2 pg (28.0-34.0); Mean Corpuscular Volume 83.6 fl (81-99); Mean Platelet Volume 10.8 fL (7.4-10.4); Monocytes # 0.6 10^3/uL (0.2-0.9); Monocytes % 14.9 %; Neutrophils # 2.29 10^3/uL (1.8-7.7); Neutrophils % 53.4 %; Nucleated Red Blood Cells % 0 %; Platelet Count 243 10^3/cmm (130-400); Red Blood Count 3.96 10^6/uL (4.1-5.3); Red Cell Distribution Width 17.3 % (12.1-15.1); White Blood Count 4.3 10^3/uL (4.0-10.0)
[2022-03-28 03:35] LABS: Anion Gap 18.3 (5-19); Blood Urea Nitrogen 60 mg/dL (8-23); Calcium 8.5 mg/dL (8.5-10.5); Carbon Dioxide 26 mmol/L (22-29); Chloride 99 mmol/L (98-107); Glucose 109 mg/dL (65-115); Magnesium 2.5 mg/dL (1.7-2.3); NT Pro B Type Natriuretic Pept 11936 pg/mL (0-450); Osmolality Calculated 305 mOsm/kg (285-295); Potassium 4.3 mmol/L (3.5-5.1); Sodium 139 mmol/L (136-145)
[2022-03-28 06:49] LABS: Glucose Point of Care 106 mg/dL (70-110)
[2022-03-28] MEDS: albuterol 2.5 mg/3 mL Neb INHALATION ×2 (08:40→21:35)
[2022-03-28] MEDS: budesonide 0.5 mg/2 mL Neb INHALATION ×2 (08:40→21:35)
[2022-03-28] MEDS: citalopram 20 mg Tablet 10 MG PO (08:58)
[2022-03-28] MEDS: pantoprazole DR 40 mg Tablet PO (08:58)
[2022-03-28] MEDS: atorvastatin 40 mg Tablet PO (08:59)
[2022-03-28] MEDS: aspirin 81 mg EC Tablet PO (08:59)
[2022-03-28 10:52] LABS: Glucose Point of Care 109 mg/dL (70-110)
--- NOTE | 2022-03-28 11:59 | PC.CHAP ---
Pastoral Care Encounter/Spiritual Assessment Type of Contact [] Declined quahogger visit [] Patient/Family/Request visit [] Outpatient visit [] Follow-up visit [] Physician referral [] Code/Alert [x] Routine visit [] Staff referral [] Actively dying [] Patient sleeping [] Family support [] [] Out of room [] Palliative care [] [x] Receiving care in room [] Pre-surgical visit [] Trauma [] Long length of stay [] ICU visit [] Other: Relational/Emotional Strength [] Patient feels connected with others/family/visitors/staff [] Distress [] Loneliness/isolation [] Abandonment Spirituality of Patient [] Person of Niki [] Attends Zoroastrianism of their Niki [] Believes in Prayer [] Reads Bible or Confucianism materials [] There are Spiritual issues to be addressed Halal [place]cher Interventions [] Prayer [] Active listening [] Non-anxious presence [] Spiritual/emotional support [] Crisis/trauma care [] Spiritual counseling [] Bereavement support [] Provided bereavement packet [] Provided Bible/devotional materials [] Provided toy/stuffed animal, coloring book to patient or family member [] Provided Communion [] Anointing/[place] [] Salvation [] Completed spiritual assessment [] Other: Impact on Illness or Injury [] Angry [] Fearful [] Anxious [] Often cries [] Exhaustion [] Unable to work [] Unable to attend adventist [] Unable to walk/stand [] Unable to read [] Unable to drive [] Unable to eat/drink [] Unable to sleep [] Unable to be with family [] Patient intubated [] Other: Summary Time spent with patient
[2022-03-28 16:25] LABS: Glucose Point of Care 133 mg/dL (70-110)
--- NOTE | 2022-03-28 16:26 | P.PN_ITS ---
Subjective Subjective: Patient was seen this morning, no fevers overnight, no chest pain, no shortness of breath she continues to have edema Vitals/I&O/Wt Last Vital Signs Temp 98.3 F 03/28/22 11:45 Pulse 79 03/28/22 13:15 Resp 16 03/28/22 13:15 BP 105/52 03/28/22 13:15 Pulse Ox 94 03/28/22 13:15 O2 Del Method 03/28/22 03:31 O2 Flow Rate 3 03/28/22 03:31 03/28/22 03/28/22 03/28/22 06:59 14:59 22:59 Intake Total 100 / 422 360 / 360 Output Total 300 / 1300 Balance -200 / -878 360 / 360 Weight last 48 hrs Weight 124.738 kg Physical Exam Const: COMMON NORMALS: no acute distress and patient oriented x3 Resp: COMMON NORMALS: normal respiratory effort, No retractions, No use of accessory muscles and clear to auscultation bilaterally AUSCULTATION: clear to auscultation bilaterally Cardio: COMMON NORMALS: regular rate, regular rhythm, S1 normal heart sound present and S2 normal heart sound present RATE: regular rate RHYTHM: regular rhythm HEART SOUNDS: S1 normal heart sound present and S2 normal heart sound present GI: COMMON NORMALS: Normal to inspection, nondistended, normoactive bowel sounds present and non-tender Extremity: NARRATIVE EXTREMITY EXAM: 2+ pitting edema bilateral extremity Neuro: COMMON NORMALS: patient oriented x3 Psych: COMMON NORMALS: mental status grossly normal Data 03/28/22 02:10 03/28/22 02:10 A&P Assessment and plan (1) CHF exacerbation: (2) Diastolic CHF: (3) Pulmonary hypertension: (4) Acute on chronic clinical systolic heart failure: (5) Right-sided heart failure: Qualifiers: Heart failure chronicity: chronic Qualified Code(s): I50.812 - Chronic right heart failure (6) Diabetes mellitus: (7) DNR (do not resuscitate): (8) Body mass index (BMI) greater than 50: (9) Shortness of breath: (10) Anasarca: (11) Obstructive sleep apnea: (12) NSTEMI (non-ST elevated myocardial infarction): Plan Systolic and diastolic CHF exacerbation, fluid overload, anasarca -With underlying right-sided heart failure, pulmonary hypertension, systolic and diastolic CHF Plan -Admit to CSU -Fluid restrictions 1000 cc -Cardiac echo LV systolic function is normal with EF of 55-60% ?RV is dilated and hypokinetic. ?Left atrial enlargement ?Trace mitral regurgitation ?Aortic valve is thickened and calcified. ?Mild tricuspid regurgitation. Severe pulmonary hypertension ?Trace pulmonic regurgitation ?Compared to prior echocardiogram from 09/04/2021, vegetation on ?aortic valve is not visualized. RV hypokinesis appears to be ?more significant -Does have elevated troponins, NSTEMI, serial EKGs serial troponins telemetry monitoring, no chest pain complaints -She is not on Eliquis for atrial fibrillation? It was never resumed after her discharge, not sure why we will have to find of the alf -Telemetry monitoring -Bumex 1 mg every 8 hours -Creatinine is elevated to 2.3 will need to monitor urine output, monitor potassium, monitor magnesium, -She might require dialysis if her fluid load does not prove or her creatinine worsens -A1c for type 2 diabetes mellitus however she is not on insulin any treatment for diabetes -I am not sure exactly why she is on Entresto? We will have to file for the alf -Has THANH, continue CPAP during the night -DNR/DNI -Lovenox for DVT prophylaxis Plan for today, start on therapeutic Lovenox, will reach out to patient's [facility] to find out why Eliquis was not resumed after her bleed after dental extraction it was supposed to, also figure out why she was started on Entresto its possibly for her right-sided heart failure Attestations Medical Necessity Statement*: Patient requires hospitalization for CHF exacerbation Coding Level of Care Code Acute Editing Intern for [facility] Fwd Diagnoses CHF exacerbation I50.9 Diastolic CHF I50.30 Pulmonary hypertension I27.20 Acute on chronic clinical systolic heart failure I50.23 Right-sided heart failure I50.812 Heart failure chronicity: chronic Diabetes mellitus E11.9 DNR (do not resuscitate) Z66 Body mass index (BMI) greater than 50 Shortness of breath R06.02 Anasarca R60.1 Obstructive sleep apnea G47.33 NSTEMI (non-ST elevated myocardial infarction) I21.4
[2022-03-28] MEDS: enoxaparin 120 mg/0.8 mL Syringe SUBCUT (18:02)
[2022-03-28] MEDS: sacubitril/valsartan 24-26 mg Tablet 1 EACH PO (18:07)
[2022-03-28 20:55] LABS: Glucose Point of Care 143 mg/dL (70-110)
[2022-03-29] VITALS (14 sets, daily range): BP systolic 104–121; BP diastolic 62–83; PULSE 65–83; RESP 15–20; TEMP 35.9–36.7; O2SAT 92–97
[2022-03-29] MEDS: bumetanide 0.25 mg/mL SDV 4 mL 1 MG IVP ×3 (00:58→16:48)
[2022-03-29] MEDS: albumin 25 G/100 ML BAG 60 G IV ×3 (01:00→18:50)
[2022-03-29 05:24] LABS: Blood Urea Nitrogen 65 mg/dL (8-23); Calcium 8.8 mg/dL (8.5-10.5); Carbon Dioxide 26 mmol/L (22-29); Glucose 114 mg/dL (65-115); NT Pro B Type Natriuretic Pept 13752 pg/mL (0-450)
[2022-03-29 06:23] LABS: Glucose Point of Care 113 mg/dL (70-110)
[2022-03-29] MEDS: albuterol 2.5 mg/3 mL Neb INHALATION ×2 (09:09→21:55)
[2022-03-29] MEDS: budesonide 0.5 mg/2 mL Neb INHALATION ×2 (09:09→21:55)
[2022-03-29] MEDS: atorvastatin 40 mg Tablet PO (09:55)
[2022-03-29] MEDS: aspirin 81 mg EC Tablet PO (09:55)
[2022-03-29] MEDS: sacubitril/valsartan 24-26 mg Tablet 1 EACH PO ×2 (09:55→17:17)
[2022-03-29] MEDS: pantoprazole DR 40 mg Tablet PO (10:00)
[2022-03-29] MEDS: citalopram 20 mg Tablet 10 MG PO (10:00)
[2022-03-29 11:08] LABS: Glucose Point of Care 124 mg/dL (70-110)
[2022-03-29 12:06] LABS: Osmolality Calculated 302 mOsm/kg (285-295); Sodium 136 mmol/L (136-145)
[2022-03-29 12:07] LABS: Chloride 96 mmol/L (98-107)
[2022-03-29] MEDS: acetaminophen 325 mg Tablet 650 MG PO (12:33)
[2022-03-29] MEDS: TRAMadol 50 mg Tablet PO (12:35)
--- NOTE | 2022-03-29 13:16 | PM.PN ---
Subjective Subjective: Patient was seen this morning, she tells me that she still feels short of breath, no chest pain, no palpitations, no lightheadedness, no dizziness Vitals/I&O/Wt Last Vital Signs Temp 97.8 F 03/29/22 07:39 Pulse 73 03/29/22 11:10 Resp 18 03/29/22 11:10 BP 112/64 03/29/22 11:10 Pulse Ox 97 03/29/22 11:10 O2 Del Method 03/29/22 09:19 O2 Flow Rate 3 03/29/22 09:19 03/28/22 03/29/22 03/29/22 22:59 06:59 14:59 Intake Total 240 / 600 100 / 700 700 / 700 Output Total 1850 / 1850 900 / 2750 1100 / 1100 Balance -1610 / -1250 -800 / -2050 -400 / -400 Physical Exam Const: COMMON NORMALS: no acute distress and patient oriented x3 Resp: COMMON NORMALS: normal respiratory effort, No retractions, No use of accessory muscles and clear to auscultation bilaterally AUSCULTATION: clear to auscultation bilaterally Cardio: COMMON NORMALS: regular rate, regular rhythm, S1 normal heart sound present and S2 normal heart sound present RATE: regular rate RHYTHM: regular rhythm HEART SOUNDS: S1 normal heart sound present and S2 normal heart sound present GI: COMMON NORMALS: Normal to inspection, nondistended, normoactive bowel sounds present and non-tender Extremity: NARRATIVE EXTREMITY EXAM: 1+ pitting edema Neuro: COMMON NORMALS: patient oriented x3 Psych: COMMON NORMALS: mental status grossly normal Data 03/28/22 02:10 03/29/22 04:20 A&P Assessment and plan (1) CHF exacerbation: (2) Diastolic CHF: (3) Pulmonary hypertension: (4) Acute on chronic clinical systolic heart failure: (5) Right-sided heart failure: Qualifiers: Heart failure chronicity: chronic Qualified Code(s): I50.812 - Chronic right heart failure (6) Diabetes mellitus: (7) DNR (do not resuscitate): (8) Body mass index (BMI) greater than 50: (9) Shortness of breath: (10) Anasarca: (11) Obstructive sleep apnea: (12) NSTEMI (non-ST elevated myocardial infarction): Plan Systolic and diastolic CHF exacerbation, fluid overload, anasarca -With underlying right-sided heart failure, pulmonary hypertension, systolic and diastolic CHF Plan -Admit to CSU -Fluid restrictions 1000 cc -Cardiac echo LV systolic function is normal with EF of 55-60% ?RV is dilated and hypokinetic. ?Left atrial enlargement ?Trace mitral regurgitation ?Aortic valve is thickened and calcified. ?Mild tricuspid regurgitation. Severe pulmonary hypertension ?Trace pulmonic regurgitation ?Compared to prior echocardiogram from 09/04/2021, vegetation on ?aortic valve is not visualized. RV hypokinesis appears to be ?more significant -Does have elevated troponins, NSTEMI, serial EKGs serial troponins telemetry monitoring, no chest pain complaints -She is not on Eliquis for atrial fibrillation? It was never resumed after her discharge, continue therapeutic Lovenox, can switch to Eliquis at discharge -Telemetry monitoring -Bumex 1 mg every 8 hours -1 dose of metolazone today -Creatinine is elevated to 2.3 will need to monitor urine output, monitor potassium, monitor magnesium, -She might require dialysis if her fluid load does not prove or her creatinine worsens -A1c for type 2 diabetes mellitus however she is not on insulin any treatment for diabetes -I am not sure exactly why she is on Entresto, resume -Has THANH, continue CPAP during the night -NSTEMI, baseline troponin 255 6-hour to260, no chest pain complaints, is on aspirin, statin, anticoagulation, echo as above, will monitor -DNR/DNI -Lovenox for DVT prophylaxis Plan for today, repeat CBC, add metolazone, monitor hemoglobin, monitor urine output, monitor diuresis, Attestations Medical Necessity Statement*: Patient requires hospitalization for CHF exacerbation, systolic diastolic requiring diuresis Coding Level of Care Code Acute Artificial Intelligence Specialist for [facility] Fwd Diagnoses CHF exacerbation I50.9 Diastolic CHF I50.30 Pulmonary hypertension I27.20 Acute on chronic clinical systolic heart failure I50.23 Right-sided heart failure I50.812 Heart failure chronicity: chronic Diabetes mellitus E11.9 DNR (do not resuscitate) Z66 Body mass index (BMI) greater than 50 Shortness of breath R06.02 Anasarca R60.1 Obstructive sleep apnea G47.33 NSTEMI (non-ST elevated myocardial infarction) I21.4
[2022-03-29 13:44] LABS: Basophils # 0.1 10^3/uL (0.0-0.1); Basophils % 1.5 %; Eosinophils # 0.2 10^3/uL (0.0-0.8); Eosinophils % 4.9 %; Hematocrit 32.1 % (37.0-47.0); Hemoglobin 9.5 g/dL (11.5-15.3); Lymphocytes # 0.6 10^3/uL (0.8-4.8); Lymphocytes % 13.2 %; Mean Corpuscular HGB Conc 29.6 g/dL (30.0-36.0); Mean Corpuscular Hemoglobin 24.1 pg (28.0-34.0); Mean Corpuscular Volume 81.5 fl (81-99); Mean Platelet Volume 10.7 fL (7.4-10.4); Monocytes # 0.5 10^3/uL (0.2-0.9); Monocytes % 10.9 %; Neutrophils # 3.25 10^3/uL (1.8-7.7); Neutrophils % 69.3 %; Nucleated Red Blood Cells % 0 %; Platelet Count 238 10^3/cmm (130-400); Red Blood Count 3.94 10^6/uL (4.1-5.3); Red Cell Distribution Width 17.3 % (12.1-15.1); White Blood Count 4.7 10^3/uL (4.0-10.0)
[2022-03-29] MEDS: metOLazone 5 MG Tablet PO (14:40)
[2022-03-29 16:43] LABS: Glucose Point of Care 132 mg/dL (70-110)
[2022-03-29] MEDS: enoxaparin 120 mg/0.8 mL Syringe SUBCUT (16:48)
[2022-03-29 21:34] LABS: Glucose Point of Care 127 mg/dL (70-110)
[2022-03-30] VITALS (11 sets, daily range): BP systolic 112–124; BP diastolic 60–105; PULSE 67–81; RESP 16–22; TEMP 36.1–36.6; O2SAT 92–100
[2022-03-30] MEDS: albumin 25 G/100 ML BAG 60 G IV ×2 (00:52→08:20)
[2022-03-30] MEDS: bumetanide 0.25 mg/mL SDV 4 mL 1 MG IVP ×3 (00:52→17:03)
[2022-03-30 05:11] LABS: Basophils # 0.1 10^3/uL (0.0-0.1); Basophils % 1.8 %; Eosinophils # 0.4 10^3/uL (0.0-0.8); Hematocrit 30.1 % (37.0-47.0); Hemoglobin 8.9 g/dL (11.5-15.3); Lymphocytes # 0.8 10^3/uL (0.8-4.8); Lymphocytes % 17.9 %; Mean Corpuscular HGB Conc 29.6 g/dL (30.0-36.0); Mean Corpuscular Hemoglobin 24.1 pg (28.0-34.0); Mean Corpuscular Volume 81.6 fl (81-99); Mean Platelet Volume 10.6 fL (7.4-10.4); Monocytes # 0.7 10^3/uL (0.2-0.9); Monocytes % 15.2 %; Neutrophils # 2.49 10^3/uL (1.8-7.7); Neutrophils % 55.9 %; Nucleated Red Blood Cells % 0 %; Platelet Count 218 10^3/cmm (130-400); Red Blood Count 3.69 10^6/uL (4.1-5.3); Red Cell Distribution Width 17.4 % (12.1-15.1); White Blood Count 4.5 10^3/uL (4.0-10.0)
[2022-03-30 05:37] LABS: Anion Gap 16.7 (5-19); Blood Urea Nitrogen 67 mg/dL (8-23); Calcium 8.9 mg/dL (8.5-10.5); Carbon Dioxide 28 mmol/L (22-29); Chloride 95 mmol/L (98-107); Glucose 98 mg/dL (65-115); NT Pro B Type Natriuretic Pept 18047 pg/mL (0-450); Osmolality Calculated 301 mOsm/kg (285-295); Potassium 3.7 mmol/L (3.5-5.1); Sodium 136 mmol/L (136-145)
[2022-03-30 06:48] LABS: Glucose Point of Care 100 mg/dL (70-110)
[2022-03-30] MEDS: albuterol 2.5 mg/3 mL Neb INHALATION ×2 (08:14→21:35)
[2022-03-30] MEDS: budesonide 0.5 mg/2 mL Neb INHALATION ×2 (08:14→21:35)
[2022-03-30] MEDS: atorvastatin 40 mg Tablet PO (08:20)
[2022-03-30] MEDS: citalopram 20 mg Tablet 10 MG PO (08:20)
[2022-03-30] MEDS: pantoprazole DR 40 mg Tablet PO (08:20)
[2022-03-30] MEDS: aspirin 81 mg EC Tablet PO (08:20)
[2022-03-30] MEDS: sacubitril/valsartan 24-26 mg Tablet 1 EACH PO ×2 (08:22→17:03)
[2022-03-30] MEDS: metOLazone 5 MG Tablet PO (09:04)
--- NOTE | 2022-03-30 11:15 | PC.SOCIAL ---
Imm update Imm updated with patient at bedside. Copy of page 2 provided. Patient verbalized understanding. Copy in chart initialed, dated and timed.
[2022-03-30 11:32] LABS: Glucose Point of Care 114 mg/dL (70-110)
--- NOTE | 2022-03-30 13:44 | P.PN_ITS ---
Subjective Subjective: Patient was seen this morning, she is feeling better, her edema is improving, she is still on 3 L, Vitals/I&O/Wt Last Vital Signs Temp 97.9 F 03/30/22 06:59 Pulse 81 03/30/22 11:04 Resp 22 H 03/30/22 11:04 BP 123/105 03/30/22 11:04 Pulse Ox 94 03/30/22 11:04 O2 Del Method 03/30/22 08:15 O2 Flow Rate 3 03/30/22 08:15 03/29/22 03/30/22 03/30/22 22:59 06:59 14:59 Intake Total 740 / 1440 100 / 1540 580 / 580 Output Total 350 / 1450 500 / 1950 Balance 390 / -10 -400 / -410 580 / 580 Physical Exam Const: COMMON NORMALS: no acute distress and patient oriented x3 Resp: COMMON NORMALS: normal respiratory effort, No retractions, No use of accessory muscles and clear to auscultation bilaterally AUSCULTATION: clear to auscultation bilaterally Cardio: COMMON NORMALS: regular rate, regular rhythm, S1 normal heart sound present and S2 normal heart sound present RATE: regular rate RHYTHM: regular rhythm HEART SOUNDS: S1 normal heart sound present and S2 normal heart sound present GI: COMMON NORMALS: Normal to inspection, nondistended, normoactive bowel sounds present, Soft to palpation, non-tender and no bruits PALPATION: Yes Soft to palpation Extremity: NARRATIVE EXTREMITY EXAM: 2+ pitting edema Neuro: COMMON NORMALS: patient oriented x3 Psych: COMMON NORMALS: mental status grossly normal Data 03/30/22 04:58 03/30/22 04:54 A&P Assessment and plan (1) CHF exacerbation: (2) Diastolic CHF: (3) Pulmonary hypertension: (4) Acute on chronic clinical systolic heart failure: (5) Right-sided heart failure: Qualifiers: Heart failure chronicity: chronic Qualified Code(s): I50.812 - Chronic right heart failure (6) Diabetes mellitus: (7) DNR (do not resuscitate): (8) Body mass index (BMI) greater than 50: (9) Shortness of breath: (10) Anasarca: (11) Obstructive sleep apnea: (12) NSTEMI (non-ST elevated myocardial infarction): Plan Systolic and diastolic CHF exacerbation, fluid overload, anasarca -With underlying right-sided heart failure, pulmonary hypertension, systolic and diastolic CHF Plan -Admit to CSU -Fluid restrictions 1000 cc -Cardiac echo LV systolic function is normal with EF of 55-60% ?RV is dilated and hypokinetic. ?Left atrial enlargement ?Trace mitral regurgitation ?Aortic valve is thickened and calcified. ?Mild tricuspid regurgitation. Severe pulmonary hypertension ?Trace pulmonic regurgitation ?Compared to prior echocardiogram from 09/04/2021, vegetation on ?aortic valve is not visualized. RV hypokinesis appears to be ?more significant -Does have elevated troponins, NSTEMI, serial EKGs serial troponins telemetry monitoring, no chest pain complaints -She is not on Eliquis for atrial fibrillation? It was never resumed after her discharge, continue therapeutic Lovenox, can switch to Eliquis at discharge -Telemetry monitoring -Is -3 L -Will discontinue albumin -Bumex 1 mg every 8 hours -1 dose of metolazone today -At spironolactone 25 mg once daily -Creatinine is elevated to 2.1 will need to monitor urine output, monitor potassium, monitor magnesium, -She might require dialysis if her fluid load does not prove or her creatinine worsens -A1c for type 2 diabetes mellitus however she is not on insulin any treatment for diabetes -I am not sure exactly why she is on Entresto, resume -Has THANH, continue CPAP during the night -NSTEMI, baseline troponin 255 6-hour to260, no chest pain complaints, is on aspirin, statin, anticoagulation, echo as above, will monitor -DNR/DNI -Lovenox for DVT prophylaxis Plan for today, continue diuresis, 1 dose metolazone add spironolactone, monitor hemoglobin monitor diuresis Attestations Medical Necessity Statement*: Patient requires half position for systolic diastolic CHF exacerbation fluid overload, anasarca Coding Level of Care Code Acute Chief Port Director for g Fwd Diagnoses CHF exacerbation I50.9 Diastolic CHF I50.30 Pulmonary hypertension I27.20 Acute on chronic clinical systolic heart failure I50.23 Right-sided heart failure I50.812 Heart failure chronicity: chronic Diabetes mellitus E11.9 DNR (do not resuscitate) Z66 Body mass index (BMI) greater than 50 Shortness of breath R06.02 Anasarca R60.1 Obstructive sleep apnea G47.33 NSTEMI (non-ST elevated myocardial infarction) I21.4
[2022-03-30] MEDS: spironolactone 25 mg Tablet PO (14:28)
[2022-03-30 16:37] LABS: Glucose Point of Care 108 mg/dL (70-110)
[2022-03-30] MEDS: enoxaparin 120 mg/0.8 mL Syringe SUBCUT (17:03)
[2022-03-30 20:11] LABS: Glucose Point of Care 141 mg/dL (70-110)
[2022-03-31] VITALS (10 sets, daily range): BP systolic 110–145; BP diastolic 69–82; PULSE 69–88; RESP 15–20; TEMP 36.3–37.1; O2SAT 89–98
[2022-03-31] MEDS: bumetanide 0.25 mg/mL SDV 4 mL 1 MG IVP ×3 (01:39→21:22)
[2022-03-31 05:00] LABS: Basophils # 0.1 10^3/uL (0.0-0.1); Basophils % 1.7 %; Eosinophils # 0.4 10^3/uL (0.0-0.8); Eosinophils % 8.8 %; Hematocrit 36.7 % (37.0-47.0); Hemoglobin 10.5 g/dL (11.5-15.3); Lymphocytes # 0.8 10^3/uL (0.8-4.8); Lymphocytes % 16.8 %; Mean Corpuscular HGB Conc 28.6 g/dL (30.0-36.0); Mean Corpuscular Hemoglobin 24.1 pg (28.0-34.0); Mean Corpuscular Volume 84.4 fl (81-99); Mean Platelet Volume 10.6 fL (7.4-10.4); Monocytes # 0.8 10^3/uL (0.2-0.9); Monocytes % 18.1 %; Neutrophils # 2.53 10^3/uL (1.8-7.7); Neutrophils % 54.4 %; Nucleated Red Blood Cells % 0 %; Platelet Count 213 10^3/cmm (130-400); Red Blood Count 4.35 10^6/uL (4.1-5.3); Red Cell Distribution Width 17.9 % (12.1-15.1); White Blood Count 4.7 10^3/uL (4.0-10.0)
[2022-03-31 05:38] LABS: Anion Gap 18.4 (5-19); Blood Urea Nitrogen 67 mg/dL (8-23); Calcium 9.3 mg/dL (8.5-10.5); Carbon Dioxide 27 mmol/L (22-29); Chloride 97 mmol/L (98-107); Glucose 101 mg/dL (65-115); NT Pro B Type Natriuretic Pept 16814 pg/mL (0-450); Osmolality Calculated 308 mOsm/kg (285-295); Potassium 3.4 mmol/L (3.5-5.1); Sodium 139 mmol/L (136-145)
[2022-03-31 05:42] LABS: Creatinine Clr Calc Pharmacy 32.9188
[2022-03-31 06:30] LABS: Glucose Point of Care 100 mg/dL (70-110)
[2022-03-31] MEDS: albuterol 2.5 mg/3 mL Neb INHALATION (08:07)
[2022-03-31] MEDS: budesonide 0.5 mg/2 mL Neb INHALATION ×2 (08:07→19:48)
[2022-03-31] MEDS: potassium chloride ER 20 mEq Tablet 40 MEQ PO (09:49)
[2022-03-31] MEDS: sacubitril/valsartan 24-26 mg Tablet 1 EACH PO ×2 (09:49→18:37)
[2022-03-31] MEDS: citalopram 20 mg Tablet 10 MG PO (09:49)
[2022-03-31] MEDS: pantoprazole DR 40 mg Tablet PO (09:50)
[2022-03-31] MEDS: spironolactone 25 mg Tablet PO (09:50)
[2022-03-31] MEDS: atorvastatin 40 mg Tablet PO (09:50)
[2022-03-31] MEDS: aspirin 81 mg EC Tablet PO (09:50)
[2022-03-31] MEDS: HYDROcodone-acetaminophen 5-325 mg Tablet 1 TAB PO (10:08)
[2022-03-31 10:59] LABS: Glucose Point of Care 122 mg/dL (70-110)
--- NOTE | 2022-03-31 15:16 | P.PN_ITS ---
Subjective Subjective: Ms. Elder was seen and examined this morning, she says that she feels somewhat better as compared to yesterday, Still she has cough and is bringing out whitish sputum.Currently requiring 3 to 4 L supplemental oxygen. Medications: Medication Review Details: Generic Name Dose Route Start Last Admin Trade Name Freq PRN Reason Stop Dose Admin Acetaminophen 650 mg 03/27/22 16:32 03/29/22 12:33 Acetaminophen 32 5 Mg Tablet PO 650 mg Q6H PRN Administration Mild/Mod Pain Or Temp >/= 101 Hydrocodone Bitart /Acetaminophen 1 tab 03/27/22 16:32 03/31/22 10:08 Hydrocodone-Acet aminophen 5-325 Mg Tablet PO 1 tab Q4H PRN Administration Pain Albuterol Sulfate 2.5 mg 03/27/22 17:59 03/31/22 08:07 Albuterol 2.5 Mg /3 Ml Neb INHALATION 2.5 mg Q4H.RESPIRATORY P RN Administration WHEEZING Aspirin 81 mg 03/27/22 16:32 03/31/22 09:50 Aspirin 81 Mg Ec Tablet PO 81 mg DAILY NEEMA Administration Atorvastatin Calci um 40 mg 03/28/22 09:00 03/31/22 09:50 Atorvastatin 40 Mg Tablet PO 40 mg DAILY NEEMA Administration Budesonide 0.5 mg 03/27/22 20:00 03/31/22 08:07 Budesonide 0.5 M g/2 Ml Neb INHALATION 0.5 mg BID.RESPIRATORY S CH Administration Citalopram Hydrobr omide 10 mg 03/28/22 09:00 03/31/22 09:49 Citalopram 20 Mg Tablet PO 10 mg DAILY NEEMA Administration Enoxaparin Sodium 120 mg 03/28/22 17:00 03/30/22 17:03 Enoxaparin 120 M g/0.8 Ml Syringe SUBCUT 120 mg Q24H NEEMA Administration Pantoprazole Sodiu m 40 mg 03/28/22 09:00 03/31/22 09:[address] 40 Mg Tablet PO 40 mg DAILY NEEMA Administration Sacubitril/Valsart an 1 each 03/28/22 18:00 03/31/22 09:49 Sacubitril/Valsa rtan 24-26 Mg Tabl et PO 1 each BID NEEMA Administration Spironolactone 25 mg 03/30/22 13:50 03/31/22 09:50 Spironolactone 2 5 Mg Tablet PO 25 mg DAILY NEEMA Administration Tramadol HCl 50 mg 03/27/22 16:32 03/29/22 12:35 Tramadol 50 Mg T ablet PO 50 mg Q6H PRN Administration Pain Vitals/I&O/Wt Last Vital Signs Temp 98.3 F 03/31/22 12:19 Pulse 80 03/31/22 12:19 Resp 17 03/31/22 12:19 BP 128/82 03/31/22 12:19 Pulse Ox 97 03/31/22 12:19 O2 Del Method 03/31/22 08:08 O2 Flow Rate 4 03/31/22 08:08 03/31/22 03/31/22 03/31/22 06:59 14:59 22:59 Intake Total 340 / 340 Output Total 800 / 2700 1200 / 1200 Balance -800 / -1760 -860 / -860 Physical Exam Resp: COMMON NORMALS: clear to auscultation bilaterally EFFORT & INSPECTION: Yes symmetric chest movement AUSCULTATION: clear to auscultation bilaterally Cardio: COMMON NORMALS: regular rate, regular rhythm, S1 normal heart sound present, S2 normal heart sound present, No gallops present (Cardio), No murmurs present (Cardio), No rub (Cardio) and Peripheral pulses 2+ throughout RATE: regular rate RHYTHM: regular rhythm HEART SOUNDS: S1 normal heart sound present and S2 normal heart sound present PERIPHERAL PULSES: Peripheral pulses 2+ throughout GI: COMMON NORMALS: Normal to inspection, nondistended, normoactive bowel sounds present, Soft to palpation, non-tender, No hepatosplenomegaly present and no masses AUSCULTATION: Yes normoactive bowel sounds PALPATION: Yes Soft to palpation and Yes No hepatosplenomegaly present RECTAL EXAM: deferred Extremity: NARRATIVE EXTREMITY EXAM: 1+ bilateral pitting edema present in both lower extremity Data 03/31/22 04:45 03/31/22 04:45 A&P Assessment and plan (1) CHF exacerbation: (2) Diastolic CHF: (3) Pulmonary hypertension: (4) Acute on chronic clinical systolic heart failure: (5) Right-sided heart failure: Qualifiers: Heart failure chronicity: chronic Qualified Code(s): I50.812 - Chronic right heart failure (6) Diabetes mellitus: (7) DNR (do not resuscitate): (8) Body mass index (BMI) greater than 50: (9) Shortness of breath: (10) Anasarca: (11) Obstructive sleep apnea: (12) NSTEMI (non-ST elevated myocardial infarction): (13) Mitral regurgitation: (14) Tricuspid regurgitation: (15) Pulmonic regurgitation: Plan ?76 year old female with past medical history of diastolic heart failure, PE, severe pulmonary hypertension with dilated and akinetic RV,paroxysmal atrial fibrillation on Eliquis, infective endocarditis,DM, sleep apnea morbid obesity was brought in from the group home with chief complaint of worsening shortness of breath, generalized swelling. Currently she is being managed for: Assessment: Decompensated heart failure with preserved ejection fraction Severe pulmonary hypertension with dilated and akinetic RV: NSTEMI : Patient has been any chest pain History of pulmonary embolism History of paroxysmal atrial fibrillation CKD stage 4 with EDITH likely secondary to cardiorenal syndrome Anasarca Morbid obesity Sleep apnea Diabetes Plan: 2D echo: Normal LV systolic function with LVEF of 55 to 60%, dilated and akinetic RV, severe pulmonary hypertension, mild TR, trace MR Continue Bumex 1 mg IV every 12, will plan to switch to oral Bumex, continue Entresto, spironolactone. For NSTEMI patient has: Currently denies chest pain, not on any aggressive intervention for now, continue aspirin and statin, on therapeu CKD stage 4 with EDITH likely secondary to cardiorenal syndrome: Monitor BMP, monitor intake output charting, avoid nephrotoxic's. Monitor electrolytes and correct accordingly For history of paroxysmal A. fib: Currently in sinus, continue telemetry monitoring For history of sleep apnea continue CPAP at night CODE STATUS: DNR/DNI DVT prophylaxis: Not needed on therapeutic Lovenox Attestations Medical Necessity Statement*: Patient is to be in hospital for management of heart failure, anasarca Time Spent in Patient Care: Greater than 35 minutes (>than 50% of time spent in counselling and/or direct pt care on unit) . Coding Level of Care Code Acute Switchboard Operator Receptionist for [employer] Fwd Exam Expanded Problem Focused Diagnoses CHF exacerbation I50.9 Diastolic CHF I50.30 Pulmonary hypertension I27.20 Acute on chronic clinical systolic heart failure I50.23 Right-sided heart failure I50.812 Heart failure chronicity: chronic Diabetes mellitus E11.9 DNR (do not resuscitate) Z66 Body mass index (BMI) greater than 50 Shortness of breath R06.02 Anasarca R60.1 Obstructive sleep apnea G47.33 NSTEMI (non-ST elevated myocardial infarction) I21.4 Mitral regurgitation I34.0 Tricuspid regurgitation I07.1 Pulmonic regurgitation I37.1
[2022-03-31 16:42] LABS: Glucose Point of Care 115 mg/dL (70-110)
[2022-03-31] MEDS: enoxaparin 120 mg/0.8 mL Syringe SUBCUT (18:37)
[2022-03-31] MEDS: guaiFENesin 600 mg Tablet PO (18:37)
[2022-03-31] MEDS: TRAMadol 50 mg Tablet PO (19:19)
[2022-03-31] MEDS: acetaminophen 325 mg Tablet 650 MG PO (19:19)
[2022-03-31 22:07] LABS: Glucose Point of Care 126 mg/dL (70-110)
[2022-04-01] VITALS (14 sets, daily range): BP systolic 95–122; BP diastolic 45–75; PULSE 67–81; RESP 13–21; TEMP 35.8–36.9; O2SAT 92–100
[2022-04-01 06:28] LABS: Glucose Point of Care 109 mg/dL (70-110)
[2022-04-01 08:06] LABS: Basophils # 0.1 10^3/uL (0.0-0.1); Basophils % 1.9 %; Eosinophils # 0.4 10^3/uL (0.0-0.8); Eosinophils % 10.1 %; Hematocrit 33.4 % (37.0-47.0); Hemoglobin 9.9 g/dL (11.5-15.3); Lymphocytes # 0.8 10^3/uL (0.8-4.8); Mean Corpuscular HGB Conc 29.6 g/dL (30.0-36.0); Mean Corpuscular Hemoglobin 24.3 pg (28.0-34.0); Mean Corpuscular Volume 81.9 fl (81-99); Mean Platelet Volume 11.7 fL (7.4-10.4); Monocytes # 0.7 10^3/uL (0.2-0.9); Monocytes % 16.3 %; Neutrophils # 2.23 10^3/uL (1.8-7.7); Neutrophils % 53.5 %; Nucleated Red Blood Cells % 0 %; Platelet Count 226 10^3/cmm (130-400); Red Blood Count 4.08 10^6/uL (4.1-5.3); Red Cell Distribution Width 17.9 % (12.1-15.1); White Blood Count 4.2 10^3/uL (4.0-10.0)
[2022-04-01 08:30] LABS: Anion Gap 17.7 (5-19); Blood Urea Nitrogen 65 mg/dL (8-23); Calcium 9.4 mg/dL (8.5-10.5); Carbon Dioxide 29 mmol/L (22-29); Chloride 97 mmol/L (98-107); Glucose 98 mg/dL (65-115); Osmolality Calculated 309 mOsm/kg (285-295); Potassium 3.7 mmol/L (3.5-5.1); Sodium 140 mmol/L (136-145)
[2022-04-01] MEDS: budesonide 0.5 mg/2 mL Neb INHALATION ×2 (08:55→19:53)
[2022-04-01] MEDS: albuterol 2.5 mg/3 mL Neb INHALATION (08:55)
--- NOTE | 2022-04-01 09:35 | PC.SOCIAL ---
IMM Update pg 2 of IMM updated and reviewed w/ patient. Copy provided and Copy in chart dated, and initialed.
[2022-04-01] MEDS: spironolactone 25 mg Tablet PO (09:53)
[2022-04-01] MEDS: citalopram 20 mg Tablet 10 MG PO (09:53)
[2022-04-01] MEDS: aspirin 81 mg EC Tablet PO (09:54)
[2022-04-01] MEDS: pantoprazole DR 40 mg Tablet PO (09:54)
[2022-04-01] MEDS: sacubitril/valsartan 24-26 mg Tablet 1 EACH PO ×2 (09:54→18:07)
[2022-04-01] MEDS: guaiFENesin 600 mg Tablet PO ×2 (09:54→18:07)
[2022-04-01] MEDS: atorvastatin 40 mg Tablet PO (09:54)
[2022-04-01] MEDS: bumetanide 0.25 mg/mL SDV 4 mL 1 MG IVP ×2 (09:55→21:58)
[2022-04-01 11:01] LABS: Glucose Point of Care 103 mg/dL (70-110)
[2022-04-01] MEDS: enoxaparin 120 mg/0.8 mL Syringe SUBCUT (12:04)
--- NOTE | 2022-04-01 15:18 | P.PN_ITS ---
Subjective Subjective: Ms. Elder was seen and examined this morning, states that her SOB has improved, but she was having active epsitaxsis,will hold eliquis for now. continue to make good urine output,saturating well on 3ls supplemental oxygen. Medications: Medication Review Details: Generic Name Dose Route Start Last Admin Trade Name Freq PRN Reason Stop Dose Admin Acetaminophen 650 mg 03/27/22 16:32 03/31/22 19:19 Acetaminophen 32 5 Mg Tablet PO 650 mg Q6H PRN Administration Mild/Mod Pain Or Temp >/= 101 Hydrocodone Bitart /Acetaminophen 1 tab 03/27/22 16:32 03/31/22 10:08 Hydrocodone-Acet aminophen 5-325 Mg Tablet PO 1 tab Q4H PRN Administration Pain Albuterol Sulfate 2.5 mg 03/27/22 17:59 04/01/22 08:55 Albuterol 2.5 Mg /3 Ml Neb INHALATION 2.5 mg Q4H.RESPIRATORY P RN Administration WHEEZING Aspirin 81 mg 03/27/22 16:32 04/01/22 09:54 Aspirin 81 Mg Ec Tablet PO 81 mg DAILY NEEMA Administration Atorvastatin Calci um 40 mg 03/28/22 09:00 04/01/22 09:54 Atorvastatin 40 Mg Tablet PO 40 mg DAILY NEEMA Administration Budesonide 0.5 mg 03/27/22 20:00 04/01/22 08:55 Budesonide 0.5 M g/2 Ml Neb INHALATION 0.5 mg BID.RESPIRATORY S CH Administration Bumetanide 1 mg 03/31/22 22:00 04/01/22 09:55 Bumetanide 0.25 Mg/Ml Sdv 4 Ml IVP 1 mg Q12H NEEMA Administration Citalopram Hydrobr omide 10 mg 03/28/22 09:00 04/01/22 09:53 Citalopram 20 Mg Tablet PO 10 mg DAILY NEEMA Administration Enoxaparin Sodium 120 mg 04/01/22 11:00 04/01/22 12:04 Enoxaparin 120 M g/0.8 Ml Syringe SUBCUT 120 mg Q12H NEEMA Administration Guaifenesin 600 mg 03/31/22 18:00 04/01/22 09:54 Guaifenesin 600 Mg Tablet PO 600 mg BID NEEMA Administration Pantoprazole Sodiu m 40 mg 03/28/22 09:00 04/01/22 09:[address] 40 Mg Tablet PO 40 mg DAILY NEEMA Administration Sacubitril/Valsart an 1 each 03/28/22 18:00 04/01/22 09:54 Sacubitril/Valsa rtan 24-26 Mg Tabl et PO 1 each BID NEEMA Administration Spironolactone 25 mg 03/30/22 13:50 04/01/22 09:53 Spironolactone 2 5 Mg Tablet PO 25 mg DAILY NEEMA Administration Tramadol HCl 50 mg 03/27/22 16:32 03/31/22 19:19 Tramadol 50 Mg T ablet PO 50 mg Q6H PRN Administration Pain Vitals/I&O/Wt Last Vital Signs Temp 97.9 F 04/01/22 12:11 Pulse 77 04/01/22 14:28 Resp 21 H 04/01/22 12:11 BP 112/62 04/01/22 12:11 Pulse Ox 96 04/01/22 14:28 O2 Del Method 04/01/22 08:56 O2 Flow Rate 3 04/01/22 14:28 04/01/22 04/01/22 04/01/22 06:59 14:59 22:59 Intake Total 280 / 280 Output Total 450 / 2450 Balance -450 / -1620 280 / 280 Physical Exam Resp: COMMON NORMALS: clear to auscultation bilaterally EFFORT & INSPECTION: Yes symmetric chest movement AUSCULTATION: clear to auscultation bilaterally Cardio: COMMON NORMALS: regular rate, regular rhythm, S1 normal heart sound present, S2 normal heart sound present, No gallops present (Cardio), No murmurs present (Cardio), No rub (Cardio) and Peripheral pulses 2+ throughout RATE: regular rate RHYTHM: regular rhythm HEART SOUNDS: S1 normal heart sound present and S2 normal heart sound present PERIPHERAL PULSES: Peripheral pulses 2+ throughout GI: COMMON NORMALS: Normal to inspection, nondistended, normoactive bowel sounds present, Soft to palpation, non-tender, No hepatosplenomegaly present and no masses AUSCULTATION: Yes normoactive bowel sounds PALPATION: Yes Soft to palpation and Yes No hepatosplenomegaly present RECTAL EXAM: deferred Extremity: NARRATIVE EXTREMITY EXAM: 1+ bilateral pitting edema present in both lower extremity Data 04/01/22 07:58 04/01/22 07:58 A&P Assessment and plan (1) CHF exacerbation: (2) Diastolic CHF: (3) Pulmonary hypertension: (4) Acute on chronic clinical systolic heart failure: (5) Right-sided heart failure: Qualifiers: Heart failure chronicity: chronic Qualified Code(s): I50.812 - Chronic right heart failure (6) Diabetes mellitus: (7) DNR (do not resuscitate): (8) Body mass index (BMI) greater than 50: (9) Shortness of breath: (10) Anasarca: (11) Obstructive sleep apnea: (12) NSTEMI (non-ST elevated myocardial infarction): (13) Mitral regurgitation: (14) Tricuspid regurgitation: (15) Pulmonic regurgitation: Plan ?76 year old female with past medical history of diastolic heart failure, PE, severe pulmonary hypertension with dilated and akinetic RV,paroxysmal atrial fibrillation on Eliquis, infective endocarditis,DM, sleep apnea morbid obesity was brought in from the skilled nursing with chief complaint of worsening shortness of breath, generalized swelling. Currently she is being managed for: Assessment: Decompensated heart failure with preserved ejection fraction Severe pulmonary hypertension with dilated and akinetic RV: NSTEMI : Patient has been any chest pain History of pulmonary embolism History of paroxysmal atrial fibrillation CKD stage 4 with EIDTH likely secondary to cardiorenal syndrome Anasarca Morbid obesity Sleep apnea Diabetes Epistaxis: Hold lovenox for now, may need nasal packing, TXA. Plan: 2D echo: Normal LV systolic function with LVEF of 55 to 60%, dilated and akinetic RV, severe pulmonary hypertension, mild TR, trace MR Continue Bumex 1 mg IV every 12, will plan to switch to oral Bumex, continue Entresto, spironolactone. For NSTEMI patient has: Currently denies chest pain, not on any aggressive intervention for now, continue aspirin and statin, on therapeu CKD stage 4 with EDITH likely secondary to cardiorenal syndrome: Monitor BMP, monitor intake output charting, avoid nephrotoxic's. Monitor electrolytes and correct accordingly For history of paroxysmal A. fib: Currently in sinus, continue telemetry monitoring For history of sleep apnea continue CPAP at night CODE STATUS: DNR/DNI DVT prophylaxis: Not needed on therapeutic Lovenox Attestations Medical Necessity Statement*: Patient needs to be in hospital for continued I.V Diuresis. Coding Level of Care Code Acute Benzene Still Utility Operator for Chg Fwd Exam Expanded Problem Focused Diagnoses CHF exacerbation I50.9 Diastolic CHF I50.30 Pulmonary hypertension I27.20 Acute on chronic clinical systolic heart failure I50.23 Right-sided heart failure I50.812 Heart failure chronicity: chronic Diabetes mellitus E11.9 DNR (do not resuscitate) Z66 Body mass index (BMI) greater than 50 Shortness of breath R06.02 Anasarca R60.1 Obstructive sleep apnea G47.33 NSTEMI (non-ST elevated myocardial infarction) I21.4 Mitral regurgitation I34.0 Tricuspid regurgitation I07.1 Pulmonic regurgitation I37.1
[2022-04-01 16:34] LABS: Glucose Point of Care 120 mg/dL (70-110)
[2022-04-01 20:45] LABS: Glucose Point of Care 131 mg/dL (70-110)
[2022-04-02 02:40] LABS: Basophils # 0.1 10^3/uL (0.0-0.1); Basophils % 1.2 %; Eosinophils # 0.4 10^3/uL (0.0-0.8); Eosinophils % 8.1 %; Hematocrit 31.1 % (37.0-47.0); Hemoglobin 9.1 g/dL (11.5-15.3); Lymphocytes # 0.9 10^3/uL (0.8-4.8); Lymphocytes % 17.7 %; Mean Corpuscular HGB Conc 29.3 g/dL (30.0-36.0); Mean Corpuscular Hemoglobin 23.7 pg (28.0-34.0); Mean Platelet Volume 11.7 fL (7.4-10.4); Monocytes # 0.8 10^3/uL (0.2-0.9); Monocytes % 15.2 %; Neutrophils # 2.83 10^3/uL (1.8-7.7); Neutrophils % 57.6 %; Nucleated Red Blood Cells % 0 %; Platelet Count 221 10^3/cmm (130-400); Red Blood Count 3.84 10^6/uL (4.1-5.3); Red Cell Distribution Width 17.9 % (12.1-15.1); White Blood Count 4.9 10^3/uL (4.0-10.0)
[2022-04-02 03:09] LABS: Anion Gap 15.7 (5-19); Blood Urea Nitrogen 69 mg/dL (8-23); Calcium 9.1 mg/dL (8.5-10.5); Carbon Dioxide 30 mmol/L (22-29); Chloride 96 mmol/L (98-107); Glucose 110 mg/dL (65-115); Osmolality Calculated 307 mOsm/kg (285-295); Potassium 3.7 mmol/L (3.5-5.1); Sodium 138 mmol/L (136-145)
[2022-04-02 04:00] VITALS: BP 118/73; PULSE 72; RESP 20; O2SAT 94
[2022-04-02 06:00] VITALS: PULSE 72
[2022-04-02 06:25] LABS: Glucose Point of Care 109 mg/dL (70-110)
[2022-04-02 06:52] VITALS: BP 136/84; PULSE 77; RESP 13; TEMP 36.6; O2SAT 94
[2022-04-02] MEDS: budesonide 0.5 mg/2 mL Neb INHALATION (08:45)
[2022-04-02 08:46] VITALS: PULSE 77; RESP 16; O2SAT 94
[2022-04-02] MEDS: atorvastatin 40 mg Tablet PO (10:03)
[2022-04-02] MEDS: aspirin 81 mg EC Tablet PO (10:03)
[2022-04-02] MEDS: citalopram 20 mg Tablet 10 MG PO (10:03)
[2022-04-02] MEDS: sacubitril/valsartan 24-26 mg Tablet 1 EACH PO (10:04)
[2022-04-02] MEDS: pantoprazole DR 40 mg Tablet PO (10:04)
[2022-04-02] MEDS: spironolactone 25 mg Tablet PO (10:04)
[2022-04-02] MEDS: bumetanide 0.25 mg/mL SDV 4 mL 1 MG IVP (10:04)
[2022-04-02] MEDS: guaiFENesin 600 mg Tablet PO (10:04)
[2022-04-02 11:46] VITALS: BP 109/71; PULSE 76; RESP 19
[2022-04-02 11:50] LABS: Glucose Point of Care 127 mg/dL (70-110)
--- NOTE | 2022-04-02 11:55 | P.DS_ITS ---
Discharge Providers Date of Admission: 03/27/22 16:32 Date of Discharge: April 02, 2022 Attending Provider at Admission: Redd Phipps MD Attending Provider at Discharge: Ezequiel Sharma MD Primary Care Provider: Meredith Edgar MD Diagnoses at Discharge Discharge Diagnosis (1) CHF exacerbation: Status: Acute (2) Diastolic CHF: Status: Acute (3) Pulmonary hypertension: Status: Acute (4) Acute on chronic clinical systolic heart failure: Status: Acute (5) Right-sided heart failure: Status: Acute Qualifiers: Heart failure chronicity: chronic Qualified Code(s): I50.812 - Chronic right heart failure (6) Diabetes mellitus: Status: Acute (7) DNR (do not resuscitate): Status: Acute (8) Body mass index (BMI) greater than 50: Status: Chronic (9) Shortness of breath: Status: Acute (10) Anasarca: Status: Acute (11) Obstructive sleep apnea: Status: Chronic Permanent problem details: on CPAP (12) NSTEMI (non-ST elevated myocardial infarction): Status: Acute (13) Mitral regurgitation: Status: Acute (14) Tricuspid regurgitation: Status: Acute (15) Pulmonic regurgitation: Status: Acute Reason for Visit Reason for Visit: general swelling Hospital Course Hospital Course 76 year old female with past medical history of diastolic heart failure, PE, severe pulmonary hypertension with dilated and akinetic RV,paroxysmal atrial fibrillation on Eliquis, infective endocarditis,DM, sleep apnea morbid obesity was brought in from the care home with chief complaint of worsening shortness of breath, generalized swelling.During the hospital stay she was managed for Decompensated heart failure with preserved ejection fraction,Severe pulmonary hypertension with dilated and akinetic RV: NSTEMI : Patient denied has been any chest pain, likely type II ,History of pulmonary embolism, History of paroxysmal atrial fibrillation, CKD stage 4 with EDITH likely secondary to cardiorenal syndrome, Anasarca, Morbid obesity, Sleep apnea, Diabetes, Epistaxis. 2D echo: Done during the hospital stay showed normal LV systolic function with LVEF of 55 to 60%, dilated and akinetic RV, severe pulmonary hypertension, mild TR, trace MR, she was kept on IV diuresis to which she responded fairly well, she was approximately 7 Ls negative prior to the discharge, shortness of breath and b/l lower extremity swelling had significantly improved, she was saturating well on her baseline supplemental oxygen of 3 Ls, at the time of discharge she was continued on p.o. Bumex 2 mg twice daily, for history of paroxysmal A. fib she was in sinus rhythm during the hospital stay, patient has not tolerated full dose anticoagulation for history of A. fib and DVT in the past, whenever she has been placed on full dose anticoagulation she starts having epistaxis, and this is what happened this time also, for now it has been decided that given her significant risk factor and being bedbound, it will be not a bad decision to try low-dose anticoagulation, she has been started on Eliquis 2.5 mg p.o. daily, if she continues to not tolerate low-dose anticoagulation, then it needs to be stopped.Patient has also agreed to follow cardiology as outpatient, along with her primary care physician.EDITH was improving prior to discharge Serum creatinine on discharge was 1.8. Overall she has responded fairly well to above medical management and is being discharged home in stable condition. Physical Exam Resp: COMMON NORMALS: clear to auscultation bilaterally EFFORT & INSPECTION: Yes symmetric chest movement AUSCULTATION: clear to auscultation bilaterally Cardio: COMMON NORMALS: regular rate, regular rhythm, S1 normal heart sound present, S2 normal heart sound present, No gallops present (Cardio), No murmurs present (Cardio), No rub (Cardio) and Peripheral pulses 2+ throughout RATE: regular rate RHYTHM: regular rhythm HEART SOUNDS: S1 normal heart sound present and S2 normal heart sound present PERIPHERAL PULSES: Peripheral pulses 2+ throughout GI: COMMON NORMALS: Normal to inspection, nondistended, normoactive bowel sounds present, Soft to palpation, non-tender, No hepatosplenomegaly present and no masses AUSCULTATION: Yes normoactive bowel sounds PALPATION: Yes Soft to palpation and Yes No hepatosplenomegaly present RECTAL EXAM: deferred Extremity: NARRATIVE EXTREMITY EXAM: 1+ bilateral pitting edema present in both lower extremity Discharge Data Studies Completed and Pending Completed Studies During Hospitalization Category Date Time Status XR chest 1V portable [id number] Stat Exams 03/27/22 11:59 Completed CV. echo complete* [id number] Stat Ultrasound 03/27/22 14:21 Completed Pending at discharge Category Date Time Status BMP [Basic Metabolic Panel] AM LABS Lab 04/03/22 04:00 Ordered CBC Auto Diff [Complete Blood Count w/Auto] AM LABS Lab 04/03/22 04:00 Ordered Radiology Impressions Chest X-Ray 03/27/22 11:59 IMPRESSION: 1. Very mild peribronchial wall thickening; query viral infection/bronchitis, chronic bronchitis and/or asthma. 2. Approximately unchanged cardiomegaly. Laboratory Results WBC 4.9 10^3/uL (4.0-10.0) 04/02/22 02:06 RBC 3.84 10^6/uL (4.1-5.3) L 04/02/22 02:06 Hgb 9.1 g/dL (11.5-15.3) L 04/02/22 02:06 Hct 31.1 % (37.0-47.0) L 04/02/22 02:06 MCV 81.0 fl (81-99) 04/02/22 02:06 MCH 23.7 pg (28.0-34.0) L 04/02/22 02:06 MCHC 29.3 g/dL (30.0-36.0) L 04/02/22 02:06 RDW 17.9 % (12.1-15.1) H 04/02/22 02:06 Plt Count 221 10^3/cmm (130-400) 04/02/22 02:06 MPV 11.7 fL (7.4-10.4) H 04/02/22 02:06 Neut % (Auto) 57.6 % 04/02/22 02:06 Lymph % (Auto) 17.7 % 04/02/22 02:06 [place] % (Auto) 15.2 % 04/02/22 02:06 Eos % (Auto) 8.1 % 04/02/22 02:06 Baso % (Auto) 1.2 % 04/02/22 02:06 Neut # (Auto) 2.83 10^3/uL (1.8-7.7) 04/02/22 02:06 Lymph # (Auto) 0.9 10^3/uL (0.8-4.8) 04/02/22 02:06 [place] # (Auto) 0.8 10^3/uL (0.2-0.9) 04/02/22 02:06 Eos # (Auto) 0.4 10^3/uL (0.0-0.8) 04/02/22 02:06 Baso # (Auto) 0.1 10^3/uL (0.0-0.1) 04/02/22 02:06 Nucleated RBC % (auto) 0 % 04/02/22 02:06 Nucleated RBCs # 0.0 /100WBC 04/02/22 02:06 Sodium 138 mmol/L (136-145) 04/02/22 02:06 Potassium 3.7 mmol/L (3.5-5.1) 04/02/22 02:06 Chloride 96 mmol/L (98-107) L 04/02/22 02:06 Carbon Dioxide 30 mmol/L (22-29) H 04/02/22 02:06 Anion Gap 15.7 (5-19) 04/02/22 02:06 BUN 69 mg/dL (8-23) H 04/02/22 02:06 Creatinine 1.8 mg/dL (0.5-0.9) H 04/02/22 02:06 GFR Calculation Not Reportable 04/02/22 02:06 Glucose 110 mg/dL (65-115) 04/02/22 02:06 POC Glucose 127 mg/dL (70-110) H 04/02/22 11:20 Estimat Average Glucose 126 03/27/22 12:10 Hemoglobin A1c 6.0 % (4.0-6.0) 03/27/22 12:10 Calculated Osmolality 307 mOsm/kg (285-295) H 04/02/22 02:06 Calcium 9.1 mg/dL (8.5-10.5) 04/02/22 02:06 Magnesium 2.5 mg/dL (1.7-2.3) H 03/28/22 02:10 Total Bilirubin 0.6 mg/dL (0.15-1.2) 03/27/22 12:10 AST 18 U/L (0-32) 03/27/22 12:10 ALT 7 U/L (0-33) 03/27/22 12:10 Alkaline Phosphatase 101 U/L (35-105) 03/27/22 12:10 Troponin T Baseline 255 ng/L (0-10) H* 03/27/22 12:10 Troponin T 120 Minute 257.3 ng/L (0-10) H 03/27/22 15:10 Delta Troponin T 2.3 ABS# (0-10) 03/27/22 15:10 Troponin T Hi Sens 6Hr 260.2 ng/L (0-10) H 03/27/22 17:59 Troponin T Hi Sens 6Hr Delta 5.2 ng/L (0-12) 03/27/22 17:59 NT-Pro-B Natriuret Pep 75498 pg/mL (0-450) H 03/31/22 04:45 Total Protein 6.5 g/dL (6.6-8.7) L 03/27/22 12:10 Albumin 3.4 g/dL (3.5-5.2) L 03/27/22 12:10 Globulin 3.1 g/dL (1.3-4.6) 03/27/22 12:10 TSH 1.36 uIU/mL (0.27-4.20) 03/27/22 12:10 Vitals Last Vital Signs Temp 97.8 F 04/02/22 06:52 Pulse 76 04/02/22 11:46 Resp 19 H 04/02/22 11:46 BP 109/71 04/02/22 11:46 Pulse Ox 94 04/02/22 08:46 O2 Del Method 04/02/22 08:46 O2 Flow Rate 3 04/02/22 08:46 Discharge Plan Discharge Patient Disposition: Xfer SNF Condition: Stable Prescriptions: New Eliquis 2.5 mg tablet 2.5 mg PO DAILY Qty: 30 1RF Continued pantoprazole 40 mg Tablet,Delayed Release (Dr/Ec) 40 mg PO DAILY albuterol sulfate 90 mcg/actuation Hfa Aerosol Inhaler 1 puff INHALATION Q4H Rx Instructions: while awake budesonide-formoterol [Symbicort] 160-4.5 mcg/actuation Hfa Aerosol Inhaler 2 puff INHALATION BID acetaminophen 325 mg Tablet 650 mg PO Q4H PRN (Reason: mild pain or fever) citalopram 10 mg Tablet 10 mg PO DAILY tramadol 50 mg Tablet 50 mg PO Q6H PRN (Reason: Pain) polyethylene glycol 3350 [Miralax] 17 gram/dose Powder 17 g PO DAILY bisacodyl [Dulcolax (bisacodyl)] 10 mg Suppository 10 mg DE DAILY PRN (Reason: constipation) fluticasone propionate [Flonase Allergy Relief] 50 mcg/actuation [place],Suspens ion 1 spray INTRANASAL BID PRN (Reason: allergic rhinitis) atorvastatin 40 mg Tablet 40 mg PO DAILY hydrocodone-acetaminophen 5-325 mg Tablet 1 tab PO Q4H PRN (Reason: Pain) ondansetron HCl 4 mg Tablet 4 mg PO Q4H PRN (Reason: Nausea) cephalexin 500 mg Capsule 500 mg PO Q8H Enema 19-7 gram/118 mL Enema 118 ml DE DAILY PRN (Reason: Constipation) Culturelle 10 billion cell Capsule 1 cap PO DAILY chlorpheniramine-acetaminophen 2-325 mg Tablet 1 tab PO BID PRN (Reason: Allergic Rhinitis) metolazone 5 mg tablet 5 mg PO DAILY Qty: 20 0RF Rx Instructions: Take 1 tablet 30 minutes prior to Lasix dose. albuterol sulfate 2.5 mg /3 mL (0.083 %) Solution For Nebulization 2.5 mg INHALATION Q4H PRN (Reason: Shortness Of Breath Or Wheezing) Dulcolax (bisacodyl) 10 mg Suppository 10 mg DE DAILY PRN (Reason: Constipation) Entresto 24-26 mg Tablet 1 tab PO BID bumetanide 2 mg Tablet 2 mg PO BID 30 Days Qty: 60 1RF Discontinued furosemide 10 mg/mL Solution 120 mg IM DAILY Discharge Orders: Discharge Order (Routine); Ordered 04/02/22 Ordered By: Ezequiel Sharma Referrals: [facility] [Outside] Meredith Edgar MD [Primary Care Provider] - Madelyn Jackson MD [Physician] - 1 month Patient Instructions: Opioid Safety Discharge Attestations Time Spent in Discharge Care*: greater than 30 min Quality Metrics Clinical Quality Measures [ No reported AMI, CVA or VTE this stay] Coding Level of Care Code Acute Chg FW DC note Diagnoses CHF exacerbation I50.9 Diastolic CHF I50.30 Pulmonary hypertension I27.20 Acute on chronic clinical systolic heart failure I50.23 Right-sided heart failure I50.812 Heart failure chronicity: chronic Diabetes mellitus E11.9 DNR (do not resuscitate) Z66 Body mass index (BMI) greater than 50 Shortness of breath R06.02 Anasarca R60.1 Obstructive sleep apnea G47.33 NSTEMI (non-ST elevated myocardial infarction) I21.4 Mitral regurgitation I34.0 Tricuspid regurgitation I07.1 Pulmonic regurgitation I37.1
[2022-04-02] MEDS: TRAMadol 50 mg Tablet PO (12:54)
[2022-04-02 14:06] VITALS: PULSE 76; RESP 19; O2SAT 94
[2022-04-02] MEDS: albuterol 2.5 mg/3 mL Neb INHALATION (14:06)
--- NOTE | 2022-04-02 14:14 | PC.NURSE ---
Report called to [facility].
== END 2022-04-02 15:15 | disposition skilled nursing facility (03) | DRG 280 ==
LOC: ER 13:23 → CSU 16:51
PROVIDERS: Admitting Provider Family Medicine; Emergency Provider Emergency Medicine; PCP Family Medicine; Visit Provider Internal Medicine
DX: I13.0 Hypertensive heart and chronic kidney disease with heart failure and stage 1 through stage 4 chronic kidney disease, or unspecified chronic kidney disease (principal); I21.4 Non-ST elevation (NSTEMI) myocardial infarction; I50.43 Acute on chronic combined systolic (congestive) and diastolic (congestive) heart failure; N18.4 Chronic kidney disease, stage 4 (severe); Z68.42 Body mass index [BMI] 45.0-49.9, adult; N17.9 Acute kidney failure, unspecified; I27.20 Pulmonary hypertension, unspecified; E11.22 Type 2 diabetes mellitus with diabetic chronic kidney disease; Z66 Do not resuscitate; G47.33 Obstructive sleep apnea (adult) (pediatric); I08.1 Rheumatic disorders of both mitral and tricuspid valves; Z86.711 Personal history of pulmonary embolism; I48.0 Paroxysmal atrial fibrillation; E66.01 Morbid (severe) obesity due to excess calories; Z79.51 Long term (current) use of inhaled steroids; Z79.891 Long term (current) use of opiate analgesic; Z99.89 Dependence on other enabling machines and devices; E78.5 Hyperlipidemia, unspecified; Z86.16 Personal history of COVID-19; D63.1 Anemia in chronic kidney disease
CPT/HCPCS: 36415; 36416; 51702; 71045; 80048; 80053; 81003; 82962; 83036; 83735; 83880; 84443; 84484; 85025; 93005; 93306; 94640; 94660; 94664; 96372; 96374; 96376; 99284; J1650; J1940; J3490; J7613; J7626; P9046

== ENCOUNTER 2022-04-28 17:39 | Emergency (ER) | payer MEDICARE, MEDICAID, SELFPAY ==
[2022-04-28] VITALS (41 sets, daily range): BP systolic 72–117; BP diastolic 45–81; PULSE 73–93; RESP 12–24; O2SAT 69–100
--- NOTE | 2022-04-28 18:06 | XRR_ITS ---
PROCEDURE INFORMATION: Exam: XR Chest Exam date and time: 04/28/2022 6:24 PM Age: 76 years old Clinical indication: Cough and shortness of breath; Additional info: Dyspnea/cough TECHNIQUE: Imaging protocol: Radiologic exam of the chest. Views: 1 view. COMPARISON: CR XR chest 1V portable [id number] 03/27/2022 12:04 PM FINDINGS: Lungs: Mild patchy infiltrate is seen in the upper right lung, new from prior exam. No consolidation. Pleural spaces: Unremarkable. No pleural effusion. No pneumothorax. Heart/Mediastinum: Cardiomegaly, as noted with prior exam. Mitral annular calcification, chronic with prior exam. Bones/joints: Unremarkable. XR/XR chest 1V portable [id number] IMPRESSION: Patchy infiltrate or pneumonia within the upper right lung, new from prior exam and for follow-up. Findings likely represent bacterial pneumonia though TB is mentioned with upper lobe infiltrate.
--- NOTE | 2022-04-28 18:06 | ECG_ITS ---
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 Measurements Intervals [place] Rate: 81 P: 0 HI: 0 QRS: -43 QRSD: 116 T: 15 QT: 364 QTc: 425 Interpretive Statements ATRIAL FIBRILLATION INDETERMINATE AXIS LOW QRS VOLTAGE IN PRECORDIAL LEADS [QRS DEFLECTION < 1.0 mV IN CHEST LEADS] INCOMPLETE RIGHT BUNDLE BRANCH BLOCK [90+ ms QRS DURATION, TERMINAL R IN V1/V2, 40+ ms S IN I/aVL/V4/V5/V6] INFERIOR MYOCARDIAL INFARCTION , PROBABLY OLD [40+ ms Q WAVE AND/OR ST/T ABNORMALITY IN II/aVF] Compared to ECG 03/27/2022 17:50:52 Low QRS voltage now present Incomplete right bundle-branch block now present Right bundle-branch block no longer present Myocardial infarct finding still present Electronically Signed On 04-29-2022 14:46:21 RISK ASSESSMENT ANALYST by Seth Man M.D. [id number]
[2022-04-28 18:29] LABS: Basophils # 0.1 10^3/uL (0.0-0.1); Basophils % 0.8 %; Eosinophils # 0.3 10^3/uL (0.0-0.8); Eosinophils % 5.2 %; Hemoglobin 9.4 g/dL (11.5-15.3); Lymphocytes # 0.6 10^3/uL (0.8-4.8); Mean Corpuscular HGB Conc 30.3 g/dL (30.0-36.0); Mean Corpuscular Hemoglobin 24.5 pg (28.0-34.0); Mean Corpuscular Volume 80.7 fl (81-99); Mean Platelet Volume 11.8 fL (7.4-10.4); Monocytes # 0.7 10^3/uL (0.2-0.9); Monocytes % 10.9 %; Neutrophils # 4.48 10^3/uL (1.8-7.7); Neutrophils % 73.3 %; Nucleated Red Blood Cells % 0 %; Platelet Count 208 10^3/cmm (130-400); Red Blood Count 3.84 10^6/uL (4.1-5.3); Red Cell Distribution Width 22.6 % (12.1-15.1); White Blood Count 6.1 10^3/uL (4.0-10.0)
--- NOTE | 2022-04-28 18:51 | W.ED.RECABL ---
HPI - Recheck/Abnormal Lab/Rx General: Chief Complaint: Recheck/Abnormal Lab/Rx Stated Complaint: ABNORMAL LABS Time Seen by Provider: 04/28/22 17:49 Source: patient and EMS Mode of arrival: EMS Limitations: altered mental status History of Present Illness: 76-year-old female who is here from a group home has a history of chronic kidney disease states they feel like she has been getting dehydrated they checked her labs and her BUN/creatinine did elevated from her baseline patient here is a very poor historian she seems confused to me she is tell me she is short of breath but not able to give me much history otherwise. No other complaints at this time. Denies any pain anywhere Review of Systems Const: Denies: fever(s), chills, body aches or change in appetite Eyes: Denies: blurry vision or eye discomfort ENMT: Denies: throat pain or dental pain Card: Denies: chest pain Resp: Reports: dyspnea GI: Denies: abdominal pain, nausea, vomiting or diarrhea : Denies: dysuria Musc: Denies: neck pain or back pain Skin/Breast: Denies: rash Neuro: Reports: weakness in extremities Psych: Denies: depression Kvng/Lymph: Denies: easy bruising All/Imm: Denies: urticaria PFSH ED PFSH: Medical History Acute hyperkalemia Acute kidney injury Acute on chronic clinical systolic heart failure Anasarca Anemia Anemia Anemia Ascites Body mass index (BMI) greater than 50 CHF (congestive heart failure) CHF exacerbation Chronic diastolic (congestive) heart failure Chronic kidney disease, stage 3, mod decreased GFR COPD (chronic obstructive pulmonary disease) COVID-19 vaccine administered Depression Diabetes mellitus Diastolic CHF DNR (do not resuscitate) Essential hypertension Hematoma History of COVID-19 History of ESBL E. coli infection History of pulmonary embolism (~2017) saddle embolism Hyperlipidemia Hypersomnia Lymphedema Mitral regurgitation NSTEMI (non-ST elevated myocardial infarction) Obstructive sleep apnea on CPAP On home oxygen therapy 4L continuous Paroxysmal atrial fibrillation Postmenopausal bleeding (~01/2020) requiring D&C Pulmonary hypertension Pulmonary hypertension Pulmonic regurgitation Right-sided heart failure Shortness of breath Surgical wound hemorrhage after dental procedure Tricuspid regurgitation Type 2 diabetes mellitus reported diagnosis in SNF and hospital records but not on treatment, normal blood sugars Surgical History H/O oral surgery History of D&C (02/02/20) for postmenopausal bleeding Pacemaker Family History Other Family history unknown Social History Housing: Intermediate Marital status: / Additional social history: - Tobacco use: Denies Alcohol use: Denies Drug use: Denies Physical Exam Const: COMMON NORMALS: alert; negative for patient oriented x3 EXAM LIMITATIONS: altered mental status GENERAL APPEARANCE: ill appearing ORIENTATION/CONSCIOUSNESS: Yes oriented to person; not oriented to place and not oriented to time HENMT: COMMON NORMALS: normocephalic and atraumatic HEAD & SCALP: normocephalic and atraumatic Eye: COMMON NORMALS: Equal, round and reactive pupils present and EOMs intact bilaterally PUPIL: Yes Equal, round and reactive pupils present Neck/C-Spine: COMMON NORMALS: full ROM and supple Chest: COMMONS NORMALS: normal inspection of the chest and normal palpation of entire chest wall Resp: COMMON NORMALS: normal respiratory effort, No retractions, No use of accessory muscles and clear to auscultation bilaterally AUSCULTATION: clear to auscultation bilaterally Cardio: COMMON NORMALS: regular rate, regular rhythm and No murmurs present (Cardio) RATE: regular rate RHYTHM: regular rhythm GI: COMMON NORMALS: Normal to inspection, nondistended, normoactive bowel sounds present, Soft to palpation, non-tender and no masses PALPATION: Yes Soft to palpation Extremity: COMMON NORMALS: normal to inspection and full ROM Neuro: COMMON NORMALS: moves all extremities and no focal motor deficits; negative for patient oriented x3 SENSORIUM/ORIENTATION: Yes alert, Yes oriented to person, No oriented to place and No oriented to time Psych: COMMON NORMALS: mental status grossly normal, Normal thought process present and cooperative THOUGHT PROCESS: Normal thought process present Skin: COMMON NORMALS: no rashes or lesions noted and no wounds GENERAL SKIN EXAM: no rashes or lesions noted Procedures Central Line Placement Right IJ: Time Out Performed: Yes Patient Placed on Monitor/Pulse Ox: Yes Prep: mask, gown and gloves Central Line Prep: Chlorhexidine scrub Local Anesthetic: lidocaine 1% Amount of anesthesia used (mL): 3 Ultrasound Used for Placement: Yes Central Line Lumen Inserted: triple Post Procedure: sutured in place, good blood return, all ports aspirated, flushed, capped and sterile dressing applied Post Procedure X-Ray: tip of catheter in good position and no pneumothorax seen Patient Tolerated Procedure: well Complications: none Course Vital Signs: Vital signs: Vital Signs Pulse Rate 80 04/28/22 21:10 Respiratory Rate 12 04/28/22 21:10 Blood Pressure 86/52 04/28/22 21:10 Pulse Oximetry 95 04/28/22 21:10 Oxygen Delivery Me thod 04/28/22 19:00 Oxygen Flow Rate 3 04/28/22 19:00 MDM - Recheck/Abnormal Lab/Rx Medical Decision Making Patient presents here with lab normalities from group home she does have acute kidney injury with elevated creatinine from her baseline some mild hyperkalemia patient is also profoundly hypotensive here had to start her on pressors x-ray showed a possible pneumonia but likely is pulmonary edema due to her kidney failure and elevated BNP spoke to [facility] and will transfer there for higher level of care as we do not have any ICU beds here. Lab Data 04/28/22 18:20 04/28/22 18:20 Radiology Impressions Chest X-Ray 04/28/22 20:36 IMPRESSION: Right internal jugular central venous line placement appearing in good position, as noted above. Laboratory Results WBC 6.1 10^3/uL (4.0-10.0) 04/28/22 18:20 RBC 3.84 10^6/uL (4.1-5.3) L 04/28/22 18:20 Hgb 9.4 g/dL (11.5-15.3) L 04/28/22 18:20 Hct 31.0 % (37.0-47.0) L 04/28/22 18:20 MCV 80.7 fl (81-99) L 04/28/22 18:20 MCH 24.5 pg (28.0-34.0) L 04/28/22 18:20 MCHC 30.3 g/dL (30.0-36.0) 04/28/22 18:20 RDW 22.6 % (12.1-15.1) H 04/28/22 18:20 Plt Count 208 10^3/cmm (130-400) 04/28/22 18:20 MPV 11.8 fL (7.4-10.4) H 04/28/22 18:20 Neut % (Auto) 73.3 % 04/28/22 18:20 Lymph % (Auto) 9.0 % 04/28/22 18:20 [place] % (Auto) 10.9 % 04/28/22 18:20 Eos % (Auto) 5.2 % 04/28/22 18:20 Baso % (Auto) 0.8 % 04/28/22 18:20 Neut # (Auto) 4.48 10^3/uL (1.8-7.7) 04/28/22 18:20 Lymph # (Auto) 0.6 10^3/uL (0.8-4.8) L 04/28/22 18:20 [place] # (Auto) 0.7 10^3/uL (0.2-0.9) 04/28/22 18:20 Eos # (Auto) 0.3 10^3/uL (0.0-0.8) 04/28/22 18:20 Baso # (Auto) 0.1 10^3/uL (0.0-0.1) 04/28/22 18:20 Nucleated RBC % (auto) 0 % 04/28/22 18:20 Nucleated RBCs # 0.0 /100WBC 04/28/22 18:20 PT 22.90 SECONDS (12.1-14.9) H 04/28/22 19:47 INR 1.99 (0.8-1.2) H 04/28/22 19:47 Specimen Type Arterial 04/28/22 20:49 Sample Site Brachial, right 04/28/22 20:49 ABG pH 7.37 (7.35-7.45) 04/28/22 20:49 ABG pCO2 37.4 mmHg (35-45) 04/28/22 20:49 ABG pO2 121.0 mmHg (80.0-100.0) H 04/28/22 20:49 ABG HCO3 21.8 mmol/L (22-26) L 04/28/22 20:49 ABG Base Excess -3.1 mmol/L (-2.0-2.0) L 04/28/22 20:49 Gerry Test N/a 04/28/22 20:49 Hematocrit 28.7 % (37-47) L 04/28/22 20:49 O2 Delivery Device Nc 04/28/22 20:49 O2 Liters/Min 5.0 % 04/28/22 20:49 FiO2 40.0 % 04/28/22 20:49 Legislators ID [email or web address] 04/28/22 20:49 Sodium 135 mmol/L (136-145) L 04/28/22 18:20 Potassium 5.8 mmol/L (3.5-5.1) H 04/28/22 18:20 Chloride 92 mmol/L (98-107) L 04/28/22 18:20 Carbon Dioxide 22 mmol/L (22-29) 04/28/22 18:20 Anion Gap 26.8 (5-19) H 04/28/22 18:20 BUN 124 mg/dL (8-23) H* D 04/28/22 18:20 Creatinine 5.4 mg/dL (0.5-0.9) H 04/28/22 18:20 GFR Calculation Not Reportable 04/28/22 18:20 Glucose 89 mg/dL (65-115) 04/28/22 18:20 Calculated Osmolality 319 mOsm/kg (285-295) H 04/28/22 18:20 Lactate 1.4 mmol/L (0.5-2.2) 04/28/22 18:20 Calcium 8.5 mg/dL (8.5-10.5) 04/28/22 18:20 Magnesium 2.7 mg/dL (1.7-2.3) H 04/28/22 18:20 Total Bilirubin 0.9 mg/dL (0.15-1.2) 04/28/22 18:20 AST 16 U/L (0-32) 04/28/22 18:20 ALT 7 U/L (0-33) 04/28/22 18:20 Alkaline Phosphatase 73 U/L (35-105) 04/28/22 18:20 NT-Pro-B Natriuret Pep 29155 pg/mL (0-450) H 04/28/22 18:20 Total Protein 7.1 g/dL (6.6-8.7) 04/28/22 18:20 Albumin 3.6 g/dL (3.5-5.2) 04/28/22 18:20 Globulin 3.5 g/dL (1.3-4.6) 04/28/22 18:20 EKG Data EKG 1: I personally reviewed and interpreted this EKG as follows: EKG interpretation date: 04/28/22 EKG interpretation time: 18:59 Interpretation: afib hr [address] or t wave abnormalities qrs 116 qtc 402 Critical Care Time Critical Care Time: Critical Care Time: Yes Total Critical Care Time: 45 Attestation: The high probability of a clinically significant, sudden or life threatening deterioration of the patient's renal system(s) required my full and direct attention, intervention and personal management. The critical care time is as shown. This time is in addition to time spent performing any reported procedures but includes the following: [x] Data and vital sign review and interpretation [x] Patient assessment, examination and intervention [x] Documentation [x] Medication orders and management Discharge Plan Discharge Patient Disposition: Admitted As Inpatient Clinical Impression: Acute hypotension, Acute kidney injury, Acute hyperkalemia Condition: Stable Prescriptions: No Action pantoprazole 40 mg Tablet,Delayed Release (Dr/Ec) 40 mg PO DAILY albuterol sulfate 90 mcg/actuation Hfa Aerosol Inhaler 1 puff INHALATION Q4H Rx Instructions: while awake budesonide-formoterol [Symbicort] 160-4.5 mcg/actuation Hfa Aerosol Inhaler 2 puff INHALATION BID acetaminophen 325 mg Tablet 650 mg PO Q4H PRN (Reason: mild pain or fever) citalopram 10 mg Tablet 10 mg PO DAILY tramadol 50 mg Tablet 50 mg PO Q6H PRN (Reason: Pain) polyethylene glycol 3350 [Miralax] 17 gram/dose Powder 17 g PO DAILY bisacodyl [Dulcolax (bisacodyl)] 10 mg Suppository 10 mg MI DAILY PRN (Reason: constipation) fluticasone propionate [Flonase Allergy Relief] 50 mcg/actuation [place],Suspension 1 spray INTRANASAL BID PRN (Reason: allergic rhinitis) atorvastatin 40 mg Tablet 40 mg PO DAILY hydrocodone-acetaminophen 5-325 mg Tablet 1 tab PO Q4H PRN (Reason: Pain) ondansetron HCl 4 mg Tablet 4 mg PO Q4H PRN (Reason: Nausea) cephalexin 500 mg Capsule 500 mg PO Q8H Enema 19-7 gram/118 mL Enema 118 ml MI DAILY PRN (Reason: Constipation) Culturelle 10 billion cell Capsule 1 cap PO DAILY chlorpheniramine-acetaminophen 2-325 mg Tablet 1 tab PO BID PRN (Reason: Allergic Rhinitis) metolazone 5 mg tablet 5 mg PO DAILY Qty: 20 0RF Rx Instructions: Take 1 tablet 30 minutes prior to Lasix dose. albuterol sulfate 2.5 mg /3 mL (0.083 %) Solution For Nebulization 2.5 mg INHALATION Q4H PRN (Reason: Shortness Of Breath Or Wheezing) Dulcolax (bisacodyl) 10 mg Suppository 10 mg MI DAILY PRN (Reason: Constipation) Entresto 24-26 mg Tablet 1 tab PO BID bumetanide 2 mg Tablet 2 mg PO BID 30 Days Qty: 60 1RF Eliquis 2.5 mg tablet 2.5 mg PO DAILY Qty: 30 1RF Referrals: Meredith Edgar MD [Primary Care Provider] - Coding Level of Care Code ED Study Abroad Advisor for Chg Fwd Exam Comprehensive
[2022-04-28 19:00] LABS: Alanine Aminotransferase 7 U/L (0-33); Albumin Level 3.6 g/dL (3.5-5.2); Alkaline Phosphatase 73 U/L (35-105); Anion Gap 26.8 (5-19); Aspartate Amino Transferase 16 U/L (0-32); Calcium 8.5 mg/dL (8.5-10.5); Carbon Dioxide 22 mmol/L (22-29); Chloride 92 mmol/L (98-107); Globulin 3.5 g/dL (1.3-4.6); Glucose 89 mg/dL (65-115); Magnesium 2.7 mg/dL (1.7-2.3); Potassium 5.8 mmol/L (3.5-5.1); Sodium 135 mmol/L (136-145); Total Bilirubin 0.9 mg/dL (0.15-1.2); Total Protein 7.1 g/dL (6.6-8.7)
[2022-04-28 19:04] LABS: Lactate (Lactic Acid level) 1.4 mmol/L (0.5-2.2)
[2022-04-28] MEDS: sodium chloride 0.9% 1,000 ML 999 ML IV (19:07)
[2022-04-28 19:21] LABS: Osmolality Calculated 319 mOsm/kg (285-295)
[2022-04-28] MEDS: dextrose 50% syringe 50 mL IVP (19:23)
[2022-04-28] MEDS: insulin regular-human 100 units/1 mL 10 UNIT IVP (19:23)
[2022-04-28 19:27] LABS: Blood Urea Nitrogen 124 mg/dL (8-23)
[2022-04-28] MEDS: cefTRIAXone 1,000 MG in sodium chloride 0.9% (plus) 50 ML 100 MG IV (19:30)
[2022-04-28] MEDS: azithromycin 500 MG in sodium chloride 0.9% 250 ML 250 MG IV (19:32)
[2022-04-28 20:27] LABS: INR 1.99 (0.8-1.2)
--- NOTE | 2022-04-28 20:36 | XRR_ITS ---
PROCEDURE INFORMATION: Exam: XR Chest Exam date and time: 04/28/2022 8:57 PM Age: 76 years old Clinical indication: Device placement; Other: Central line TECHNIQUE: Imaging protocol: Radiologic exam of the chest. Views: 1 view. COMPARISON: CR (CHEST, ) 04/28/2022 6:24 PM FINDINGS: Tubes, catheters and devices: A right internal jugular central venous catheter has been placed, with tip of the catheter appearing at the expected level of the junction of the superior vena cava and right atrium. Lungs: Patchy infiltrate is again seen in the right upper lobe. Pleural spaces: Unremarkable. No pleural effusion. No pneumothorax. Heart/Mediastinum: Cardiomegaly, as previously noted. Bones/joints: Unremarkable. XR/XR chest 1V portable [id number] IMPRESSION: Right internal jugular central venous line placement appearing in good position, as noted above.
[2022-04-28 20:57] LABS: ABG PCO2 37.4 mmHg (35-45); ABG PH Result 7.37 (7.35-7.45); Arterial Blood Gas Hematocrit 28.7 % (37-47); Base Excess ABG -3.1 mmol/L (-2.0-2.0); Blood Gas Sample Site Brachial, right; Blood Gas Sample Type Arterial; HCO3 ABG 21.8 mmol/L (22-26); Oxygen Device NC
--- NOTE | 2022-04-28 21:16 | PC.NURSE ---
Patient continues to be hypotensive with systolic in 70s. Dr Wen notified that pressure has not come up with a liter of ns, position change of cuff. Per Dr wen, Pt to get central line placed. Levo ordered for pt.
--- NOTE | 2022-04-28 21:38 | PC.NURSE ---
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 He is fine with transfer to [place]. Original Note: Attempted contact with son. @ [phone]- Left a voice mail for the son, Aldo to return call.
== END 2022-04-29 00:03 ==
PROVIDERS: Family Medicine; Emergency Provider Emergency Medicine; PCP Family Medicine
DX: E87.5 Hyperkalemia (principal); I95.9 Hypotension, unspecified; N17.9 Acute kidney failure, unspecified; Z79.01 Long term (current) use of anticoagulants; I13.0 Hypertensive heart and chronic kidney disease with heart failure and stage 1 through stage 4 chronic kidney disease, or unspecified chronic kidney disease; E11.22 Type 2 diabetes mellitus with diabetic chronic kidney disease; N18.30 Chronic kidney disease, stage 3 unspecified; I50.9 Heart failure, unspecified; J44.9 Chronic obstructive pulmonary disease, unspecified; E78.5 Hyperlipidemia, unspecified; I25.2 Old myocardial infarction; Z99.81 Dependence on supplemental oxygen
CPT/HCPCS: 36415; 36600; 71045; 80053; 82803; 83605; 83735; 83880; 85025; 85610; 87040; 93005; 96365; 96366; 96367; 96375; 99285; J0456; J0696; J1815; J7030; J7050; J7060